=== PATIENT | female | born 1975 | race Two or more races ===

== ENCOUNTER 2020-02-26 14:07 | Outpatient (REF) | payer OTHER, SELFPAY | END 2020-02-26 14:08 | disposition home or self-care (01) | LOC: HO.LAB 14:07 | PROVIDERS: PCP Internal Medicine; Visit Provider Internal Medicine | DX: Z20.828 Contact with and (suspected) exposure to other viral communicable diseases (principal) | CPT/HCPCS: 87635 ==

== ENCOUNTER 2020-03-29 23:20 | Emergency (ER) | payer OTHER, SELFPAY ==
[2020-03-30] MEDS: Eye Irrigation Solution 118 ML IRRIG.SOLN 1 APPL EYE-RIGHT (00:05)
[2020-03-30] MEDS: Fluorescein Sodium STRIP 1 STRIP EYE-RIGHT (00:05)
[2020-03-30 00:06] VITALS: BP 141/59; PULSE 84; RESP 16; TEMP 36.8; O2SAT 99; BMI 26.4
[2020-03-30] MEDS: Tetracaine HCl/PF 0.5% Oph Sol 4 ML DROPS 3 DROP EYE-RIGHT (00:06)
[2020-03-30] MEDS: Erythromycin Base 0.5% Oph Oin 1 GM TUBE 1 CM EYE-RIGHT (00:06)
--- NOTE | 2020-03-30 00:13 | ED_ITS ---
HPI - Eye Problem General Chief complaint: Eye Problems Stated complaint: Eye pain Time Seen by Provider: 03/29/20 23:52 Source: patient Mode of arrival: ambulatory Limitations: no limitations History of Present Illness HPI Narrative: 44-year-old female with type 1 diabetes presents with 3 days of right eye pain. She has more pain when closing her eye, and states that she may have gotten something in her eye that caused this pain. She has had no relief since the injury. She describes blurred vision because of constant tearing. chief complaint: eye pain and vision change ( Blurred) Onset (ago): day(s) (3) Onset description: sudden Duration: constant Location: right eye Eye Symptoms: burning, foreign body sensation and blurry vision Place: home Mechanism: direct trauma Severity: severe Severity scale (1-10): 10 If Pain, Quality: burning Associated symptoms: none Treatments Prior to Arrival: none Related Data Patient tetanus UTD: Yes Previous Rx's Medication Instructions Recorded permethrin 5 % topical cream 1 applic TOPICAL Q14D #60 g 02/26/20 flash glucose sensor #2 ea 03/22/20 erythromycin 0.5 inch OPHTHALMIC (EYE) Q4H 7 03/30/20 Days #3.5 g Allergies Allergy/AdvReac Type Severity Reaction Status Date / Time No Known Allergies Allergy Unverified 01/22/20 17:00 Review of Systems Review of Systems: Constitutional: No Fever, No Chills ENT/Mouth: No swallowing difficulty, no change in voice, no facial swelling Eyes: positive Eye Pain, No Swelling Cardiovascular: No Chest Pain, No SOB Respiratory: No Cough, No Sputum, No Wheezing, No Smoke Exposure, No Dyspnea Gastrointestinal: No Nausea, No Vomiting, No Diarrhea Genitourinary: No Dysuria Musculoskeletal: No Myalgias Skin: No rash Neuro: No Weakness, No Numbness, No Headache Yes all other systems are reviewed and are negative [facility] Past Medical History Attestation statement: The following information was validated with the patient. Medical History Diabetes type 1, uncontrolled Surgical History No pertinent past surgical history Family History Family History Father Diabetes Mother Diabetes Hypertension Social History Social History Alcohol intake: never Smoking Status: Never smoker Use of substances other than those prescribed or required for medical reasons: No Advance Directives: No Advance Directives Information Provided: No Physical Exam Vital Signs: Vital Signs: Last Vital Signs Temp 98.2 F 03/30/20 00:06 Pulse 86 03/30/20 00:41 Resp 16 03/30/20 00:41 BP 145/67 H 03/30/20 00:41 Pulse Ox 99 03/30/20 00:41 Body Mass Index 26.4 Appearance: Alert. Oriented X3. moderate distress. Eyes: Pupils equal, round and reactive to light. corneal abrasion noted to the right eye ENT: Pharynx normal. Neck: Normal inspection. Neck supple. CVS: Normal heart rate and rhythm. Pulses normal. Respiratory: No respiratory distress. Breath sounds normal. Abdomen: Soft and nontender. Skin: Skin warm and dry. Normal skin color. Normal skin turgor. Extremities: No lower extremity edema. Neuro: No motor deficit. No sensory deficit. Course Course Course Narrative: 44-year-old female with type 1 diabetes presents with right eye pain for 3 days. Feels like she had a foreign body prior to onset of the pain and now has difficulty closing the eye and has constant tearing. Three drops of tetracaine used, fluorescein, Wood's lamp at bedside, corneal abrasion noted to the right eye from the 3 o'clock position to the 9 o'clock position. Erythromycin eye ointment placed. Detailed description of eye care given, patient will follow-up with Dr. Tidwell via phone call For an appointment tomorrow. Patient has full range of motion, EOMI, PERLLA, no eye pain on movement. Tdap vaccine updated approximately 2 years ago. Patient verbalized understanding of and agrees to plan of care discharge home. MDM - Eye Problem Differential Diagnosis Differential diagnosis: Likely corneal abrasion, conjunctivitis, acute iritis, hyphema, periorbital cellulitis, subconjunctival hemorrhage, glaucoma, corneal ulcer and ruptured globe Medical Records Attestation: I reviewed the patient's medical records. Discharge Plan Discharge Clinical Impression: Corneal abrasion Qualifiers: Encounter type: initial encounter Laterality: right Qualified Code(s): S05.01XA - Injury of conjunctiva and corneal abrasion without foreign body, right eye, initial encounter Patient Disposition: Home, Self-Care Instructions: Corneal Abrasion (ED) Additional Instructions: you were evaluated for right eye pain. You have a right eye corneal abrasion. Please follow-up with Dr Tidwell tomorrow. Please call for an appointment. Wash hands before and after applying eye care. Use erythromycin eye appointment to the right eye every 4 hours while awake. Use Motrin and/or Tylenol as needed for pain management. Do not rub or scratch the eye. Thank you for choosing this emergency department for evaluation. Please follow-up with primary care physician as needed. Return to the emergency department for any new, concerning, or worsening symptoms. Prescriptions: New erythromycin 5 mg/gram (0.5 %) ointment 0.5 inch ophthalmic (eye) Q4H 7 Days Qty: 3.5 RF: 0 No Action (DME) [employer] 14 Day Sensor Kit See Rx Instructions .MEDSUPPLY Qty: 2 RF: 6 permethrin 5 % cream 1 applic topical Q14D Qty: 60 RF: 1 Referrals: Rubén Tidwell [Physician] - 2 days ( right corneal abrasion from the 3 o'clock to 9 o'clock position.) Interventions: ED Discharge Assessment Last Done: 03/30/20 00:39 Discharge Date/Time: 03/30/20 00:50
[2020-03-30 00:41] VITALS: BP 145/67; PULSE 86; RESP 16; O2SAT 99
--- NOTE | 2020-03-30 00:48 | PC.NURSE ---
eye assessment. pt has medication placed in her right eye due to a cornal abbrassion. right eye watery. left eye at baseline. 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
== END 2020-03-30 00:50 | disposition home or self-care (01) ==
LOC: HO.ED 03-30 00:26
PROVIDERS: Emergency Provider Internal Medicine; PCP Internal Medicine
DX: S05.01XA Injury of conjunctiva and corneal abrasion without foreign body, right eye, initial encounter (principal); H57.11 Ocular pain, right eye; E10.9 Type 1 diabetes mellitus without complications; X58.XXXA Exposure to other specified factors, initial encounter; Y93.9 Activity, unspecified; Y92.9 Unspecified place or not applicable; Y99.9 Unspecified external cause status; Z79.899 Other long term (current) drug therapy
CPT/HCPCS: 99283; 99284

== ENCOUNTER 2020-04-28 14:54 | Outpatient (REF) | payer OTHER, SELFPAY | END 2020-04-28 14:55 | disposition home or self-care (01) | LOC: HO.LAB 14:54 | PROVIDERS: PCP Internal Medicine; Visit Provider Internal Medicine | DX: Z20.828 Contact with and (suspected) exposure to other viral communicable diseases (principal) | CPT/HCPCS: C9803; U0003 ==

== ENCOUNTER 2020-05-12 11:19 | Outpatient (REF) | payer OTHER, SELFPAY | END 2020-05-12 11:20 | disposition home or self-care (01) | LOC: HO.LAB 11:19 | PROVIDERS: PCP Internal Medicine; Visit Provider Internal Medicine | DX: Z20.828 Contact with and (suspected) exposure to other viral communicable diseases (principal) | CPT/HCPCS: 36415; C9803; U0003 ==

== ENCOUNTER → 2020-05-17 09:28 | Outpatient (BNVA) | payer OTHER, SELFPAY | PROVIDERS: PCP Internal Medicine; Referring Provider Internal Medicine; Visit Provider Internal Medicine Endocrinology, Diabetes & Metabolism | DX: Z76.89 Persons encountering health services in other specified circumstances (principal) ==

== ENCOUNTER 2020-05-31 16:07 | Outpatient (REF) | payer OTHER, SELFPAY | END 2020-05-31 16:08 | disposition home or self-care (01) | LOC: HO.LAB 16:07 | PROVIDERS: Visit Provider Internal Medicine | DX: Z20.822 Contact with and (suspected) exposure to COVID-19 (principal) | CPT/HCPCS: 36415; C9803; U0003 ==

== ENCOUNTER 2020-06-04 17:13 | Emergency (ER) | payer OTHER, SELFPAY ==
[2020-06-04 17:18] VITALS: BP 202/87; PULSE 81; RESP 16; TEMP 36.8; O2SAT 99; BMI 26.5
--- NOTE | 2020-06-04 17:55 | ED.HA ---
HPI - Headache General Chief Complaint: Headache Stated Complaint: migraines Time Seen by Provider: 06/04/20 17:51 Source: patient Mode of arrival: ambulatory Limitations: no limitations History of Present Illness HPI Narrative: Patient with history of recurrent migraine headaches complaining of headache since morning similar to her previous headache was localized mostly the frontal part patient with nausea and vomiting photosensitivity patient denies any fever or neck pain Related Data Home Medications Medication Instructions Recorded Confirmed atorvastatin 20 mg tablet 20 mg PO BEDTIME 04/22/20 05/17/20 hydroxyzine HCl 25 mg tablet 25 mg PO BID PRN 04/22/20 05/17/20 levothyroxine 100 mcg tablet 100 mcg PO DAILY 04/22/20 05/17/20 citalopram 20 mg tablet 20 mg PO DAILY 05/17/20 05/17/20 doxepin 75 mg capsule 75 mg PO BEDTIME 05/17/20 05/17/20 Previous Rx's Medication Instructions Recorded permethrin 5 % topical cream 1 applic TOPICAL Q14D #60 g 02/26/20 flash glucose sensor #2 ea 03/22/20 erythromycin 0.5 inch OPHTHALMIC (EYE) Q4H 7 03/30/20 Days #3.5 g insulin glargine U-300 conc 300 20 unit SUBCUT DAILY #4.5 ml 04/19/20 unit/mL (1.5 mL) subcutaneous pen gabapentin 300 mg capsule 300 mg PO TID 30 Days #90 cap 04/22/20 lisinopril 10 mg tablet 10 mg PO DAILY 90 Days #90 tab 04/22/20 metoclopramide HCl 5 mg tablet 5 mg PO TID 30 Days #90 tab 04/22/20 albuterol sulfate 90 mcg/actuation 2 inh INHALATION Q6H PRN 30 Days 05/25/20 breath activated powder inhaler #1 ea Allergies Allergy/AdvReac Type Severity Reaction Status Date / Time No Known Allergies Allergy Verified 04/22/20 08:44 Review of Systems Review of Systems: Constitutional : No Weight loss, No Fever, No Chills ENT/Mouth : No sore throat, No Rhinorrhea Eyes: No Eye Pain, No Swelling Cardiovascular : No Chest Pain, no palpitations Respiratory : No Cough, No Sputum, no shortness of breath Gastrointestinal : + Nausea, +Vomiting, No Diarrhea, No abdominal Pain, no black stools Genitourinary : No Dysuria, No Urinary Frequency Musculoskeletal : No joint pain, No Myalgias, No Joint Swelling Skin : No Skin Lesions, No rash Neuro : No Weakness, No Numbness, No Dizziness, ++ Headache Psych : No Anxiety/Panic, No Depression Heme/Lymph: No Bruising, No Lymphadenopathy Endocrine : No Polyuria, No Polydipsia All other systems reviewed and are negative PMFSH Past Medical History 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 Hypothyroidism Vitamin D deficiency Surgical History No pertinent past surgical history Family History Family History Father Diabetes Mother Diabetes Hypertension Social History Social History Alcohol intake: never Smoking Status: Never smoker Smoked in Last 30 Days: No Use of substances other than those prescribed or required for medical reasons: No Advance Directives: No Advance Directives Information Provided: Yes Physical Exam Vital Signs: Vital Signs: Last Vital Signs Temp 98.2 F 06/04/20 19:09 Pulse 76 06/04/20 19:09 Resp 18 06/04/20 19:09 BP 180/74 H 06/04/20 19:09 Pulse Ox 98 06/04/20 19:09 Body Mass Index 26.5 Appearance: Alert. Oriented X3. In mild distress anxious. Eyes: Pupils equal, round and reactive to light photosensitive. ENT: Pharynx normal. Temporal artery nontender Neck: Normal inspection. Neck supple. CVS: Normal heart rate and rhythm. Pulses normal. Respiratory: No respiratory distress. Breath sounds normal. Abdomen: Soft and nontender. Bowel sounds are present, no mass palpable, no CVA tenderness Skin: Skin warm and dry. Normal skin color. Normal skin turgor. Extremities: No lower extremity edema. Neuro: Oriented X 3. No motor deficit. No sensory deficit. Course Course Course Narrative: Patient feeling much better now after Imitrex discharge patient home Discharge Plan Discharge Prescriptions: No Action (DME) [employer] 14 Day Sensor Kit See Rx Instructions .MEDSUPPLY Qty: 2 RF: 6 insulin glargine U-300 conc [[employer] SoloStar U-300 Insulin] 300 unit/mL (1.5 mL) insulin pen 20 unit subcut DAILY Qty: 4.5 RF: 4 ProAir RespiClick 90 mcg/actuation aerosol powdr breath activated 2 inh inhalation Q6H PRN (Reason: shortness of breath or wheezing) 30 Days Qty: 1 RF: 6 erythromycin 5 mg/gram (0.5 %) ointment 0.5 inch ophthalmic (eye) Q4H 7 Days Qty: 3.5 RF: 0 hydroxyzine HCl 25 mg tablet 25 mg PO BID PRNRF: 0 atorvastatin 20 mg tablet 20 mg PO BEDTIME RF: 0 levothyroxine 100 mcg tablet 100 mcg PO DAILY RF: 0 gabapentin 300 mg capsule 300 mg PO TID 30 Days Qty: 90 RF: 6 lisinopril 10 mg tablet 10 mg PO DAILY 90 Days Qty: 90 RF: 3 metoclopramide HCl 5 mg tablet 5 mg PO TID 30 Days Qty: 90 RF: 6 permethrin 5 % cream 1 applic topical Q14D Qty: 60 RF: 1 citalopram 20 mg tablet 20 mg PO DAILY RF: 0 doxepin 75 mg capsule 75 mg PO BEDTIME RF: 0
[2020-06-04] MEDS: Ketorolac Tromethamine 30 MG/ML VIAL IVPUSH (18:25)
[2020-06-04] MEDS: LORazepam 2 MG/ML VIAL 1 MG IVPUSH (18:25)
[2020-06-04] MEDS: ondansetron HCL 4 MG/2 ML VIAL IVPUSH (18:25)
[2020-06-04] MEDS: 0.9 % Sodium Chloride 1,000 ML 999 ML IVCONT (18:25)
[2020-06-04 19:09] VITALS: BP 180/74; PULSE 76; RESP 18; TEMP 36.8; O2SAT 98
== END 2020-06-04 20:13 | disposition home or self-care (01) ==
PROVIDERS: Emergency Provider Internal Medicine
DX: G43.909 Migraine, unspecified, not intractable, without status migrainosus (principal); R11.2 Nausea with vomiting, unspecified; Z79.899 Other long term (current) drug therapy
CPT/HCPCS: 96361; 96372; 96374; 96375; 99284; J1885; J2060; J2405; J3030

== ENCOUNTER 2020-06-21 15:13 | Outpatient (REF) | payer OTHER, SELFPAY | END 2020-06-21 15:14 | disposition home or self-care (01) | LOC: HO.LAB 15:13 | PROVIDERS: PCP Internal Medicine; Visit Provider Internal Medicine | DX: Z20.822 Contact with and (suspected) exposure to COVID-19 (principal) | CPT/HCPCS: 36415; C9803; U0003; U0005 ==

== ENCOUNTER 2020-07-06 09:48 | Emergency (ER) | payer OTHER, SELFPAY ==
--- NOTE | ~2020-07-06 | US_ITS ---
EXAMINATION: US VENOUS WITH DOPPLER UPPER EXTREMITY, RIGHT CLINICAL INFORMATION: Pain. History of IV in the arm one month ago COMPARISON: None TECHNIQUE: Ultrasound of the upper extremity is performed using compression sonography and color and pulse Doppler flow with assessment of augmentation of flow. There is also imaging and Doppler assessment of the jugular and subclavian veins. Spectral analysis with color-flow imaging is performed. FINDINGS: Respiratory variation, normal compression, and augmented flow are noted throughout the upper extremity including the axillary, brachial, and radial and ulnar veins. The cephalic vein is not visualized. There is normal flow in the internal jugular and subclavian veins. There is no visible deep or superficial thrombophlebitis. US/US venous duplex UE RT IMPRESSION: No DVT demonstrated in the right upper extremity
[2020-07-06 09:53] VITALS: BP 146/64; PULSE 82; RESP 16; TEMP 36.3; O2SAT 100; BMI 26.4
[2020-07-06] MEDS: Ibuprofen 600 MG TABLET PO (11:27)
--- NOTE | 2020-07-06 11:50 | ED.EXTPRO ---
HPI - Extremity Problem General Chief complaint: Extremity Injury, Upper Stated complaint: ARM PAIN Time Seen by Provider: 07/06/20 11:03 Source: patient Mode of arrival: ambulatory History of Present Illness HPI Narrative: 44-year-old female with a past medical history of diabetes, diabetic gastroparesis, polyneuropathy, dyslipidemia, hypertension, hypothyroid, vitamin-D deficiency to the ED complaining of right arm pain/swelling s/p having an IV placed on 06/04. Reports pain with ROM and palpation. Denies known injury/trauma or falls, numbness, tingling, weakness, shortness of breath, fever, history of blood clots, oral OCPs, smoking MD Complaint: extremity pain and extremity swelling Related Data Home Medications Medication Instructions Recorded Confirmed hydroxyzine HCl 25 mg tablet 25 mg PO BID PRN 04/22/20 05/17/20 levothyroxine 100 mcg tablet 100 mcg PO DAILY 04/22/20 05/17/20 citalopram 20 mg tablet 20 mg PO DAILY 05/17/20 05/17/20 doxepin 75 mg capsule 75 mg PO BEDTIME 05/17/20 05/17/20 Previous Rx's Medication Instructions Recorded permethrin 5 % topical cream 1 applic TOPICAL Q14D #60 g 02/26/20 flash glucose sensor #2 ea 03/22/20 erythromycin 0.5 inch OPHTHALMIC (EYE) Q4H 7 03/30/20 Days #3.5 g insulin glargine U-300 conc 300 20 unit SUBCUT DAILY #4.5 ml 04/19/20 unit/mL (1.5 mL) subcutaneous pen gabapentin 300 mg capsule 300 mg PO TID 30 Days #90 cap 04/22/20 lisinopril 10 mg tablet 10 mg PO DAILY 90 Days #90 tab 04/22/20 metoclopramide HCl 5 mg tablet 5 mg PO TID 30 Days #90 tab 04/22/20 albuterol sulfate 90 mcg/actuation 2 inh INHALATION Q6H PRN 30 Days 05/25/20 breath activated powder inhaler #1 ea atorvastatin 20 mg tablet 20 mg PO DAILY #30 tab 07/01/20 Allergies Allergy/AdvReac Type Severity Reaction Status Date / Time No Known Allergies Allergy Verified 04/22/20 08:44 Review of Systems Review of Systems: Constitutional: No Fever, No Chills Cardiovascular: No Chest Pain, No SOB, No Edema Respiratory: No Cough Musculoskeletal: +joint pain, No Myalgias, + Joint Swelling Skin: No Skin Lesions, No rash Neuro: No Weakness, No Numbness, No Paresthesias Yes all other systems are reviewed and are negative COUNTS INCLUDE 234 BEDS AT THE [facility] Past Medical History Attestation statement: The following information was validated with the patient. 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 Hypothyroidism Vitamin D deficiency Surgical History No pertinent past surgical history Family History Family History Father Diabetes Mother Diabetes Hypertension Social History Social History Alcohol intake: never Smoking Status: Never smoker Advance Directives: Yes Advance Directives Information Provided: Yes Advance Directives on File: No Physical Exam Vital Signs: Vital Signs: Last Vital Signs Temp 97.3 F 07/06/20 09:53 Pulse 82 07/06/20 09:53 Resp 16 07/06/20 09:53 BP 146/64 H 07/06/20 09:53 Pulse Ox 100 07/06/20 09:53 Body Mass Index 26.4 Const: General: cooperative, healthy appearing, comfortable and no acute distress Orientation/consciousness: patient oriented x3 Limitations: no limitations HENMT: Head: Yes normal to inspection Ears: hearing grossly normal bilaterally General nose exam: Normal external nose present Face and sinus: Yes normal facial exam Eyes: General: appearance normal, both eyes and all related structures EOM: EOMs intact bilaterally Neck: Neck: Yes normal visual inspection and Yes no meningeal signs Resp: Effort & Inspection: normal respiratory effort, not labored and not tachypneic Cardio: Rate: regular rate Peripheral pulses: radial pulses present Skin: Rashes: no rashes Wounds: no wounds Neuro: General: patient oriented x3, tone normal, moves all extremities and no meningeal signs Extrem: Other: Right hand/wrist and distal forearm with slight swelling and tenderness to palpation. No crepitus. Compartments soft. Neurovascularly intact. Limited ROM of hand/wrist secondary to pain. No deformity/discoloration. General: Yes normal to inspection MDM - Extremity (Nontraumatic) MDM Narrative Medical decision making narrative: On exam VSS, NAD/well-appearing, physical exam as above. Concern for ?DVT vs MSK pain. Unlikely fracture or compartment syndrome or sprain/sprain or infiltration issue with IV 1 mos ago. Plan: Venous Duplex Discharge Plan Discharge Prescriptions: No Action (DME) [employer] 14 Day Sensor Kit See Rx Instructions .MEDSUPPLY Qty: 2 RF: 6 insulin glargine U-300 conc [[employer] SoloStar U-300 Insulin] 300 unit/mL (1.5 mL) insulin pen 20 unit subcut DAILY Qty: 4.5 RF: 4 ProAir RespiClick 90 mcg/actuation aerosol powdr breath activated 2 inh inhalation Q6H PRN (Reason: shortness of breath or wheezing) 30 Days Qty: 1 RF: 6 atorvastatin 20 mg tablet 20 mg PO DAILY Qty: 30 RF: 6 erythromycin 5 mg/gram (0.5 %) ointment 0.5 inch ophthalmic (eye) Q4H 7 Days Qty: 3.5 RF: 0 hydroxyzine HCl 25 mg tablet 25 mg PO BID PRNRF: 0 levothyroxine 100 mcg tablet 100 mcg PO DAILY RF: 0 gabapentin 300 mg capsule 300 mg PO TID 30 Days Qty: 90 RF: 6 lisinopril 10 mg tablet 10 mg PO DAILY 90 Days Qty: 90 RF: 3 metoclopramide HCl 5 mg tablet 5 mg PO TID 30 Days Qty: 90 RF: 6 permethrin 5 % cream 1 applic topical Q14D Qty: 60 RF: 1 citalopram 20 mg tablet 20 mg PO DAILY RF: 0 doxepin 75 mg capsule 75 mg PO BEDTIME RF: 0
--- NOTE | 2020-07-06 13:20 | PC.NURSE ---
pt complaining that it is taking too long for ultrasound. this rn explained to patient that ultrasound will call us when they are ready for her. pt unhappy about this.
== END 2020-07-06 15:34 | disposition home or self-care (01) ==
PROVIDERS: Emergency Provider Emergency Medicine; PCP Internal Medicine
DX: M79.601 Pain in right arm (principal); R60.0 Localized edema; I10 Essential (primary) hypertension; E11.9 Type 2 diabetes mellitus without complications; Z79.899 Other long term (current) drug therapy
CPT/HCPCS: 93971; 99283

== ENCOUNTER 2020-08-12 13:03 | Outpatient (REF) | payer OTHER, SELFPAY ==
--- NOTE | ~2020-08-12 | XR_ITS ---
EXAMINATION: XR HAND, RIGHT CLINICAL INFORMATION: Pain in the right hand COMPARISON: None TECHNIQUE: PA, lateral, and oblique views of the right hand. FINDINGS: No fracture or dislocation. Alignment is anatomic. Joint spaces are maintained. The soft tissues are unremarkable. XR/XR hand RT min 3V IMPRESSION: Normal right hand.
== END 2020-08-12 13:04 | disposition home or self-care (01) ==
LOC: HO.XRAY 13:03
PROVIDERS: PCP Internal Medicine; Visit Provider Internal Medicine
DX: M79.641 Pain in right hand (principal)
CPT/HCPCS: 73130

== ENCOUNTER → 2020-09-28 09:57 | Outpatient (BNVA) | payer OTHER, SELFPAY | PROVIDERS: PCP Internal Medicine; Visit Provider Internal Medicine Endocrinology, Diabetes & Metabolism ==

== ENCOUNTER 2020-11-05 13:51 | Outpatient (REF) | payer OTHER, SELFPAY ==
--- NOTE | ~2020-11-05 | MM_ITS ---
EXAMINATION: MM SCREENING DIGITAL BREAST TOMOSYNTHESIS, BILATERAL CLINICAL INFORMATION: Screening. Asymptomatic. The lifetime risk of breast cancer based on the Tyrer-Cuzick Model is 11%. COMPARISON: Mammography: 06/02/2019, 05/30/2018, 07/06/2016 TECHNIQUE: Digital breast tomosynthesis is performed in both the craniocaudal and mediolateral oblique views along with computer-aided detection (CAD). Synthesized 2D images are generated from the tomosynthesis. FINDINGS: The breasts are heterogeneously dense, which may obscure small masses (ACR BI-RADS breast composition Category c). There are no significant masses, abnormal calcifications, or other abnormalities. Parenchymal pattern is similar to prior exams. The axilla are unremarkable. Skin contours are smooth. MM/MM tomosynthesis screening BI IMPRESSION: No mammographic evidence of malignancy. ASSESSMENT: BI-RADS 1: Negative RECOMMENDATION: Routine annual mammography screening. This patient's information was entered into a reminder system with a target due date for their next mammogram.
== END 2020-11-05 13:52 | disposition home or self-care (01) ==
LOC: HO.MAMMO 13:51
PROVIDERS: Visit Provider Internal Medicine
DX: Z12.31 Encounter for screening mammogram for malignant neoplasm of breast (principal)
CPT/HCPCS: 77063; 77067

== ENCOUNTER → 2020-12-30 09:38 | Outpatient (BNVA) | payer OTHER, SELFPAY | PROVIDERS: PCP Internal Medicine; Visit Provider Internal Medicine | DX: E10.65 Type 1 diabetes mellitus with hyperglycemia (principal); E78.5 Hyperlipidemia, unspecified; E03.9 Hypothyroidism, unspecified; E04.2 Nontoxic multinodular goiter; E55.9 Vitamin D deficiency, unspecified; I10 Essential (primary) hypertension | CPT/HCPCS: 82947; 99212 ==

== ENCOUNTER 2021-01-07 08:52 | Outpatient (RCR) | payer OTHER, SELFPAY | END 2021-01-19 15:34 | disposition home or self-care (01) | LOC: HO.WCC 08:52 | PROVIDERS: PCP Internal Medicine; Visit Provider Physician Assistant | DX: E10.621 Type 1 diabetes mellitus with foot ulcer (principal); L97.509 Non-pressure chronic ulcer of other part of unspecified foot with unspecified severity; E10.40 Type 1 diabetes mellitus with diabetic neuropathy, unspecified; L84 Corns and callosities; Z87.891 Personal history of nicotine dependence | CPT/HCPCS: 99212 ==

== ENCOUNTER 2021-01-28 14:42 | Emergency (ER) | payer OTHER, SELFPAY ==
--- NOTE | ~2021-01-28 | XR_ITS ---
EXAMINATION: XR HANDS-RIGHT CLINICAL INFORMATION: Right thumb pain. COMPARISON: Radiographs of the right hand done on 08/12/2020. TECHNIQUE: 3 views of the right hand and scaphoid views were obtained. Total of 4 images were obtained. FINDINGS: The bony alignments are intact. The cortices are intact. Articular margins, joint space appear unremarkable. The soft tissues are unremarkable. Specifically, the scaphoid is intact. XR/XR hand wrist RT IMPRESSION: Unremarkable radiographic appearance of the right hand. No significant change since 08/12/2020.
--- NOTE | ~2021-01-28 | XR_ITS ---
EXAMINATION: X-RAY LEFT ANKLE X-RAY LEFT FOOT CLINICAL INFORMATION: Swelling and painful status post trauma. COMPARISON: Radiograph of the left ankle and left foot dated from 11/19/2014. TECHNIQUE: 2 views of the left ankle and 3 views of the left foot were obtained. FINDINGS: Left ankle: There is circumferential soft tissue edema in the ankle which is more prominent in the lateral compartment. There is no evidence of acute fractures or malalignment. The ankle mortise is congruent. Left foot: There is an obliquely oriented fracture in the distal and mid aspect of the fifth metatarsal bone. The distal fracture fragment is displaced medially by approximately 2 mm. No other fractures. Joint spaces are maintained. XR/XR foot LT min 3V IMPRESSION: Obliquely oriented fracture of the fifth metatarsal bone with minimal medial displacement.
--- NOTE | ~2021-01-28 | XR_ITS ---
EXAMINATION: X-RAY LEFT ANKLE X-RAY LEFT FOOT CLINICAL INFORMATION: Swelling and painful status post trauma. COMPARISON: Radiograph of the left ankle and left foot dated from 11/19/2014. TECHNIQUE: 2 views of the left ankle and 3 views of the left foot were obtained. FINDINGS: Left ankle: There is circumferential soft tissue edema in the ankle which is more prominent in the lateral compartment. There is no evidence of acute fractures or malalignment. The ankle mortise is congruent. Left foot: There is an obliquely oriented fracture in the distal and mid aspect of the fifth metatarsal bone. The distal fracture fragment is displaced medially by approximately 2 mm. No other fractures. Joint spaces are maintained. XR/XR ankle LT 2V IMPRESSION: Obliquely oriented fracture of the fifth metatarsal bone with minimal medial displacement.
--- NOTE | ~2021-01-28 | US_ITS ---
EXAMINATION: US VENOUS ULTRASOUND WITH DOPPLER LOWER EXTREMITY, LEFT CLINICAL INFORMATION: Warm swollen left foot. Left calf pain post trauma COMPARISON: None TECHNIQUE: Ultrasound of the deep veins is performed from the hip to the calf with compression sonography and color and pulse Doppler assessment. Spectral analysis with color-flow imaging is performed. FINDINGS: There is normal venous compression and respiratory variation and augmented flow. The visualized common femoral vein, superficial femoral vein, profunda femoral vein, popliteal vein, and the trifurcation region shows no evidence of deep venous thrombosis. There is no significant popliteal fossa cyst. If the patient's symptoms persist, followup ultrasound in 5 days 7 days might be of value to exclude proximal propagation from a non-visualized calf vein. US/US venous duplex LE LT IMPRESSION: No DVT demonstrated in the left lower extremity.
[2021-01-28 15:57] VITALS: BP 153/66; PULSE 75; RESP 18; TEMP 36.9; O2SAT 98; BMI 26.4
--- NOTE | 2021-01-28 17:34 | ED.EXTPRO ---
HPI - Extremity Problem General Chief complaint: Extremity Problem Stated complaint: FALL FOOT AND THUMB INJ Time Seen by Provider: 01/28/21 17:07 Source: patient Mode of arrival: ambulatory Limitations: no limitations History of Present Illness HPI Narrative: 45-year-old female with a past medical history of diabetes type 1, diabetic gastroparesis, polyneuropathy, dyslipidemia, hypertension, hypothyroid, vitamin-D deficiency presents for a fall out of bed 3 days ago and subsequent right thumb pain and left lateral foot, ankle, calf pain. MD Complaint: extremity pain and extremity swelling Onset (ago): day(s) (3) Related Data Home Medications Medication Instructions Recorded Confirmed hydroxyzine HCl 25 mg tablet 25 mg PO BID PRN 04/22/20 12/30/20 citalopram 20 mg tablet 20 mg PO DAILY 05/17/20 12/30/20 doxepin 75 mg capsule 75 mg PO BEDTIME 05/17/20 12/30/20 Previous Rx's Medication Instructions Recorded permethrin 5 % topical cream 1 applic TOPICAL Q14D #60 g 02/26/20 erythromycin 5 mg/gram (0.5 %) eye 0.5 inch OPHTHALMIC (EYE) Q4H 7 03/30/20 ointment Days #3.5 g gabapentin 300 mg capsule 300 mg PO TID 30 Days #90 cap 04/22/20 lisinopril 10 mg tablet 10 mg PO DAILY 90 Days #90 tab 04/22/20 albuterol sulfate 90 mcg/actuation 2 inh INHALATION Q6H PRN 30 Days 05/25/20 breath activated powder inhaler #1 ea (ProAir RespiClick) acetaminophen 500 mg tablet 500 mg PO Q6H PRN #20 tab 07/06/20 (Tylenol Extra Strength) cyclobenzaprine 5 mg tablet 5 mg PO Q8H PRN 5 Days #14 tab 07/06/20 lidocaine 5 % topical patch 1 patch TOPICAL DAILY PRN #30 ea 07/06/20 (Lidoderm) MDD remove after 12 hours naproxen 500 mg tablet 500 mg PO BID PRN 10 Days #20 tab 07/06/20 cholecalciferol (vitamin D3) 125 125 mcg PO DAILY 30 Days #30 cap 09/10/20 mcg (5,000 unit) capsule Humalog KwikPen Insulin 100 See Rx Instructions SUBCUT .7 09/28/20 unit/mL subcutaneous (insulin times a day 30 Days #15 ml NS lispro) Tirosint 100 mcg capsule 100 mcg PO DAILY 30 Days #30 cap NS 09/28/20 (levothyroxine) insulin glargine U-300 conc 300 17 unit SUBCUT DAILY 30 Days #4.5 09/28/20 unit/mL (1.5 mL) subcutaneous pen ml ([place] SoloStar U-300 Insulin) FreeStyle Lite Meter #1 ea NS 11/17/20 (blood-glucose meter) FreeStyle Lite Strips (blood sugar #200 ea NS 11/17/20 diagnostic) lancets 28 gauge (FreeStyle #200 ea 11/17/20 Lancets) atorvastatin 40 mg tablet 40 mg PO DAILY 30 Days #30 tab 12/30/20 flash glucose sensor (FreeStyle #2 ea 12/30/20 Ade 14 Day Sensor) metoclopramide HCl 5 mg tablet 5 mg PO TID 30 Days #90 tab 01/03/21 oxycodone 5 mg tablet 5 mg PO Q6H 5 Days #20 tab MDD 20 01/28/21 Allergies Allergy/AdvReac Type Severity Reaction Status Date / Time No Known Allergies Allergy Verified 12/30/20 10:30 Review of Systems Constitutional: Constitutional: Denies body ache(s), Denies chills, Denies fatigue, Denies fever(s), Denies headache(s), Denies malaise and Denies weakness Eyes: Eyes: Denies diplopia ENT: Denies vertigo, Denies dizziness, Denies headache(s) and Denies throat swelling Cardiovascular: Cardiovascular: Denies chest pain, Denies syncope, Denies leg edema, Denies lightheadedness, Denies Loss of Consciousness, Denies palpitations and Denies dyspnea Respiratory: Respiratory: Denies chest congestion, Denies cough and Denies dyspnea Gastrointestinal: Gastrointestinal: Reports abdominal pain, Denies hematochezia, Denies constipation, Denies diarrhea and Denies vomiting Musculoskeletal: Musculoskeletal: Reports arthralgias and Reports joint swelling Comments: Right thumb pain, left lateral ankle, left foot, and left calf pain. Integumentary/Breasts: Comments: Redness and swelling ankle left foot, ecchymosis to left lateral malleolus Neurologic: Denies confusion, Denies vertigo, Denies dizziness, Denies syncope, Denies headache(s) and Denies weakness Psychiatric: Psychiatric: Denies anxiety, Denies confusion and Denies depression Endocrine: Endocrine: Denies fatigue and Denies palpitations Allergic/Immunologic: Allergic/Immunologic: Denies throat swelling PMFSH Past Medical History Medical History Diabetes type 1, uncontrolled Diabetic gastroparesis Diabetic polyneuropathy associated with type 1 diabetes mellitus Diabetic retinopathy associated with type 1 diabetes mellitus Dyslipidemia Essential hypertension HLD (hyperlipidemia) HTN (hypertension) 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 Hypothyroidism Hypothyroidism Multinodular thyroid Right hand pain T1DM (type 1 diabetes mellitus) Vitamin D deficiency Surgical History No pertinent past surgical history Family History Family History Father Diabetes Mother Diabetes Hypertension Social History Social History Household Members: None Alcohol intake: never Patient Tobacco Use Status: Former Tobacco user Advance Directives: No Advance Directives Information Provided: Yes Patient : No Physical Exam Vital Signs: Vital Signs: Last Vital Signs Temp 98.4 F 01/28/21 15:57 Pulse 75 01/28/21 15:57 Resp 17 01/28/21 19:00 BP 153/66 H 01/28/21 15:57 Pulse Ox 98 01/28/21 15:57 Body Mass Index 26.4 Const: General: No confusion Nutritional Appearance: well nourished Orientation/consciousness: No confusion Limitations: no limitations HENMT: Head: Yes normal to inspection, Yes normocephalic and Yes atraumatic Ears: hearing grossly normal bilaterally, external ears normal, TM's normal bilaterally and EAC's normal General nose exam: Normal external nose present Face and sinus: Yes normal facial exam and Yes sinuses nontender Mouth: Normal oral and palatal mucosa present Throat: Yes posterior oropharynx normal Eyes: Conjunctivae: conjunctivae normal Pupils: Equal, round and reactive pupils present EOM: EOMs intact bilaterally Neck: Neck: Yes full ROM, Yes no lymphadenopathy and Yes supple Resp: Effort & Inspection: normal respiratory effort and able to speak in complete sentences Auscultation: clear to auscultation bilaterally, no crackles, no rales, no rhonchi and no wheezes Cardio: Rate: regular rate Rhythm: regular rhythm Heart sounds: S1 normal heart sound present and S2 normal heart sound present Skin: Other: Redness and swelling ankle left foot, ecchymosis to left lateral malleolus Neuro: General: No confusion Cranial nerves: Yes Equal, round and reactive pupils present Extrem: Right upper extremity: normal capillary refill, wrist Details: normal to inspection and tenderness Location: of the anatomic snuffbox; Negative for no swelling and no unusual warmth and Extremity exam: right hand Details: normal capillary refill, neuromotor exam normal (pain with any thumb movement), neurosensory exam normal and tenderness Location: of the thumb (entire thumb) Location: involving the entire digit; Negative for no unusual warmth, no swelling, no lacerations, no ecchymosis and no crepitus; No no cyanosis, no edema and joint enlargement noted Left lower extremity: normal capillary refill, edema Details: non-pitting and 1+ and ankle Details: tenderness Location: of the lateral malleolus, swelling Details: laterally, pitting edema Details: pitting and 1+, abnormal ROM Details: pain with active ROM and pain with passive ROM and warmth Location: diffusely Psych: Appearance: grossly normal Affect: normal affect Attitude: cooperative Thought process: Normal thought process present Course Course Course Narrative: 45-year-old female with a past medical history of diabetes type 1, diabetic gastroparesis, polyneuropathy, dyslipidemia, hypertension, hypothyroid, vitamin-D deficiency presents for a fall out of bed 3 days ago and subsequent right thumb pain and left lateral foot, ankle, calf pain. On exam, patient has swollen, diffusely edematous and erythematous left foot lateral left ankle, left calf is tender to palpate. Patient has intact lower extremity pulses, sensation, motor strength. In addition, patient has right thumb tenderness with tenderness in the anatomical snuffbox. Gave oxycodone, x-ray left foot right thumb, will get ultrasound to rule out DVT left foot Reevaluation(s) Reevaluation #1: XR foot shows: obliquely oriented fracture in the distal and mid aspect of the fifth metatarsal bone. The distal fracture fragment is displaced medially by approximately 2 mm. XR ankle and right thumb/hand are unremarkable. Venous Doppler shows no DVT Reevaluation #2: Patient had posterior fiberglass splint applied to left lower extremity, right thumb spica. Prescribed oxycodone, follow-up with orthopedic Discharge Plan Discharge Clinical Impression: Tenderness of anatomical snuffbox Foot fracture, left Qualifiers: Encounter type: initial encounter Fracture type: closed Qualified Code(s): S92.902A - Unspecified fracture of left foot, initial encounter for closed fracture Patient Disposition: Home, Self-Care Instructions: R.I.C.E. Treatment (ED) Additional Instructions: Please call Orthopedics at the following number on Sunday [phone] I have referred you to them, and they should be calling you, but I want you to call them as well. Please use your crutches, and stay off your foot. Please elevate your foot and leave the splint on until you are seen by orthopedics. You may remove the splint on your right hand to wash her hands, otherwise please keep it on. Prescriptions: New oxycodone 5 mg tablet 5 mg PO Q6H MDD 20 5 Days Qty: 20 RF: 0 No Action ProAir RespiClick 90 mcg/actuation aerosol powdr breath activated 2 inh inhalation Q6H PRN (Reason: shortness of breath or wheezing) 30 Days Qty: 1 RF: 6 cholecalciferol (vitamin D3) 125 mcg (5,000 unit) capsule 125 mcg PO DAILY 30 Days Qty: 30 RF: 6 (DME) blood-glucose meter [FreeStyle Lite Meter] Kit See Rx Instructions miscellaneous .MEDSUPPLY Qty: 1 RF: 0 (DME) FreeStyle Lite Strips Strip See Rx Instructions .MEDSUPPLY Qty: 200 RF: 6 (DME) lancets [FreeStyle Lancets] 28 gauge misc See Rx Instructions .MEDSUPPLY Qty: 200 RF: 5 metoclopramide HCl 5 mg tablet 5 mg PO TID 30 Days Qty: 90 RF: 6 acetaminophen [Tylenol Extra Strength] 500 mg tablet 500 mg PO Q6H PRN (Reason: pain or fever) Qty: 20 RF: 0 lidocaine [Lidoderm] 5 % adhesive patch,medicated 1 patch topical DAILY MDD remove after 12 hours PRN (Reason: pain) Qty: 30 RF: 0 naproxen 500 mg tablet 500 mg PO BID PRN (Reason: pain) 10 Days Qty: 20 RF: 0 cyclobenzaprine 5 mg tablet 5 mg PO Q8H PRN (Reason: pain (scale score 7-10)) 5 Days Qty: 14 RF: 0 erythromycin 5 mg/gram (0.5 %) ointment 0.5 inch ophthalmic (eye) Q4H 7 Days Qty: 3.5 RF: 0 hydroxyzine HCl 25 mg tablet 25 mg PO BID PRNRF: 0 gabapentin 300 mg capsule 300 mg PO TID 30 Days Qty: 90 RF: 6 lisinopril 10 mg tablet 10 mg PO DAILY 90 Days Qty: 90 RF: 3 permethrin 5 % cream 1 applic topical Q14D Qty: 60 RF: 1 citalopram 20 mg tablet 20 mg PO DAILY RF: 0 doxepin 75 mg capsule 75 mg PO BEDTIME RF: 0 insulin lispro [Humalog KwikPen Insulin] 100 unit/mL insulin pen See Rx Instructions subcut .7 times a day 30 Days Qty: 15 RF: 6 [employer] SoloStar U-300 Insulin 300 unit/mL (1.5 mL) insulin pen 17 unit subcut DAILY 30 Days Qty: 4.5 RF: 4 levothyroxine [Tirosint] 100 mcg capsule 100 mcg PO DAILY 30 Days Qty: 30 RF: 8 atorvastatin 40 mg tablet 40 mg PO DAILY 30 Days Qty: 30 RF: 11 (DME) FreeStyle Ade 14 Day Sensor Kit See Rx Instructions .MEDSUPPLY Qty: 2 RF: 11 Referrals: Ruddy Augustin MD [Physician] - 2 days (left 5th metatarsal fracture, type 1 DM< right snuffbox tenderness) Interventions: ED Discharge Assessment Last Done: 01/28/21 19:44 Discharge Date/Time: 01/28/21 19:48
[2021-01-28] MEDS: oxyCODONE HCl Immed Release 5 MG TABLET 10 MG PO (18:03)
[2021-01-28 19:00] VITALS: RESP 17
== END 2021-01-28 19:48 | disposition home or self-care (01) ==
PROVIDERS: Emergency Provider Emergency Medicine; PCP Internal Medicine
DX: S92.902A Unspecified fracture of left foot, initial encounter for closed fracture (principal); M79.672 Pain in left foot; M25.531 Pain in right wrist; R60.0 Localized edema; W06.XXXA Fall from bed, initial encounter; Y93.9 Activity, unspecified; Y92.9 Unspecified place or not applicable; Y99.9 Unspecified external cause status; Z79.899 Other long term (current) drug therapy
CPT/HCPCS: 29515; 73110; 73130; 73600; 73630; 93971; 99284

== ENCOUNTER 2021-02-03 12:28 | Outpatient (REF) | payer OTHER, SELFPAY ==
--- NOTE | ~2021-02-03 | XR_ITS ---
EXAMINATION: XR FOOT, LEFT CLINICAL INFORMATION: Pain. COMPARISON: None TECHNIQUE: AP, lateral, and oblique views of the left foot. FINDINGS: There is an oblique fracture the distal shaft of the fifth metatarsal. There is mild medial displacement of the distal fragment. XR/XR foot LT min 3V IMPRESSION: Mildly displaced fracture left fifth metatarsal.
--- NOTE | ~2021-02-03 | XR_ITS ---
EXAMINATION: XR wrist RT w scaphoid CLINICAL INFORMATION: Right hand pain. COMPARISON: None. TECHNIQUE: Right wrist 4 views. FINDINGS: No fracture, malalignment or other bony abnormality is seen. Joint spaces are maintained. There is early arterial calcification. XR/XR wrist RT w scaphoid IMPRESSION: No bony abnormality.
== END 2021-02-03 12:29 | disposition home or self-care (01) ==
LOC: HO.HOSX 12:28
PROVIDERS: Visit Provider Physician Assistant
DX: S92.352A Displaced fracture of fifth metatarsal bone, left foot, initial encounter for closed fracture (principal); S63.641A Sprain of metacarpophalangeal joint of right thumb, initial encounter
CPT/HCPCS: 73110; 73630; 99202

== ENCOUNTER 2021-02-08 10:25 | Outpatient (REF) | payer OTHER, SELFPAY ==
--- NOTE | ~2021-02-08 | XR_ITS ---
EXAMINATION: XR HAND, RIGHT CLINICAL INFORMATION: Sprain of metacarpophalangeal joint COMPARISON: None TECHNIQUE: 2 views of the right hand. FINDINGS: The bones and soft tissues are normal. No fracture. Alignment is anatomic. Joint spaces are maintained. No erosions or soft tissue calcifications. XR/XR hand RT 2V IMPRESSION: Unremarkable right hand exam.
== END 2021-02-08 10:26 | disposition home or self-care (01) ==
LOC: HO.HOSX 10:25
PROVIDERS: Visit Provider Physician Assistant
DX: S63.641A Sprain of metacarpophalangeal joint of right thumb, initial encounter (principal)
CPT/HCPCS: 29085; 73120; 99212

== ENCOUNTER 2021-02-24 08:28 | Outpatient (REF) | payer OTHER, SELFPAY ==
--- NOTE | ~2021-02-24 | XR_ITS ---
EXAMINATION: XR FOOT, LEFT CLINICAL INFORMATION: Left foot pain. COMPARISON: Most recent left foot radiographs dated 02/03/2021. TECHNIQUE: AP, lateral, and oblique views of the left foot. FINDINGS: Oblique fracture through the distal 5th metatarsal diaphysis in unchanged anatomic alignment. Minimal new bone/callus formation. No osseous erosion. Mild degenerative spurring at the dorsal midfoot, unchanged. XR/XR foot LT min 3V IMPRESSION: Fifth metatarsal fracture in unchanged anatomic alignment with minimal new bone/callus formation.
== END 2021-02-24 08:29 | disposition home or self-care (01) ==
LOC: HO.HOSX 08:28
PROVIDERS: Visit Provider Physician Assistant
DX: S92.302A Fracture of unspecified metatarsal bone(s), left foot, initial encounter for closed fracture (principal); Z87.891 Personal history of nicotine dependence
CPT/HCPCS: 73630; 99212

== ENCOUNTER 2021-03-15 07:23 | Outpatient (REF) | payer OTHER, SELFPAY ==
--- NOTE | ~2021-03-15 | XR_ITS ---
EXAMINATION: RIGHT WRIST X-RAY CLINICAL INFORMATION: Pain COMPARISON: Previous x-rays most recent 02/03/2021 TECHNIQUE: 4 views of the right wrist FINDINGS: Bone alignment is normal. No fracture or dislocation is seen. Joint spaces are normal. There is soft tissue arterial calcification. Soft tissues are otherwise normal. XR/XR wrist RT w scaphoid IMPRESSION: Soft tissue arterial calcification otherwise unremarkable exam.
== END 2021-03-15 07:24 | disposition home or self-care (01) ==
LOC: HO.HOSX 07:23
PROVIDERS: Visit Provider Physician Assistant
DX: S63.641A Sprain of metacarpophalangeal joint of right thumb, initial encounter (principal); Z87.891 Personal history of nicotine dependence
CPT/HCPCS: 73110; 99212

== ENCOUNTER 2021-03-28 07:18 | Outpatient (REF) | payer OTHER, SELFPAY ==
--- NOTE | ~2021-03-28 | XR_ITS ---
EXAMINATION: XR FOOT, LEFT CLINICAL INFORMATION: Fracture follow-up COMPARISON: 02/24/2021 TECHNIQUE: AP, lateral, and oblique views of the left foot. FINDINGS: Again seen is obliquely oriented fracture distal diaphysis of the fifth metatarsal with evidence of continued endosteal bridging, decreased lucency associated with the fracture. Minimal surrounding callus formation. No change in mild medial displacement. No additional fractures. Soft tissues unremarkable. XR/XR foot LT min 3V IMPRESSION: Healing fracture of the fifth metatarsal with mild endosteal bridging, increased from prior exam. Minimal surrounding callus formation. No change in alignment
== END 2021-03-28 07:19 | disposition home or self-care (01) ==
LOC: HO.HOSX 07:18
PROVIDERS: Visit Provider Physician Assistant
DX: S92.302A Fracture of unspecified metatarsal bone(s), left foot, initial encounter for closed fracture (principal); Z87.891 Personal history of nicotine dependence
CPT/HCPCS: 73630; 99212

== ENCOUNTER 2021-07-11 10:29 | Outpatient (REF) | payer OTHER, SELFPAY ==
[2021-07-11 11:29] LABS: Estimated Average Glucose 237 mg/dL; Hemoglobin A1c % 9.9 %
[2021-07-11 12:01] LABS: Alanine Aminotransferase 22 U/L (0-31); Albumin Level 4.2 g/dL (3.5-5.0); Alkaline Phosphatase 171 U/L (39-117); Anion Gap 18 (12-20); Aspartate Amino Transferase 17 U/L (5-31); Bilirubin Total 0.4 mg/dL (0.0-1.0); Blood Urea Nitrogen 20 mg/dL (9-16); Calcium 10.2 mg/dL (8.4-10.2); Carbon Dioxide 21 mmol/L (22-29); Chloride 101 mmol/L (96-108); Cholesterol 200 mg/dL; Estimated Glomerular Filt Rate 55; Glucose Random 331 mg/dL (60-115); HDL Cholesterol 72 mg/dL; LDL Cholesterol Calculated 86 mg/dl; Potassium 4.6 mmol/L (3.3-5.1); Sodium 135 mmol/L (135-145); Total Protein 7.3 g/dL (6.5-8.0); Triglycerides 214 mg/dL
[2021-07-11 12:06] LABS: Free T4 (Free Thyroxine) 0.83 ng/dL (0.71-1.85); Thyroid Stimulating Hormone 4.44 uIU/mL (0.32-4.0); Vitamin D 25-OH Total 31.3 ng/mL (>30)
[2021-07-11 12:40] LABS: Creatinine Urine 106.24 mg/dL; Microalbum/Creatinine Ratio Ur 10.3 ug/mg cr
[2021-07-12 14:27] LABS: LDL Cholesterol Direct 94 mg/dL (<100)
== END 2021-07-11 10:30 | disposition home or self-care (01) ==
LOC: HO.LAB 10:29
PROVIDERS: Absent Provider Internal Medicine; PCP Internal Medicine; Visit Provider Internal Medicine
DX: E10.9 Type 1 diabetes mellitus without complications (principal); E03.9 Hypothyroidism, unspecified; E04.2 Nontoxic multinodular goiter; E55.9 Vitamin D deficiency, unspecified
CPT/HCPCS: 36415; 80053; 80061; 82043; 82306; 83036; 83721; 84439; 84443

== ENCOUNTER 2021-07-20 13:36 | Outpatient (REF) | payer OTHER, SELFPAY ==
--- NOTE | ~2021-07-20 | US_ITS ---
EXAMINATION: US THYROID CLINICAL INFORMATION: Nontoxic multinodular goiter. COMPARISON: Ultrasound soft tissue head/neck thyroid dated 03/17/2019. TECHNIQUE: Linear transducer grayscale and color Doppler examination with attention to the region of the thyroid. FINDINGS: SIZE: Measurements of the thyroid lobes and nodules are given in sagittal, anteroposterior and transverse dimensions respectively. Right Thyroid Lobe: 5.0 x 1.4 x 1.6 cm, volume 5.9 mL. Previously 4.5 x 1.4 x 1.4 cm, volume 4.5 mL. Parenchyma: The gland echotexture is heterogeneous. Thyroid vascularity is normal. Left Thyroid Lobe: 4.8 x 1.6 x 1.7 cm, volume 6.8 mL. Previously 4.6 x 1.6 x 1.6 cm, volume 5.9 mL. Parenchyma: The gland echotexture is heterogeneous. Thyroid vascularity is normal. Isthmus: 0.6 cm in maximum AP dimension. Previously 0.7 cm. Estimated total number of nodules greater than or equal to 1 cm: 0. Farmer General nodules are described as follows: 1. Location: Left superior. Size: 0.7 x 0.2 x 0.6 cm, volume 0.04 mL. Previously: 0.7 x 0.2 x 0.6 cm, volume 0.04 mL. Nodule characteristics: Composition: Solid (2). Echogenicity: Hypoechoic (2). Shape: Not taller than wide (0). Margins: Ill-defined (0). Echogenic Foci: None (0). ACR TI-RADS total points: 4 ACR TI-RADS category: 4 Significant change in size (>/= 20% in 2 dimensions and minimal increase of 2 mm or 50% or greater increase in volume): Change in features: Change in ACR TI-RADS risk category: 2. Location: Left inferior. Size: 0.5 x 0.4 x 0.4 cm, volume 0.04 mL. Previously: 0.3 x 0.4 x 0.4 cm, volume 0.03 mL. Nodule characteristics: Composition: Solid (2). Echogenicity: Very hypoechoic (3). Shape: Not taller than wide (0). Margins: Ill-defined (0). Echogenic Foci: None (0). ACR TI-RADS total points: 5 ACR TI-RADS category: 4 Significant change in size (>/= 20% in 2 dimensions and minimal increase of 2 mm or 50% or greater increase in volume): Change in features: Change in ACR TI-RADS risk category: NODES: No lymphadenopathy is seen in the tissue surrounding the thyroid gland. US/US thyroid IMPRESSION: Heterogeneous thyroid gland. Stable small left nodules. ACR TI-RADS RECOMMENDATION REFERENCE: Ultrasound-guided fine-needle aspiration, followup ultrasound, no further follow up. * TR1 (0 point) and TR 2 (2 points): No FNA or follow up * TR3 (3 points): FNA if more than or equal to 2.5 cm in maximum dimension, followup ultrasound in 1, 3 and 5 years if 1.5 to 2.4 cm in maximum dimension. * TR4 (4-6 points): FNA if more than or equal to 1.5 cm in maximum dimension, followup ultrasound in 1, 2, 3 and 5 years if 1 to 1.4 cm in maximum dimension. * TR5 (more than or equal to 7 points): FNA if more than or equal to 1 cm in maximum dimension, followup ultrasound every year for 5 years if 0.5 to 0.9 cm in maximum dimension. * TR3, TR4 or TR5 nodules that are below the size threshold for follow up receive no follow up.
== END 2021-07-20 13:37 | disposition home or self-care (01) ==
LOC: HO.US 13:36
PROVIDERS: PCP Internal Medicine; Visit Provider Internal Medicine
DX: E04.2 Nontoxic multinodular goiter (principal)
CPT/HCPCS: 76536

== ENCOUNTER 2021-09-06 14:27 | Outpatient (RCR) | payer OTHER, SELFPAY | END 2021-09-07 10:21 | disposition home or self-care (01) | LOC: HO.WCC 14:27 | PROVIDERS: PCP Internal Medicine; Visit Provider Physician Assistant | DX: Z09 Encounter for follow-up examination after completed treatment for conditions other than malignant neoplasm (principal); L84 Corns and callosities; E10.40 Type 1 diabetes mellitus with diabetic neuropathy, unspecified; E10.65 Type 1 diabetes mellitus with hyperglycemia; R60.9 Edema, unspecified; I10 Essential (primary) hypertension; E03.9 Hypothyroidism, unspecified; Z79.4 Long term (current) use of insulin; Z87.891 Personal history of nicotine dependence | CPT/HCPCS: 11055; 99213 ==

== ENCOUNTER → 2021-09-07 10:34 | Outpatient (BNVA) | payer OTHER, SELFPAY | PROVIDERS: PCP Internal Medicine; Visit Provider Internal Medicine | DX: Z13.89 Encounter for screening for other disorder (principal) ==

== ENCOUNTER 2021-09-22 07:09 | Outpatient (REF) | payer OTHER, SELFPAY ==
[2021-09-22 09:06] LABS: Free T4 (Free Thyroxine) 0.86 ng/dL (0.71-1.85); Thyroid Stimulating Hormone 6.39 uIU/mL (0.32-4.0)
== END 2021-09-22 07:10 | disposition home or self-care (01) ==
LOC: HO.LAB 07:09
PROVIDERS: PCP Internal Medicine; Visit Provider Internal Medicine
DX: E03.9 Hypothyroidism, unspecified (principal); E04.2 Nontoxic multinodular goiter
CPT/HCPCS: 36415; 84439; 84443

== ENCOUNTER 2021-10-28 07:58 | Outpatient (RCR) | payer OTHER, SELFPAY | END 2021-11-10 14:36 | disposition home or self-care (01) | LOC: HO.WCC 07:58 | PROVIDERS: PCP Internal Medicine; Visit Provider Physician Assistant | DX: E10.621 Type 1 diabetes mellitus with foot ulcer (principal); L97.522 Non-pressure chronic ulcer of other part of left foot with fat layer exposed; E10.44 Type 1 diabetes mellitus with diabetic amyotrophy; L84 Corns and callosities; I10 Essential (primary) hypertension; Z79.4 Long term (current) use of insulin; Z87.891 Personal history of nicotine dependence | CPT/HCPCS: 11042; 99212 ==

== ENCOUNTER → 2021-12-08 13:20 | Outpatient (BNVA) | payer OTHER, SELFPAY | PROVIDERS: PCP Internal Medicine; Visit Provider Internal Medicine | DX: E10.65 Type 1 diabetes mellitus with hyperglycemia (principal); E78.5 Hyperlipidemia, unspecified | CPT/HCPCS: 82947; 83036; 99212 ==

== ENCOUNTER 2022-07-06 09:23 | Outpatient (REF) | payer OTHER, SELFPAY ==
[2022-07-06 11:10] LABS: Alanine Aminotransferase 32 U/L (0-31); Albumin Level 4.2 g/dL (3.5-5.0); Alkaline Phosphatase 156 U/L (39-117); Anion Gap 13 (12-20); Aspartate Amino Transferase 29 U/L (5-31); Bilirubin Total 0.5 mg/dL (0.0-1.0); Blood Urea Nitrogen 13 mg/dL (9-16); Carbon Dioxide 28 mmol/L (22-29); Chloride 102 mmol/L (96-108); Cholesterol 192 mg/dL; Estimated Glomerular Filt Rate > 60; Glucose Fasting 218 mg/dL (60-99); HDL Cholesterol 61 mg/dL; LDL Cholesterol Calculated 95 mg/dl; Potassium 4.1 mmol/L (3.3-5.1); Sodium 139 mmol/L (135-145); Total Protein 7.1 g/dL (6.5-8.0); Triglycerides 181 mg/dL
[2022-07-06 11:20] LABS: Creatinine Urine 180.86 mg/dL; Microalbum/Creatinine Ratio Ur 15.4 ug/mg cr
[2022-07-06 11:28] LABS: Thyroid Stimulating Hormone 5.44 uIU/mL (0.32-4.0); Vitamin D 25-OH Total 45.5 ng/mL (>30)
== END 2022-07-06 09:24 | disposition home or self-care (01) ==
LOC: HO.LAB 09:23
PROVIDERS: Absent Provider Internal Medicine; PCP Internal Medicine; Visit Provider Internal Medicine
DX: E55.9 Vitamin D deficiency, unspecified (principal); E04.2 Nontoxic multinodular goiter; E78.5 Hyperlipidemia, unspecified; E11.621 Type 2 diabetes mellitus with foot ulcer; L97.501 Non-pressure chronic ulcer of other part of unspecified foot limited to breakdown of skin
CPT/HCPCS: 36415; 80053; 80061; 82043; 82306; 84443

== ENCOUNTER 2022-07-26 10:05 | Emergency (ER) | payer OTHER, SELFPAY ==
--- NOTE | ~2022-07-26 | CT_ITS ---
EXAMINATION: CT HEAD WITHOUT CONTRAST CLINICAL INFORMATION: Migraine, pain COMPARISON: 01/18/2020 TECHNIQUE: Contiguous axial imaging was performed from the skull base to vertex without intravenous administration of contrast. This CT examination was performed using dose optimization techniques as appropriate, variously including the following: *Automated exposure control *Adjustment of mA and/or kV according to patient size (this includes techniques or standardized protocols for targeted exams where dose is matched to indication/reason for exam; i.e. extremities or head) *Use of iterative reconstruction technique DLP: 563 mGy-cm FINDINGS: There is no midline shift. There is no mass effect. There is no hemorrhage. The basilar cisterns appear patent. The posterior fossa is grossly within normal limits. There is no extra-axial collection The tillman-white matter is comparable to previous. Some prominence of the ventricular system but no change from previous. Prominent sulci once again seen. Review of the bone windows demonstrates grossly clear sinuses. CT/CT head/brain wo IV con IMPRESSION: Negative acute noncontrast CT of the brain.
--- NOTE | 2022-07-26 10:09 | ED_ITS ---
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 Patient states that starting this morning she began to have a headache with nausea and vomiting. Patient denies any dizziness, lightheadedness, abdominal pain, fever, chills, blurry vision, double vision, loss of vision, chest pain, difficulty breathing, shortness of breath, back pain , night sweats, pain with urination, increased urinary frequency, increased urinary urgency, blood in her urine or stool, syncope or a near syncopal episode, recent trauma or falls, bowel incontinence, bladder incontinence, bowel retention, bladder retention, or any other complaints at this time. Onset (ago): hour(s) Location: head Severity: mild Severity scale (1-10): 2 Relieving factors: none Exacerbating factors: none Associated symptoms: nausea/vomiting Treatments prior to arrival: none Related Data Previous Rx's Medication Instructions Recorded cyclobenzaprine 5 mg tablet 5 mg PO Q8H PRN pain (scale score 07/06/20 7-10) 5 days #14 tabs FreeStyle Lite Meter #1 ea 11/17/20 (blood-glucose meter) lancets 28 gauge (FreeStyle #200 ea 11/17/20 Lancets) flash glucose sensor (FreeStyle #2 ea 12/30/20 Ade 14 Day Sensor kit) Shower Chair #1 ea 02/06/21 wheelchair #1 ea 02/06/21 gabapentin 300 mg capsule 300 mg PO TID 30 days #90 caps 05/24/21 cholecalciferol (vitamin D3) 125 125 mcg PO DAILY 30 days #30 caps 08/01/21 mcg (5,000 unit) capsule meloxicam 15 mg tablet 15 mg PO DAILY #14 tabs 10/19/21 metoclopramide HCl 5 mg tablet 5 mg PO TID 30 days #90 tabs 11/08/21 insulin lispro 100 unit/mL See Rx Instructions subcut .7 12/05/21 subcutaneous pen (Humalog KwikPen times per day 30 days #15 mL (U-100) Insulin) FreeStyle Lite Strips (blood sugar #200 ea 01/25/22 diagnostic) atorvastatin 40 mg tablet 40 mg PO DAILY 30 days #30 tabs 01/25/22 citalopram 20 mg tablet 20 mg PO DAILY 90 days #90 tabs 01/25/22 doxepin 75 mg capsule 75 mg PO BEDTIME 90 days #90 caps 01/25/22 hydroxyzine HCl 25 mg tablet 25 mg PO BID PRN anxiety 90 days 01/25/22 #180 tabs oxycodone 5 mg tablet 5 mg PO Q8H PRN pain 5 days #15 03/15/22 tabs cephalexin 500 mg tablet 500 mg PO BID 10 days #20 tabs 05/02/22 Tirosint 125 mcg capsule 125 mcg PO DAILY 30 days #30 caps 07/06/22 (levothyroxine) insulin glargine U-300 conc 300 40 unit (0.1333 mL) subcut DAILY 07/06/22 unit/mL (1.5 mL) subcutaneous pen 30 days #3.999 mL (Toujeo SoloStar U-300 Insulin) lisinopril 10 mg tablet 10 mg PO DAILY 90 days #90 tabs 07/26/22 ondansetron 4 mg disintegrating 4 mg PO Q8H 3 days #9 tabs 07/26/22 tablet Allergies Allergy/AdvReac Type Severity Reaction Status Date / Time No Known Allergies Allergy Verified 07/26/22 11:48 Review of Systems Constitutional: Constitutional: Reports no additional constitutional complaints, Denies chills, Denies fever(s), Reports headache(s) and Denies night sweats Eyes: Eyes: Reports no additional eye complaints, Denies blurry vision, Denies change in vision, Denies diplopia, Denies eye discharge, Denies loss of vision and Denies eye pain ENT: Denies dizziness and Reports headache(s) Cardiovascular: Cardiovascular: Reports no additional cardiovascular complaints, Denies chest pain, Denies lightheadedness, Denies Loss of Consciousness and Denies dyspnea Respiratory: Respiratory: Reports no additional respiratory complaints and Denies dyspnea Gastrointestinal: Gastrointestinal: Reports no additional gastrointestinal complaints, Denies abdominal pain, Denies melena, Denies hematochezia, Denies change in bowel habits, Denies change in stool character, Reports nausea and Reports vomiting Genitourinary: Genitourinary: Denies hematuria, Denies urinary frequency, Denies dysuria, Denies urinary incontinence, Denies urinary hesitancy and Denies urinary urgency Musculoskeletal: Musculoskeletal: Reports no additional musculoskeletal complaints, Denies numbness and Denies tingling Neurologic: Denies dizziness, Reports headache(s), Denies loss of vision, Denies numbness and Denies tingling Psychiatric: Psychiatric: Reports no additional psychiatric complaints Endocrine: Endocrine: Reports no additional endocrine complaints Hematologic/Lymphatic: Hematologic/Lymphatic: Reports no additional hematologic/lymphatic complaints Allergic/Immunologic: Allergic/Immunologic: Reports no additional allergic/im munologic complaints [facility] Past Medical History Attestation statement: The following information was validated with the patient. 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 Hypothyroidism Hypothyroidism Left foot pain Metatarsal fracture Multinodular thyroid Right hand pain T1DM (type 1 diabetes mellitus) Vitamin D deficiency Wound of left foot Surgical History No pertinent past surgical history Family History Family History Father Diabetes Mother Diabetes Hypertension Social History Social History Household Members: None Housing: Apartment Alcohol intake: never Patient Tobacco Use Status: Former Tobacco user e-Cigarette/Vaping Use: Never Used Second Hand Smoke Exposure: No Advance Directives: No Advance Directives Information Provided: Yes service: No Current occupational status: unemployed and disabled Current occupation: rt handed Cognitive needs: No Hearing needs: No Vision needs: No Physical Exam ED Vital Signs: Vital Signs - 24 hr 07/26/22 10:17 07/26/22 10:15 Temperature 98 F 98 F Pulse Rate 79 79 Respiratory Rate 20 16 Blood Pressure 178/76 H 178/76 H Pulse Oximetry 100 100 Oxygen Delivery Method Room Air Room Air BMI result Body Mass Index 24.6 Const General: cooperative, no acute distress, alert and awake Nutritional Appearance: well nourished Orientation/consciousness: patient oriented x3 Limitations: no limitations HENMT Head: Yes normal to inspection and Yes atraumatic Ears: hearing grossly normal bilaterally and external ears normal General nose exam: Normal external nose present, no nasal discharge noted and no epistaxis Face and sinus: Yes normal facial exam, No abrasion and No laceration Mouth: Normal oral and palatal mucosa present, no drooling and no muffled voice Eyes General: appearance normal, both eyes and all related structures Periorbital: periorbital findings normal Eyelids: Yes eyelids normal Conjunctivae: conjunctivae normal Pupils: Equal, round and reactive pupils present EOM: EOMs intact bilaterally Neck Neck: Yes normal visual inspection, Yes full ROM and Yes no lymphadenopathy Chest Chest palpation & inspection: normal inspection of the chest Resp Effort & Inspection: normal respiratory effort and able to speak in complete sentences Auscultation: clear to auscultation bilaterally Cardio Rate: regular rate Rhythm: regular rhythm GI Inspection: Yes normal to inspection Palpation (GI): Soft to palpation, not firm, nontender, no guarding and not rigid Neuro General: patient oriented x3 and moves all extremities Cranial nerves: Yes Equal, round and reactive pupils present Cognition (Neuro): normal cognition Motor exam (neuro): 5/5 motor strength present throughout Sensory Exam: Normal double simultaneous stimulation for sensation Coordination: [id number] test normal Extrem General: Yes normal to inspection, Yes full ROM and Yes capillary refill normal Psych Appearance: grossly normal Mental Status: mental status grossly normal Affect: normal affect Attitude: cooperative Thought process: Normal thought process present Thought content: Normal thought content present Insight: Good insight present (Psych) Medications Administered Discontinued Medications Generic Name Dose Route Start Last Admin Trade Name Valdoq PRN Reason Stop Dose Admin Metoclopramide HCl 10 mg 07/26/22 10:13 07/26/22 11:54 Metoclopramide Hcl 10 Mg/2 Ml Vial IVPUSH 07/26/22 10:14 10 mg ONCE ONE Administration Medical Decision Making Medical Decision Making [facility] Narrative: Patient is a 46 year old assigned female at with a history of migraines presenting to the emergency department today with a headache, nausea, and vomiting. Patient's physical exam was unremarkable. Patient's blood work was unremarkable. Patient's head CT showed no acute process. I explained my physical exam findings as well as all test results to the patient. I answered all questions asked by the patient. Patient received IV fluids and Reglan which she stated helped her symptoms significantly. I stressed the importance of the patient taking her medication as prescribed. I stressed the importance of the patient following up with her primary care provider. I stressed the importance of the patient returning to the emergency department immediately if her symptoms were to worsen or if she were to develop any dizziness, shortness of breath, difficulty breathing, chest pain, blurry vision, loss of vision, nausea, vomiting, abdominal pain, fever, chills, back pain, or any other complaints. Patient verbalized agreement and understanding with this treatment plan and discharge. Differential Diagnosis Differential Diagnoses: The differential diagnosis associated with the pres entation includes migraine Lab Data MDM Lab Attestation statement: I reviewed the patient's lab results. 07/26/22 10:30 07/26/22 10:30 Labs: Lab Results 07/26/22 07/26/22 07/26/22 Range/Units 10:30 10:30 10:37 WBC 12.3 H (4.8-10.8) X10*3/uL RBC 3.95 L (4.20-5.50) X10*6/uL Hgb 12.5 (12.0-16.0) g/dl Hct 36.8 L (37.0-47.0) % MCV 93.2 (80.0-98.0) fL MCH 31.6 (27.0-33.0) pg MCHC 34.0 (31.0-35.0) g/dl RDW 12.2 (11.0-16.0) % Plt Count 232 (160-400) X10*3/uL MPV 13.0 H (9.4-12.3) fL Immature Gran % (Auto) 0.3 (0.0-0.4) % Neut % (Auto) 88.9 H (45-73) % Lymph % (Auto) 8.1 L (20-40) % [place] % (Auto) 2.3 (2-11) % Eos % (Auto) 0.0 (0-4) % Baso % (Auto) 0.4 (0-2) % Lymph # (Auto) 1.0 L (1.2-4.9) X10*3/uL [place] # (Auto) 0.3 (0.1-1.2) X10*3/uL Eos # (Auto) 0.0 (0.0-0.4) X10*3/uL Baso # (Auto) 0.1 (0.0-0.2) X10*3/uL Abs Immat Gran (auto) 0.04 H (0.00-0.03) X10*3/uL Absolute Neuts (auto) 10.9 H (2.0-8.3) x10*3/uL Absolute Nucleated RBC 0.000 (0.0-0.012) X10*3/uL Nucleated RBC % (auto) 0.0 (0.0-0.2) /100WBC VBG pH 7.45 H (7.32-7.43) VBG pCO2 35 mmHg VBG pO2 51 mmHg VBG HCO3 25 (22-26) mmol/L VBG O2 Saturation 81.0 % VBG Base Excess 1.8 mmol/L Sodium 138 (135-145) mmol/L Potassium 4.4 (3.3-5.1) mmol/L Chloride 102 (96-108) mmol/L Carbon Dioxide 24 (22-29) mmol/L Anion Gap 16 (12-20) BUN 12 (9-16) mg/dL Creatinine 0.76 (0.5-1.4) mg/dL Estim Creat Clear Calc TNP Estimated GFR > 60 Random Glucose 298 H (60-115) mg/dL Calcium 9.1 (8.4-10.2) mg/dL Magnesium 1.7 (1.6-2.6) mg/dL Total Bilirubin 0.8 (0.0-1.0) mg/dL AST 21 (5-31) U/L ALT 31 (0-31) U/L Alkaline Phosphatase 115 (39-117) U/L Total Protein 6.8 (6.5-8.0) g/dL Albumin 4.1 (3.5-5.0) g/dL Independent Interpretation I performed an independent interpretation of an: CT Scan Interpretation: My interpretation is in agreement with the radiologist's impression of this imaging study. EXAMINATION: CT HEAD WITHOUT CONTRAST CLINICAL INFORMATION: Migraine, pain? COMPARISON: 01/18/2020? TECHNIQUE: Contiguous axial imaging was performed from the skull base to vertex without intravenous administration of contrast. This CT examination was performed using dose optimization techniques as appropriate, variously including the following: *Automated exposure control *Adjustment of mA and/or kV according to patient size (this includes techniques or standardized protocols for targeted exams where dose is matched to indication/reason for exam; i.e. extremities or head) *Use of iterative reconstruction technique DLP: 563 mGy-cm FINDINGS: There is no midline shift. There is no mass effect. There is no hemorrhage. The basilar cisterns appear patent. The posterior fossa is grossly within normal limits. There is no extra-axial collection The tillman-white matter is comparable to previous. Some prominence of the ventricular system but no change from previous. Prominent sulci once again seen. Review of the bone windows demonstrates grossly clear sinuses. CT/CT head/brain wo IV con IMPRESSION: Negative acute noncontrast CT of the brain. Dictated By: Eleuterio Donovan MD Signed By: Electronically signed by Eleuterio Donovan MD 07/26/22 0287 Discharge Plan Discharge Clinical Impression: Migraine Patient Disposition: Home, Self-Care Instructions: Migraine Headache (ED) Additional Instructions: Follow up with your primary care provider. Return to the emergency department immediately if your symptoms worsen or if you develop any dizziness, shortness of breath, difficulty breathing, chest pain, blurry vision, loss of vision, nausea, vomiting, abdominal pain, fever, chills, back pain, or any other complaints. Prescriptions: New ondansetron 4 mg tablet,disintegrating 4 mg PO Q8H 3 Days Qty: 9 0RF No Action (DME) blood-glucose meter [FreeStyle Lite Meter] Kit See Rx Instructions miscellaneous .MEDSUPPLY Qty: 1 0RF Rx Instructions: 6 times a day (DME) lancets [FreeStyle Lancets] 28 gauge misc See Rx Instructions .MEDSUPPLY Qty: 200 5RF Rx Instructions: 6 times a day (DME) wheelchair See Rx Instructions .Route .MEDSUPPLY Qty: 1 0RF Rx Instructions: As directed (DME) Shower Chair Misc See Rx Instructions .Route Qty: 1 0RF Rx Instructions: As directed gabapentin 300 mg capsule 300 mg PO TID 30 Days Qty: 90 6RF cholecalciferol (vitamin D3) 125 mcg (5,000 unit) capsule 125 mcg PO DAILY 30 Days Qty: 30 6RF metoclopramide HCl 5 mg tablet 5 mg PO TID 30 Days Qty: 90 6RF insulin lispro [Humalog KwikPen Insulin] 100 unit/mL insulin pen See Rx Instructions subcut .7 times per day 30 Days Qty: 15 6RF Rx Instructions: 2-8 units one hour after each meal and for correction subcut .7 times per day; atorvastatin 40 mg tablet 40 mg PO DAILY 30 Days Qty: 30 11RF citalopram 20 mg tablet 20 mg PO DAILY 90 Days Qty: 90 1RF doxepin 75 mg capsule 75 mg PO BEDTIME 90 Days Qty: 90 0RF hydroxyzine HCl 25 mg tablet 25 mg PO BID PRN (Reason: anxiety) 90 Days Qty: 180 0RF (DME) FreeStyle Lite Strips Strip See Rx Instructions .MEDSUPPLY Qty: 200 11RF Rx Instructions: 6 times a day Toujeo SoloStar U-300 Insulin 300 unit/mL (1.5 mL) insulin pen 40 unit subcut DAILY 30 Days Qty: 3.999 3RF levothyroxine [Tirosint] 125 mcg capsule 125 mcg PO DAILY 30 Days Qty: 30 3RF lisinopril 10 mg tablet 10 mg PO DAILY 90 Days Qty: 90 3RF cyclobenzaprine 5 mg tablet 5 mg PO Q8H PRN (Reason: pain (scale score 7-10)) 5 Days Qty: 14 0RF oxycodone 5 mg tablet 5 mg PO Q8H PRN (Reason: pain) 5 Days Qty: 15 0RF Rx Instructions: Partial Fill upon patient request. meloxicam 15 mg tablet 15 mg PO DAILY Qty: 14 0RF cephalexin 500 mg tablet 500 mg PO BID 10 Days Qty: 20 0RF (DME) FreeStyle Ade 14 Day Sensor Kit See Rx Instructions .MEDSUPPLY Qty: 2 11RF Rx Instructions: every 14 days Referrals: Liliana Thayer MD [Primary Care Provider] - Interventions: ED Discharge Assessment Last Done: 07/26/22 12:56 Discharge Date/Time: 07/26/22 12:58 Print Language: Senegalese
[2022-07-26 10:13] VITALS: BP 156/91; PULSE 82; O2SAT 96
[2022-07-26 10:15] VITALS: BP 178/76; PULSE 79; RESP 16; TEMP 36.6; O2SAT 100; BMI 24.6
[2022-07-26 10:17] VITALS: BP 178/76; PULSE 79; RESP 20; TEMP 36.6; O2SAT 100
[2022-07-26 10:35] LABS: MANUAL DIFF FLAG NO
--- NOTE | 2022-07-26 10:35 | MHC.EDTECH ---
Labs collected and sent
[2022-07-26 10:38] LABS: Basophils Absolute Auto 0.1 X10*3/uL (0.0-0.2); Basophils Percent Auto 0.4 % (0-2); Hematocrit 36.8 % (37.0-47.0); Hemoglobin 12.5 g/dl (12.0-16.0); Imm Gran Abs Auto 0.04 X10*3/uL (0.00-0.03); Imm Gran Pct Auto 0.3 % (0.0-0.4); Lymphocytes Percent Auto 8.1 % (20-40); Mean Corpuscular Hemoglobin 31.6 pg (27.0-33.0); Mean Corpuscular Volume 93.2 fL (80.0-98.0); Monocytes Absolute Auto 0.3 X10*3/uL (0.1-1.2); Monocytes Percent Auto 2.3 % (2-11); Neutrophils Absolute Auto 10.9 x10*3/uL (2.0-8.3); Neutrophils Percent Auto 88.9 % (45-73); Platelet Count 232 X10*3/uL (160-400); Red Blood Count 3.95 X10*6/uL (4.20-5.50); Red Cell Distribution Width 12.2 % (11.0-16.0); White Blood Count 12.3 X10*3/uL (4.8-10.8)
[2022-07-26 10:44] LABS: VBG Base Excess 1.8 mmol/L; VBG HCO3 25 mmol/L (22-26); VBG pCO2 35 mmHg; VBG pH 7.45 (7.32-7.43); VBG pO2 51 mmHg
[2022-07-26 10:48] LABS: Venous Blood Gas Refer to POC result
[2022-07-26 11:43] LABS: Alanine Aminotransferase 31 U/L (0-31); Albumin Level 4.1 g/dL (3.5-5.0); Alkaline Phosphatase 115 U/L (39-117); Anion Gap 16 (12-20); Aspartate Amino Transferase 21 U/L (5-31); Bilirubin Total 0.8 mg/dL (0.0-1.0); Blood Urea Nitrogen 12 mg/dL (9-16); Calcium 9.1 mg/dL (8.4-10.2); Carbon Dioxide 24 mmol/L (22-29); Chloride 102 mmol/L (96-108); Estimated Glomerular Filt Rate > 60; Glucose Random 298 mg/dL (60-115); Magnesium 1.7 mg/dL (1.6-2.6); Potassium 4.4 mmol/L (3.3-5.1); Sodium 138 mmol/L (135-145); Total Protein 6.8 g/dL (6.5-8.0)
[2022-07-26] MEDS: Metoclopramide HCl 10 MG/2 ML VIAL IVPUSH (11:54)
== END 2022-07-26 12:58 | disposition home or self-care (01) ==
PROVIDERS: Physician Assistant Medical; Emergency Provider Emergency Medicine; PCP Internal Medicine
DX: G43.909 Migraine, unspecified, not intractable, without status migrainosus (principal); E10.9 Type 1 diabetes mellitus without complications; I10 Essential (primary) hypertension; E78.5 Hyperlipidemia, unspecified; Z79.4 Long term (current) use of insulin; Z79.02 Long term (current) use of antithrombotics/antiplatelets; Z79.899 Other long term (current) drug therapy
CPT/HCPCS: 36415; 70450; 80053; 82803; 83735; 85025; 96374; 99284; J2765

== ENCOUNTER → 2022-08-03 14:36 | Outpatient (BNVA) | payer OTHER, SELFPAY | PROVIDERS: PCP Internal Medicine; Visit Provider Internal Medicine | DX: E10.65 Type 1 diabetes mellitus with hyperglycemia (principal); E78.5 Hyperlipidemia, unspecified; E03.9 Hypothyroidism, unspecified; E04.2 Nontoxic multinodular goiter; E55.9 Vitamin D deficiency, unspecified; I10 Essential (primary) hypertension | CPT/HCPCS: 82947; 83036; 99212 ==

== ENCOUNTER 2022-08-10 08:38 | Outpatient (RCR) | payer OTHER, SELFPAY ==
--- NOTE | ~2022-08-10 | XR_ITS ---
EXAMINATION: XR FOOT, LEFT CLINICAL INFORMATION: Foot pain COMPARISON: Foot radiographs 03/28/2021 TECHNIQUE: AP, lateral, and oblique views of the left foot. FINDINGS: No acute fracture or dislocation. Moderate degenerative changes of the first metatarsophalangeal joint with loss of joint space with overlying soft tissue swelling and to a lesser extent degenerative changes of the distal interphalangeal joints. Well-corticated osseous fragment dorsal to the navicular bone which may reflect sequelae of remote trauma. No tibiotalar joint effusion. Achilles tendon enthesopathy. Mild degenerative changes of the dorsal midfoot with degenerative spurring. Atherosclerotic vascular calcification. Healed fracture deformity of the fifth metacarpal diaphysis again seen. XR/XR foot LT 2V IMPRESSION: 1. Degenerative changes of the foot as detailed above. 2. Well-corticated osseous fragment dorsal to the navicular bone which may reflect sequelae of remote trauma. 3. Healed fracture deformity of the fifth metacarpal diaphysis again seen.
--- NOTE | ~2022-08-10 | XR_ITS ---
EXAMINATION: XR FOOT, LEFT CLINICAL INFORMATION: Left foot wound. Attention to the first metatarsal head. COMPARISON: 08/23/2022. TECHNIQUE: 3 views of the left foot. FINDINGS: Bones have normal alignment at the left foot. No acute fracture or subluxation. Old healed oblique fracture of the distal metadiaphysis of the fifth metatarsal. No erosions or periostitis. Again noted is a small well-corticated ossific fragment or ossicle projecting dorsal to the talar head. There is negligible osteophyte formation of the great toe metatarsophalangeal joint. There is mild soft tissue swelling medial to the first metatarsal head without radiopaque foreign body or soft tissue gas. XR/XR foot LT min 3V IMPRESSION: * There is mild soft tissue swelling medial to the great toe metatarsal. * No evidence of acute osseous injury or osteomyelitis within the left foot. * Chronic findings include old healed fracture of the fifth metatarsal.
[2022-08-17 12:17] LABS: MANUAL DIFF FLAG NO
[2022-08-17 12:28] LABS: Basophils Absolute Auto 0.1 X10*3/uL (0.0-0.2); Eosinophils Absolute Auto 0.2 X10*3/uL (0.0-0.4); Hematocrit 37.6 % (37.0-47.0); Hemoglobin 12.6 g/dl (12.0-16.0); Imm Gran Abs Auto 0.03 X10*3/uL (0.00-0.03); Imm Gran Pct Auto 0.3 % (0.0-0.4); Lymphocytes Absolute Auto 4.3 X10*3/uL (1.2-4.9); Lymphocytes Percent Auto 48.3 % (20-40); Mean Corpuscular HGB Conc 33.5 g/dl (31.0-35.0); Mean Corpuscular Volume 92.6 fL (80.0-98.0); Mean Platelet Volume 12.7 fL (9.4-12.3); Monocytes Absolute Auto 0.5 X10*3/uL (0.1-1.2); Monocytes Percent Auto 5.1 % (2-11); Neutrophils Absolute Auto 3.9 x10*3/uL (2.0-8.3); Neutrophils Percent Auto 43.3 % (45-73); Platelet Count 266 X10*3/uL (160-400); Red Blood Count 4.06 X10*6/uL (4.20-5.50); Red Cell Distribution Width 12.7 % (11.0-16.0); White Blood Count 8.9 X10*3/uL (4.8-10.8)
[2022-08-17 12:35] LABS: Estimated Average Glucose 258 mg/dL; Hemoglobin A1c % 10.6 %
[2022-08-17 12:51] LABS: Anion Gap 13 (12-20); Blood Urea Nitrogen 15 mg/dL (9-16); C Reactive Protein 0.16 mg/dL (< or = 0.50); Calcium 9.9 mg/dL (8.4-10.2); Carbon Dioxide 29 mmol/L (22-29); Chloride 104 mmol/L (96-108); Estimated Glomerular Filt Rate > 60; Glucose Random 64 mg/dL (60-115); Sodium 142 mmol/L (135-145)
[2022-08-17 13:11] LABS: Erythrocyte Sedimentation Rate 16 MM/HR (0-20)
[2022-12-11 10:06] LABS: MANUAL DIFF FLAG NO
[2022-12-11 10:23] LABS: Basophils Absolute Auto 0.1 X10*3/uL (0.0-0.2); Basophils Percent Auto 1.1 % (0-2); Eosinophils Absolute Auto 0.1 X10*3/uL (0.0-0.4); Eosinophils Percent Auto 1.7 % (0-4); Hematocrit 37.9 % (37.0-47.0); Hemoglobin 12.8 g/dl (12.0-16.0); Imm Gran Abs Auto 0.03 X10*3/uL (0.00-0.03); Imm Gran Pct Auto 0.4 % (0.0-0.4); Lymphocytes Absolute Auto 2.3 X10*3/uL (1.2-4.9); Lymphocytes Percent Auto 31.6 % (20-40); Mean Corpuscular HGB Conc 33.8 g/dl (31.0-35.0); Mean Corpuscular Hemoglobin 31.3 pg (27.0-33.0); Mean Corpuscular Volume 92.7 fL (80.0-98.0); Monocytes Absolute Auto 0.3 X10*3/uL (0.1-1.2); Monocytes Percent Auto 4.2 % (2-11); Neutrophils Absolute Auto 4.4 x10*3/uL (2.0-8.3); Platelet Count 225 X10*3/uL (160-400); Red Blood Count 4.09 X10*6/uL (4.20-5.50); Red Cell Distribution Width 12.5 % (11.0-16.0); White Blood Count 7.2 X10*3/uL (4.8-10.8)
[2022-12-11 10:33] LABS: Estimated Average Glucose 209 mg/dL; Hemoglobin A1c % 8.9 %
[2022-12-11 11:01] LABS: Erythrocyte Sedimentation Rate 14 MM/HR (0-20)
[2022-12-11 11:06] LABS: Anion Gap 15 (12-20); Blood Urea Nitrogen 11 mg/dL (9-16); C Reactive Protein 0.27 mg/dL (< or = 0.50); Calcium 9.4 mg/dL (8.4-10.2); Carbon Dioxide 23 mmol/L (22-29); Chloride 101 mmol/L (96-108); Estimated Glomerular Filt Rate > 60; Glucose Random 346 mg/dL (60-115); Potassium 4.9 mmol/L (3.3-5.1); Sodium 134 mmol/L (135-145)
== END 2023-01-05 16:00 | disposition home or self-care (01) ==
LOC: HO.WCC 08:38
PROVIDERS: PCP Internal Medicine; Visit Provider Surgery
DX: E11.621 Type 2 diabetes mellitus with foot ulcer (principal); L97.522 Non-pressure chronic ulcer of other part of left foot with fat layer exposed; E11.40 Type 2 diabetes mellitus with diabetic neuropathy, unspecified; L84 Corns and callosities; I10 Essential (primary) hypertension; Z79.4 Long term (current) use of insulin; Z79.899 Other long term (current) drug therapy; Z87.891 Personal history of nicotine dependence
CPT/HCPCS: 11042; 11043; 15275; 36415; 73620; 73630; 80048; 83036; 84134; 85025; 85652; 86140; 97597; 99212; Q4187

== ENCOUNTER 2022-08-23 09:06 | Outpatient (REF) | payer OTHER, SELFPAY ==
--- NOTE | ~2022-08-23 | US_ITS ---
EXAMINATION: US THYROID CLINICAL INFORMATION: Nontoxic multinodular goiter. COMPARISON: Thyroid ultrasound 07/20/2021 and 03/17/2019. TECHNIQUE: Linear transducer grayscale and color Doppler examination with attention to the region of the thyroid. FINDINGS: SIZE: Measurements of the thyroid lobes and nodules are given in sagittal, anteroposterior and transverse dimensions respectively. Right Thyroid Lobe: 4.3 x 1.3 x 1.4 cm, volume 4.1 mL. Previously 5.0 x 1.4 x 1.6 cm, volume 5.9 mL. Parenchyma: The gland echotexture is heterogeneous. Thyroid vascularity is increased. Left Thyroid Lobe: 4.3 x 1.6 x 1.7 cm, volume 6.1 mL. Previously 4.8 x 1.6 x 1.7 cm, volume 6.8 mL. Parenchyma: The gland echotexture is heterogeneous. Thyroid vascularity is increased. Isthmus: 0.6 cm in maximum AP dimension. Previously 0.6 cm. Estimated total number of nodules greater than or equal to 1 cm: 0. 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 Location: Left upper pole. Not seen. Size: cm, volume mL. Previously: 0.7 x 0.2 x 0.6 cm, volume 0.04 mL. Nodule characteristics: Composition: Echogenicity: Shape: Margins: Echogenic Foci: ACR TI-RADS total points: Previous: 4 ACR TI-RADS category: Previous: 4 Significant change in size (>/= 20% in 2 dimensions and minimal increase of 2 mm or 50% or greater increase in volume): Change in features: Change in ACR TI-RADS risk category: 2. Location: Left lower pole. Size: 0.3 x 0.3 x 0.3 cm, volume 0.02 mL. Previously: New Nodule characteristics: Composition: Cannot be determined (2). Echogenicity: Very hypoechoic (3). Shape: Not taller than wide (0). Margins: Ill-defined (0). Echogenic Foci: None (0). ACR TI-RADS total points: 5 Previous: 5 ACR TI-RADS category: 4 Previous: 4 Significant change in size (>/= 20% in 2 dimensions and minimal increase of 2 mm or 50% or greater increase in volume): Change in features: Change in ACR TI-RADS risk category: 3. Location: Left mid to lower pole. Size: 0.4 x 0.4 x 0.6 cm, volume 0.06 mL. Previously: 0.5 x 0.4 x 0.4 cm, volume 0.4 mL Nodule characteristics: Composition: Solid (2). Echogenicity: Hypoechoic (2). Shape: Not taller than wide (0). Margins: Lobulated (2). Echogenic Foci: None (0). ACR TI-RADS total points: 6 ACR TI-RADS category: 4 NODES: No lymphadenopathy is seen in the tissue surrounding the thyroid gland. US/US thyroid IMPRESSION: Heterogeneous hypervascular thyroid gland. Comparison with previous exam is difficult. The previously described nodule or area of heterogeneity in the upper pole is not appreciated. No appreciable change in the nodule in the nodule in the mid to lower pole. Newly appreciated 3 mm nodule in the lower pole. ACR TI-RADS RECOMMENDATION REFERENCE: Ultrasound-guided fine-needle aspiration, followup ultrasound, no further follow up. * TR1 (0 point) and TR2 (2 points): No FNA or follow up * TR3 (3 points): FNA if more than or equal to 2.5 cm in maximum dimension, followup ultrasound in 1, 3 and 5 years if 1.5 to 2.4 cm in maximum dimension. * TR4 (4-6 points): FNA if more than or equal to 1.5 cm in maximum dimension, followup ultrasound in 1, 2, 3 and 5 years if 1 to 1.4 cm in maximum dimension. * TR5 (more than or equal to 7 points): FNA if more than or equal to 1 cm in maximum dimension, followup ultrasound every year for 5 years if 0.5 to 0.9 cm in maximum dimension. * TR3, TR4 or TR5 nodules that are below the size threshold for follow up receive no follow up.
== END 2022-08-23 09:07 | disposition home or self-care (01) ==
LOC: HO.US 09:06
PROVIDERS: PCP Internal Medicine; Visit Provider Internal Medicine
DX: E04.2 Nontoxic multinodular goiter (principal)
CPT/HCPCS: 76536

== ENCOUNTER → 2022-09-11 12:09 | Outpatient (BNVA) | payer OTHER, SELFPAY | PROVIDERS: PCP Internal Medicine; Visit Provider Internal Medicine | DX: E10.65 Type 1 diabetes mellitus with hyperglycemia (principal); E78.5 Hyperlipidemia, unspecified; I10 Essential (primary) hypertension; E03.9 Hypothyroidism, unspecified; E04.2 Nontoxic multinodular goiter; E55.9 Vitamin D deficiency, unspecified; Z79.899 Other long term (current) drug therapy | CPT/HCPCS: 82947; 99212 ==

== ENCOUNTER → 2022-10-11 07:49 | Outpatient (BNVA) | payer OTHER, SELFPAY | PROVIDERS: PCP Internal Medicine; Visit Provider Registered Nurse Diabetes Educator | DX: E10.65 Type 1 diabetes mellitus with hyperglycemia (principal) | CPT/HCPCS: 99211 ==

== ENCOUNTER 2022-11-01 10:30 | Outpatient (REF) | payer OTHER, SELFPAY ==
--- NOTE | ~2022-11-01 | MM_ITS ---
EXAMINATION: MM SCREENING DIGITAL BREAST TOMOSYNTHESIS, BILATERAL CLINICAL INFORMATION: Screening. Asymptomatic. The lifetime risk of breast cancer based on the Tyrer-Cuzick Model is 15%. COMPARISON: Mammography: This study is compared to prior exams dating back to 2019. TECHNIQUE: Digital breast tomosynthesis is performed in both the craniocaudal and mediolateral oblique views along with computer-aided detection (CAD). Synthesized 2D images are generated from the tomosynthesis. FINDINGS: The breasts are heterogeneously dense, which may obscure small masses (ACR BI-RADS breast composition Category c). There are no significant masses, abnormal calcifications, or other abnormalities. MM/MM tomosynthesis screening BI IMPRESSION: No mammographic evidence of malignancy. ASSESSMENT: BI-RADS BI-RADS 1 - Negative RECOMMENDATION: Routine annual mammography screening. 1 year F/U This patient's information was entered into a reminder system with a target due date for their next mammogram.
== END 2022-11-01 10:31 | disposition home or self-care (01) ==
LOC: HO.MAMMO 10:30
PROVIDERS: PCP Internal Medicine; Visit Provider Internal Medicine
DX: Z12.31 Encounter for screening mammogram for malignant neoplasm of breast (principal)
CPT/HCPCS: 77063; 77067

== ENCOUNTER → 2022-11-01 10:45 | Outpatient (BNV) | payer OTHER, SELFPAY | PROVIDERS: PCP Internal Medicine; Visit Provider Radiology Diagnostic Radiology | DX: Z12.31 Encounter for screening mammogram for malignant neoplasm of breast (principal) | CPT/HCPCS: 77063; 77067 ==

== ENCOUNTER 2022-11-20 07:32 | Outpatient (AMB) | payer OTHER, SELFPAY ==
--- NOTE | 2022-11-20 07:33 | MHC.OFFVIS ---
Intake Intake Visit Reasons: DM Intake Note: Diabetes Mellitus follow up visit. Dock Operator Required: No Allergies No Known Allergies Allergy (Verified 11/20/22 07:48) Medication List - Last Reconciled 11/20/22 by Ally Rice DO atorvastatin 40 mg PO DAILY 30 days cholecalciferol (vitamin D3) 125 mcg PO DAILY 30 days citalopram 20 mg PO DAILY 90 days citalopram 40 mg PO DAILY cyclobenzaprine 5 mg PO Q8H PRN 5 days doxepin 100 mg PO BEDTIME doxycycline hyclate 100 mg PO BID 7 days flash glucose sensor (FreeStyle Ade 14 Day Sensor kit) every 14 days FreeStyle Lite Meter (blood-glucose meter) 6 times a day NS FreeStyle Lite Strips (blood sugar diagnostic) 6 times a day NS gabapentin 300 mg PO TID 30 days glucagon 3 mg/actuation (Baqsimi) 3 mg intranasal ONCE hydroxyzine HCl 25 mg PO BID PRN 90 days insulin glargine U-300 conc (Toujeo SoloStar U-300 Insulin) 46 units subcut DAILY insulin lispro (Humalog KwikPen (U-100) Insulin) 2-8 units one hour after each meal and for correction subcut .7 times per day; 30 days ketorolac 10 mg PO Q8H PRN lancets (FreeStyle Lancets) 6 times a day lisinopril 20 mg PO DAILY 30 days meloxicam 15 mg PO DAILY metoclopramide HCl 5 mg PO TID 30 days ondansetron 4 mg PO Q8H 3 days Shower Chair As directed Tirosint (levothyroxine) 125 mcg PO DAILY 30 days NS walker As directed HPI HPI Comments History of Present Illness Details 47 YO F with PMHx T1DM, Hypothyroidism and a NTMNG who is seen in F/U for the same. She was previously followed by Dr. Pina. She has severe gastroparesis, and when using humalog prior to eating has severe hypoglycemia postprandially due to the delayed gastric absorption. She has all complications of T1DM including retinopathy, neuropathy and nephropathy. 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 Initially diagnosed with T1DM at the age of 10. Current regimen: Toujeo 46 units daily and a Humalog sliding scale: Blood sugar 150 to 199 to use 5 units Blood sugar 200 to 250 to use 8 units Blood sugar 251-300 to use 11 units Blood sugar 301-350 to use 14 units Blood sugar 351-400 to use 16 units Blood sugar more than 400 mg per dL to use 18 units. Has CGM Free Ade. Unable to download today. Sugars are high consistently, but she drops abruptly postprandially. Most recent A1C: 10.4% 08/03/2022, unchanged from prior 10.5% 12/08/2021. Reports low sugars postprandially if she uses her humalog prior to eating. Treats lows with juice. Checks sugar after to ensure it is rising. Follows the rule of 15's. Has eyes checked yearly, last eye exam 2019, has retinopathy. Has consistently refused. Has neuropathy. Denies nephropathy, on Lisinopril 10 mg PO daily. UAC 15.4 07/07/2022. Has HLD, on Atorvastatin 20 mg PO daily. LDL 95 07/07/2022. Denies history of CAD. She has severe gastroparesis. She uses reglan 5 mg PO prior to every meal. Had diabetes education. 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 Last set of labs revealed hypothyroidism, so her Tirosint was increased to 125 mcg PO daily. She has a multinodular thyroid with multiple subcentimeter nodules. Thyroid US: 08/23/2022 Right Thyroid Lobe: 4.3 x 1.3 x 1.4 cm, volume 4.1 mL. Previously 5.0 x 1.4 x 1.6 cm, volume 5.9 mL. Parenchyma: The gland echotexture is heterogeneous. Thyroid vascularity is increased. Left Thyroid Lobe: 4.3 x 1.6 x 1.7 cm, volume 6.1 mL. Previously 4.8 x 1.6 x 1.7 cm, volume 6.8 mL. Parenchyma: The gland echotexture is heterogeneous. Thyroid vascularity is increased. Isthmus: 0.6 cm in maximum AP dimension. Previously 0.6 cm. Estimated total number of nodules greater than or equal to 1 cm: 0. Software Configuration Manager nodules are described as follows: 1.? Location: Left upper pole. Not seen. ?? ? Size: cm, volume mL. ?? ? Previously: 0.7 x 0.2 x 0.6 cm, volume 0.04 mL. ?? ? Nodule characteristics: ?? ? Composition: ?? ? Echogenicity: ?? ? Shape: ?? ? Margins: ?? ? Echogenic Foci: ?? ? ACR TI-RADS total points: Previous: 4 ?? ? ACR TI-RADS category: Previous: 4 ? Significant change in size (>/= 20% in 2 dimensions and minimal increase of 2 mm or 50% or greater increase in volume): ?? ? Change in features: ?? ? Change in ACR TI-RADS risk category: 2.? Location: Left lower pole. ?? ? Size: 0.3 x 0.3 x 0.3 cm, volume 0.02 mL. ?? ? Previously: New ?? ? Nodule characteristics: ?? ? Composition: Cannot be determined (2). ?? ? Echogenicity: Very hypoechoic (3). ?? ? Shape: Not taller than wide (0). ?? ? Margins: Ill-defined (0). ?? ? Echogenic Foci: None (0). ?? ? ACR TI-RADS total points: 5 Previous: 5 ?? ? ACR TI-RADS category: 4 Previous: 4 ? Significant change in size (>/= 20% in 2 dimensions and minimal increase of 2 mm or 50% or greater increase in volume): ?? ? Change in features: ?? ? Change in ACR TI-RADS risk category: 3.? Location: Left mid to lower pole. ?? ? Size: 0.4 x 0.4 x 0.6 cm, volume 0.06 mL. ?? ? Previously: 0.5 x 0.4 x 0.4 cm, volume 0.4 mL ?? ? Nodule characteristics: ?? ? Composition: Solid (2). ?? ? Echogenicity: Hypoechoic (2). ?? ? Shape: Not taller than wide (0). ?? ? Margins: Lobulated (2). ?? ? Echogenic Foci: None (0). ?? ? ACR TI-RADS total points: 6 ?? ? ACR TI-RADS category: 4 ?? ? NODES: No lymphadenopathy is seen in the tissue surrounding the thyroid gland. Labs: Laboratory Tests 09/22/21 07/06/22 07/06/22 07:26 09:30 09:36 Sodium Potassium Creatinine Estimated GFR Hgb A1c (Clinic) LDL Cholesterol, C alc 95 TSH 6.39 H 5.44 H Free T4 0.86 Microalb/Creat Rat io 15.4 07/26/22 08/03/22 10:30 15:00 Sodium 138 Potassium 4.4 Creatinine 0.76 Estimated GFR > 60 Hgb A1c (Clinic) 10.4 H LDL Cholesterol, C alc TSH Free T4 Microalb/Creat Rat io [facility] Medical History Diabetes type 1, uncontrolled Diabetic gastroparesis Diabetic polyneuropathy associated with type 1 diabetes mellitus Diabetic retinopathy associated with type 1 diabetes mellitus Dyslipidemia Essential hypertension HLD (hyperlipidemia) HTN (hypertension) 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 Hypothyroidism Hypothyroidism Left foot pain Metatarsal fracture Multinodular thyroid Right hand pain T1DM (type 1 diabetes mellitus) Vitamin D deficiency Wound of left foot Surgical History No pertinent past surgical history Family History Father Diabetes Mother Diabetes Hypertension Social History Household Members: None Housing: Apartment Alcohol intake: never Patient Tobacco Use Status: Former Tobacco user e-Cigarette/Vaping Use: Never Used Second Hand Smoke Exposure: No service: No Current occupational status: unemployed and disabled Current occupation: rt handed Cognitive needs: No Hearing needs: No Vision needs: No Assessment & Plan Assessment & Plan (1) T1DM (type 1 diabetes mellitus): Code(s): E10.9 - Type 1 diabetes mellitus without complications Qualifiers: Diabetes mellitus complication status: with hyperglycemia Qualified Code(s): E10.65 - Type 1 diabetes mellitus with hyperglycemia Plan: Patient with T1DM, poorly controlled. She has severe gastroparesis which has complicated her management. If she uses humalog prior to eating she has severe hypoglycemia postprandially due to delayed absorption. Her goals of care were adjusted to prevent DKA as well as hypoglycemia. She does have hypoglycemic unawareness which makes her low sugars high risk as she does not sense these and can have a severe low rapidly which can lead to . We have reviewed that her sugars are often running high in an effort to prevent her postprandial lows, and this has led to complications from Diabetes. I reviewed her regimen in detail with her today. She has been poorly compliant with humalog with meals, often not taking this at all if she is eating. We reviewed in detail that her sugars will remain elevated without her mealtime Humalog, and I continue to advise her to use this 20-30 minutes after eating. She states she will do so. She does have a large ulcer on her foot and is following regularly with wound care. We reviewed that in order to ensure proper healing of this ulcer we must control her blood sugars to consistently less than 180, also avoiding hypoglycemia. We have reviewed that without control of sugars it is likely that she will end up with an amputation of her foot. She verbalizes understanding. She will bring her sensor for review and I will call with further adjustments. All of her questions were answered. She is in agreement with this plan of care. I spent 20 minutes in reviewing the record, seeing the patient and documenting in the medical record, including 8 minutes on the phone with the Patient. (2) HLD (hyperlipidemia): Code(s): E78.5 - Hyperlipidemia, unspecified Plan: LDL at goal. Will continue with Atorvastatin 40 mg PO daily. (3) HTN (hypertension): Code(s): I10 - Essential (primary) hypertension Plan: No changes. (4) Hypothyroidism: Code(s): E03.9 - Hypothyroidism, unspecified Plan: Is on Tirosint 125 mcg PO daily. She now reports good compliance. No changes. (5) Multinodular thyroid: Code(s): E04.2 - Nontoxic multinodular goiter Plan: Unchanged. (6) Vitamin D deficiency: Code(s): E55.9 - Vitamin D deficiency, unspecified Plan: Vitamin D at goal. No changes. Medications: Changed From insulin glargine U-300 conc (Toujeo SoloStar U-300 Insulin) 40 units (0.1333 mL) subcut DAILY 30 days 3.999 mL 3RF E10.65 - Type 1 diabetes mellitus with hyperglycemia To insulin glargine U-300 conc (Toujeo SoloStar U-300 Insulin) 46 units subcut DAILY E10.65 - Type 1 diabetes mellitus with hyperglycemia Quality Reporting (2019) Adult ([facility] 138/06/[birth year]) Smoking risk assessment performed?: Yes Patient Tobacco Use Status: Former Tobacco user Telehealth Telehealth Location of provider rendering services: practice address Location of patient: address on file Patient Identification confirmed using: Name, : Yes Telehealth method: voice only Patient verbally consented to treatment: Yes Patient verbally consented to billing insurance company: Yes Patient informed of any privacy concerns related to visit: Yes Coding Level of Care Code Tele Est Pt Level 3 (29434) Diagnoses T1DM (type 1 diabetes mellitus) E10.65 Diabetes mellitus complication status: with hyperglycemia HLD (hyperlipidemia) E78.5 HTN (hypertension) I10 Hypothyroidism E03.9 Multinodular thyroid E04.2 Vitamin D deficiency E55.9
== END 2022-11-20 15:46 | disposition home or self-care (01) ==
LOC: HO.ENCR 07:32
PROVIDERS: PCP Internal Medicine; Visit Provider Internal Medicine
DX: E10.65 Type 1 diabetes mellitus with hyperglycemia (principal); E11.69 Type 2 diabetes mellitus with other specified complication; E78.5 Hyperlipidemia, unspecified; I10 Essential (primary) hypertension; E03.9 Hypothyroidism, unspecified; E55.9 Vitamin D deficiency, unspecified; E04.2 Nontoxic multinodular goiter
CPT/HCPCS: 99213

== ENCOUNTER → 2022-11-20 07:32 | Outpatient (BNVA) | payer OTHER, SELFPAY | PROVIDERS: PCP Internal Medicine; Visit Provider Internal Medicine ==

== ENCOUNTER 2022-12-06 12:35 | Outpatient (AMB) | payer OTHER, SELFPAY ==
[2022-12-06 12:39] VITALS: BP 142/64; PULSE 84; TEMP 36.9; O2SAT 99
--- NOTE | 2022-12-06 12:39 | AM.OFFWIN_ITS ---
Intake Vital Signs 12/06/22 12:39 Height 5 ft 3 in BP 142/64 H Blood Pressure Location Rt brachial Position Sitting Pulse 84 Pulse Source Pulse Oximeter Temp 98.4 F Temp Source Oral Pulse Oximetry (%) 99 Oxygen Delivery Method Room Air Intake Visit Reasons: EP Wound not healed/back pain (lobby) Intake Note: Pt is here for wond on Lt foot and possible UTI Patient Tobacco Use Status: Former Tobacco user Allergies No Known Allergies Allergy (Verified 12/06/22 12:40) HPI HPI Comments History of Present Illness Details [id number] 47-year-old female presents for evaluation left foot wound, urinary frequency, urgency, dysuria, bilateral flank pain for the past few weeks. Patient tells me that she has a nonhealing wound to her left lower extremity, the ball of the foot, it is a callus, patient has seen wound care however has not seen them in a while, she reports redness, swelling and increasing pain to the left foot. She states pain is so bad she feels like she is unable to walk. Patient has also been experiencing UTI symptoms for the past week or so, worsening, not improving, tells me it feels like her typical UTI. Patient denies fevers, c hills, nausea, vomiting, abdominal pain, headache, vision changes, dizziness and weakness. Patient not sexually active On exam there is a nonhealing wound to the left plantar aspect of foot, 2 cm be low 1st toe, wound measures approximately 3 cm x 3 cm, there is overlying erythema, warmth, no purulence noted. Swelling is noted in the affected region. 2+ dorsalis pedis, anterior tibialis and posterior tibialis pulses equal bilateral. No footdrop. Capillary refill intact less than 2 seconds equal bilateral. Patient ambulating with limp favoring her right side secondary to pain. Regular rate and rhythm. Lungs clear. Abdomen soft nontender nondistended This is likely nonhealing chronic wound with overlying acute cellulitis. Unlikely osteomyelitis, arterial or venous occlusion, necrotizing infection, threat to [place]ente. Patient's UTI symptoms likely urinary tract infection or cystitis. Unlikely pyelonephritis, no signs of acute abdomen or obstructing uropathy. No signs of sepsis. Plan at this time antibiotics. Will give patient crutches for ambulation. Educated patient on diagnosis and treatment plan, answered all question, patient verbalizes understanding. At this time patient will be discharged home, advised to return with new or worsening symptoms. Educated on worrisome signs and symptoms and when to return. At this time I feel comfortable discharge home. [facility] Medical History Diabetes type 1, uncontrolled Diabetic gastroparesis Diabetic polyneuropathy associated with type 1 diabetes mellitus Diabetic retinopathy associated with type 1 diabetes mellitus Dyslipidemia Essential hypertension HLD (hyperlipidemia) HTN (hypertension) 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 Hypothyroidism Hypothyroidism Left foot pain Metatarsal fracture Multinodular thyroid Right hand pain T1DM (type 1 diabetes mellitus) Vitamin D deficiency Wound of left foot Surgical History No pertinent past surgical history Family History Father Diabetes Mother Diabetes Hypertension Social History Household Members: None Housing: Apartment Alcohol intake: never Patient Tobacco Use Status: Former Tobacco user e-Cigarette/Vaping Use: Never Used Second Hand Smoke Exposure: No service: No Current occupational status: unemployed and disabled Current occupation: rt handed Cognitive needs: No Hearing needs: No Vision needs: No Review of Systems Const Details: Constitutional : No Weight loss, No Fever, No Chills, No Fatigue, No Malaise ENT/Mouth : No sore throat, No Rhinorrhea Eyes: No Eye Pain, No Swelling, No Redness Cardiovascular : No Chest Pain, No SOB, No Dyspnea on Exertion, No Orthopnea, No Edema, No Palpitations Respiratory : No Cough, No Sputum, No Wheezing Gastrointestinal : No Nausea, No Vomiting, No Diarrhea, No Constipation, No abdominal Pain, No Hematochezia, No Melena Genitourinary : + Dysuria, + Urinary Frequency, No Hematuria, Musculoskeletal : No joint pain, No Myalgias, No Joint Swelling Skin : No Skin Lesions, No rash, + wound Neuro : No Weakness, No Numbness, No Dizziness, No Headache Psych : No Anxiety/Panic, No Depression All other systems reviewed and are negative All systems reviewed & are unremarkable except as noted in HPI and below Physical Exam Vital Signs: Last Vital Signs Temp 98.4 F 12/06/22 12:39 Pulse 84 12/06/22 12:39 BP 142/64 H 12/06/22 12:39 Pulse Ox 99 12/06/22 12:39 Oxygen Delivery Method Room Air 12/06/22 12:39 Vital signs stable Appearance: Alert.? Oriented X3.? No acute distress.? Head: Normocephalic, atraumatic, no step-offs or deformities Eyes: Pupils equal, round and reactive to light.? CVS: Normal heart rate and rhythm.? Pulses normal.? Respiratory: No respiratory distress.? Breath sounds normal.? Abdomen: Soft and nontender.? Skin: Skin warm and dry.? Normal skin color.? Normal skin turgor.? Extremities: No lower extremity edema.? No calf ttp. 5/5 strength to bilateral upper and lower extremities . nonhealing wound to the left plantar aspect of foot, 2 cm below 1st toe, wound measures approximately 3 cm x 3 cm, there is overlying erythema, warmth, no purulence noted. Swelling is noted in the affected region. 2+ dorsalis pedis, anterior tibialis and posterior tibialis pulses equal bilateral. No footdrop. Capillary refill intact less than 2 seconds equal bilateral. Patient ambulating with limp favoring her right side secondary to pain. Back: No CVA tenderness bilaterally Neuro: Oriented X 3.? No motor deficit.? No sensory deficit. CN 2-12 intact Results AMB Urinalysis, Automated UA Leukoctes 125 Ritu/uL Last Edit by Sarita Reyes CMA on 12/06/22 12:49 UA Nitrite Negative Last Edit by Sarita Reyes CMA on 12/06/22 12:49 UA Urobilinogen 0.2 mg/dL Last Edit by Sarita Reyes CMA on 12/06/22 12:49 UA Protein 0 mg/dL Last Edit by Sarita Reyes CMA on 12/06/22 12:49 UA pH 5.5 Last Edit by Sarita Reyes CMA on 12/06/22 12:49 UA Blood 0 Angel Luis/uL Last Edit by Sarita Reyes CMA on 12/06/22 12:49 UA Specific [place] 1.025 Last Edit by Sarita Reyes CMA on 12/06/22 12:4 9 UA Ketone Negative Last Edit by Sarita Reyes CMA on 12/06/22 12:49 UA Bilirubin 0 mg/dL Last Edit by Sarita Reyes CMA on 12/06/22 12:49 UA Glucose 1000 mg/dL Last Edit by Sarita Reyes CMA on 12/06/22 12:49 Assessment & Plan Assessment & Plan (1) Wound of left foot: Code(s): S91.302A - Unspecified open wound, left foot, initial encounter (2) UTI symptoms: Code(s): R39.9 - Unspecified symptoms and signs involving the genitourinary system Plan Take your medications as prescribed. If you were prescribed antibiotics today, it is important that you take your medication to their entirety, do not skip any doses, do not finish them early. Follow-up with your primary care provider this week. Return to the emergency department with new or worsening symptoms. Such as fevers, chills, chest pain, shortness of breath, nausea, vomiting, dizziness, headache, vision changes, lethargy In case of emergency call 911 Orders: Orders AMB Urinalysis Automated Today Z13.9 - Encounter for screening, unspecified Medications: New cephalexin 500 mg PO QID 28 caps 0RF 7 days Coding Level of Care Code Est Pt Level 3 (34142) Diagnoses Wound of left foot S91.302A UTI symptoms R39.9
== END 2022-12-06 13:18 | disposition home or self-care (01) ==
PROVIDERS: PCP Internal Medicine; Visit Provider Physician Assistant
DX: S91.302A Unspecified open wound, left foot, initial encounter (principal); R39.9 Unspecified symptoms and signs involving the genitourinary system; Z13.9 Encounter for screening, unspecified
CPT/HCPCS: 81003; 99213

== ENCOUNTER 2023-01-04 13:18 | Outpatient (AMB) | payer OTHER, SELFPAY ==
--- NOTE | 2023-01-04 13:20 | MHC.PC.OV ---
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 Media Analyst Required: No Accompanied by: Self / Same As Patient Allergies No Known Allergies Allergy (Verified 01/04/23 13:35) Medication List - Last Reconciled 01/04/23 by Liliana Novoa MD atorvastatin 40 mg PO DAILY 30 days cholecalciferol (vitamin D3) 125 mcg PO DAILY citalopram 20 mg PO DAILY 90 days citalopram 40 mg PO DAILY cyclobenzaprine 5 mg PO Q8H PRN 5 days doxepin 100 mg PO BEDTIME flash glucose sensor (FreeStyle Ade 14 Day Sensor kit) every 14 days FreeStyle Lite Meter (blood-glucose meter) 6 times a day NS FreeStyle Lite Strips (blood sugar diagnostic) 6 times a day NS gabapentin 300 mg PO TID 30 days glucagon 3 mg/actuation (Baqsimi) 3 mg intranasal ONCE hydroxyzine HCl 25 mg PO BID PRN 90 days insulin glargine U-300 conc (Toujeo SoloStar U-300 Insulin) 46 units subcut DAILY insulin lispro 1 sliding scale dose subcut USEASDIRECTD ketorolac 10 mg PO Q8H PRN lancets (FreeStyle Lancets) 6 times a day lisinopril 20 mg PO DAILY 30 days meloxicam 15 mg PO DAILY metoclopramide HCl 5 mg PO TID 30 days Shower Chair As directed Tirosint (levothyroxine) 125 mcg PO DAILY 90 days NS walker As directed Tobacco use date assessed: 01/04/23 Dental Screening Dental Screen Date: 01/04/23 Did you have a dental visit in the last 12 months?: Yes Did you have a dental problem in the last 6 months where you did not have access to dental care?: No Was dental information given to patient?: Patient has dentist HPI HPI Comments History of Present Illness Details This is a 47-year-old female with type 1 diabetes mellitus on long-term current use of insulin complicated by diabetic gastroparesis, hypothyroidism, hypertension and mild major depression that complains of left foot wound that has been follow by wound clinic but wound clinic things that is involving the bone itself and would like podiatry referral. A1c elevated and I will increase insulin. This is follow by Endocrinology. Gastroparesis stable with medications. TSH will be order. Blood pressure stable. Depression well controlled with citalopram and this is follow by Behavioral Health. 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 Hypothyroidism Hypothyroidism Left foot pain Metatarsal fracture Multinodular thyroid Right hand pain T1DM (type 1 diabetes mellitus) Vitamin D deficiency Wound of left foot Surgical History No pertinent past surgical history Family History Father Diabetes Mother Diabetes Hypertension Social History Household Members: None Housing: Apartment Alcohol intake: never Patient Tobacco Use Status: Former Tobacco user e-Cigarette/Vaping Use: Never Used Second Hand Smoke Exposure: No service: No Current occupational status: unemployed and disabled Current occupation: rt handed Cognitive needs: No Hearing needs: No Vision needs: No Questionnaire PHQ-9 Over the last 2 weeks, how often have you been bothered by any of the following problems? 1. Little interest or pleasure in doing things: not at all 2. Feeling down, depressed, or hopeless: several days 3. Trouble falling or staying asleep, or sleeping too much: several days 4. Feeling tired or having little energy: not at all 5. Poor appetite or overeating: not at all 6. Feeling bad about yourself - or that you are a failure or have let yourself or your family down: not at all 7. Trouble concentrating on things, such as reading the newspaper or watching television: not at all 8. Moving or speaking so slowly that other people could have noticed. Or the opposite - being so fidgety or restless that you have been moving around a lot more than usual: not at all 9. Thoughts that you would be better off or of hurting yourself in some way: not at all Total score: 2 Depression Screening Interpretation: Positive Depression Screening Follow-up: Existing condition and In treatment 63523 - PHQ-9 Billing: Yes Source: Developed by Drs. Jacinto Romo, Myra Flores, Ata Burnett and colleagues, with an educational mora from [employer]. Thrive Questionnaire Date Thrive assessed: 01/04/23 I am a: Patient What is your living situation today?: I have a steady place to live Within the past 12 months, did the food you bought not last and you didn't have the money to get more?: Never true Within the past 12 months, did you worry whether your food would run out before you got money to buy more?: Never true Do you have trouble paying for medicines?: No Do you have trouble getting transportation to medical appointments?: No Do you have trouble paying your heating and electricity bill?: No Do you have trouble taking care of your child, family member or friend?: No Do you have trouble with day-to-day activities such as bathing, preparing meals, shopping, managing finances, etc.?: No Are you currently unemployed and looking for a job?: No Are you interested in more education?: No Please select the resources that you would like help with: None Currently or been in a relationship where the following occur: no concerns reported AUDIT C Alcohol Use Questionnaire (AUDIT-C) 1. How often do you have a drink containing alcohol?: Never Total Score: 0 DAMION-7 AMB Questionnaire DAMION-7 Date DAMION - 7 assessed: 01/04/23 Feeling nervous, anxious, or on edge: 1 = Several days Not being able to stop or control worryin = Not at all Worrying too much about different things: 0 = Not at all Trouble relaxin = Not at all Being so restless that it is hard to sit still: 0 = Not at all Becoming easily annoyed or irritable: 0 = Not at all Feeling afraid as if something awful might happen: 0 = Not at all Total DAMION-7 score (0-4 normal; 5-9 mild; 10-14 moderate; 15-21 severe): 1 Source: Developed by Drs. Jacinto Romo, Ata Macedooenke and colleagues, with an educational mora from [employer]. DAMION-7 Assessment Billing DAMION-7 Assessment Tool: DAMION-7 Assessment 20704 Review of Systems Const All systems reviewed & are unremarkable except as noted in HPI and below Eyes Reports no additional complaints, Denies change in vision and Denies other visual disturbances Card Denies chest pain at rest, Denies chest pain with activity, Denies edema, Denies irregular heart rhythm, Denies claudication, Denies dyspnea, Denies dyspnea on exertion, Denies orthopnea, Denies paroxysmal nocturnal dyspnea and Denies slow heart rate Resp Denies cough, Denies dyspnea and Denies dyspnea on exertion GI Denies abdominal pain, Denies change in bowel habits, Denies excessive flatus, Denies nausea and Denies vomiting Denies urinary incontinence, Denies urinary hesitancy and Denies urinary urgency Musc Denies abnormal gait, Denies atrophy, Denies deformity and Denies limited range of motion Skin/Breast Denies bleeding lesions, Denies changing lesions and Denies rash Neuro Denies abnormal gait and Denies lack of coordination Physical exam (Primary Care) Vital Signs: Last Vital Signs BP 130/70 01/04/23 13:26 BMI result Body Mass Index 24.3 Tobacco/Smoking Status: Tobacco use Status Tobacco use date assessed 01/04/23 01/04/23 13:24 Patient Tobacco Use Status Former Tobacco user 01/04/23 13:20 e-Cigarette/Vaping Use Never Used 01/04/23 13:20 PHQ-9: PHQ-9 Score PHQ-9: Total score 2 01/04/23 13:42 Depression Screening Interpretation: Positive Depression Screening Follow-up: Existing condition and In treatment Thrive Assessment: Date of Thrive Assessment Date Thrive assessed 01/04/23 01/04/23 13:24 Currently or been in a relationship where the following occur: no concerns reported Eyes General: appearance normal, both eyes and all related structures Eyelids: Yes eyelids normal Conjunctivae: conjunctivae normal Neck Neck: Yes normal visual inspection and Yes supple Resp Effort & Inspection: normal respiratory effort Auscultation: clear to auscultation bilaterally Cardio Jugular venous distension: no JVD Rate: regular rate Rhythm: regular rhythm Heart sounds: S1 normal heart sound present and S2 normal heart sound present Extrem Other: left foot wound General: Yes full ROM Results AMB Hemoglobin A1c AMB Hemoglobin A1c 9.0 % Last Edit by DIANE Mora on 01/04/23 13:33 Results Reviewed Results Reviewed: Laboratory Last Values Hgb A1c (Clinic) 9.0 % (4.0-6.0) H 01/04/23 13:31 Assessment and Plan Assessment & Plan (1) T1DM (type 1 diabetes mellitus): Code(s): E10.9 - Type 1 diabetes mellitus without complications Qualifiers: Diabetes mellitus complication status: with hyperglycemia Qualified Code(s): E10.65 - Type 1 diabetes mellitus with hyperglycemia Plan: Increase long-acting insulin from 46 units to 50 units. A1c goal is equal or less than 7%. Follow-up with endocrinology. (2) HTN (hypertension): Code(s): I10 - Essential (primary) hypertension Plan: Continue lisinopril. Blood pressure goal is equal or less than 130/80. (3) Diabetic gastroparesis: Code(s): E11.43 - Type 2 diabetes mellitus with diabetic autonomic (poly)neuropathy; K31.84 - Gastroparesis Plan: Continue metoclopramide (4) Wound of left foot: Code(s): S91.302A - Unspecified open wound, left foot, initial encounter Plan: Continue wound clinic. Referred to podiatry. (5) Hypothyroidism: Code(s): E03.9 - Hypothyroidism, unspecified Plan: Continue thyroid medication. Monitor TSH. (6) Mild major depression: Code(s): F32.0 - Major depressive disorder, single episode, mild Plan: Continue citalopram. Orders: Orders AMB Hemoglobin A1c Today E10.9 - Type 1 diabetes mellitus without complications Referrals Podiatry Referral M79.672 - Pain in left foot, S91.302A - Unspecified open wound, left foot, initial encounter Medications: New oxybutynin chloride ER 10 mg PO DAILY 90 days 90 tabs 1RF cetirizine (Allergy Relief (cetirizine)) 10 mg PO DAILY 90 days PRN 90 tabs 0RF allergy symptoms Changed From insulin glargine U-300 conc (Toujeo SoloStar U-300 Insulin) 46 units subcut DAILY E10.65 - Type 1 diabetes mellitus with hyperglycemia To insulin glargine U-300 conc (Toujeo SoloStar U-300 Insulin) 50 units (0.1667 mL) subcut DAILY 90 days 15.003 mL 1RF E10.65 - Type 1 diabetes mellitus with hyperglycemia Discontinued citalopram Discontinued Reason: Patient Completed Course 20 mg PO DAILY 90 days 90 tabs 1RF hydroxyzine HCl Discontinued Reason: Patient Completed Course 25 mg PO BID 90 days PRN 180 tabs 0RF anxiety Coding Level of Care Code Est Pt Level 4 (11840) Diagnoses T1DM (type 1 diabetes mellitus) E10.65 Diabetes mellitus complication status: with hyperglycemia HTN (hypertension) I10 Diabetic gastroparesis E11.43; K31.84 Wound of left foot S91.302A Hypothyroidism E03.9 Mild major depression F32.0 Additional Codes DAMION-7 Assessment Billing - DAMION-7 Assessment Tool: DAMION-7 Assessment 92712 ([id number]) Time Spent (min) 25
[2023-01-04 13:26] VITALS: BP 130/70; BMI 24.3
== END 2023-01-04 13:48 | disposition home or self-care (01) ==
PROVIDERS: PCP Internal Medicine; Visit Provider Internal Medicine
DX: E10.65 Type 1 diabetes mellitus with hyperglycemia (principal); I10 Essential (primary) hypertension; E03.9 Hypothyroidism, unspecified; F32.0 Major depressive disorder, single episode, mild; K31.84 Gastroparesis; S91.302A Unspecified open wound, left foot, initial encounter
CPT/HCPCS: 83036; 99214

== ENCOUNTER 2023-01-19 08:52 | Outpatient (AMB) | payer OTHER, SELFPAY ==
--- NOTE | 2023-01-19 09:07 | A.OFFVIS_ITS ---
Intake Vital Signs 01/19/23 09:08 Height 5 ft 3 in Weight 136 lb 14.513 oz BMI 24.2 BP 124/60 Blood Pressure Location Lt brachial Position Sitting Pulse 81 Pulse Source Pulse Oximeter Intake Visit Reasons: DM Intake Note: Patient presents today to follow up on Type Diabetes Mellitus. Previously seen by Dr. Ortega. Patient receives DME supplies through: Last Diabetic Eye exam: Over a year ago Last Podiatry Visit: None Random Glucose: 441 mg/dl HgA1C: 9.0% 01/04/23 Judicial Reporter Required: Yes Judicial Reporter Language: Store Keeper Name: Brittney medical staff Information Interpreted: non-clinical & clinical Accompanied by: Self / Same As Patient Allergies No Known Allergies Allergy (Verified 01/04/23 13:35) Medication List - Last Reconciled 01/19/23 by Jacinto Márquez MD atorvastatin 40 mg PO DAILY 30 days cetirizine (Allergy Relief (cetirizine)) 10 mg PO DAILY PRN 90 days cholecalciferol (vitamin D3) 125 mcg PO DAILY citalopram 40 mg PO DAILY cyclobenzaprine 5 mg PO Q8H PRN 5 days doxepin 100 mg PO BEDTIME flash glucose sensor (FreeStyle Ade 14 Day Sensor kit) every 14 days FreeStyle Lite Meter (blood-glucose meter) 6 times a day NS FreeStyle Lite Strips (blood sugar diagnostic) 6 times a day NS gabapentin 300 mg PO TID 30 days glucagon 3 mg/actuation (Baqsimi) 3 mg intranasal ONCE insulin glargine U-300 conc (Toujeo SoloStar U-300 Insulin) 50 units (0.1667 mL) subcut DAILY 90 days insulin lispro 1 sliding scale dose subcut USEASDIRECTD ketorolac 10 mg PO Q8H PRN lancets (FreeStyle Lancets) 6 times a day lisinopril 20 mg PO DAILY 30 days meloxicam 15 mg PO DAILY metoclopramide HCl 5 mg PO TID 30 days oxybutynin chloride ER 10 mg PO DAILY 90 days Shower Chair As directed Tirosint (levothyroxine) 125 mcg PO DAILY 90 days NS walker As directed HPI HPI Comments History of Present Illness Details 47 YO F with PMHx T1DM, Hypothyroidism and a NTMNG who is seen in F/U for the same. She was previously followed by Dr. Pina.. The patient last saw Dr. Ortega on 11/20/2022 She has severe gastroparesis, and when using humalog prior to eating has severe hypoglycemia postprandially due to the delayed gastric absorption. She has all complications of T1DM including retinopathy, neuropathy and nephropathy. 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 Initially diagnosed with T1DM at the age of 10. Current regimen: Toujeo 50 6 units daily and a Humalog sliding scale: Blood sugar 150 to 199 to use 5 units Blood sugar 200 to 250 to use 8 units Blood sugar 251-300 to use 11 units Blood sugar 301-350 to use 14 units Blood sugar 351-400 to use 16 units Blood sugar more than 400 mg per dL to use 18 units. Has CGM Free Ade. Ade download shows she is using the sensor 81% of the time. Average glucose is 274 with GMI of 9.9% and variability 44.1% glucoses are in target range 26% of time and hyperglycemic 20% of time with very hyper glycemic 53% and 1% hypoglycemia Sugars are high consistently, but she drops abruptly postprandially. Has hypoglycemia 2-3 X/wk . Has glucagon Most recent A1C: 10.4% 08/03/2022, unchanged from prior 10 .5% 12/08/2021. Reports low sugars postprandially if she uses her humalog prior to eating. Treats lows with juice. Checks sugar after to ensure it is rising. Follows the rule of 15's. Has eyes checked yearly, last eye exam 2020 , has retinopathy. Has optho appt 05/17/2023 . Has neuropathy. Denies nephropathy, on Lisinopril 10 mg PO daily. UAC 15.4 07/07/2022. Has HLD, on Atorvastatin 20 mg PO daily. LDL 95 07/07/2022. Denies history of CAD. She has severe gastroparesis. She uses reglan 5 mg PO prior to every meal. Had diabetes education. 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 Last set of labs revealed hypothyroidism, so her Tirosint was increased to 125 mcg PO daily. She has a multinodular thyroid with multiple subcentimeter nodules. Thyroid US: 08/23/2022 Right Thyroid Lobe: 4.3 x 1.3 x 1.4 cm, volume 4.1 mL. Previously 5.0 x 1.4 x 1.6 cm, volume 5.9 mL. Parenchyma: The gland echotexture is heterogeneous. Thyroid vascularity is increased. Left Thyroid Lobe: 4.3 x 1.6 x 1.7 cm, volume 6.1 mL. Previously 4.8 x 1.6 x 1.7 cm, volume 6.8 mL. Parenchyma: The gland echotexture is heterogeneous. Thyroid vascularity is increased. Isthmus: 0.6 cm in maximum AP dimension. Previously 0.6 cm. Estimated total number of nodules greater than or equal to 1 cm: 0. 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 Location: Left upper pole. Not seen. ?? ? Size: cm, volume mL. ?? ? Previously: 0.7 x 0.2 x 0.6 cm, volume 0.04 mL. ?? ? Nodule characteristics: ?? ? Composition: ?? ? Echogenicity: ?? ? Shape: ?? ? Margins: ?? ? Echogenic Foci: ?? ? ACR TI-RADS total points: Previous: 4 ?? ? ACR TI-RADS category: Previous: 4 ? Significant change in size (>/= 20% in 2 dimensions and minimal increase of 2 mm or 50% or greater increase in volume): ?? ? Change in features: ?? ? Change in ACR TI-RADS risk category: 2.? Location: Left lower pole. ?? ? Size: 0.3 x 0.3 x 0.3 cm, volume 0.02 mL. ?? ? Previously: New ?? ? Nodule characteristics: ?? ? Composition: Cannot be determined (2). ?? ? Echogenicity: Very hypoechoic (3). ?? ? Shape: Not taller than wide (0). ?? ? Margins: Ill-defined (0). ?? ? Echogenic Foci: None (0). ?? ? ACR TI-RADS total points: 5 Previous: 5 ?? ? ACR TI-RADS category: 4 Previous: 4 ? Significant change in size (>/= 20% in 2 dimensions and minimal increase of 2 mm or 50% or greater increase in volume): ?? ? Change in features: ?? ? Change in ACR TI-RADS risk category: 3.? Location: Left mid to lower pole. ?? ? Size: 0.4 x 0.4 x 0.6 cm, volume 0.06 mL. ?? ? Previously: 0.5 x 0.4 x 0.4 cm, volume 0.4 mL ?? ? Nodule characteristics: ?? ? Composition: Solid (2). ?? ? Echogenicity: Hypoechoic (2). ?? ? Shape: Not taller than wide (0). ?? ? Margins: Lobulated (2). ?? ? Echogenic Foci: None (0). ?? ? ACR TI-RADS total points: 6 ?? ? ACR TI-RADS category: 4 ?? ? NODES: No lymphadenopathy is seen in the tissue surrounding the thyroid gland. Labs: Laboratory Tests 09/22/21 07/06/22 07/06/22 07:26 09:30 09:36 Sodium Potassium Creatinine Estimated GFR Hgb A1c (Clinic) LDL Cholesterol, C alc 95 TSH 6.39 H 5.44 H Free T4 0.86 Microalb/Creat Rat io 15.4 07/26/22 08/03/22 10:30 15:00 Sodium 138 Potassium 4.4 Creatinine 0.76 Estimated GFR > 60 Hgb A1c (Clinic) 10.4 H LDL Cholesterol, C alc TSH Free T4 Microalb/Creat Rat io PFSH Medical History Diabetes type 1, uncontrolled Diabetic gastroparesis Diabetic polyneuropathy associated with type 1 diabetes mellitus Diabetic retinopathy associated with type 1 diabetes mellitus Dyslipidemia Essential hypertension HLD (hyperlipidemia) HTN (hypertension) 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 Hypothyroidism Hypothyroidism Left foot pain Metatarsal fracture Multinodular thyroid Right hand pain T1DM (type 1 diabetes mellitus) Vitamin D deficiency Wound of left foot Surgical History No pertinent past surgical history Family History Father Diabetes Mother Diabetes Hypertension Social History Household Members: None Housing: Apartment Alcohol intake: never Patient Tobacco Use Status: Former Tobacco user e-Cigarette/Vaping Use: Never Used Second Hand Smoke Exposure: No service: No Current occupational status: unemployed and disabled Current occupation: rt handed Cognitive needs: No Hearing needs: No Vision needs: No Physical Exam Vital Signs: Last Vital Signs Pulse 81 01/19/23 09:08 BP 124/60 01/19/23 09:08 BMI result Body Mass Index 24.2 Absence of Cushingoid features. Absence of acromegalic features. Neck exam reveals nl size thyroid about 15 gms. No thyroid nodules palpable. No carotid bruits present. Lungs CTA. Heart S1 S2, Reg R/R. No M/R/ G. Skin exam reveals absence of vitiligo or acanthosis nigricans. Abdominal exam reveals Soft NT/ND with NA BS. No organomegaly present. Extrem Other: Visual exam of foot performed. L le with bandaged ulcer near 1st digit followed by wound care No onchomycosis, no callouses.Pulses 2 + distally. Sensation intact to monofilament exam on right but diminished in left . Vibratory sensation sensed 10 seconds in right, 10 seconds absent in left with 128 Hz tuning fork Assessment & Plan Assessment & Plan (1) Diabetes type 1, uncontrolled: Code(s): E10.65 - Type 1 diabetes mellitus with hyperglycemia Qualifiers: Glycemic state: with hyperglycemia Qualified Code(s): E10.65 - Type 1 diabetes mellitus with hyperglycemia Plan: This is a 47-year-old female with a history of type 1 diabetes being treated with basal-bolus insulin with poor glycemic control and known microvascular complications including etinopathy, neuropathy and nephropathy.. Plan is to recheck blood glucose as initial was>400. Will have patient follow up with pst specialist.. We talked extensively through the historical interpreter about correlation of poor glycemic control to development and progression of complications of type 1 diabetes. We also talked about potential use of an insulin pump and she is very interested I will talk to the pst specialist about this. Did not make any adjustments to insulin regimen today. Also told her to follow-up with wound clinic regarding the left lower extremity ulcer. Lastly, her primary care provider might consider referral to Neurology considering that she has asymmetric neuropathic changes not typical diabetic neuropathy (2) Hypothyroidism: Code(s): E03.9 - Hypothyroidism, unspecified Plan: Currently on Tirosint 125 ug but admits to noncompliance. Stress compliance with the Tirosint and will recheck TSH and free T4 in 6 weeks time adjust Tirosint Orders: Orders Free T4 (Free Thyroxine) Today E03.9 - Hypothyroidism, unspecified Thyroid Stimulating Hormone Today E03.9 - Hypothyroidism, unspecified Quality Reporting (2019) Adult ([facility] [address]/28/68) Smoking risk assessment performed?: Yes Patient Tobacco Use Status: Former Tob acco user Coding Level of Care Code Est Pt Level 4 (08520) Diagnoses Uncontrolled type 1 diabetes mellitus with hyperglycemia E10.65 Glycemic state: with hyperglycemia Hypothyroidism E03.9
[2023-01-19 09:08] VITALS: BP 124/60; PULSE 81; BMI 24.2
[2023-01-19 09:21] LABS: Glucose, Whole Blood 441 mg/dL (60-115)
[2023-01-19 10:54] LABS: Glucose, Whole Blood 316 mg/dL (60-115)
== END 2023-01-19 09:56 | disposition home or self-care (01) ==
PROVIDERS: PCP Internal Medicine; Visit Provider Internal Medicine Endocrinology, Diabetes & Metabolism
DX: E10.65 Type 1 diabetes mellitus with hyperglycemia (principal); E03.9 Hypothyroidism, unspecified
CPT/HCPCS: 99214

== ENCOUNTER → 2023-01-19 08:52 | Outpatient (BNVA) | payer OTHER, SELFPAY | PROVIDERS: PCP Internal Medicine; Visit Provider Internal Medicine Endocrinology, Diabetes & Metabolism | DX: E10.65 Type 1 diabetes mellitus with hyperglycemia (principal); E03.9 Hypothyroidism, unspecified | CPT/HCPCS: 82947; 99212 ==

== ENCOUNTER 2023-04-18 10:44 | Outpatient (AMB) | payer OTHER, SELFPAY ==
--- NOTE | 2023-04-18 11:13 | MHC.AMDMED ---
Intake Intake Visit Reasons: DM/CONFIRMED Electrical Controls Assembler Required: Yes Electrical Controls Assembler Language: Plastic Card Grader Cardroom Name: Marielos [id number] Information Interpreted: non-clinical & clinical Accompanied by: Self / Same As Patient Allergies No Known Allergies Allergy (Verified 01/04/23 13:35) HPI Comprehensive Diabetes Asmnt Most Recent Diabetes Results: Hemoglobin A1c 10.2 % 02/27/19 Microalb/Creat Ratio 15.4 ug/mg cr 07/06/22 Cholesterol 192 mg/dL 07/06/22 HDL Cholesterol 61 mg/dL 07/06/22 Triglycerides 181 mg/dL 07/06/22 Creatinine 0.83 mg/dL (0.5-1.4) 12/11/22 Blood Urea Nitrogen 11 mg/dL (9-16) 12/11/22 Sodium 134 mmol/L (135-145) L 12/11/22 Potassium 4.9 mmol/L (3.3-5.1) 12/11/22 Chloride 101 mmol/L (96-108) 12/11/22 Carbon Dioxide 23 mmol/L (22-29) 12/11/22 Calcium 9.4 mg/dL (8.4-10.2) 12/11/22 AST 21 U/L (5-31) 07/26/22 ALT 31 U/L (0-31) 07/26/22 Total Protein 6.8 g/dL (6.5-8.0) 07/26/22 Albumin 4.1 g/dL (3.5-5.0) 07/26/22 PFSH Medical History Diabetes type 1, uncontrolled Diabetic gastroparesis Diabetic polyneuropathy associated with type 1 diabetes mellitus Diabetic retinopathy associated with type 1 diabetes mellitus Dyslipidemia Essential hypertension HLD (hyperlipidemia) HTN (hypertension) 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 Hypothyroidism Hypothyroidism Left foot pain Metatarsal fracture Multinodular thyroid Right hand pain T1DM (type 1 diabetes mellitus) Vitamin D deficiency Wound of left foot Surgical History No pertinent past surgical history Family History Father Diabetes Mother Diabetes Hypertension Social History Household Members: None Housing: Apartment Alcohol intake: never Patient Tobacco Use Status: Former Tobacco user e-Cigarette/Vaping Use: Never Used Second Hand Smoke Exposure: No service: No Current occupational status: unemployed and disabled Current occupation: rt handed Cognitive needs: No Hearing needs: No Vision needs: No Assessment & Plan Assessment & Plan (1) 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: Code(s): E10.649 - Type 1 diabetes mellitus with hypoglycemia without coma Plan: Pump Assessment: Type of DM: Dx at age: 10 Previous DKA: Current Insulin Rx:MDI Patient takes insulin as prescribed: Yes Patient? checks times/day uses DexPredictionIO G Downloaded meter today? yes Patient? reports glycemic control as: poor Most recent Hgb A1C: 9% Frequency of low BG: rarely Low BG treatment: Fruit juice Frequency of high BG: daily Does patient check Ketones? patient reports she has tested reasons in the past but is not currently Has pt been on a pump in the past? no Reviewed insulin pump basics today with Patient. Explained pros and cons of insulin pumps. Showed pt various pumps, infusion sets, and cgms currently available. Reviewed need to wear pump 24/7 and need to change infusion set every 3 days. Also stressed importance of frequent BG checks, 4x daily minimum or use pump that is integrated with CGM.? Patient demonstrated motivation for continued insulin pump education and understands the need to complete education prior to starting insulin pump for best outcome. Will follow up for continued education. Next visit will include review of Advanced Carb Counting. patient's total daily dose 80 units insulin to carb ratio 1-6 correction factor 1-18 patient given food log to fill out 2 weeks prior to next appointment in 1 month, with estimation carbohydrates glucose levels and insulin dose Coding Level of Care Code Est Pt Level 1 (65570) Diagnoses 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 E10.649
== END 2023-04-18 11:43 | disposition home or self-care (01) ==
PROVIDERS: PCP Internal Medicine; Visit Provider Registered Nurse Diabetes Educator
DX: E10.649 Type 1 diabetes mellitus with hypoglycemia without coma (principal)

== ENCOUNTER → 2023-04-18 10:44 | Outpatient (BNVA) | payer OTHER, SELFPAY | PROVIDERS: PCP Internal Medicine; Visit Provider Registered Nurse Diabetes Educator | DX: E10.649 Type 1 diabetes mellitus with hypoglycemia without coma (principal) | CPT/HCPCS: 99211 ==

== ENCOUNTER 2023-05-11 09:47 | Outpatient (REF) | payer OTHER, SELFPAY | END 2023-05-11 09:48 | disposition home or self-care (01) | LOC: HO.LAB 09:47 | PROVIDERS: PCP Internal Medicine; Visit Provider Internal Medicine Endocrinology, Diabetes & Metabolism | DX: E78.5 Hyperlipidemia, unspecified (principal); E55.9 Vitamin D deficiency, unspecified; E03.9 Hypothyroidism, unspecified; E10.65 Type 1 diabetes mellitus with hyperglycemia | CPT/HCPCS: 36415; 80053; 80061; 82043; 82306; 82570; 84443 ==

== ENCOUNTER 2023-05-15 14:36 | Outpatient (AMB) | payer OTHER, SELFPAY ==
--- NOTE | 2023-05-15 14:49 | A.OFFPC_ITS ---
Vital Signs 05/15/23 14:51 Height 5 ft 3 in Weight 136 lb 4 oz BMI 24.1 BP 124/60 Blood Pressure Location Lt brachial Position Sitting Respiration 17 Pulse 90 Pulse Source Pulse Oximeter Pulse Oximetry (%) 98 Oxygen Delivery Method Room Air Intake Visit Reasons: pe Intake Note: The patient is present today for a physical examination. They have been dealing with persistent migraines and are requesting medication. Splicer Apprentice Required: No Accompanied by: Self / Same As Patient Allergies No Known Allergies Allergy (Verified 05/15/23 15:11) Medication List - Last Reconciled 05/15/23 by Liliana Novoa MD atorvastatin 40 mg PO DAILY 30 days cetirizine (Allergy Relief (cetirizine)) 10 mg PO DAILY PRN 90 days cholecalciferol (vitamin D3) 125 mcg PO DAILY citalopram 40 mg PO DAILY cyclobenzaprine 5 mg PO Q8H PRN 5 days doxepin 100 mg PO BEDTIME flash glucose sensor (FreeStyle Ade 14 Day Sensor kit) every 14 days FreeStyle Lite Meter (blood-glucose meter) 6 times a day NS FreeStyle Lite Strips (blood sugar diagnostic) 6 times a day NS gabapentin 300 mg PO TID 30 days glucagon 3 mg/actuation (Baqsimi) 3 mg intranasal ONCE insulin glargine U-300 conc (Toujeo SoloStar U-300 Insulin) 50 units (0.1667 mL) subcut DAILY 90 days insulin lispro 1 sliding scale dose subcut USEASDIRECTD ketorolac 10 mg PO Q8H PRN lancets (FreeStyle Lancets) 6 times a day lisinopril 20 mg PO DAILY 30 days meloxicam 15 mg PO DAILY metoclopramide HCl 5 mg PO TID 30 days oxybutynin chloride ER 10 mg PO DAILY 90 days Shower Chair As directed Tirosint (levothyroxine) 125 mcg PO DAILY 90 days NS walker As directed Tobacco use date assessed: 05/15/23 Dental Screening Dental Screen Date: 05/15/23 Did you have a dental visit in the last 12 months?: Yes Did you have a dental problem in the last 6 months where you did not have access to dental care?: No Was dental information given to patient?: Patient has dentist HPI HPI Comments History of Present Illness Details This is a 47-year-old female with diabetes mellitus type 1 on long-term current use of insulin and mild major depression that comes for her physical exam. A1c elevated and I will increase insulin. Has diabetic eye exam 05/17/2023. Depression stable with citalopram. Last mammogram was October 2022 and was normal. Last Pap smear was 2018 and was negative. Has never had a colonoscopy and will order Cologuard. No family history of colon cancer. No blood in the stools. No chest pain or shortness of breath. 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 Hypothyroidism Diabetic polyneuropathy associated with type 1 diabetes mellitus Diabetic retinopathy associated with type 1 diabetes mellitus Dyslipidemia Diabetic gastroparesis Essential hypertension Diabetes type 1, uncontrolled Surgical History No pertinent past surgical history Family History (Updated 05/15/23 @ 15:19 by Liliana Novoa MD) Father Diabetes Substance use disorder Mother Diabetes Hypertension Social History Household Members: None Housing: Apartment Alcohol intake: never Patient Tobacco Use Status: Former Tobacco user e-Cigarette/Vaping Use: Never Used Second Hand Smoke Exposure: No service: No Current occupational status: unemployed and disabled Current occupation: rt handed Cognitive needs: No Hearing needs: No Vision needs: No Questionnaire PHQ-9 Over the last 2 weeks, how often have you been bothered by any of the following problems? 1. Little interest or pleasure in doing things: not at all 2. Feeling down, depressed, or hopeless: not at all 3. Trouble falling or staying asleep, or sleeping too much: not at all 4. Feeling tired or having little energy: not at all 5. Poor appetite or overeating: not at all 6. Feeling bad about yourself - or that you are a failure or have let yourself or your family down: not at all 7. Trouble concentrating on things, such as reading the newspaper or watching television: not at all 8. Moving or speaking so slowly that other people could have noticed. Or the opposite - being so fidgety or restless that you have been moving around a lot more than usual: not at all 9. Thoughts that you would be better off or of hurting yourself in some way: not at all Total score: 0 Depression Screening Interpretation: Negative Depression Screening Done: Yes 08386 - PHQ-9 Billing: Yes Source: Developed by Drs. Jacinto Romo, Myra Flores, Ata Burnett and colleagues, with an educational mora from [employer]. Thrive Questionnaire Date Thrive assessed: 05/15/23 I am a: Patient What is your living situation today?: I have a steady place to live Within the past 12 months, did the food you bought not last and you didn't have the money to get more?: Never true Within the past 12 months, did you worry whether your food would run out before you got money to buy more?: Never true Do you have trouble paying for medicines?: No Do you have trouble getting transportation to medical appointments?: No Do you have trouble paying your heating and electricity bill?: No Do you have trouble taking care of your child, family member or friend?: No Do you have trouble with day-to-day activities such as bathing, preparing meals, shopping, managing finances, etc.?: No Are you currently unemployed and looking for a job?: No Are you interested in more education?: No Please select the resources that you would like help with: None Currently or been in a relationship where the following occur: no concerns reported AUDIT C Alcohol Use Questionnaire (AUDIT-C) 1. How often do you have a drink containing alcohol?: Never 3. How often do you have six or more drinks on one occasion?: Never Total Score: 0 Score Reviewed/Action Taken: No DAMION-7 AMB Questionnaire DAMION-7 Date DAMION - 7 assessed: 05/15/23 Feeling nervous, anxious, or on edge: 0 = Not at all Not being able to stop or control worryin = Not at all Worrying too much about different things: 0 = Not at all Trouble relaxin = Not at all Being so restless that it is hard to sit still: 0 = Not at all Becoming easily annoyed or irritable: 0 = Not at all Feeling afraid as if something awful might happen: 0 = Not at all Total DAMION-7 score (0-4 normal; 5-9 mild; 10-14 moderate; 15-21 severe): 0 Source: Developed by Drs. Jacinto Romo, Myra Flores, Ata Burnett and colleagues, with an educational mora from [employer]. DAMION-7 Assessment Billing DAMION-7 Assessment Tool: DAMION-7 Assessment 72202 Review of Systems Const All systems reviewed & are unremarkable except as noted in HPI and below Eyes Reports no additional complaints, Denies change in vision and Denies other visual disturbances Card Denies chest pain at rest, Denies chest pain with activity, Denies edema, Denies irregular heart rhythm, Denies claudication, Denies dyspnea, Denies dyspnea on exertion, Denies orthopnea, Denies paroxysmal nocturnal dyspnea and Denies slow heart rate Resp Denies cough, Denies dyspnea and Denies dyspnea on exertion GI Denies abdominal pain, Denies change in bowel habits, Denies excessive flatus, Denies nausea and Denies vomiting Denies urinary incontinence, Denies urinary hesitancy and Denies urinary urgency Musc Denies abnormal gait, Denies atrophy, Denies deformity and Denies limited range of motion Skin/Breast Denies bleeding lesions, Denies changing lesions and Denies rash Neuro Denies abnormal gait, Denies behavioral changes, Denies confusion and Denies lack of coordination Psych Denies behavioral changes and Denies confusion Physical exam (Primary Care) Vital Signs: Last Vital Signs Pulse 90 05/15/23 14:51 Resp 17 05/15/23 14:51 BP 124/60 05/15/23 14:51 Pulse Ox 98 05/15/23 14:51 Oxygen Delivery Method Room Air 05/15/23 14:51 BMI result Body Mass Index 24.1 Tobacco/Smoking Status: Tobacco use Status Tobacco use date assessed 05/15/23 05/15/23 14:52 Patient Tobacco Use Status Former Tobacco user 05/15/23 14:50 e-Cigarette/Vaping Use Never Used 05/15/23 14:50 PHQ-9: PHQ-9 Score PHQ-9: Total score 0 05/15/23 15:07 Depression Screening Interpretation: Negative Thrive Assessment: Date of Thrive Assessment Date Thrive assessed 05/15/23 05/15/23 14:59 Currently or been in a relationship where the following occur: no concerns reported Const General: No confusion Orientation/consciousness: patient oriented x3 and No confusion HENMT Head: Yes normal to inspection, Yes normocephalic and Yes atraumatic Ears: external ears normal Eyes General: appearance normal, both eyes and all related structures Eyelids: Yes eyelids normal Conjunctivae: conjunctivae normal Neck Neck: Yes normal visual inspection and Yes supple Resp Effort & Inspection: normal respiratory effort Auscultation: clear to auscultation bilaterally Cardio Jugular venous distension: no JVD Rate: regular rate Rhythm: regular rhythm Heart sounds: S1 normal heart sound present and S2 normal heart sound present GI Inspection: Yes normal to inspection Palpation (GI): Soft to palpation and nontender Auscultation: normal bowel sounds Skin General skin exam: no rashes or lesions noted Neuro General: patient oriented x3, no focal motor deficits and No confusion Extrem General: Yes full ROM Psych Appearance: grossly normal Office Procedures Flu Questionnaire Does the patient have a severe egg allergy?: No Does the patient have severe life threatening allergies?: No Does the patient have a fever or illness today?: No Has the patient ever had Guillain-[place] Syndrome?: No Has the patient ever had any past reaction to a flu shot?: No Results AMB Hemoglobin A1c AMB Hemoglobin A1c 10.7 % Last Edit by TK Zuñiga on 05/15/23 15:04 Immunizations flu vacc [id number] 6mos up(PF) 60 mcg(15 mcgx4)/0.5 mL IM syringe Performing Provider: Liliana Novoa MD [facility] Administered by: TK Zuñiga on 05/15/23 15:03 Dose Route Admin Location Dispensed Lot Number Expiration Date NDC Livestock Dealer 0.5 mL IM Left Deltoid 0.5 mL [id number] 11/04/23 53904-158-41 [employer] VIS Given Date VIS Provided VIS Publication Date 05/15/23 Single Vaccine 20 Eligibility Eligibility Date Funding Source Not VFC Eligible 05/15/23 Private Results Reviewed Results Reviewed: Laboratory Last Values Hgb A1c (Clinic) 10.7 % (4.0-6.0) H 05/15/23 14:51 Assessment and Plan Assessment & Plan (1) Physical exam: Code(s): Z00.00 - Encounter for general adult medical examination without abnormal findings Plan: Repeat in a year. (2) Mild major depression: Code(s): F32.0 - Major depressive disorder, single episode, mild Plan: Continue citalopram. (3) T1DM (type 1 diabetes mellitus): Code(s): E10.9 - Type 1 diabetes mellitus without complications Qualifiers: Diabetes mellitus complication status: with hyperglycemia Qualified Code(s): E10.65 - Type 1 diabetes mellitus with hyperglycemia Plan: Increase insulin from 50 units to 53 units. A1c goal is equal or less than 7%. Orders: Orders AMB Hemoglobin A1c Today E10.9 - Type 1 diabetes mellitus without complications Lipid Panel 4 Months E78.5 - Hyperlipidemia, unspecified Vitamin D 25-OH Total 4 Months E55.9 - Vitamin D deficiency, unspecified Vitamin B12 and Folate 4 Months E53.8 - Deficiency of other specified B group vitamins Complete Blood Count Auto Diff 4 Months D64.9 - Anemia, unspecified Thyroid Stimulating Hormone 4 Months E03.9 - Hypothyroidism, unspecified Influenza [id number] Immunization Today Z23 - Encounter for immunization Microalbumin, Random (w Creat) 4 Months E11.9 - Type 2 diabetes mellitus without complications IRON PROFILE 4 Months D64.9 - Anemia, unspecified Comprehensive Fortine. Panel Fast 4 Months E10.65 - Type 1 diabetes mellitus with hyperglycemia Referrals Cologuard Test Z12.11 - Encounter for screening for malignant neoplasm of colon, Z12.12 - Encounter for screening for malignant neoplasm of rectum [employer] Referral Z12.4 - Encounter for screening for malignant neoplasm of cervix Medications: New atorvastatin 80 mg PO BEDTIME 90 days 90 tabs 3RF hydroxyzine HCl 25 mg PO BEDTIME 90 days 90 tabs 0RF Changed From doxepin 100 mg PO BEDTIME To doxepin 100 mg PO BEDTIME 90 days 90 caps 2RF From insulin glargine U-300 conc (Toujeo SoloStar U-300 Insulin) 50 units (0.1667 mL) subcut DAILY 90 days 15.003 mL 1RF E10.65 - Type 1 diabetes mellitus with hyperglycemia To insulin glargine U-300 conc (Toujeo SoloStar U-300 Insulin) 53 units (0.1767 mL) subcut DAILY 90 days 15.903 mL 1RF E10.65 - Type 1 diabetes mellitus with hyperglycemia Discontinued meloxicam Discontinued Reason: Patient Completed Course 15 mg PO DAILY 14 tabs 0RF ketorolac Discontinued Reason: Patient Completed Course 10 mg PO Q8H PRN 15 tabs 0RF pain cetirizine (Allergy Relief (cetirizine)) Discontinued Reason: Patient Completed Course 10 mg PO DAILY 90 days PRN 90 tabs 0RF allergy symptoms atorvastatin Discontinued Reason: Patient Completed Course 40 mg PO DAILY 30 days 30 tabs 11RF E10.65 - Type 1 diabetes mellitus with hyperglycemia Coding Level of Care Code Est Pt Prev Care 40-64y(27835) Diagnoses Physical exam Z00.00 Mild major depression F32.0 Type 1 diabetes mellitus with hyperglycemia E10.65 Diabetes mellitus complication status: with hyperglycemia Additional Codes DAMION-7 Assessment Billing - DAMION-7 Assessment Tool: DAMION-7 Assessment 90115 ([id number]) Time Spent (min) 33
[2023-05-15 14:51] VITALS: BP 124/60; PULSE 90; RESP 17; O2SAT 98; BMI 24.1
== END 2023-05-15 15:31 | disposition home or self-care (01) ==
PROVIDERS: PCP Internal Medicine; Visit Provider Internal Medicine
DX: Z23 Encounter for immunization (principal); Z00.00 Encounter for general adult medical examination without abnormal findings; F32.0 Major depressive disorder, single episode, mild; E10.65 Type 1 diabetes mellitus with hyperglycemia; I10 Essential (primary) hypertension
CPT/HCPCS: 83036; 90471; 90686; 99396

== ENCOUNTER 2023-05-16 08:24 | Outpatient (AMB) | payer OTHER, SELFPAY ==
--- NOTE | 2023-05-16 08:26 | A.OFFVIS_ITS ---
Intake Vital Signs 05/16/23 08:27 Height 5 ft 3 in Weight 136 lb 7.458 oz BMI 24.2 BP 130/68 Blood Pressure Location Lt brachial Position Sitting Pulse 87 Pulse Source Pulse Oximeter Intake Visit Reasons: DM-LVM Intake Note: Patient presents today to follow up on DMT1. Last Diabetic Eye exam: scheduled for 05/17/24 Last Podiatry Visit:None Random Glucose: 230 mg/dl HgA1C:10.4% Business Support Liaison Required: Yes Business Support Liaison Language: Razor Grinder Name: Martha medical staff Information Interpreted: non-clinical & clinical Accompanied by: Self / Same As Patient Allergies No Known Allergies Allergy (Verified 05/16/23 08:35) Medication List - Last Reconciled 05/16/23 by Jacinto Márquez MD atorvastatin 80 mg PO BEDTIME 90 days cholecalciferol (vitamin D3) 125 mcg PO DAILY citalopram 40 mg PO DAILY cyclobenzaprine 5 mg PO Q8H PRN 5 days doxepin 100 mg PO BEDTIME 90 days flash glucose sensor (FreeStyle Ade 14 Day Sensor kit) every 14 days FreeStyle Lite Meter (blood-glucose meter) 6 times a day NS FreeStyle Lite Strips (blood sugar diagnostic) 6 times a day NS gabapentin 300 mg PO TID 30 days glucagon 3 mg/actuation (Baqsimi) 3 mg intranasal ONCE hydroxyzine HCl 25 mg PO BEDTIME 90 days insulin glargine U-300 conc (Toujeo SoloStar U-300 Insulin) 53 units (0.1767 mL) subcut DAILY 90 days insulin lispro 1 sliding scale dose subcut USEASDIRECTD lancets (FreeStyle Lancets) 6 times a day lisinopril 20 mg PO DAILY 30 days metoclopramide HCl 5 mg PO TID 30 days oxybutynin chloride ER 10 mg PO DAILY 90 days Shower Chair As directed Tirosint (levothyroxine) 125 mcg PO DAILY 90 days NS walker As directed HPI HPI Comments History of Present Illness Details 47 YO F with PMHx T1DM, Hypothyroidism and a NTMNG who is seen in F/U for the same. Today's visit is for type 1 diabetes She has severe gastroparesis, and when using humalog prior to eating has severe hypoglycemia postprandially due to the delayed gastric absorption. She has all complications of T1DM including retinopathy, neuropathy and nephropathy. 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 Initially diagnosed with T1DM at the age of 10. Current regimen: Toujeo 53 units daily and a Humalog sliding scale: Blood sugar 150 to 199 to use 5 units Blood sugar 200 to 250 to use 8 units Blood sugar 251-300 to use 11 units Blood sugar 301-350 to use 14 units Blood sugar 351-400 to use 16 units Blood sugar more than 400 mg per dL to use 18 units. Dexcom download shows average glucose to be 295 with G mi of 10.4% and standard deviation of 101. Sensory was be use 93% of the time. 17% range with a 3% hypoglycemia and no hypoglycemia panel shows elevation from 03:00 to 06:00 then there was continued elevation till 15:00 in the afternoon. Sugars are high consistently, but she drops abruptly postprandially. Has hypoglycemia 2-3 X/wk . Has glucagon Most recent A1C: 10.4% Reports low sugars postprandially if she uses her humalog prior to eating.Very rare hypoglycemia Treats lows with juice. Checks sugar after to ensure it is rising. Follows the rule of 15's. Has eyes checked yearly, last eye exam has appt tomorrow , has retinopathy. Has optho appt 05/17/2023 . Has neuropathy. Denies nephropathy, on Lisinopril 10 mg PO daily. UAC 15.4 07/07/2022. Has HLD, on Atorvastatin 20 mg PO daily. LDL 95 07/07/2022. Denies history of CAD. She has severe gastroparesis. She uses reglan 5 mg PO prior to every meal. Had diabetes education. 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 Last set of labs revealed hypothyroidism, so her Tirosint was increased to 125 mcg PO daily. She has a multinodular thyroid with multiple subcentimeter nodules. Thyroid US: 08/23/2022 Right Thyroid Lobe: 4.3 x 1.3 x 1.4 cm, volume 4.1 mL. Previously 5.0 x 1.4 x 1.6 cm, volume 5.9 mL. Parenchyma: The gland echotexture is heterogeneous. Thyroid vascularity is increased. Left Thyroid Lobe: 4.3 x 1.6 x 1.7 cm, volume 6.1 mL. Previously 4.8 x 1.6 x 1.7 cm, volume 6.8 mL. Parenchyma: The gland echotexture is heterogeneous. Thyroid vascularity is increased. Isthmus: 0.6 cm in maximum AP dimension. Previously 0.6 cm. Estimated total number of nodules greater than or equal to 1 cm: 0. Student Teaching Coordinator nodules are described as follows: 1.? Location: Left upper pole. Not seen. ?? ? Size: cm, volume mL. ?? ? Previously: 0.7 x 0.2 x 0.6 cm, volume 0.04 mL. ?? ? Nodule characteristics: ?? ? Composition: ?? ? Echogenicity: ?? ? Shape: ?? ? Margins: ?? ? Echogenic Foci: ?? ? ACR TI-RADS total points: Previous: 4 ?? ? ACR TI-RADS category: Previous: 4 ? Significant change in size (>/= 20% in 2 dimensions and minimal increase of 2 mm or 50% or greater increase in volume): ?? ? Change in features: ?? ? Change in ACR TI-RADS risk category: 2.? Location: Left lower pole. ?? ? Size: 0.3 x 0.3 x 0.3 cm, volume 0.02 mL. ?? ? Previously: New ?? ? Nodule characteristics: ?? ? Composition: Cannot be determined (2). ?? ? Echogenicity: Very hypoechoic (3). ?? ? Shape: Not taller than wide (0). ?? ? Margins: Ill-defined (0). ?? ? Echogenic Foci: None (0). ?? ? ACR TI-RADS total points: 5 Previous: 5 ?? ? ACR TI-RADS category: 4 Previous: 4 ? Significant change in size (>/= 20% in 2 dimensions and minimal increase of 2 mm or 50% or greater increase in volume): ?? ? Change in features: ?? ? Change in ACR TI-RADS risk category: 3.? Location: Left mid to lower pole. ?? ? Size: 0.4 x 0.4 x 0.6 cm, volume 0.06 mL. ?? ? Previously: 0.5 x 0.4 x 0.4 cm, volume 0.4 mL ?? ? Nodule characteristics: ?? ? Composition: Solid (2). ?? ? Echogenicity: Hypoechoic (2). ?? ? Shape: Not taller than wide (0). ?? ? Margins: Lobulated (2). ?? ? Echogenic Foci: None (0). ?? ? ACR TI-RADS total points: 6 ?? ? ACR TI-RADS category: 4 ?? ? NODES: No lymphadenopathy is seen in the tissue surrounding the thyroid gland. Labs: Laboratory Tests 09/22/21 07/06/22 07/06/22 07:26 09:30 09:36 Sodium Potassium Creatinine Estimated GFR Hgb A1c (Clinic) LDL Cholesterol, C alc 95 TSH 6.39 H 5.44 H Free T4 0.86 Microalb/Creat Rat io 15.4 07/26/22 08/03/22 10:30 15:00 Sodium 138 Potassium 4.4 Creatinine 0.76 Estimated GFR > 60 Hgb A1c (Clinic) 10.4 H LDL Cholesterol, C alc TSH Free T4 Microalb/Creat Rat io PFSH Medical History Wound of left foot Left foot pain Metatarsal fracture Multinodular thyroid Hypothyroidism HTN (hypertension) HLD (hyperlipidemia) T1DM (type 1 diabetes mellitus) Right hand pain Vitamin D deficiency 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 Hypothyroidism Diabetic polyneuropathy associated with type 1 diabetes mellitus Diabetic retinopathy associated with type 1 diabetes mellitus Dyslipidemia Diabetic gastroparesis Essential hypertension Diabetes type 1, uncontrolled Surgical History No pertinent past surgical history Family History (Updated 05/15/23 @ 15:19 by Liliana Novoa MD) Father Diabetes Substance use disorder Mother Diabetes Hypertension Social History Household Members: None Housing: Apartment Alcohol intake: never Patient Tobacco Use Status: Former Tobacco user e-Cigarette/Vaping Use: Never Used Second Hand Smoke Exposure: No service: No Current occupational status: unemployed and disabled Current occupation: rt handed Cognitive needs: No Hearing needs: No Vision needs: No Physical Exam Vital Signs: Last Vital Signs Pulse 87 01/10/24 08:27 BP 130/68 05/16/23 08:27 BMI result Body Mass Index 24.2 Absence of Cushingoid features. Absence of acromegalic features. Neck exam reveals nl size thyroid about 15 gms. No thyroid nodules palpable. No carotid bruits present. Lungs CTA. Heart S1 S2, Reg R/R. No M/R/ G. Skin exam reveals absence of vitiligo or acanthosis nigricans. Abdominal exam reveals Soft NT/ND with NA BS. No organomegaly present. Extrem Other: Visual exam of foot performed. L le with bandaged ulcer near 1st digit followed by wound care No onchomycosis, no callouses.Pulses 2 + distally. Sensation intact to monofilament exam on right but diminished in left . Vibratory sensation sensed 10 seconds in right, 10 seconds absent in left with 128 Hz tuning fork Results Reviewed Results Reviewed: Laboratory Last Values Glucose (Clinic) 230 mg/dL (60-115) H 05/16/23 08:37 Assessment & Plan Assessment & Plan (1) Diabetes type 1, uncontrolled: Code(s): E10.65 - Type 1 diabetes mellitus with hyperglycemia Qualifiers: Glycemic state: with hyperglycemia Qualified Code(s): E10.65 - Type 1 diabetes mellitus with hyperglycemia Plan: This is a 47-year-old female with a history of type 1 diabetes being treated with basal-bolus insulin with poor glycemic control and known microvascular complications including etinopathy, neuropathy and nephropathy.. Plan is to have patient follow-up with the utilization management nurse and complete Education regarding initiation of an insulin pump which I think she will benefit from.. For now, we will raise Toujeo to 60 units and increase Humalog to 11 units before breakfast for point of care 200-300 (2) Hypothyroidism: Code(s): E03.9 - Hypothyroidism, unspecified Plan: Currently on Tirosint 125 ug appears to be clinically biochemically euthyroid Continue current regimen Quality Reporting (2019) Adult (CMS 138/2/) Smoking risk assessment performed?: Yes Patient Tobacco Use Status: Former Tobacco user Coding Level of Care Code Est Pt Level 4 (98704) Diagnoses Uncontrolled type 1 diabetes mellitus with hyperglycemia E10.65 Glycemic state: with hyperglycemia Hypothyroidism E03.9
[2023-05-16 08:27] VITALS: BP 130/68; PULSE 87; BMI 24.2
[2023-05-16 08:42] LABS: Glucose, Whole Blood 230 mg/dL (60-115)
== END 2023-05-16 08:50 | disposition home or self-care (01) ==
PROVIDERS: PCP Internal Medicine; Visit Provider Internal Medicine Endocrinology, Diabetes & Metabolism
DX: E10.65 Type 1 diabetes mellitus with hyperglycemia (principal); E03.9 Hypothyroidism, unspecified
CPT/HCPCS: 99214

== ENCOUNTER → 2023-05-16 08:24 | Outpatient (BNVA) | payer OTHER, SELFPAY | PROVIDERS: PCP Internal Medicine; Visit Provider Internal Medicine Endocrinology, Diabetes & Metabolism | DX: E10.65 Type 1 diabetes mellitus with hyperglycemia (principal); E03.9 Hypothyroidism, unspecified; Z79.4 Long term (current) use of insulin | CPT/HCPCS: 82947; 83036; 99212 ==

== ENCOUNTER 2023-06-01 11:08 | Outpatient (AMB) | payer OTHER, SELFPAY ==
[2023-06-01 11:17] VITALS: BP 140/60; PULSE 83; TEMP 36.6; O2SAT 98; BMI 23.9
--- NOTE | 2023-06-01 11:17 | MHC.OFFWIV ---
Intake Vital Signs 06/01/23 11:17 Height 5 ft 3 in Weight 135 lb BMI 23.9 BP 140/60 H Blood Pressure Location Lt brachial Position Sitting Pulse 83 Pulse Source Pulse Oximeter Temp 97.9 F Temp Source Temporal Artery Scan Pulse Oximetry (%) 98 Oxygen Delivery Method Room Air Intake Visit Reasons: EP LT foot concern/RT eye Diabetic Intake Note: pt is here today c/o Lt foot bunion painful: also yesterday scratch RT eye with fingernail and its painful Patient Tobacco Use Status: Former Tobacco user Allergies No Known Allergies Allergy (Verified 06/01/23 11:20) Medication List - Last Reconciled 06/01/23 by Jac Mccormick MD atorvastatin 80 mg PO BEDTIME 90 days cholecalciferol (vitamin D3) 125 mcg PO DAILY citalopram 40 mg PO DAILY cyclobenzaprine 5 mg PO Q8H PRN 5 days doxepin 100 mg PO BEDTIME 90 days flash glucose sensor (FreeStyle Ade 14 Day Sensor kit) every 14 days FreeStyle Lite Meter (blood-glucose meter) 6 times a day NS FreeStyle Lite Strips (blood sugar diagnostic) 6 times a day NS gabapentin 300 mg PO TID 30 days glucagon 3 mg/actuation (Baqsimi) 3 mg intranasal ONCE hydroxyzine HCl 25 mg PO BEDTIME 90 days insulin glargine U-300 conc (Toujeo SoloStar U-300 Insulin) 53 units (0.1767 mL) subcut DAILY 90 days insulin lispro 1 sliding scale dose subcut USEASDIRECTD lancets (FreeStyle Lancets) 6 times a day lisinopril 20 mg PO DAILY 30 days metoclopramide HCl 5 mg PO TID 30 days oxybutynin chloride ER 10 mg PO DAILY 90 days Shower Chair As directed Tirosint (levothyroxine) 125 mcg PO DAILY 90 days NS walker As directed Do you need a note to return to daycare/school/sports/work: Yes HPI EP LT foot concern/RT eye Diabetic HPI Details Patient is a 47 year female with uncontrolled diabetes last hemoglobin A1c was around 10 that was checked this month Came in today with a chief complaint of right eye Patient accidentally scratched her eye lid with her fingernail yesterday There is no discharge from the eye on examination conjunctivae is not injected Pupils reactive to light Upper eyelid is slightly swollen I am treating her with Polytrim eyedrops She also has developed a thick callus on left foot just below big toe which has a small opening in the middle with slight blood As patient is diabetic I have sent Augmentin for 7 days to be taken 2 times a day She is already seeing a director of group counseling program last visit was in March Patient is to follow up with the primary care within 10 days [facility] Medical History Wound of left foot Left foot pain Metatarsal fracture Multinodular thyroid Hypothyroidism HTN (hypertension) HLD (hyperlipidemia) T1DM (type 1 diabetes mellitus) Right hand pain Vitamin D deficiency 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 Hypothyroidism Diabetic polyneuropathy associated with type 1 diabetes mellitus Diabetic retinopathy associated with type 1 diabetes mellitus Dyslipidemia Diabetic gastroparesis Essential hypertension Diabetes type 1, uncontrolled Surgical History No pertinent past surgical history Family History Father Diabetes Substance use disorder Mother Diabetes Hypertension Social History Household Members: None Housing: Apartment Alcohol intake: never Patient Tobacco Use Status: Former Tobacco user e-Cigarette/Vaping Use: Never Used Second Hand Smoke Exposure: No service: No Current occupational status: unemployed and disabled Current occupation: rt handed Cognitive needs: No Hearing needs: No Vision needs: No Review of Systems Const All systems reviewed & are unremarkable except as noted in HPI and below Physical Exam Vital Signs: Last Vital Signs Temp 97.9 F 06/01/23 11:17 Pulse 83 06/01/23 11:17 BP 140/60 H 06/01/23 11:17 Pulse Ox 98 06/01/23 11:17 Oxygen Delivery Method Room Air 06/01/23 11:17 BMI result Body Mass Index 23.9 Const General: no acute distress Orientation/consciousness: patient oriented x3 Eyes Other: Right upper eyelid slightly swollen, cornea clear, no photophobia, conjunctiva noninjected, no discharge Eyes/upper lids images: 1. Swelling Resp Effort & Inspection: normal respiratory effort and able to speak in complete sentences Auscultation: clear to auscultation bilaterally Cardio Other: S1 S2 Neuro General: patient oriented x3 Extrem Ankle/foot/toe images: 1. Thick callus with small opening clotted blood Psych Mental Status: mental status grossly normal Assessment & Plan Assessment & Plan (1) Wound of left foot: Code(s): S91.302A - Unspecified open wound, left foot, initial encounter (2) Left foot pain: Code(s): M79.672 - Pain in left foot (3) Diabetic polyneuropathy associated with type 1 diabetes mellitus: Code(s): E10.42 - Type 1 diabetes mellitus with diabetic polyneuropathy (4) Diabetes type 1, uncontrolled: Code(s): E10.65 - Type 1 diabetes mellitus with hyperglycemia Qualifiers: Glycemic state: with hyperglycemia Qualified Code(s): E10.65 - Type 1 diabetes mellitus with hyperglycemia (5) Swelling of right eyelid: Code(s): H02.843 - Edema of right eye, unspecified eyelid Plan Patient is a 47 year female with uncontrolled diabetes last hemoglobin A1c was around 10 that was checked this month Came in today with a chief complaint of right eye Patient accidentally scratched her eye lid with her fingernail yesterday There is no discharge from the eye on examination conjunctivae is not injected Pupils reactive to light Upper eyelid is slightly swollen I am treating her with Polytrim eyedrops She also has developed a thick callus on left foot just below big toe which has a small opening in the middle with slight blood As patient is diabetic I have sent Augmentin for 7 days to be taken 2 times a day She is already seeing a director of group counseling program last visit was in March Patient is to follow up with the primary care within 10 days Medications: New polymyxin B sulf-trimethoprim 10,000 unit- 1 mg/mL while awake; do not exceed 6 doses in 24 hours 1 drp ophthalmic (eye) QID 5 days 10 mL 0RF amoxicillin-pot clavulanate 875-125 mg 1 tab PO BID 7 days 14 tabs 0RF Coding Level of Care Code Est Pt Level 4 (16898) Diagnoses Wound of left foot S91.302A Left foot pain M79.672 Diabetic polyneuropathy associated with type 1 diabetes mellitus E10.42 Uncontrolled type 1 diabetes mellitus with hyperglycemia E10.65 Glycemic state: with hyperglycemia Swelling of right eyelid H02.843
== END 2023-06-01 11:54 | disposition home or self-care (01) ==
PROVIDERS: PCP Internal Medicine; Visit Provider Physician Assistant
DX: S91.302A Unspecified open wound, left foot, initial encounter (principal); M79.672 Pain in left foot; E10.42 Type 1 diabetes mellitus with diabetic polyneuropathy; E10.65 Type 1 diabetes mellitus with hyperglycemia; H02.843 Edema of right eye, unspecified eyelid
CPT/HCPCS: 99214

== ENCOUNTER 2023-06-06 13:33 | Outpatient (REF) | payer OTHER, SELFPAY ==
[2023-06-07 13:13] LABS: CT PCR NOT DETECTED (Not Detect.); NG PCR NOT DETECTED (Not Detect.)
[2023-06-07 14:08] LABS: BV Int Neg Control Negative (Negative); BV Int Pos Control Positive (Positive)
[2023-06-12 04:38] LABS: HPV mRNA E6/E7 rflx Not Detected (Not Detected)
== END 2023-06-06 13:34 | disposition home or self-care (01) ==
LOC: HO.LAB 13:33
PROVIDERS: PCP Internal Medicine; Visit Provider Advanced Practice Midwife
DX: Z01.419 Encounter for gynecological examination (general) (routine) without abnormal findings (principal); Z20.2 Contact with and (suspected) exposure to infections with a predominantly sexual mode of transmission; Z79.899 Other long term (current) drug therapy
CPT/HCPCS: 0353U; 87480; 87510; 87624; 87660; 88142; 99386

== ENCOUNTER 2023-06-06 13:33 | Outpatient (AMB) | payer OTHER, SELFPAY ==
--- NOTE | 2023-06-06 13:35 | A.OFFVIS_ITS ---
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 Referral Information Interpreted: clinical only Juice Mixer: Juice Mixer Present Allergies No Known Allergies Allergy (Verified 06/06/23 13:52) Medication List - Last Reconciled 06/06/23 by Haydee Keys CNM amoxicillin-pot clavulanate 875-125 mg 1 tab PO BID 7 days atorvastatin 80 mg PO BEDTIME 90 days cholecalciferol (vitamin D3) 125 mcg PO DAILY citalopram 40 mg PO DAILY cyclobenzaprine 5 mg PO Q8H PRN 5 days flash glucose sensor (FreeStyle Ade 14 Day Sensor kit) every 14 days FreeStyle Lite Meter (blood-glucose meter) 6 times a day NS FreeStyle Lite Strips (blood sugar diagnostic) 6 times a day NS gabapentin 300 mg PO TID 30 days hydroxyzine HCl 25 mg PO BEDTIME 90 days insulin glargine U-300 conc (Toujeo SoloStar U-300 Insulin) 53 units (0.1767 mL) subcut DAILY 90 days insulin lispro 1 sliding scale dose subcut USEASDIRECTD lancets (FreeStyle Lancets) 6 times a day lisinopril 20 mg PO DAILY 30 days metoclopramide HCl 5 mg PO TID 30 days oxybutynin chloride ER 10 mg PO DAILY 90 days polymyxin B sulf-trimethoprim 10,000 unit- 1 mg/mL 1 drp ophthalmic (eye) QID 5 days Shower Chair As directed Tirosint (levothyroxine) 125 mcg PO DAILY 90 days NS walker As directed Is last menstrual period known: No (since 02/26, no period) Do you need a note to return to daycare/school/sports/work: No PFSH Medical History Wound of left foot Left foot pain Metatarsal fracture Multinodular thyroid Hypothyroidism HTN (hypertension) HLD (hyperlipidemia) T1DM (type 1 diabetes mellitus) Right hand pain Vitamin D deficiency 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 Hypothyroidism Diabetic polyneuropathy associated with type 1 diabetes mellitus Diabetic retinopathy associated with type 1 diabetes mellitus Dyslipidemia Diabetic gastroparesis Essential hypertension Diabetes type 1, uncontrolled Surgical History No pertinent past surgical history Family History Father Diabetes Substance use disorder Mother Diabetes Hypertension Social History Household Members: None Housing: Apartment Alcohol intake: never Patient Tobacco Use Status: Former Tobacco user e-Cigarette/Vaping Use: Never Used Second Hand Smoke Exposure: No service: No Current occupational status: unemployed and disabled Current occupation: rt handed Cognitive needs: No Hearing needs: No Vision needs: No Female Reproductive History Menstrual Age of Menarche: 11 control method: none Total pregnancies: 4 Full term: 4 Physical Exam Vital Signs: Last Vital Signs BP 122/70 06/06/23 13:52 BMI result Body Mass Index 24.4 Quality Reporting (2019) Adult ([facility] 138/2//69) Smoking risk assessment performed?: Yes Patient Tobacco Use Status: Former Tobacco user Coding
[2023-06-06 13:52] VITALS: BP 122/70; BMI 24.4
--- NOTE | 2023-06-06 13:53 | MHC.OFFVIS ---
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 Referral Allergies No Known Allergies Allergy (Verified 06/06/23 13:52) Medication List - Last Reconciled 06/06/23 by Haydee Keys CNM amoxicillin-pot clavulanate 875-125 mg 1 tab PO BID 7 days atorvastatin 80 mg PO BEDTIME 90 days cholecalciferol (vitamin D3) 125 mcg PO DAILY citalopram 40 mg PO DAILY cyclobenzaprine 5 mg PO Q8H PRN 5 days flash glucose sensor (FreeStyle Ade 14 Day Sensor kit) every 14 days FreeStyle Lite Meter (blood-glucose meter) 6 times a day NS FreeStyle Lite Strips (blood sugar diagnostic) 6 times a day NS gabapentin 300 mg PO TID 30 days hydroxyzine HCl 25 mg PO BEDTIME 90 days insulin glargine U-300 conc (Toujeo SoloStar U-300 Insulin) 53 units (0.1767 mL) subcut DAILY 90 days insulin lispro 1 sliding scale dose subcut USEASDIRECTD lancets (FreeStyle Lancets) 6 times a day lisinopril 20 mg PO DAILY 30 days metoclopramide HCl 5 mg PO TID 30 days oxybutynin chloride ER 10 mg PO DAILY 90 days polymyxin B sulf-trimethoprim 10,000 unit- 1 mg/mL 1 drp ophthalmic (eye) QID 5 days Shower Chair As directed Tirosint (levothyroxine) 125 mcg PO DAILY 90 days NS walker As directed HPI 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 She says it has been about 22 years since she is lived in [place] but she has never been to a reforestation worker provider here her last reforestation worker appointment was in [facility]. She has family in [place] and [place] but she is here alone with her daughter who works here at the [facility]. She has very uncontrolled diabetes but now she has the freestyle monitor and that is finally helping her know when her blood sugars are way out of control it BP so when her sugars are elevated or too low and that helps her she has been offered the pump and she is thinking about it she is a little bit afraid of it. She has problems with her vision because of her diabetes and also with her feet because of her circulation. She tries to eat well she has not overweight she had chicken nuggets and fries today.. The last time she was sexually active was in 2016 she has not been with anybody because she has had so many health problems going in and out of the hospital and everything. She has also been nervous about coming for reforestation worker appointment. She has many care providers and her next appointment will be with whoever manages her diabetes and then after that she will be seeing her primary care provider. Also patient states her periods stopped in February. And also sometime she had a problem with needing to urinate frequently and she says a pill that her doctor gave her is helping. 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 Hypothyroidism Diabetic polyneuropathy associated with type 1 diabetes mellitus Diabetic retinopathy associated with type 1 diabetes mellitus Dyslipidemia Diabetic gastroparesis Essential hypertension Diabetes type 1, uncontrolled Surgical History No pertinent past surgical history Family History Father Diabetes Substance use disorder Mother Diabetes Hypertension Social History Household Members: None Housing: Apartment Alcohol intake: never Patient Tobacco Use Status: Former Tobacco user e-Cigarette/Vaping Use: Never Used Second Hand Smoke Exposure: No service: No Current occupational status: unemployed and disabled Current occupation: rt handed Cognitive needs: No Hearing needs: No Vision needs: No Female Reproductive History Menstrual Age of Menarche: 11 control method: none Physical Exam Vital Signs: Last Vital Signs BP 122/70 06/06/23 13:52 BMI result Body Mass Index 24.4 Const Other: Thin frame multiple pockmarks on lower legs that the patient says is because of her circulation from her diabetes. She is wearing her freestyle Ade monitor General: healthy appearing, comfortable, no acute distress, well developed and alert Nutritional Appearance: average body habitus Orientation/consciousness: patient oriented x3 Limitations: no limitations HEENT Head: Yes normocephalic Neck Neck: Yes normal visual inspection Chest Chest palpation & inspection: normal inspection of the chest Breast/axilla inspection: normal inspection of the breasts and normal inspection of the axillae Breast/axilla palpation: normal palpation of the breasts and normal palpation of the axillae Resp Effort & Inspection: normal respiratory effort GI Inspection: Yes normal to inspection, No Abdominal wall edema and No distended Palpation (GI): Soft to palpation and nontender Other: Normal external exam vagina pink and moist cervix slightly challenging to find but pink mobile appears multiparous nontender no abnormal discharge noted uterus is small anteverted mobile nontender adnexa nonenlarged fair to good tone with Kegel. General: Yes bladder normal to palpation External Female Exam: normal external appearance and normal appearance of the urethra Speculum Exam - Vagina: normal appearance of the vagina, normal palpation and normal vaginal discharge Speculum Exam - Cervix: normal appearance of the cervix, normal palpation and nontender Bimanual exam- vagina & uterus: normal bimanual exam, normal palpation, uterine size normal, bladder normal to palpation, consistency normal, normal palpation, uterine mobility normal, uterine shape normal, No Cervical tenderness present, non-tender and no cervical motion tenderness Bimanual Exam- Adnexa, other: normal adnexae, no masses, normal and No adnexal tenderness Neuro General: patient oriented x3 Assessment & Plan Assessment & Plan (1) Screening for cervical cancer: Comment: pap done 06/06/23 Code(s): Z12.4 - Encounter for screening for malignant neoplasm of cervix (2) Diabetes: Code(s): E11.9 - Type 2 diabetes mellitus without complications (3) Women's annual routine gynecological examination: Code(s): Z01.419 - Encounter for gynecological examination (general) (routine) without abnormal findings Plan -----Discussed in this visit the following: healthy balanced diet, regular and consistent exercise, getting recommended health screens, doing the best she can for her particular health concerns, kegel exercises, pap smear screening and followup recommendations, mammography screening and SBE, normal changes in cycles in her life stage--- . She said she just had her mammogram a couple of months ago. She said that sometimes when she stretches her arms up if she is cleaning something in her apartment she feels a stretching pain in her right breast but no masses were palpable at all today. She said that her mammogram was completely fine. Discussed that we can see her in 1 year but if she has no reforestation worker concerns the most important things for her health revolve around her diabetes control and that should take priority. As well as yearly mammogram Orders: Orders Pap Smear Today Z01.419 - Encounter for gynecological examination (general) (routine) without abnormal findings CT NG by PCR Today Z01.419 - Encounter for gynecological examination (general) (routine) without abnormal findings Bacterial Vaginosis Panel Today Z20.2 - Contact with and (suspected) exposure to infections with a predominantly sexual mode of transmission Quality Reporting (2019) Adult ([facility] 138//) Smoking risk assessment performed?: Yes Patient Tobacco Use Status: Former Tobacco user Coding Level of Care Code New Pt Prev Care 40-64y(72307) Diagnoses Screening for cervical cancer Z12.4 Diabetes E11.9 Women's annual routine gynecological examination Z01.419
== END 2023-06-06 14:54 | disposition home or self-care (01) ==
LOC: HO.HWSM 13:33
PROVIDERS: PCP Internal Medicine; Visit Provider Advanced Practice Midwife
DX: Z01.419 Encounter for gynecological examination (general) (routine) without abnormal findings (principal); Z12.4 Encounter for screening for malignant neoplasm of cervix; E11.9 Type 2 diabetes mellitus without complications
CPT/HCPCS: 99386

== ENCOUNTER 2023-06-20 09:57 | Emergency (ER) | payer OTHER, SELFPAY ==
--- NOTE | ~2023-06-20 | XR_ITS ---
EXAMINATION: XR WRIST, LEFT CLINICAL INFORMATION: Pain in left wrist without trauma COMPARISON: None available. TECHNIQUE: PA, lateral, and oblique views of the left wrist. FINDINGS: The bones and soft tissues are normal. No fracture. Alignment is anatomic with normal joint spaces. No erosions or abnormal soft tissue calcifications. XR/XR wrist LT min 3V IMPRESSION: Normal left wrist.
[2023-06-20 10:02] VITALS: BP 153/47; PULSE 80; RESP 19; TEMP 36.6; O2SAT 99; BMI 24.6
--- NOTE | 2023-06-20 10:24 | ED_ITS ---
HPI - Extremity Problem General Chief complaint: Extremity Injury, Upper Stated complaint: L Wrist Pain No Injury Time Seen by Provider: 06/20/23 10:24 Source: patient Mode of arrival: ambulatory Limitations: no limitations History of Present Illness HPI Narrative: Patient is a 47 year old assigned female at with a history of DM presenting to the emergency department today with left wrist pain. Patient states that over the last few days she has had left sided wrist pain. Patient denies any numbness, tingling, dizziness, lightheadedness, abdominal pain, nausea, vomiting, fever, chills, blurry vision, double vision, loss of vision, chest pain, difficulty breathing, shortness of breath, back pain, night sweats, pain with urination, increased urinary frequency, increased urinary urgency, blood in her urine or stool, syncope or a near syncopal episode, bowel incontinence, bladder incontinence, bowel retention, bladder retention, or any other complaints at this time. MD Complaint: extremity pain Onset (ago): day(s) Pain Consistency: constant Location: left and upper extremity Severity scale (1-10): 3 Relieving factors: nothing Exacerbating factors: nothing Associated symptoms: denies other symptoms Related Data Home Medications Medication Instructions Recorded Confirmed citalopram 40 mg tablet 40 mg PO DAILY 11/20/22 06/06/23 Previous Rx's Medication Instructions Recorded cyclobenzaprine 5 mg tablet 5 mg PO Q8H PRN pain (scale score 07/06/20 7-10) 5 days #14 tabs FreeStyle Lite Meter #1 ea 11/17/20 (blood-glucose meter) lancets 28 gauge (FreeStyle #200 ea 11/17/20 Lancets) flash glucose sensor (FreeStyle #2 ea 12/30/20 Ade 14 Day Sensor kit) Shower Chair #1 ea 02/06/21 lisinopril 20 mg tablet 20 mg PO DAILY 30 days #30 tabs 08/03/22 walker #1 ea 08/17/22 Tirosint 125 mcg capsule 125 mcg PO DAILY 90 days #90 caps 11/27/22 (levothyroxine) gabapentin 300 mg capsule 300 mg PO TID 30 days #90 caps 11/29/22 metoclopramide HCl 5 mg tablet 5 mg PO TID 30 days #90 tabs 11/29/22 insulin lispro 100 unit/mL 1 sliding scale dose subcut 12/20/22 subcutaneous pen USEASDIRECTD #15 mL oxybutynin chloride 10 mg 10 mg PO DAILY 90 days #90 tabs 01/04/23 tablet,extended release 24 hr FreeStyle Lite Strips (blood sugar #200 ea 03/01/23 diagnostic) atorvastatin 80 mg tablet 80 mg PO BEDTIME 90 days #90 tabs 05/15/23 hydroxyzine HCl 25 mg tablet 25 mg PO BEDTIME 90 days #90 tabs 05/15/23 insulin glargine U-300 conc 300 53 unit (0.1767 mL) subcut DAILY 05/15/23 unit/mL (1.5 mL) subcutaneous pen 90 days #15.903 mL (Toujeo SoloStar U-300 Insulin) amoxicillin 875 mg-potassium 1 tab PO BID 7 days #14 tabs 06/01/23 clavulanate 125 mg tablet polymyxin B sulfate 10,000 1 drp ophthalmic (eye) QID 5 days 06/01/23 unit-trimethoprim 1 mg/mL eye drops #10 mL cholecalciferol (vitamin D3) 125 125 mcg PO DAILY #30 caps 06/18/23 mcg (5,000 unit) capsule cyclobenzaprine 5 mg tablet 5 mg PO TID PRN muscle spasm 7 06/20/23 days #21 tabs prednisone 20 mg tablet 20 mg PO DAILY 7 days #7 tabs 06/20/23 Allergies Allergy/AdvReac Type Severity Reaction Status Date / Time No Known Allergies Allergy Verified 06/20/23 10:01 Review of Systems Constitutional: Constitutional: Reports no additional constitutional complaints, Denies chills, Denies fever(s) and Denies night sweats Eyes: Eyes: Reports no additional eye complaints, Denies blurry vision, Denies change in vision, Denies diplopia, Denies eye discharge, Denies loss of vision and Denies eye pain ENT: Denies dizziness Cardiovascular: Cardiovascular: Reports no additional cardiovascular complaints, Denies chest pain, Denies lightheadedness, Denies Loss of Consciousness and Denies dyspnea Respiratory: Respiratory: Reports no additional respiratory complaints and Denies dyspnea Gastrointestinal: Gastrointestinal: Reports no additional gastrointestinal complaints, Denies abdominal pain, Denies melena, Denies hematochezia, Denies change in bowel habits and Denies change in stool character Genitourinary: Genitourinary: Denies hematuria, Denies urinary frequency, Denies dysuria, Denies urinary incontinence, Denies urinary hesitancy and Denies urinary urgency Musculoskeletal: Musculoskeletal: Reports no additional musculoskeletal complaints, Denies numbness and Denies tingling Comments: left wrist pain Neurologic: Denies dizziness, Denies loss of vision, Denies numbness and Denies tingling Psychiatric: Psychiatric: Reports no additional psychiatric complaints Endocrine: Endocrine: Reports no additional endocrine complaints Hematologic/Lymphatic: Hematologic/Lymphatic: Reports no additional hematologic/lymphatic complaints Allergic/Immunologic: Allergic/Immunologic: Reports no additional allergic/immunologic complaints [facility] Past Medical History Attestation statement: The following information was validated with the patient. 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 Hypothyroidism Diabetic polyneuropathy associated with type 1 diabetes mellitus Diabetic retinopathy associated with type 1 diabetes mellitus Dyslipidemia Diabetic gastroparesis Essential hypertension Diabetes type 1, uncontrolled Surgical History No pertinent past surgical history Family History Family History Father Diabetes Substance use disorder Mother Diabetes Hypertension Social History Social History Household Members: None Housing: Apartment Alcohol intake: never Patient Tobacco Use Status: Former Tobacco user e-Cigarette/Vaping Use: Never Used Second Hand Smoke Exposure: No Advance Directives: No service: No Current occupational status: unemployed and disabled Current occupation: rt handed Cognitive needs: No Hearing needs: No Vision needs: No Physical Exam Vital Signs: Vital Signs: Last Vital Signs Temp 98 F 06/20/23 10:02 Pulse 80 06/20/23 10:02 Resp 19 06/20/23 10:02 BP 153/47 H 06/20/23 10:02 Pulse Ox 99 06/20/23 10:02 O2 Del Method Room Air 06/20/23 10:02 BMI result Body Mass Index 24.6 Const: General: cooperative, no acute distress, alert and awake Nutritional Appearance: well nourished Orientation/consciousness: patient oriented x3 Limitations: no limitations HEENT: Head: Yes normal to inspection and Yes atraumatic Ears: hearing grossly normal bilaterally and external ears normal General nose exam: Normal external nose present, no nasal discharge noted and no epistaxis Face and sinus: Yes normal facial exam, No abrasion and No laceration Mouth: Normal oral and palatal mucosa present, no drooling and no muffled voice Eyes: General: appearance normal, both eyes and all related structures Periorbital: periorbital findings normal Eyelids: Yes eyelids normal Conjunctivae: conjunctivae normal Pupils: Equal, round and reactive pupils present EOM: EOMs intact bilaterally Neck: Neck: Yes normal visual inspection, Yes full ROM and Yes no lymphadenopathy Chest: Chest palpation & inspection: normal inspection of the chest Resp: Effort & Inspection: normal respiratory effort and able to speak in complete sentences GI: Inspection: Yes normal to inspection Neuro: General: patient oriented x3 and moves all extremities Cranial nerves: Yes Equal, round and reactive pupils present Cognition (Neuro): normal cognition Motor exam (neuro): 5/5 motor strength present throughout Sensory Exam: Normal double simultaneous stimulation for sensation Coordination: [id number] test normal Extrem: General: Yes normal to inspection, Yes full ROM and Yes capillary refill normal Psych: Appearance: grossly normal Mental Status: mental status grossly normal Affect: normal affect Attitude: cooperative Thought process: Normal thought process present Thought content: Normal thought content present Insight: Good insight present (Psych) Medical Decision Making Medical Decision Making MDM Narrative: Patient is a 47 year old assigned female at with a history of DM presenting to the emergency department today with left wrist pain. Patient's physical exam was unremarkable. Patient's left wrist x-ray showed no acute process. I explained my physical exam findings as well as all test results to the patient. I answered all questions asked by the patient. Patient was placted in a left wrist splint, without incident. Patient's PMS was intact prior to and after splint placement. I stressed the importance of the patient taking her medication as prescribed. I stressed the importance of the patient following up with her primary care provider. I stressed the importance of the patient returning to the emergency department immediately if her symptoms were to worsen or if she were to develop any dizziness, shortness of breath, difficulty breathing, chest pain, blurry vision, loss of vision, nausea, vomiting, abdominal pain, fever, chills, back pain, or any other complaints. Patient verbalized agreement and understanding with this treatment plan and discharge. Differential Diagnosis Differential Diagnoses: The differential diagnosis associated with the presentation includes Left wrist pain Left wrist sprain Left wrist strain Carpal tunnel Admission/Observation Consideration of admission/observation: Escalation of care including admission/observation considered Patient would have been admitted to the hospital had her work up had any findings where hospital admission was appropriate and her clinical presentation warranted hospital admission. Independent Interpretation I performed an independent interpretation of an: Plain X-Ray Interpretation: My interpretation is in agreement with the radiologist's impression of this imaging study. EXAMINATION: XR WRIST, LEFT CLINICAL INFORMATION: Pain in left wrist without trauma COMPARISON: None available. TECHNIQUE: PA, lateral, and oblique views of the left wrist. FINDINGS: The bones and soft tissues are normal. No fracture. Alignment is anatomic with normal joint spaces. No erosions or abnormal soft tissue calcifications. XR/XR wrist LT min 3V IMPRESSION: Normal left wrist. Dictated By: Pepe Brown MD Signed By: Electronically signed by Pepe Brown MD 06/20/23 2862 Radiology Impression Discussion of test interpretation with radiology: I have reviewed the radiologist's reading. Procedures Orthopedic Splinting/Casting Injury #1: Side: left Upper Extremity Injury Location: wrist Upper Extremity Immobilizer: wrist splint Discharge Plan Discharge Clinical Impression: Acute wrist pain, Left wrist sprain Patient Disposition: Home, Self-Care Instructions: Arthralgia (ED) Additional Instructions: Follow up with your primary care provider and an orthopedic provider. Return to the emergency department immediately if your symptoms worsen or if you develop any dizziness, shortness of breath, difficulty breathing, chest pain, blurry vision, loss of vision, nausea, vomiting, abdominal pain, fever, chills, back pain, or any other complaints. Angel un seguimiento con harp proveedor de atenci?n primaria y un proveedor ortop?dico. Regrese al departamento de emergencias inmediatamente si dolly s?n chapin empeoran o si presenta mareos, dificultad para respirar, dificultad para respirar, dolor en el pecho, visi?n borrosa, p?rdida de la visi?n, n?useas, v?mitos, dolor abdominal, fiebre, escalofr?os, dolor de espalda o cualquier otras quejas. Prescriptions: New cyclobenzaprine 5 mg tablet 5 mg PO TID PRN (Reason: muscle spasm) 7 Days Qty: 21 0RF prednisone 20 mg tablet 20 mg PO DAILY 7 Days Qty: 7 0RF No Action (DME) blood-glucose meter [FreeStyle Lite Meter] Kit See Rx Instructions miscellaneous .MEDSUPPLY Qty: 1 0RF Rx Instructions: 6 times a day (DME) lancets [FreeStyle Lancets] 28 gauge misc See Rx Instructions .MEDSUPPLY Qty: 200 5RF Rx Instructions: 6 times a day (DME) Shower Chair Misc See Rx Instructions .Route Qty: 1 0RF Rx Instructions: As directed (DME) walker Misc See Rx Instructions .Route Qty: 1 0RF Rx Instructions: As directed levothyroxine [Tirosint] 125 mcg capsule 125 mcg PO DAILY 90 Days Qty: 90 3RF metoclopramide HCl 5 mg tablet 5 mg PO TID 30 Days Qty: 90 6RF gabapentin 300 mg capsule 300 mg PO TID 30 Days Qty: 90 6RF insulin lispro 100 unit/mL insulin pen 1 sliding scale dose subcut USEASDIRECTD Qty: 15 6RF (DME) FreeStyle Lite Strips Strip See Rx Instructions .MEDSUPPLY Qty: 200 11RF Rx Instructions: 6 times a day cholecalciferol (vitamin D3) 125 mcg (5,000 unit) capsule 125 mcg PO DAILY Qty: 30 6RF cyclobenzaprine 5 mg tablet 5 mg PO Q8H PRN (Reason: pain (scale score 7-10)) 5 Days Qty: 14 0RF oxybutynin chloride 10 mg tablet extended release 24hr 10 mg PO DAILY 90 Days Qty: 90 1RF polymyxin B sulf-trimethoprim 10,000 unit- 1 mg/mL drops 1 drp ophthalmic (eye) QID 5 Days Qty: 10 0RF Rx Instructions: while awake; do not exceed 6 doses in 24 hours amoxicillin-pot clavulanate 875-125 mg tablet 1 tab PO BID 7 Days Qty: 14 0RF atorvastatin 80 mg tablet 80 mg PO BEDTIME 90 Days Qty: 90 3RF hydroxyzine HCl 25 mg tablet 25 mg PO BEDTIME 90 Days Qty: 90 0RF Toujeo SoloStar U-300 Insulin 300 unit/mL (1.5 mL) insulin pen 53 unit subcut DAILY 90 Days Qty: 15.903 1RF (DME) FreeStyle Ade 14 Day Sensor Kit See Rx Instructions .MEDSUPPLY Qty: 2 11RF Rx Instructions: every 14 days lisinopril 20 mg tablet 20 mg PO DAILY 30 Days Qty: 30 11RF citalopram 40 mg tablet 40 mg PO DAILY Referrals: [facility] [place] [facility] [Provider Group] (Call to establish and follow up with an orthopedic provider. Llame para establecer y realizar un seguimiento con un proveedor ortop?dico.) Liliana Thayer MD [Primary Care Provider] - Interventions: ED Discharge Assessment Last Done: 06/20/23 12:36 Discharge Date/Time: 06/20/23 12:37 Print Language: Micronesian
== END 2023-06-20 12:37 | disposition home or self-care (01) ==
PROVIDERS: Emergency Provider Emergency Medicine Emergency Medical Services; PCP Internal Medicine
DX: M25.532 Pain in left wrist (principal); S63.502A Unspecified sprain of left wrist, initial encounter; X58.XXXA Exposure to other specified factors, initial encounter; Y93.9 Activity, unspecified; Y92.9 Unspecified place or not applicable; Y99.9 Unspecified external cause status
CPT/HCPCS: 29125; 73110; 99283; 99284

== ENCOUNTER 2023-07-02 14:32 | Outpatient (REF) | payer OTHER, SELFPAY | END 2023-07-02 14:33 | disposition home or self-care (01) | LOC: HO.HOSX 14:32 | PROVIDERS: Visit Provider Physician Assistant | DX: Z13.89 Encounter for screening for other disorder (principal) ==

== ENCOUNTER 2023-08-02 11:07 | Outpatient (AMB) | payer OTHER, SELFPAY ==
--- NOTE | 2023-08-02 12:06 | AM.OFFWIN_ITS ---
Intake Vital Signs 3 08/02/23 12:09 Weight 140 lb BP 120/78 Blood Pressure Location Lt brachial Position Sitting Pulse 80 Pulse Source Pulse Oximeter Pulse Oximetry (%) 95 Oxygen Delivery Method Room Air Intake Visit Reasons: EP left foot swelling/red and has discharge Intake Note: Patient here for wound on bottom of left foot, pt states she is diabetic and is swollen,red and has discharge. Pt states it has become very painful. Patient Tobacco Use Status: Former Tobacco user Allergies No Known Allergies Allergy (Verified 08/02/23 12:10) Do you need a note to return to daycare/school/sports/work: No HPI HPI Comments 2 History of Present Illness0 Details 47 y/o female patient who presents to [facility] clinic with c/o left foot (Planatr) pain. Pt has a hard callus that keeps getting infected due to poor control of DM. Pt was briefly seen by wound care clinic and that time the wound was healing and closing up. Pt reports pain with ambulation. 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 Hypothyroidism Diabetic polyneuropathy associated with type 1 diabetes mellitus Diabetic retinopathy associated with type 1 diabetes mellitus Dyslipidemia Diabetic gastroparesis Essential hypertension Diabetes type 1, uncontrolled Surgical History No pertinent past surgical history Family History Father Diabetes Substance use disorder Mother Diabetes Hypertension Social History Household Members: None Housing: Apartment Alcohol intake: never Patient Tobacco Use Status: Former Tobacco user e-Cigarette/Vaping Use: Never Used Second Hand Smoke Exposure: No service: No Current occupational status: unemployed and disabled Current occupation: rt handed Cognitive needs: No Hearing needs: No Vision needs: No Female Reproductive History Menstrual Age of Menarche: 11 Physical Exam Vital Signs: Last Vital Signs Pulse 80 08/02/23 12:09 BP 120/78 08/02/23 12:09 Pulse Ox 95 08/02/23 12:09 Oxygen Delivery Method Room Air 08/02/23 12:09 Const General: no acute distress Orientation/consciousness: patient oriented x3 Neuro General: patient oriented x3 Extrem Right lower extremity: foot (Large Callus, hardened, with black crusty center, indurated and raised) Details: normal capillary refill, toes with normal ROM and no edema Ankle/foot/toe images: 2 1. Large Callus, hardened, with black crusty center, indurated and raised, tender to touch. Assessment & Plan Assessment & Plan (1) Diabetic ulcer of foot associated with diabetes mellitus due to underlying condition, limited to breakdown of skin: Code(s): E08.621 - Diabetes mellitus due to underlying condition with foot ulcer; L97.501 - Non-pressure chronic ulcer of other part of unspecified foot limited to breakdown of skin Qualifiers: Diabetic foot ulcer location: other Laterality: left Qualified Code(s): E08.621 - Diabetes mellitus due to underlying condition with foot ulcer; L97.521 - Non-pressure chronic ulcer of other part of left foot limited to breakdown of skin Plan: - Advised Pt to call wound care for management - Wrapped the Callus with gauze. Coding Level of Care Code Est Pt Level 3 (99899) Diagnoses Diabetic ulcer of other part of left foot associated with diabetes mellitus due to underlying condition, limited to breakdown of skin E08.621; L97.521 Diabetic foot ulcer location: other Laterality: left Time Spent (min) 15
[2023-08-02 12:09] VITALS: BP 120/78; PULSE 80; O2SAT 95
== END 2023-08-02 14:51 | disposition home or self-care (01) ==
PROVIDERS: PCP Internal Medicine; Visit Provider Nurse Practitioner Family
DX: E11.621 Type 2 diabetes mellitus with foot ulcer (principal); L97.521 Non-pressure chronic ulcer of other part of left foot limited to breakdown of skin
CPT/HCPCS: 99213

== ENCOUNTER 2023-08-02 17:53 | Emergency (ER) | payer OTHER, SELFPAY ==
--- NOTE | ~2023-08-02 | XR_ITS ---
EXAMINATION: XR FOOT, LEFT CLINICAL INFORMATION: Diabetic wound proximal to first tarsal. COMPARISON: None available. TECHNIQUE: AP, lateral, and oblique views of the left foot. FINDINGS: There is mild valgus deformity first MTP joint. The MTP, PIP and DIP joints are maintained normal. There is soft tissue swelling first and TV joint and along the dorsal aspect but no ulceration, gas seen. No periosteal thickening. There is a small cystic hypodensity along the plantar aspect of fifth distal metatarsal. Also visualized is sclerosis likely an old healed fracture. Similar findings were seen on the previous left foot exam 12/11/2022. There is a dorsal talar osteophyte. XR/XR foot LT min 3V IMPRESSION: Mild soft tissue swelling along the plantar aspect of the first MTP joint. No visible fracture, dislocation or findings suggestive of osteomyelitis. Subchondral lesion distal fifth metatarsal plantar aspect and dorsal talar osteophyte are stable. Mild hallux valgus deformity first MTP joint is stable.
[2023-08-02 18:00] VITALS: BP 165/75; PULSE 93; RESP 18; TEMP 36.3; O2SAT 99; BMI 24.8
--- NOTE | 2023-08-02 18:01 | ED_ITS ---
HPI - Skin/Abscess/Foreign Bdy General Chief complaint: Wound/Laceration Stated complaint: diabetic, feet swollen, dripping? Time Seen by Provider: 08/03/23 02:45 Source: patient Mode of arrival: ambulatory Limitations: no limitations History of Present Illness HPI narrative: Patient comes to the emergency room complaining of a diabetic foot ulcer that has been present for couple of months. Patient states that she has had this ulcer before, she was going to Wound Clinic and was starting to heal well. However, Patient states that approximately 1 month ago, she noted that the ulcer started reopening. Patient tried taking care of the ulcer at home. However, it kept getting larger. Today, patient states that the pain was unbearable and also noted that she was having foul smelling discharge. Patient denies fever chills Related Data Home Medications Medication Instructions Recorded Confirmed citalopram 40 mg tablet 40 mg PO DAILY 11/20/22 06/06/23 Previous Rx's Medication Instructions Recorded cyclobenzaprine 5 mg tablet 5 mg PO Q8H PRN pain (scale score 07/06/20 7-10) 5 days #14 tabs FreeStyle Lite Meter #1 ea 11/17/20 (blood-glucose meter) lancets 28 gauge (FreeStyle #200 ea 11/17/20 Lancets) flash glucose sensor (FreeStyle #2 ea 12/30/20 Ade 14 Day Sensor kit) Shower Chair #1 ea 02/06/21 lisinopril 20 mg tablet 20 mg PO DAILY 30 days #30 tabs 08/03/22 walker #1 ea 08/17/22 Tirosint 125 mcg capsule 125 mcg PO DAILY 90 days #90 caps 11/27/22 (levothyroxine) gabapentin 300 mg capsule 300 mg PO TID 30 days #90 caps 11/29/22 metoclopramide HCl 5 mg tablet 5 mg PO TID 30 days #90 tabs 11/29/22 insulin lispro 100 unit/mL 1 sliding scale dose subcut 12/20/22 subcutaneous pen USEASDIRECTD #15 mL oxybutynin chloride 10 mg 10 mg PO DAILY 90 days #90 tabs 01/04/23 tablet,extended release 24 hr FreeStyle Lite Strips (blood sugar #200 ea 03/01/23 diagnostic) hydroxyzine HCl 25 mg tablet 25 mg PO BEDTIME 90 days #90 tabs 05/15/23 insulin glargine U-300 conc 300 53 unit (0.1767 mL) subcut DAILY 05/15/23 unit/mL (1.5 mL) subcutaneous pen 90 days #15.903 mL ([place] SoloStar U-300 Insulin) polymyxin B sulfate 10,000 1 drp ophthalmic (eye) QID 5 days 06/01/23 unit-trimethoprim 1 mg/mL eye drops #10 mL cholecalciferol (vitamin D3) 125 125 mcg PO DAILY #30 caps 06/18/23 mcg (5,000 unit) capsule prednisone 20 mg tablet 20 mg PO DAILY 7 days #7 tabs 06/20/23 cephalexin 500 mg capsule 500 mg PO BID #20 caps 08/03/23 doxycycline hyclate 100 mg capsule 100 mg PO BID #20 caps 08/03/23 Allergies Allergy/AdvReac Type Severity Reaction Status Date / Time No Known Allergies Allergy Verified 08/02/23 18:00 Review of Systems 2 Review of Systems: Constitutional : No Weight loss, No Fever, No Chills, No Night Sweats, No Fatigue, No Malaise ENT/Mouth : No Hearing loss, No Ear Pain, No Nasal Congestion, No Sinus Pain, No Hoarseness, No sore throat, No Rhinorrhea, No Swallowing Difficulty Eyes: No Eye Pain, No Swelling, No Redness, No Foreign Body, No Discharge, No Vision Changes Cardiovascular : No Chest Pain, No SOB, No Dyspnea on Exertion, No Orthopnea, No Edema, No Palpitations Respiratory : No Cough, No Sputum, No Wheezing, No Smoke Exposure, No Dyspnea Gastrointestinal : No Nausea, No Vomiting, No Diarrhea, No Constipation, No abdominal Pain, No Hematochezia, No Melena Genitourinary : no irregular bleeding, No Dysuria, No Urinary Frequency, No Hematuria, No Urinary Incontinence, No Urgency, No Flank Pain, No Urinary Flow Changes, No Hesitancy Musculoskeletal : No joint pain, No Myalgias, No Joint Swelling Skin : Complaining of a foot ulcer left foot Neuro : No Weakness, No Numbness, No Paresthesias, No Loss of Consciousness, No Dizziness, No Headache Psych : No Anxiety/Panic, No Depression, No SI/HI/AH/VH, No Social Issues, Heme/Lymph: No Bruising, No Bleeding,No Lymphadenopathy Endocrine : No Polyuria, No Polydipsia, No Temperature Intolerance [facility] Past Medical History Medical History Women's annual routine gynecological examination Swelling of right eyelid Physical exam Screening for cervical cancer Wound of left foot Wound of left foot Left foot pain Metatarsal fracture Right hand pain Multinodular thyroid Hypothyroidism HTN (hypertension) HLD (hyperlipidemia) T1DM (type 1 diabetes mellitus) Vitamin D deficiency 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 Hypothyroidism Diabetic polyneuropathy associated with type 1 diabetes mellitus Diabetic retinopathy associated with type 1 diabetes mellitus Dyslipidemia Diabetic gastroparesis Essential hypertension Diabetes type 1, uncontrolled Surgical History No pertinent past surgical history Family History Family History Father Diabetes Substance use disorder Mother Diabetes Hypertension Social History Social History Household Members: None Housing: Apartment Alcohol intake: never Patient Tobacco Use Status: Former Tobacco user e-Cigarette/Vaping Use: Never Used Second Hand Smoke Exposure: No Advance Directives: No Advance Directives Information Provided: No service: No Current occupational status: unemployed and disabled Current occupation: rt handed Cognitive needs: No Hearing needs: No Vision needs: No Physical Exam 2 Vital Signs: Vital Signs: Last Vital Signs Temp 97.1 F 08/02/23 22:42 Pulse 85 08/02/23 22:42 Resp 16 08/02/23 22:42 BP 139/55 L 08/02/23 22:42 Pulse Ox 100 08/02/23 22:42 O2 Del Method Room Air 08/02/23 22:42 BMI result Body Mass Index 24.8 Const: Other: Appearance: Alert. Oriented X3. No acute distress. Eyes: Pupils equal, round and reactive to light. ENT: Pharynx normal. Neck: Normal inspection. Neck supple. No lymph nodes noted. No crepitus CVS: Normal heart rate and rhythm. Pulses normal. Normal S1 and S2 Respiratory: No respiratory distress. Breath sounds normal. No Wheezing. No rales Abdomen: Soft and nontender. No rigidity. No distention. Skin: Skin warm and dry. Normal skin color. Normal skin turgor. Extremities: No lower extremity edema. No Lacerations. Diabetic ulcer on the left foot , see below Neuro: Oriented X 3. No motor deficit. No sensory deficit. Moving all extremities. No slurred speech. CN 2 through 12 grossly intact Psych: calm, cooperative, normal affect Course Course Course Narrative: RME:?47 yo female w/ hx of DM, diabetic neuropathy here w/ wound to left foot x1 year, worsening over last 3 weeks. reports increased drainage from the wound. has been on PO abx in the past however it has never completely resolved. DM compliant w/ meds however sugars are uncontrolled. denies fever, chills, n/v. wound proximal to left 1st tarsal with central necrosis. ambulating w/ antalgic gait d/t pain. labs and xr ordered. Full HPI, ROS and PE to be performed by the primary ED provider. Medical Decision Making Medical Decision Making [facility] Narrative: -interpretation of foot x-ray, no obvious gas foci, no obvious bone destruction -patient does not have fever or chills, patient states earlier when I spoke with the patient that she had pus. However, when our hospitalist spoke with her, patient denied seeing pus, states that she has been having malodorous discharge. Patient complaining of localized pain. -patient started on fluids, IV antibiotics, vanco and Zosyn. -I discussed the patient with Dr. Mcmahon from the medicine team. I believe that the patient would benefit from debridement and IV antibiotics. Patient does not have fever, no elevated white blood cell count. At this time, admission is not recommended per the medicine team, patient to Follow-up patient with Podiatry/wound clinic Differential Diagnosis Differential Diagnoses: The differential diagnosis associated with the presentation includes (Diabetic foot ulcer, cellulitis) Admission/Observation Consideration of admission/observation: Escalation of care including admission/observation considered (I discussed admitting the patient with Dr. Mcmahon, however outpatient follow-up was recommended) Consult Healthcare Provider Management of the patient was discussed with: Hospitalist Lab Data [facility] Lab Attestation statement: I reviewed the patient's lab results. 08/02/23 19:29 08/02/23 19:29 Labs: Lab Results 08/02/23 Range/Units 19:29 WBC 7.4 (4.8-10.8) X10*3/uL RBC 3.88 L (4.20-5.50) X10*6/uL Hgb 12.3 (12.0-16.0) g/dl Hct 36.4 L (37.0-47.0) % MCV 93.8 (80.0-98.0) fL MCH 31.7 (27.0-33.0) pg MCHC 33.8 (31.0-35.0) g/dl RDW 13.0 (11.0-16.0) % Plt Count 191 (160-400) X10*3/uL MPV 12.6 H (9.4-12.3) fL Immature Gran % (Auto) 0.3 (0.0-0.4) % Neut % (Auto) 57.0 (45-73) % Lymph % (Auto) 35.4 (20-40) % [place] % (Auto) 4.2 (2-11) % Eos % (Auto) 2.2 (0-4) % Baso % (Auto) 0.9 (0-2) % Lymph # (Auto) 2.6 (1.2-4.9) X10*3/uL [place] # (Auto) 0.3 (0.1-1.2) X10*3/uL Eos # (Auto) 0.2 (0.0-0.4) X10*3/uL Baso # (Auto) 0.1 (0.0-0.2) X10*3/uL Abs Immat Gran (auto) 0.02 (0.00-0.03) X10*3/uL Absolute Neuts (auto) 4.2 (2.0-8.3) x10*3/uL Absolute Nucleated RBC 0.000 (0.0-0.012) X10*3/uL Nucleated RBC % (auto) 0.0 (0.0-0.2) /100WBC Sodium 142 (135-145) mmol/L Potassium 4.4 (3.3-5.1) mmol/L Chloride 105 (96-108) mmol/L Carbon Dioxide 23 (22-29) mmol/L Anion Gap 18 (12-20) BUN 15 (9-16) mg/dL Creatinine 0.78 (0.5-1.4) mg/dL Estim Creat Clear Calc 79.1 Estimated GFR > 60 Random Glucose 203 H (60-115) mg/dL Calcium 9.4 (8.4-10.2) mg/dL Total Bilirubin 0.3 (0.0-1.0) mg/dL AST 24 (5-31) U/L ALT 22 (0-31) U/L Alkaline Phosphatase 136 H (39-117) U/L Total Protein 7.2 (6.5-8.0) g/dL Albumin 3.8 (3.5-5.0) g/dL Independent Interpretation I performed an independent interpretation of an: CT Scan Radiology Impression Discussion of test interpretation with radiology: I have reviewed the radiologist's reading. Radiologist Impression: FINDINGS: There is mild valgus deformity first MTP joint. The MTP, PIP and DIP joints are maintained normal. There is soft tissue swelling first and TV joint and along the dorsal aspect but no ulceration, gas seen. No periosteal thickening. There is a small cystic hypodensity along the plantar aspect of fifth distal metatarsal. Also visualized is sclerosis likely an old healed fracture. Similar findings were seen on the previous left foot exam 12/11/2022. There is a dorsal talar osteophyte. XR/XR foot LT min 3V IMPRESSION: Mild soft tissue swelling along the plantar aspect of the first MTP joint. No visible fracture, dislocation or findings suggestive of osteomyelitis. Subchondral lesion distal fifth metatarsal plantar aspect and dorsal talar osteophyte are stable. Mild hallux valgus deformity first MTP joint is stable. Critical Care Time Critical Care Time Critical Care Time: Yes Total Critical Care Time: 75 Attestation: I have personally provided critical care time. Time includes review of lab data, radiology results, discussion with consultants, and monitoring for potential decompensation. Intervention performed as documented. Discharge Plan Discharge Clinical Impression: Diabetic foot ulcer Patient Disposition: Home, Self-Care Instructions: Diabetic Foot Ulcers (ED) Additional Instructions: Please follow-up with your primary care physician tomorrow. If you have any worsening or new symptoms, please return to the emergency room or call 911 Prescriptions: New cephalexin 500 mg capsule 500 mg PO BID Qty: 20 0RF doxycycline hyclate 100 mg capsule 100 mg PO BID Qty: 20 0RF No Action (DME) blood-glucose meter [FreeStyle Lite Meter] Kit See Rx Instructions miscellaneous .MEDSUPPLY Qty: 1 0RF Rx Instructions: 6 times a day (DME) lancets [FreeStyle Lancets] 28 gauge misc See Rx Instructions .MEDSUPPLY Qty: 200 5RF Rx Instructions: 6 times a day (DME) Shower Chair Misc See Rx Instructions .Route Qty: 1 0RF Rx Instructions: As directed (DME) walker Misc See Rx Instructions .Route Qty: 1 0RF Rx Instructions: As directed levothyroxine [Tirosint] 125 mcg capsule 125 mcg PO DAILY 90 Days Qty: 90 3RF metoclopramide HCl 5 mg tablet 5 mg PO TID 30 Days Qty: 90 6RF gabapentin 300 mg capsule 300 mg PO TID 30 Days Qty: 90 6RF insulin lispro 100 unit/mL insulin pen 1 sliding scale dose subcut USEASDIRECTD Qty: 15 6RF (DME) FreeStyle Lite Strips Strip See Rx Instructions .MEDSUPPLY Qty: 200 11RF Rx Instructions: 6 times a day cholecalciferol (vitamin D3) 125 mcg (5,000 unit) capsule 125 mcg PO DAILY Qty: 30 6RF cyclobenzaprine 5 mg tablet 5 mg PO Q8H PRN (Reason: pain (scale score 7-10)) 5 Days Qty: 14 0RF prednisone 20 mg tablet 20 mg PO DAILY 7 Days Qty: 7 0RF oxybutynin chloride 10 mg tablet extended release 24hr 10 mg PO DAILY 90 Days Qty: 90 1RF polymyxin B sulf-trimethoprim 10,000 unit- 1 mg/mL drops 1 drp ophthalmic (eye) QID 5 Days Qty: 10 0RF Rx Instructions: while awake; do not exceed 6 doses in 24 hours hydroxyzine HCl 25 mg tablet 25 mg PO BEDTIME 90 Days Qty: 90 0RF [employer] SoloStar U-300 Insulin 300 unit/mL (1.5 mL) insulin pen 53 unit subcut DAILY 90 Days Qty: 15.903 1RF (DME) FreeStyle Ade 14 Day Sensor Kit See Rx Instructions .MEDSUPPLY Qty: 2 11RF Rx Instructions: every 14 days lisinopril 20 mg tablet 20 mg PO DAILY 30 Days Qty: 30 11RF citalopram 40 mg tablet 40 mg PO DAILY Referrals: Toshia Chavez MD [Physician] - 08/03/23
[2023-08-02 19:34] LABS: MANUAL DIFF FLAG NO
[2023-08-02 19:35] LABS: Basophils Absolute Auto 0.1 X10*3/uL (0.0-0.2); Basophils Percent Auto 0.9 % (0-2); Eosinophils Absolute Auto 0.2 X10*3/uL (0.0-0.4); Eosinophils Percent Auto 2.2 % (0-4); Hematocrit 36.4 % (37.0-47.0); Hemoglobin 12.3 g/dl (12.0-16.0); Imm Gran Abs Auto 0.02 X10*3/uL (0.00-0.03); Imm Gran Pct Auto 0.3 % (0.0-0.4); Lymphocytes Absolute Auto 2.6 X10*3/uL (1.2-4.9); Lymphocytes Percent Auto 35.4 % (20-40); Mean Corpuscular HGB Conc 33.8 g/dl (31.0-35.0); Mean Corpuscular Hemoglobin 31.7 pg (27.0-33.0); Mean Corpuscular Volume 93.8 fL (80.0-98.0); Mean Platelet Volume 12.6 fL (9.4-12.3); Monocytes Absolute Auto 0.3 X10*3/uL (0.1-1.2); Monocytes Percent Auto 4.2 % (2-11); Neutrophils Absolute Auto 4.2 x10*3/uL (2.0-8.3); Platelet Count 191 X10*3/uL (160-400); Red Blood Count 3.88 X10*6/uL (4.20-5.50); White Blood Count 7.4 X10*3/uL (4.8-10.8)
[2023-08-02 19:55] LABS: Alanine Aminotransferase 22 U/L (0-31); Albumin Level 3.8 g/dL (3.5-5.0); Alkaline Phosphatase 136 U/L (39-117); Anion Gap 18 (12-20); Aspartate Amino Transferase 24 U/L (5-31); Bilirubin Total 0.3 mg/dL (0.0-1.0); Blood Urea Nitrogen 15 mg/dL (9-16); Calcium 9.4 mg/dL (8.4-10.2); Carbon Dioxide 23 mmol/L (22-29); Chloride 105 mmol/L (96-108); Creatinine Clr Calc Pharmacy 79.1; Estimated Glomerular Filt Rate > 60; Glucose Random 203 mg/dL (60-115); Potassium 4.4 mmol/L (3.3-5.1); Sodium 142 mmol/L (135-145); Total Protein 7.2 g/dL (6.5-8.0)
[2023-08-02 22:42] VITALS: BP 139/55; PULSE 85; RESP 16; TEMP 36.2; O2SAT 100
--- NOTE | 2023-08-03 03:08 | P.EN_ITS ---
Event Note Date of Service: 08/03/23 Event Note: Was asked to evaluate the patient for nonhealing foot wound. Patient states that she had this wound for about a month. Initially this wound was healing but now it has stopped healing. She presents today as she noticed blood from it, likely due to trauma. Patient has neuropathy and does not feel much pain. No purulent drainage or pus from the wound as per the patient. Upon physical examination, wound without erythema, warmth or purulent drainage. Margins c lean. No osteomyelitis on imaging. No concern for underlying abscess. Patient is not septic. No indication for inpatient admission and IV antibiotics. Will need outpatient follow-up with Podiatry/Wound Care. Time Spent With Patient Time: Total time managing care of this patient today ____ minutes.
[2023-08-03 03:13] LABS: C Reactive Protein 0.26 mg/dL (< or = 0.50)
[2023-08-03] MEDS: 0.9 % Sodium Chloride 1,000 ML 999 ML IVCONT (03:42)
[2023-08-03] MEDS: Piperacillin Sodium/Tazobactam 3.375 GM in 0.9 % Sodium Chloride 50 ML IV (03:42)
[2023-08-03] MEDS: Ketorolac Tromethamine 30 MG/ML VIAL IVPUSH (03:42)
[2023-08-03 03:48] LABS: Lactic Acid 0.8 mmol/L (0.5-2.0)
[2023-08-03] MEDS: vancomycin HCL 1,500 MG in 0.9 % Sodium Chloride 500 ML 333.33 MG IV (04:15)
[2023-08-03 04:21] VITALS: BP 149/69; PULSE 73; RESP 15; TEMP 36.2; O2SAT 98
[2023-08-03 04:25] LABS: Erythrocyte Sedimentation Rate 23 MM/HR (0-20)
[2023-08-03 07:08] VITALS: BP 146/65; PULSE 76; RESP 16; TEMP 36.8; O2SAT 98
== END 2023-08-03 07:12 | disposition home or self-care (01) ==
PROVIDERS: Physician Assistant Medical; Emergency Provider Emergency Medicine; PCP Internal Medicine
DX: J02.9 Acute pharyngitis, unspecified (principal); M79.672 Pain in left foot; R50.9 Fever, unspecified; R11.2 Nausea with vomiting, unspecified; R10.12 Left upper quadrant pain; Z79.899 Other long term (current) drug therapy
CPT/HCPCS: 36415; 73630; 80053; 83605; 85025; 85652; 86140; 87040; 92950; 96361; 96365; 96375; 99285; J1885; J2543; J3371

== ENCOUNTER 2023-09-10 08:21 | Outpatient (AMB) | payer OTHER, SELFPAY ==
--- NOTE | 2023-09-10 08:25 | MHC.OFFVIS ---
Vital Signs 09/10/23 08:28 Height 5 ft 3 in Weight 142 lb 3.17 oz BMI 25.2 BP 134/64 Blood Pressure Location Lt brachial Position Sitting Pulse 80 Pulse Source Pulse Oximeter Intake Visit Reasons: f/u Type 1 DM and hypothyroidism Intake Note: Patient presents today to follow up on DMT. Last Diabetic Eye exam: 2-3 years ago Last Podiatry Visit:Doesn't have one Random Glucose: 142 mg/dl HgA1c: 9.8% Fabricating Machine Operator Required: Yes Fabricating Machine Operator Language: Button Broacher Name: Rhonda Information Interpreted: non-clinical & clinical Accompanied by: Self / Same As Patient Allergies No Known Allergies Allergy (Verified 09/10/23 08:31) Medication List - Last Reconciled 09/10/23 by Jacinto Márquez MD cephalexin 500 mg PO BID cholecalciferol (vitamin D3) 125 mcg PO DAILY citalopram 40 mg PO DAILY cyclobenzaprine 5 mg PO Q8H PRN 5 days doxycycline hyclate 100 mg PO BID flash glucose sensor (FreeStyle Ade 14 Day Sensor kit) every 14 days FreeStyle Lite Meter (blood-glucose meter) 6 times a day NS FreeStyle Lite Strips (blood sugar diagnostic) 6 times a day NS gabapentin 300 mg PO TID 30 days hydroxyzine HCl 25 mg PO BEDTIME 90 days insulin glargine U-300 conc (Toujeo SoloStar U-300 Insulin) 53 units (0.1767 mL) subcut DAILY 90 days insulin lispro 1 sliding scale dose subcut USEASDIRECTD lancets (FreeStyle Lancets) 6 times a day lisinopril 20 mg PO DAILY 30 days metoclopramide HCl 5 mg PO TID 30 days oxybutynin chloride ER 10 mg PO DAILY 90 days polymyxin B sulf-trimethoprim 10,000 unit- 1 mg/mL 1 drp ophthalmic (eye) QID 5 days prednisone 20 mg PO DAILY 7 days Shower Chair As directed Tirosint (levothyroxine) 125 mcg PO DAILY 90 days NS walker As directed HPI Comments Details: 47 YO F with PMHx T1DM, Hypothyroidism and a NTMNG who is seen in F/U for the same. Today's visit is for type 1 diabetes and hypothyroidism She has severe gastroparesis, and when using humalog prior to eating has severe hypoglycemia postprandially due to the delayed gastric absorption. She has all complications of T1DM including retinopathy, neuropathy and nephropathy. 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 Initially diagnosed with T1DM at the age of 10. Current regimen: Toujeo 60 units daily and a Humalog sliding scale: Blood sugar 150 to 199 to use 5 units Blood sugar 200 to 250 to use 8 units Blood sugar 251-300 to use 11 units Blood sugar 301-350 to use 14 units Blood sugar 351-400 to use 16 units Blood sugar more than 400 mg per dL to use 18 units. Dexcom download shows average glucose to be 236 with G mi of 8.9% and standard deviation of 96. Sensory was be use 93% of the time. 34% range with 64% hyperglycemia and no hypoglycemia panel shows elevation from 03:00 to 06:00 then there was continued elevation till 15:00 in the afternoon. Elevation after dinner Sugars are high consistently, but she drops abruptly postprandially. Has hypoglycemia 2-3 X/wk . Has glucagon Reports low sugars postprandially if she uses her humalog prior to eating.Very rare hypoglycemia 2-3 X/mo Treats lows with juice. Checks sugar after to ensure it is rising. Follows the rule of 15's. Has eyes checked yearly, last eye exam last appt , has retinopathy. Had optho appt 1 mo ago Has neuropathy. Denies nephropathy, on Lisinopril 10 mg PO daily. UAC 15.4 07/07/2022. Has HLD, on Atorvastatin 20 mg PO daily. LDL 95 07/07/2022. Denies history of CAD. She has severe gastroparesis. She uses reglan 5 mg PO prior to every meal. Had diabetes education. 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 Last set of labs revealed hypothyroidism, so her Tirosint was increased to 125 mcg PO daily. She has a multinodular thyroid with multiple subcentimeter nodules. Thyroid US: 08/23/2022 Right Thyroid Lobe: 4.3 x 1.3 x 1.4 cm, volume 4.1 mL. Previously 5.0 x 1.4 x 1.6 cm, volume 5.9 mL. Parenchyma: The gland echotexture is heterogeneous. Thyroid vascularity is increased. Left Thyroid Lobe: 4.3 x 1.6 x 1.7 cm, volume 6.1 mL. Previously 4.8 x 1.6 x 1.7 cm, volume 6.8 mL. Parenchyma: The gland echotexture is heterogeneous. Thyroid vascularity is increased. Isthmus: 0.6 cm in maximum AP dimension. Previously 0.6 cm. Estimated total number of nodules greater than or equal to 1 cm: 0. [place] nodules are described as follows: 1.? Location: Left upper pole. Not seen. ?? ? Size: cm, volume mL. ?? ? Previously: 0.7 x 0.2 x 0.6 cm, volume 0.04 mL. ?? ? Nodule characteristics: ?? ? Composition: ?? ? Echogenicity: ?? ? Shape: ?? ? Margins: ?? ? Echogenic Foci: ?? ? ACR TI-RADS total points: Previous: 4 ?? ? ACR TI-RADS category: Previous: 4 ? Significant change in size (>/= 20% in 2 dimensions and minimal increase of 2 mm or 50% or greater increase in volume): ?? ? Change in features: ?? ? Change in ACR TI-RADS risk category: 2.? Location: Left lower pole. ?? ? Size: 0.3 x 0.3 x 0.3 cm, volume 0.02 mL. ?? ? Previously: New ?? ? Nodule characteristics: ?? ? Composition: Cannot be determined (2). ?? ? Echogenicity: Very hypoechoic (3). ?? ? Shape: Not taller than wide (0). ?? ? Margins: Ill-defined (0). ?? ? Echogenic Foci: None (0). ?? ? ACR TI-RADS total points: 5 Previous: 5 ?? ? ACR TI-RADS category: 4 Previous: 4 ? Significant change in size (>/= 20% in 2 dimensions and minimal increase of 2 mm or 50% or greater increase in volume): ?? ? Change in features: ?? ? Change in ACR TI-RADS risk category: 3.? Location: Left mid to lower pole. ?? ? Size: 0.4 x 0.4 x 0.6 cm, volume 0.06 mL. ?? ? Previously: 0.5 x 0.4 x 0.4 cm, volume 0.4 mL ?? ? Nodule characteristics: ?? ? Composition: Solid (2). ?? ? Echogenicity: Hypoechoic (2). ?? ? Shape: Not taller than wide (0). ?? ? Margins: Lobulated (2). ?? ? Echogenic Foci: None (0). ?? ? ACR TI-RADS total points: 6 ?? ? ACR TI-RADS category: 4 ?? ? NODES: No lymphadenopathy is seen in the tissue surrounding the thyroid gland. Labs: Laboratory Tests 09/22/21 07/06/22 07/06/22 07:26 09:30 09:36 Sodium Potassium Creatinine Estimated GFR Hgb A1c (Clinic) LDL Cholesterol, Calc 95 TSH 6.39 H 5.44 H Free T4 0.86 Microalb/Creat Ratio 15.4 07/26/22 08/03/22 10:30 15:00 Sodium 138 Potassium 4.4 Creatinine 0.76 Estimated GFR > 60 Hgb A1c (Clinic) 10.4 H LDL Cholesterol, Calc TSH Free T4 Microalb/Creat Ratio [facility] Medical History Women's annual routine gynecological examination Swelling of right eyelid Physical exam Screening for cervical cancer Wound of left foot Wound of left foot Left foot pain Metatarsal fracture Right hand pain Multinodular thyroid Hypothyroidism HTN (hypertension) HLD (hyperlipidemia) T1DM (type 1 diabetes mellitus) Vitamin D deficiency 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 Hypothyroidism Diabetic polyneuropathy associated with type 1 diabetes mellitus Diabetic retinopathy associated with type 1 diabetes mellitus Dyslipidemia Diabetic gastroparesis Essential hypertension Diabetes type 1, uncontrolled Surgical History No pertinent past surgical history Family History Father Diabetes Substance use disorder Mother Diabetes Hypertension Social History Household Members: None Housing: Apartment Alcohol intake: never Patient Tobacco Use Status: Former Tobacco user e-Cigarette/Vaping Use: Never Used Second Hand Smoke Exposure: No service: No Current occupational status: unemployed and disabled Current occupation: rt handed Cognitive needs: No Hearing needs: No Vision needs: No Female Reproductive History Menstrual Age of Menarche: 11 Physical Exam Vital Signs: Last Vital Signs Pulse 80 09/10/23 08:28 BP 134/64 09/10/23 08:28 BMI result Body Mass Index 25.2 Absence of Cushingoid features. Absence of acromegalic features. Neck exam reveals nl size thyroid about 15 gms. No thyroid nodules palpable. No carotid bruits present. Lungs CTA. Heart S1 S2, Reg R/R. No M/R/ G. Skin exam reveals absence of vitiligo or acanthosis nigricans. Abdominal exam reveals Soft NT/ND with NA BS. No organomegaly present. Extrem Other: Visual exam of foot performed. L le with bandaged ulcer near 1st digit followed by wound care No onchomycosis, no callouses.Pulses 2 + distally. Sensation intact to monofilament exam on right but diminished in left . Vibratory sensation sensed 10 seconds in right, 10 seconds absent in left with 128 Hz tuning fork Results AMB Hemoglobin A1c AMB Hemoglobin A1c 9.8 % Last Edit by DIANE Calderon on 09/10/23 08:55 Quality Reporting (2019) Adult ([facility] 138//) Smoking risk assessment performed?: Yes Patient Tobacco Use Status: Former Tobacco user Results Reviewed Results Reviewed: Laboratory Last Values Glucose (Clinic) 142 mg/dL (60-115) H 09/10/23 08:32 Assessment & Plan Assessment & Plan (1) Diabetes type 1, uncontrolled: Code(s): E10.65 - Type 1 diabetes mellitus with hyperglycemia Category: Medical Qualifiers: Glycemic state: with hyperglycemia Qualified Code(s): E10.65 - Type 1 diabetes mellitus with hyperglycemia Plan: This is a 47-year-old female with a history of type 1 diabetes being treated with basal-bolus insulin with poor glycemic control and known microvascular complications including etinopathy, neuropathy and nephropathy.. Plan is to have patient follow-up with the clinical document improvement educator and complete Education regarding initiation of an insulin pump which I think she will benefit from.. For now, we will raise Toujeo to 68 units and increase Humalog and a Humalog sliding scale: Blood sugar 150 to 199 to use 8 units Blood sugar 200 to 250 to use 11 units Blood sugar 251-300 to use 14 units Blood sugar 301-350 to use 17 units Blood sugar 351-400 to use 19 units Blood sugar more than 400 mg per dL to use 20 units (2) Hypothyroidism: Code(s): E03.9 - Hypothyroidism, unspecified Category: Medical Plan: Currently on Tirosint 125 ug appears to be clinically biochemically euthyroid In terms of the hypothyroidism, patient can follow up with the primary care provider returned back to endocrinology as needed Orders: Orders AMB Hemoglobin A1c Today E10.65 - Type 1 diabetes mellitus with hyperglycemia, Z13.9 - Encounter for screening, unspecified Medications: Changed From insulin lispro 1 sliding scale dose subcut USEASDIRECTD 15 mL 6RF E10.65 - Type 1 diabetes mellitus with hyperglycemia To insulin lispro Blood sugar 150 to 199 to use 8 units Blood sugar 200 to 250 to use 11 units Blood sugar 251-300 to use 14 units Blood sugar 301-350 to use 17 units Blood sugar 351-400 to use 19 units Blood sugar more than 400 mg per dL to use 20 units 1 sliding scale dose subcut USEASDIRECTD 15 mL 6RF E10.65 - Type 1 diabetes mellitus with hyperglycemia From insulin glargine U-300 conc (Toujeo SoloStar U-300 Insulin) 53 units (0.1767 mL) subcut DAILY 90 days 15.903 mL 1RF E10.65 - Type 1 diabetes mellitus with hyperglycemia To insulin glargine U-300 conc (Toujeo SoloStar U-300 Insulin) 68 units (0.2267 mL) subcut DAILY 90 days 20.403 mL 1RF E10.65 - Type 1 diabetes mellitus with hyperglycemia Coding Level of Care Code Est Pt Level 4 (55190) Diagnoses Uncontrolled type 1 diabetes mellitus with hyperglycemia E10.65 Glycemic state: with hyperglycemia Hypothyroidism E03.9
[2023-09-10 08:28] VITALS: BP 134/64; PULSE 80; BMI 25.2
[2023-09-10 08:37] LABS: Glucose, Whole Blood 142 mg/dL (60-115)
== END 2023-09-10 08:59 | disposition home or self-care (01) ==
PROVIDERS: PCP Internal Medicine; Visit Provider Internal Medicine Endocrinology, Diabetes & Metabolism
DX: Z13.9 Encounter for screening, unspecified (principal); E10.65 Type 1 diabetes mellitus with hyperglycemia; E03.9 Hypothyroidism, unspecified
CPT/HCPCS: 99214

== ENCOUNTER → 2023-09-10 08:21 | Outpatient (BNVA) | payer OTHER, SELFPAY | PROVIDERS: PCP Internal Medicine; Visit Provider Internal Medicine Endocrinology, Diabetes & Metabolism | DX: E10.65 Type 1 diabetes mellitus with hyperglycemia (principal); E03.9 Hypothyroidism, unspecified | CPT/HCPCS: 82947; 83036; 99212 ==

== ENCOUNTER 2023-12-24 15:03 | Outpatient (AMB) | payer OTHER, SELFPAY ==
[2023-12-24 15:17] VITALS: BP 130/60; BMI 25.5
--- NOTE | 2023-12-24 15:17 | MHC.PC.OV ---
Vital Signs 12/24/23 15:17 Height 5 ft 3 in Weight 144 lb BMI 25.5 BP 130/60 Blood Pressure Location Lt brachial Position Sitting Intake Visit Reasons: DM - NEEDS A1C Intake Note: Patient here for a follow up DM, urinary incontinence, finger numbness, foot ulcer Juice Tester Required: No Accompanied by: Self / Same As Patient Allergies No Known Allergies Allergy (Verified 12/24/23 15:33) Medication List - Last Reconciled 12/24/23 by Liliana Novoa MD cholecalciferol (vitamin D3) 125 mcg PO DAILY citalopram 40 mg PO DAILY flash glucose sensor (FreeStyle Ade 14 Day Sensor kit) every 14 days FreeStyle Lite Meter (blood-glucose meter) 6 times a day NS FreeStyle Lite Strips (blood sugar diagnostic) 6 times a day NS gabapentin 300 mg PO TID 30 days hydroxyzine HCl 25 mg PO BEDTIME 90 days insulin glargine U-300 conc (Toujeo SoloStar U-300 Insulin) 68 units (0.2267 mL) subcut DAILY 90 days insulin lispro 1 sliding scale dose subcut USEASDIRECTD lancets (FreeStyle Lancets) 6 times a day lisinopril 20 mg PO DAILY metoclopramide HCl 5 mg PO TID 30 days oxybutynin chloride ER 10 mg PO DAILY 90 days Shower Chair As directed Tirosint (levothyroxine) 125 mcg PO DAILY 90 days NS walker As directed Tobacco use date assessed: 05/15/23 Dental Screening Dental Screen Date: 05/15/23 HPI HPI Comments History of Present Illness Details This is a 48-year-old female with diabetes mellitus type 1, hypertension, hyperlipidemia, hypothyroidism and mild major depression that comes today for follow-up on her conditions. A1c elevated and this is follow by endocrinology. As per patient she has been having low blood glucose. Blood pressure stable. Lipid panel and TSH will be order to check her hyperlipidemia and hypothyroidism. Depression stable with citalopram. Complains of bilateral numbness in hands and I will order a nerve conduction study. [facility] Medical History (Updated 12/24/23 @ 15:41 by Liliana Novoa MD) Women's annual routine gynecological examination Swelling of right eyelid Physical exam Screening for cervical cancer Wound of left foot Wound of left foot Left foot pain Metatarsal fracture Right hand pain Multinodular thyroid Hypothyroidism HTN (hypertension) HLD (hyperlipidemia) T1DM (type 1 diabetes mellitus) Vitamin D deficiency 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 Hypothyroidism Diabetic polyneuropathy associated with type 1 diabetes mellitus Diabetic retinopathy associated with type 1 diabetes mellitus Dyslipidemia Diabetic gastroparesis Essential hypertension Diabetes type 1, uncontrolled Surgical History No pertinent past surgical history Family History Father Diabetes Substance use disorder Mother Diabetes Hypertension Social History Household Members: None Housing: Apartment Alcohol intake: never Patient Tobacco Use Status: Former Tobacco user e-Cigarette/Vaping Use: Never Used Second Hand Smoke Exposure: No service: No Current occupational status: unemployed and disabled Current occupation: rt handed Cognitive needs: No Hearing needs: No Vision needs: No Female Reproductive History Menstrual Age of Menarche: 11 Questionnaire Thrive Questionnaire Date Thrive assessed: 05/15/23 DAMION-7 AMB Questionnaire DAMION-7 Date DAMION - 7 assessed: 05/15/23 Source: Developed by Drs. Jacinto Romo, Myra Flores, Ata Burnett and colleagues, with an educational mora from [employer]. Review of Systems Const All systems reviewed & are unremarkable except as noted in HPI and below Card Denies chest pain at rest, Denies chest pain with activity, Denies edema, Denies irregular heart rhythm, Denies claudication, Denies dyspnea, Denies dyspnea on exertion, Denies orthopnea, Denies paroxysmal nocturnal dyspnea and Denies slow heart rate Resp Denies cough, Denies dyspnea and Denies dyspnea on exertion GI Denies abdominal pain, Denies change in bowel habits, Denies excessive flatus, Denies nausea and Denies vomiting Denies urinary incontinence, Denies urinary hesitancy and Denies urinary urgency Physical exam (Primary Care) Vital Signs: Last Vital Signs BP 130/60 12/24/23 15:17 BMI result Body Mass Index 25.5 Tobacco/Smoking Status: Tobacco use Status Tobacco use date assessed 05/15/23 12/24/23 15:23 Patient Tobacco Use Status Former Tobacco user 12/24/23 15:23 e-Cigarette/Vaping Use Never Used 12/24/23 15:23 Thrive Assessment: Date of Thrive Assessment Date Thrive assessed 05/15/23 12/24/23 15:23 Resp Effort & Inspection: normal respiratory effort Auscultation: clear to auscultation bilaterally Cardio Jugular venous distension: no JVD Rate: regular rate Rhythm: regular rhythm Heart sounds: S1 normal heart sound present and S2 normal heart sound present Extrem General: Yes full ROM Results AMB Hemoglobin A1c AMB Hemoglobin A1c 9.1 % Last Edit by DIANE Mora on 12/24/23 15:26 Results Reviewed Results Reviewed: Laboratory Last Values Hgb A1c (Clinic) 9.1 % (4.0-6.0) H 12/24/23 15:24 Assessment and Plan Assessment & Plan (1) T1DM (type 1 diabetes mellitus): Code(s): E10.9 - Type 1 diabetes mellitus without complications Qualifiers: Diabetes mellitus complication status: with hyperglycemia Qualified Code(s): E10.65 - Type 1 diabetes mellitus with hyperglycemia Plan: Continue insulin. Follow-up with endocrinology. A1c goal is equal or less than 7%. (2) HLD (hyperlipidemia): Code(s): E78.5 - Hyperlipidemia, unspecified Plan: Repeat lipid panel. LDL goal is less than 70. (3) Hypothyroidism: Code(s): E03.9 - Hypothyroidism, unspecified Plan: Continue levothyroxine. Monitor TSH. (4) HTN (hypertension): Code(s): I10 - Essential (primary) hypertension Plan: Continue lisinopril. Blood pressure goal is equal or less than 130/80. (5) Mild major depression: Code(s): F32.0 - Major depressive disorder, single episode, mild Plan: Continue citalopram. Orders: Orders AMB Hemoglobin A1c Today E11.9 - Type 2 diabetes mellitus without complications Vitamin B12 and Folate Today E53.8 - Deficiency of other specified B group vitamins Lipid Panel Today E78.5 - Hyperlipidemia, unspecified NE nerve conduction velocity Today R20.2 - Paresthesia of skin Complete Blood Count Auto Diff Today D64.9 - Anemia, unspecified IRON PROFILE Today D64.9 - Anemia, unspecified Vitamin D 25-OH Total Today E55.9 - Vitamin D deficiency, unspecified Microalbumin, Random (w Creat) Today E11.9 - Type 2 diabetes mellitus without complications Thyroid Stimulating Hormone Today E03.9 - Hypothyroidism, unspecified Comprehensive [place]. Panel Fast Today I10 - Essential (primary) hypertension Referrals Ophthalmology Referral E10.65 - Type 1 diabetes mellitus with hyperglycemia Cologuard Test Z12.11 - Encounter for screening for malignant neoplasm of colon, Z12.12 - Encounter for screening for malignant neoplasm of rectum Coding Level of Care Code Est Pt Level 4 (51240) Complex EM visit Add On G2211 Diagnoses Type 1 diabetes mellitus with hyperglycemia E10.65 Diabetes mellitus complication status: with hyperglycemia HLD (hyperlipidemia) E78.5 Hypothyroidism E03.9 HTN (hypertension) I10 Mild major depression F32.0 Time Spent (min) 22
== END 2023-12-24 15:51 | disposition home or self-care (01) ==
PROVIDERS: PCP Internal Medicine; Visit Provider Internal Medicine
DX: E11.69 Type 2 diabetes mellitus with other specified complication (principal); F32.0 Major depressive disorder, single episode, mild; E78.5 Hyperlipidemia, unspecified; E03.9 Hypothyroidism, unspecified; I10 Essential (primary) hypertension
CPT/HCPCS: 83036; 99214; G2211

== ENCOUNTER 2024-01-08 08:05 | Outpatient (REF) | payer OTHER, SELFPAY ==
--- NOTE | 2024-01-08 08:10 | EMG_ITS ---
Bilateral median and ulnar motor and sensory studies were performed. Bilateral radial and median and lateral antecubital brachial sensory studies were performed, and some paraspinal muscles were tested. She did not tolerate needle examination well. IMPRESSION: Moderate to severe sensory and motor peripheral neuropathy with features of axonal loss and demyelination. MD DM Parker/MADAI / [id number]
== END 2024-01-08 08:06 | disposition home or self-care (01) ==
LOC: HO.NEURO 08:05
PROVIDERS: Visit Provider Internal Medicine
DX: R20.2 Paresthesia of skin (principal)
CPT/HCPCS: 95886; 95913

== ENCOUNTER 2024-01-10 08:12 | Outpatient (AMB) | payer OTHER, SELFPAY ==
[2024-01-10 08:14] VITALS: BP 128/60; PULSE 78; BMI 25.4
--- NOTE | 2024-01-10 08:14 | A.OFFVIS_ITS ---
Vital Signs 01/10/24 08:14 Height 5 ft 3 in Weight 143 lb 4.807 oz BMI 25.4 BP 128/60 Blood Pressure Location Rt brachial Position Sitting Pulse 78 Pulse Source Pulse Oximeter Intake Visit Reasons: f/u Type 1 DM and hypothyroidism/CONFIRMED Intake Note: Patient presents today to re-establish treatment for Type 1 Diabetes Mellitus: Last Diabetic eye exam was on: [facility], 08/10/2023 Last Podiatry exam was on: [facility] 08/06/2023 Most recent HbA1c: 9.1%, 12/24/2023 Random Glucose- 319mg/dL, Today Instrument Tech Required: Yes Instrument Tech Language: Abstract Checker Services: Instrument Tech Present Instrument Tech Name: DIANE Asencio/MANSI Aaron Accompanied by: Self / Same As Patient Allergies No Known Allergies Allergy (Verified 01/10/24 08:21) HPI Comments Details: 48YO F with PMHx T1DM, Hypothyroidism and a NTMNG who is seen in F/U for the same. Today's visit is for type 1 diabetes. She is also seen for hypothyroidism which was not addressed today.. She was last seen by Dr Márquez 09/10/23 and by Carmen PEREZ 04/28 to discuss general education and going on an insulin pump. She has severe gastroparesis, She has all complications of T1DM including retinopathy, neuropathy and nephropathy. 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 Initially diagnosed with T1DM at the age of 10. Current regimen: Toujeo 60 units daily and a Humalog sliding scale: Blood sugar 150 to 199 to use 5 units Blood sugar 200 to 250 to use 8 units Blood sugar 251-300 to use 11 units Blood sugar 301-350 to use 14 units Blood sugar 351-400 to use 16 units Blood sugar more than 400 mg per dL to use 18 units. Dexcom average glucose: [298 ] 14 day continuous glucose monitor report reviewed Glucose Managment indicator [ ] % TIme in ranges: [67 ] % very high (above 250) 16 % high ?(181-250) 17 % in range ?(70-180] 0 % low (69-55) Through % ?very low (below 54) [ 101] Standard Deviation [ 79] % TIme CGM Active Interpretation [ Readings consistently high with exception of some readings in range at 6am and 3pml] Sugars are high consistently, but she drops abruptly postprandially. Has hypoglycemia 2-3 X/wk . Has glucagon Reports low sugars postprandially if she uses her humalog prior to eating.Very rare hypoglycemia 2-3 X/mo Treats lows with juice. Checks sugar after to ensure it is rising. Follows the rule of 15's. Has eyes checked yearly:08/28 , has retinopathy. Has neuropathy. Reports numbness and tingling but no cramping. Nephropathy: Microalbumin 35 on Lisinopril 10 mg PO daily. Has HLD, on Atorvastatin 20 mg PO daily. LDL 95 07/07/2022. Denies history of CAD. She has severe gastroparesis. She uses reglan 5 mg PO prior to every meal. Had diabetes education. She was last seen in the fall to discuss potential pump start. 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 Last set of labs revealed hypothyroidism, so her Tirosint was increased to 125 mcg PO daily. She will be due for a recheck this month. She has a multinodular thyroid with multiple subcentimeter nodules. This was not addressed today. Thyroid US: 08/23/2022 Right Thyroid Lobe: 4.3 x 1.3 x 1.4 cm, volume 4.1 mL. Previously 5.0 x 1.4 x 1.6 cm, volume 5.9 mL. Parenchyma: The gland echotexture is heterogeneous. Thyroid vascularity is increased. Left Thyroid Lobe: 4.3 x 1.6 x 1.7 cm, volume 6.1 mL. Previously 4.8 x 1.6 x 1.7 cm, volume 6.8 mL. Parenchyma: The gland echotexture is heterogeneous. Thyroid vascularity is increased. Isthmus: 0.6 cm in maximum AP dimension. Previously 0.6 cm. Estimated total number of nodules greater than or equal to 1 cm: 0. Streaming Media Specialist nodules are described as follows: 1.? Location: Left upper pole. Not seen. ?? ? Size: cm, volume mL. ?? ? Previously: 0.7 x 0.2 x 0.6 cm, volume 0.04 mL. ?? ? Nodule characteristics: ?? ? Composition: ?? ? Echogenicity: ?? ? Shape: ?? ? Margins: ?? ? Echogenic Foci: ?? ? ACR TI-RADS total points: Previous: 4 ?? ? ACR TI-RADS category: Previous: 4 ? Significant change in size (>/= 20% in 2 dimensions and minimal increase of 2 mm or 50% or greater increase in volume): ?? ? Change in features: ?? ? Change in ACR TI-RADS risk category: 2.? Location: Left lower pole. ?? ? Size: 0.3 x 0.3 x 0.3 cm, volume 0.02 mL. ?? ? Previously: New ?? ? Nodule characteristics: ?? ? Composition: Cannot be determined (2). ?? ? Echogenicity: Very hypoechoic (3). ?? ? Shape: Not taller than wide (0). ?? ? Margins: Ill-defined (0). ?? ? Echogenic Foci: None (0). ?? ? ACR TI-RADS total points: 5 Previous: 5 ?? ? ACR TI-RADS category: 4 Previous: 4 ? Significant change in size (>/= 20% in 2 dimensions and minimal increase of 2 mm or 50% or greater increase in volume): ?? ? Change in features: ?? ? Change in ACR TI-RADS risk category: 3.? Location: Left mid to lower pole. ?? ? Size: 0.4 x 0.4 x 0.6 cm, volume 0.06 mL. ?? ? Previously: 0.5 x 0.4 x 0.4 cm, volume 0.4 mL ?? ? Nodule characteristics: ?? ? Composition: Solid (2). ?? ? Echogenicity: Hypoechoic (2). ?? ? Shape: Not taller than wide (0). ?? ? Margins: Lobulated (2). ?? ? Echogenic Foci: None (0). ?? ? ACR TI-RADS total points: 6 ?? ? ACR TI-RADS category: 4 ?? ? NODES: No lymphadenopathy is seen in the tissue surrounding the thyroid gland. PFSH Medical History Women's annual routine gynecological examination Swelling of right eyelid Physical exam Screening for cervical cancer Wound of left foot Wound of left foot Left foot pain Metatarsal fracture Right hand pain Multinodular thyroid Hypothyroidism HTN (hypertension) HLD (hyperlipidemia) T1DM (type 1 diabetes mellitus) Vitamin D deficiency 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 Hypothyroidism Diabetic polyneuropathy associated with type 1 diabetes mellitus Diabetic retinopathy associated with type 1 diabetes mellitus Dyslipidemia Diabetic gastroparesis Essential hypertension Diabetes type 1, uncontrolled Surgical History No pertinent past surgical history Family History Father Diabetes Substance use disorder Mother Diabetes Hypertension Social History Household Members: None Housing: Apartment Alcohol intake: never Patient Tobacco Use Status: Former Tobacco user e-Cigarette/Vaping Use: Never Used Second Hand Smoke Exposure: No service: No Current occupational status: unemployed and disabled Current occupation: rt handed Cognitive needs: No Hearing needs: No Vision needs: No Female Reproductive History Menstrual Age of Menarche: 11 Physical Exam Vital Signs: Last Vital Signs Pulse 78 01/10/24 08:14 BP 128/60 01/10/24 08:14 BMI result Body Mass Index 25.4 Office Procedures Glucose Monitoring Details Details: See [facility] for interpretation 45630 - Glucose monitoring, continuous-physician I&R Procedure code (CPT) selection complete Quality Reporting (2019) Adult ([facility] 138/06/28/68) Smoking risk assessment performed?: Yes Patient Tobacco Use Status: Former Tobacco user Results Reviewed Results Reviewed: Laboratory Last Values Glucose (Clinic) 319 mg/dL (60-115) H 01/10/24 08:21 Laboratory Tests 05/11/23 05/11/23 05/15/23 10:05 10:14 14:51 Potassium Creatinine Estim Creat Clear Calc Estimated GFR Hgb A1c (Clinic) 10.7 H Calcium AST ALT TSH 2.73 Urine Creatinine 116.97 Urine Microalbumin 35.0 Microalb/Creat Ratio 29.9 H 05/16/23 08/02/23 09/10/23 09:08 19:29 08:35 Potassium 4.4 Creatinine 0.78 Estim Creat Clear Calc 79.1 Estimated GFR > 60 Hgb A1c (Clinic) 10.4 H 9.8 H Calcium 9.4 AST 24 ALT 22 TSH Urine Creatinine Urine Microalbumin Microalb/Creat Ratio 12/24/23 15:24 Potassium Creatinine Estim Creat Clear Calc Estimated GFR Hgb A1c (Clinic) 9.1 H Calcium AST ALT TSH Urine Creatinine Urine Microalbumin Microalb/Creat Ratio Assessment & Plan Assessment & Plan (1) T1DM (type 1 diabetes mellitus): Code(s): E10.9 - Type 1 diabetes mellitus without complications Category: Medical Qualifiers: Diabetes mellitus complication status: with hyperglycemia Qualified Code(s): E10.65 - Type 1 diabetes mellitus with hyperglycemia Plan: Type 1 diabetic currently on basal bolus insulin with poor glycemic control. Has complications of gastroparesis, neuropathy, retinopathy and newer onset nephropathy. Sensor download shows persistent highs with some drops at 06:00 and 15:00. We will change Toujeo to Tresiba to provide a more stable base of insulin and then we will adjust pre meal insulin in 10 days. She was asked to add 2 units of insulin when her sugars between 100-149. We discussed the pros and cons of Ceqor and an islet pump. Schedule appointment with Carmen PEREZ next available and myself in about 10 days to look at her download. Visit was limited today as patient was on an important phone call and was not available to will after the appointment time. We will address hypothyroidism and mg at next visit Orders: Orders Lipid Panel 1 Day E03.9 - Hypothyroidism, unspecified, E11.9 - Type 2 diabetes mellitus without complications Free T4 (Free Thyroxine) 1 Day E03.9 - Hypothyroidism, unspecified, E11.9 - Type 2 diabetes mellitus without complications Thyroid Stimulating Hormone 1 Day E03.9 - Hypothyroidism, unspecified, E11.9 - Type 2 diabetes mellitus without complications AMB Glucose Monitoring Today E10.65 - Type 1 diabetes mellitus with hyperglycemia AMB Glucose Monitoring Today E10.65 - Type 1 diabetes mellitus with hyperglycemia Medications: New insulin degludec (Tresiba FlexTouch U-200 insulin) 68 units (0.34 mL) subcut DAILY 30 days 12 mL 4RF E10.65 - Type 1 diabetes mellitus with hyperglycemia Changed From insulin lispro Blood sugar 150 to 199 to use 8 units Blood sugar 200 to 250 to use 11 units Blood sugar 251-300 to use 14 units Blood sugar 301-350 to use 17 units Blood sugar 351-400 to use 19 units Blood sugar more than 400 mg per dL to use 20 units 1 sliding scale dose subcut USEASDIRECTD 15 mL 6RF E10.65 - Type 1 diabetes mellitus with hyperglycemia To insulin lispro blood sugar 100-149 to use 2 unit Blood sugar 150 to 199 to use 8 units Blood sugar 200 to 250 to use 11 units Blood sugar 251-300 to use 14 units Blood sugar 301-350 to use 17 units Blood sugar 351-400 to use 19 units Blood sugar more than 400 mg per dL to use 20 units 1 sliding scale dose subcut USEASDIRECTD 30 days 15 mL 6RF E10.65 - Type 1 diabetes mellitus with hyperglycemia Discontinued flash glucose sensor (FreeStyle Ade 14 Day Sensor kit) Discontinued Reason: No Longer Medically Relevant every 14 days 2 ea 11RF E10.65 - Type 1 diabetes mellitus with hyperglycemia insulin glargine U-300 conc (Toujeo SoloStar U-300 Insulin) Discontinued Reason: Doctor's Order 68 units (0.2267 mL) subcut DAILY 90 days 20.403 mL 1RF E10.65 - Type 1 diabetes mellitus with hyperglycemia Patient Instructions: The patient was counseled to achieve a target A1C of 7% (154 avg). Fasting blood sugars should be 90-130 in the morning and less than 180 two hours after meals. Reviewed the relationship between poor diabetic control and the developement of complications Coding Level of Care Code Est Pt Level 3 (92201) Complex EM visit Add On G2211 Diagnoses Type 1 diabetes mellitus with hyperglycemia E10.65 Diabetes mellitus complication status: with hyperglycemia CPT Codes Details - CPT: 90852 - Glucose monitoring, continuous-physician I&R ([id number]) Time Spent (min) 20 Comment Time spent reviewing labs/provider notes, glucose,sensor reports, face to face, chart doc
[2024-01-10 08:30] LABS: Glucose, Whole Blood 319 mg/dL (60-115)
== END 2024-01-10 08:54 | disposition home or self-care (01) ==
PROVIDERS: PCP Internal Medicine; Visit Provider Nurse Practitioner Adult Health
DX: E10.65 Type 1 diabetes mellitus with hyperglycemia (principal)
CPT/HCPCS: 95251; 99213; G2211

== ENCOUNTER → 2024-01-10 08:12 | Outpatient (BNVA) | payer OTHER, SELFPAY | PROVIDERS: PCP Internal Medicine; Visit Provider Nurse Practitioner Adult Health | DX: E10.43 Type 1 diabetes mellitus with diabetic autonomic (poly)neuropathy (principal); E10.65 Type 1 diabetes mellitus with hyperglycemia; E10.649 Type 1 diabetes mellitus with hypoglycemia without coma; E10.42 Type 1 diabetes mellitus with diabetic polyneuropathy; E10.319 Type 1 diabetes mellitus with unspecified diabetic retinopathy without macular edema; E06.3 Autoimmune thyroiditis; E78.5 Hyperlipidemia, unspecified; Z79.4 Long term (current) use of insulin | CPT/HCPCS: 82947; 99212 ==

== ENCOUNTER 2024-01-23 08:57 | Outpatient (AMB) | payer OTHER, SELFPAY ==
--- NOTE | 2024-01-23 07:39 | A.OFFVIS_ITS ---
Vital Signs 01/23/24 09:00 Height 5 ft 3 in Weight 145 lb 8.081 oz BMI 25.8 BP 132/58 L Blood Pressure Location Rt brachial Position Sitting Pulse 72 Pulse Source Pulse Oximeter Intake Visit Reasons: DM/LVM Intake Note: Patient presents today to re-establish treatment for Type 1 Diabetes Mellitus: Last Diabetic eye exam was on: [facility], 08/10/2023 Last Podiatry exam was on: [facility] 08/06/2023 Most recent HbA1c: 9.1%, 12/24/2023 Random Glucose- 285 mg/dL, Today Joy Loading Machine Operator Required: Yes Joy Loading Machine Operator Language: Harvesting Contractor Services: Joy Loading Machine Operator Present Joy Loading Machine Operator Name: DIANE Asencio/MANSI HAYS Information Interpreted: non-clinical & clinical Accompanied by: Self / Same As Patient Allergies No Known Allergies Allergy (Verified 01/23/24 08:59) HPI Comments Details: 48 YO Female with PMHx T1DM, Hypothyroidism and a NTMNG who is seen in F/U for the same. Today's visit is for type 1 diabetes. She was last seen by myself several weeks ago at which time she was changed from Toujeo to Tresiba to smooth our her numbers and improve glycemic control, by Dr Márquez 09/10/23 and by Carmen PEREZ 04/28 to discuss general education and going on an insulin pump. She has severe gastroparesis, She has all complications of T1DM including retinopathy, neuropathy and nephropathy. 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 She had been on trulicity and humalog in the past which were discontinued last visit. She c/o pain in the right eye after scratching it several days ago and will contact her opth to see if she can move up her appt to this week. Initially diagnosed with T1DM at the age of 10. Current regimen: Tresiba 68 units daily (reports missing this 3 times per month) Humalog sliding scale: Blood sugar 150 to 199 to use 5 units Blood sugar 200 to 250 to use 8 units Blood sugar 251-300 to use 11 units Blood sugar 301-350 to use 14 units Blood sugar 351-400 to use 16 units Blood sugar more than 400 mg per dL to use 18 units. Sugars are high consistently, but she can drop abruptly postprandially. Has glucagon Dexcom average glucose: [ 258] 14 day continuous glucose monitor report reviewed Days with CGM data [86] % TIme in ranges: Fifty-one % very high (above 250) 22 % high ?(181-250) 25 % in range ?(70-180] 2 % low (69-55) 1 % ?very low (below 54) Interpretation [substantial rises in the sugars after meals ] Treats lows with juice. Checks sugar after to ensure it is rising. Follows the rule of 15's. Has eyes checked yearly:08/28 , has retinopathy. Has neuropathy. Reports numbness and tingling but no cramping. Nephropathy: Microalbumin 35 on Lisinopril 10 mg PO daily. Has HLD, on Atorvastatin 20 mg PO daily. LDL 95 07/07/2022. Denies history of CAD. She has severe gastroparesis. She uses reglan 5 mg PO prior to every meal. Had diabetes education. She was last seen in the fall to discuss potential pump start. 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 Last TSH 2.73 05/30 She has a multinodular thyroid with multiple subcentimeter nodules. This was not addressed today. Thyroid US: 08/23/2022 Right Thyroid Lobe: 4.3 x 1.3 x 1.4 cm, volume 4.1 mL. Previously 5.0 x 1.4 x 1.6 cm, volume 5.9 mL. Parenchyma: The gland echotexture is heterogeneous. Thyroid vascularity is increased. Left Thyroid Lobe: 4.3 x 1.6 x 1.7 cm, volume 6.1 mL. Previously 4.8 x 1.6 x 1.7 cm, volume 6.8 mL. Parenchyma: The gland echotexture is heterogeneous. Thyroid vascularity is increased. Isthmus: 0.6 cm in maximum AP dimension. Previously 0.6 cm. Estimated total number of nodules greater than or equal to 1 cm: 0. Warehouse Packaging Supervisor nodules are described as follows: 1.? Location: Left upper pole. Not seen. ?? ? Size: cm, volume mL. ?? ? Previously: 0.7 x 0.2 x 0.6 cm, volume 0.04 mL. ?? ? Nodule characteristics: ?? ? Composition: ?? ? Echogenicity: ?? ? Shape: ?? ? Margins: ?? ? Echogenic Foci: ?? ? ACR TI-RADS total points: Previous: 4 ?? ? ACR TI-RADS category: Previous: 4 ? Significant change in size (>/= 20% in 2 dimensions and minimal increase of 2 mm or 50% or greater increase in volume): ?? ? Change in features: ?? ? Change in ACR TI-RADS risk category: 2.? Location: Left lower pole. ?? ? Size: 0.3 x 0.3 x 0.3 cm, volume 0.02 mL. ?? ? Previously: New ?? ? Nodule characteristics: ?? ? Composition: Cannot be determined (2). ?? ? Echogenicity: Very hypoechoic (3). ?? ? Shape: Not taller than wide (0). ?? ? Margins: Ill-defined (0). ?? ? Echogenic Foci: None (0). ?? ? ACR TI-RADS total points: 5 Previous: 5 ?? ? ACR TI-RADS category: 4 Previous: 4 ? Significant change in size (>/= 20% in 2 dimensions and minimal increase of 2 mm or 50% or greater increase in volume): ?? ? Change in features: ?? ? Change in ACR TI-RADS risk category: 3.? Location: Left mid to lower pole. ?? ? Size: 0.4 x 0.4 x 0.6 cm, volume 0.06 mL. ?? ? Previously: 0.5 x 0.4 x 0.4 cm, volume 0.4 mL ?? ? Nodule characteristics: ?? ? Composition: Solid (2). ?? ? Echogenicity: Hypoechoic (2). ?? ? Shape: Not taller than wide (0). ?? ? Margins: Lobulated (2). ?? ? Echogenic Foci: None (0). ?? ? ACR TI-RADS total points: 6 ?? ? ACR TI-RADS category: 4 ?? ? NODES: No lymphadenopathy is seen in the tissue surrounding the thyroid gland. [facility] Medical History Women's annual routine gynecological examination Swelling of right eyelid Physical exam Screening for cervical cancer Wound of left foot Wound of left foot Left foot pain Metatarsal fracture Right hand pain Multinodular thyroid Hypothyroidism HTN (hypertension) HLD (hyperlipidemia) T1DM (type 1 diabetes mellitus) Vitamin D deficiency 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 Hypothyroidism Diabetic polyneuropathy associated with type 1 diabetes mellitus Diabetic retinopathy associated with type 1 diabetes mellitus Dyslipidemia Diabetic gastroparesis Essential hypertension Diabetes type 1, uncontrolled Surgical History No pertinent past surgical history Family History Father Diabetes Substance use disorder Mother Diabetes Hypertension Social History Household Members: None Housing: Apartment Alcohol intake: never Patient Tobacco Use Status: Former Tobacco user e-Cigarette/Vaping Use: Never Used Second Hand Smoke Exposure: No service: No Current occupational status: unemployed and disabled Current occupation: rt handed Cognitive needs: No Hearing needs: No Vision needs: No Female Reproductive History Menstrual Age of Menarche: 11 Physical Exam Vital Signs: Last Vital Signs Pulse 72 01/23/24 09:00 BP 132/58 L 01/23/24 09:00 BMI result Body Mass Index 25.8 Const Other: Absence of Cushingoid features. Absence of acromegalic features. No periorbital cellulitis. Neck exam reveals nl size thyroid about 15 gms. No thyroid nodules palpable. Skin exam reveals absence of vitiligo or acanthosis nigricans. No edema Quality Reporting (2019) Adult ([facility] 13806/28/68) Smoking risk assessment performed?: Yes Patient Tobacco Use Status: Former Tobacco user Results Reviewed Results Reviewed: Laboratory Last Values Glucose (Clinic) 285 mg/dL (60-115) H 01/23/24 09:08 Laboratory Tests 05/11/23 08/02/23 09/10/23 10:14 19:29 08:35 Potassium 4.4 Creatinine 0.78 Estimated GFR > 60 Hgb A1c (Clinic) 9.8 H TSH 2.73 12/24/23 15:24 Potassium Creatinine Estimated GFR Hgb A1c (Clinic) 9.1 H TSH Assessment & Plan Assessment & Plan (1) T1DM (type 1 diabetes mellitus): Code(s): E10.9 - Type 1 diabetes mellitus without complications Category: Medical Qualifiers: Diabetes mellitus complication status: with hyperglycemia Qualified Code(s): E10.65 - Type 1 diabetes mellitus with hyperglycemia Plan: Type 1 diabetic with neuropathy, nephropathy, hypoglycemia and retinopathy poor glycemic control. We will increase her Tresiba and change dosing to daytime as she is missing the nighttime dosing 3 times per month. Humalog scale increased; Tresiba 72 units am Humalog 80-100 10units 101-150 12 units 151-200 16 units 201-250 18 units 251-300 18 units over 200 20 units She was counseled to contact her opthamologist to see if she could be seen today for eye pain. If unable to schedule appt can go to ER> Plan Type 1 diabetic with neuropathy, nephropathy, hypoglycemia and retinopathy poor glycemic control. We will increase her Tresiba and change dosing to daytime as she is missing the nighttime dosing 3 times per month. Humalog scale increased; Tresiba 72 units am Humalog 80-100 10units 101-150 12 units 151-200 16 units 201-250 18 units 251-300 18 units over 200 20 units Medications: Changed From insulin lispro blood sugar 100-149 to use 2 unit Blood sugar 150 to 199 to use 8 units Blood sugar 200 to 250 to use 11 units Blood sugar 251-300 to use 14 units Blood sugar 301-350 to use 17 units Blood sugar 351-400 to use 19 units Blood sugar more than 400 mg per dL to use 20 units 1 sliding scale dose subcut USEASDIRECTD 15 mL 6RF 30 days E10.65 - Type 1 diabetes mellitus with hyperglycemia To insulin lispro 80-100 10units 101-150 12 units 151-200 16 units 201-250 18 units 251-300 18 units over 200 20 units 1 sliding scale dose subcut USEASDIRECTD 15 mL 6RF 30 days E10.65 - Type 1 diabetes mellitus with hyperglycemia Coding Level of Care Code Tele Est Pt Level 4 (87619) Complex EM visit Add On G2211 Diagnoses Type 1 diabetes mellitus with hyperglycemia E10.65 Diabetes mellitus complication status: with hyperglycemia
[2024-01-23 09:00] VITALS: BP 132/58; PULSE 72; BMI 25.8
[2024-01-23 09:13] LABS: Glucose, Whole Blood 285 mg/dL (60-115)
== END 2024-01-23 09:26 | disposition home or self-care (01) ==
PROVIDERS: PCP Internal Medicine; Visit Provider Nurse Practitioner Adult Health
DX: E10.65 Type 1 diabetes mellitus with hyperglycemia (principal)
CPT/HCPCS: 99214; G2211

== ENCOUNTER → 2024-01-23 08:57 | Outpatient (BNVA) | payer OTHER, SELFPAY | PROVIDERS: PCP Internal Medicine; Visit Provider Nurse Practitioner Adult Health | DX: E10.649 Type 1 diabetes mellitus with hypoglycemia without coma (principal); E10.43 Type 1 diabetes mellitus with diabetic autonomic (poly)neuropathy; E10.65 Type 1 diabetes mellitus with hyperglycemia; E10.21 Type 1 diabetes mellitus with diabetic nephropathy; K31.84 Gastroparesis; Z79.4 Long term (current) use of insulin | CPT/HCPCS: 99212; 82947 ==

== ENCOUNTER 2024-02-25 10:59 | Outpatient (AMB) | payer OTHER, SELFPAY ==
--- NOTE | 2024-02-25 11:47 | AM.OFFWIN_ITS ---
Intake Vital Signs 3 02/25/24 11:50 Height 5 ft 3 in Weight 149 lb BMI 26.4 BP 130/70 Blood Pressure Location Rt brachial Position Sitting Pulse 83 Pulse Source Pulse Oximeter Pulse Oximetry (%) 97 Oxygen Delivery Method Room Air Intake Visit Reasons: EP-lt foot wound pain and getting infected Intake Note: Patient here for left foot wound thats located at the bottom of foot. She states it has become very painful and was getting it treated by wound care but has just worsened. Patient Tobacco Use Status: Former Tobacco user Allergies No Known Allergies Allergy (Verified 02/25/24 11:51) Do you need a note to return to daycare/school/sports/work: No HPI HPI Comments 2 History of Present Illness0 Details Patient is a 48-year-old female complaining of increasing pain on her left foot. She tells me she has had an ulcer there for a couple of years. It was previously being treated by Wound Care but she recently switched to have it cared for by a human resource professional. She tells me that her ulcer was getting better under this human resource professional care however he suddenly. She tells me she got a new appointment with a new human resource professional however it is not until May 27 and she is telling me it is difficult for her to walk on and she is in a lot of pain and she needs the appointment moved up sooner. She denies any fevers. She tells me her blood sugars are generally between 70 and 80. 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 Hypothyroidism Diabetic polyneuropathy associated with type 1 diabetes mellitus Diabetic retinopathy associated with type 1 diabetes mellitus Dyslipidemia Diabetic gastroparesis Essential hypertension Diabetes type 1, uncontrolled Surgical History No pertinent past surgical history Family History Father Diabetes Substance use disorder Mother Diabetes Hypertension Social History Household Members: None Housing: Apartment Alcohol intake: never Patient Tobacco Use Status: Former Tobacco user e-Cigarette/Vaping Use: Never Used Second Hand Smoke Exposure: No service: No Current occupational status: unemployed and disabled Current occupation: rt handed Cognitive needs: No Hearing needs: No Vision needs: No Female Reproductive History Menstrual Age of Menarche: 11 Review of Systems Const All systems reviewed & are unremarkable except as noted in HPI and below Physical Exam Vital Signs: Last Vital Signs Pulse 83 02/25/24 11:50 BP 130/70 02/25/24 11:50 Pulse Ox 97 02/25/24 11:50 Oxygen Delivery Method Room Air 02/25/24 11:50 BMI result Body Mass Index 26.4 Const General: cooperative, healthy appearing, comfortable and no acute distress Orientation/consciousness: patient oriented x3 Limitations: no limitations HEENT Head: Yes normal to inspection Resp Effort & Inspection: normal respiratory effort and able to speak in complete sentences Neuro General: patient oriented x3 Extrem Left lower extremity: foot Ankle/foot/toe images: 2 1. callous with speckled black center, no surrounding erythema or warmth, no signs of infection noted. Assessment & Plan Assessment & Plan (1) Left foot pain: Code(s): M79.672 - Pain in left foot Plan: We will get x-ray as patient states it is getting more tender. No evidence of any skin infection. Re-sent referral as STAT as patient was told her appointment was not until May 27 but she should be followed up sooner, in the next 2-3 weeks. (2) Diabetic ulcer of foot associated with diabetes mellitus due to underlying condition, limited to breakdown of skin: Code(s): E08.621 - Diabetes mellitus due to underlying condition with foot ulcer; L97.501 - Non-pressure chronic ulcer of other part of unspecified foot limited to breakdown of skin Qualifiers: Diabetic foot ulcer location: other Laterality: left Qualified Code(s): E08.621 - Diabetes mellitus due to underlying condition with foot ulcer; L97.521 - Non-pressure chronic ulcer of other part of left foot limited to breakdown of skin Plan: See above Plan See above Orders: Orders 2 XR foot LT min 3V Today E08.621 - Diabetes mellitus due to underlying condition with foot ulcer, L97.521 - Non-pressure chronic ulcer of other part of left foot limited to breakdown of skin, M79.672 - Pain in left foot Referrals 2 Podiatry Referral E11.9 - Type 2 diabetes mellitus without complications Coding Level of Care Code Est Pt Level 4 (90868) Diagnoses Left foot pain M79.672 Diabetic ulcer of other part of left foot associated with diabetes mellitus due to underlying condition, limited to breakdown of skin E08.621; L97.521 Diabetic foot ulcer location: other Laterality: left
[2024-02-25 11:50] VITALS: BP 130/70; PULSE 83; O2SAT 97; BMI 26.4
== END 2024-02-25 12:51 | disposition home or self-care (01) ==
PROVIDERS: PCP Internal Medicine; Visit Provider Physician Assistant
DX: M79.672 Pain in left foot (principal); E08.621 Diabetes mellitus due to underlying condition with foot ulcer; L97.521 Non-pressure chronic ulcer of other part of left foot limited to breakdown of skin

== ENCOUNTER → 2024-02-25 10:59 | Outpatient (BNVA) | payer OTHER, SELFPAY | PROVIDERS: PCP Internal Medicine; Visit Provider Physician Assistant ==

== ENCOUNTER 2024-02-25 12:17 | Outpatient (REF) | payer OTHER, SELFPAY ==
--- NOTE | ~2024-02-25 | XR_ITS ---
EXAMINATION: XR FOOT, LEFT CLINICAL INFORMATION: Foot pain COMPARISON: X-ray 08/02/2023 TECHNIQUE: AP, lateral, and oblique views of the left foot. FINDINGS: Mild hallux valgus at the first MTP joint. There are degenerative changes in some of the interphalangeal joints of the toes. No acute fracture or dislocation is seen. Slight bony depression of the plantar aspect of the distal fifth metatarsal, unchanged from previous. Possible old healed fracture in the distal fifth metatarsal. Findings unchanged from the prior radiograph. No acute fractures identified. Mild dorsal spurring of the talar head, navicular. No air or radiopaque foreign body is seen in the soft tissues. XR/XR foot LT min 3V IMPRESSION: No visible acute fracture or dislocation. Redemonstrated is slight depression along the plantar aspect of the distal fifth metatarsal, unchanged from previous. Mild hallux valgus at the first MTP joint. Study is assigned for dictation on February 25, 2024 Electronically signed by: Curtis Butler MD 02/25/2024 04:50 PM EDT
== END 2024-02-25 12:18 | disposition home or self-care (01) ==
LOC: HO.HMGCX 12:17
PROVIDERS: PCP Internal Medicine; Visit Provider Physician Assistant
DX: M79.672 Pain in left foot (principal); E08.621 Diabetes mellitus due to underlying condition with foot ulcer; L97.521 Non-pressure chronic ulcer of other part of left foot limited to breakdown of skin
CPT/HCPCS: 73630; 99212

== ENCOUNTER 2024-02-27 08:54 | Outpatient (AMB) | payer OTHER, SELFPAY ==
--- NOTE | 2024-02-27 07:12 | A.OFFVIS_ITS ---
Vital Signs 02/27/24 09:00 Height 5 ft 3 in Weight 149 lb 0.52 oz BMI 26.4 BP 128/62 Blood Pressure Location Rt brachial Position Sitting Pulse 77 Pulse Source Pulse Oximeter Intake Visit Reasons: DM/CONFIRMED Intake Note: Patient presents today to re-establish treatment for Type 1 Diabetes Mellitus. Patient c/o of inflammation and pain on her left 1st and 2nd toes. She stated she has seen Wound Care and Podiatry and states she has a lot of pain and there are times when she loses balance. Last Diabetic eye exam was on: [facility], 08/10/2023 Last Podiatry exam was on: [facility] 12/2023 Most recent HbA1c: 9.1%, 12/24/2023 Random Glucose- 77mg/dl 9:14 am, 137 mg/dl 9:41 am. Aircraft Cleaning Supervisor Required: Yes Aircraft Cleaning Supervisor Language: Museum Security Chief Services: Aircraft Cleaning Supervisor Present Aircraft Cleaning Supervisor Name: Jorge Information Interpreted: non-clinical & clinical Accompanied by: Self / Same As Patient Allergies No Known Allergies Allergy (Verified 02/27/24 08:55) Medication List - Last Reconciled 02/28/24 by Genesis Hayes NP cholecalciferol (vitamin D3) 125 mcg PO DAILY citalopram 40 mg PO DAILY FreeStyle Lite Meter (blood-glucose meter) 6 times a day NS FreeStyle Lite Strips (blood sugar diagnostic) 6 times a day NS gabapentin 300 mg PO TID 30 days hydroxyzine HCl 25 mg PO BEDTIME 90 days insulin degludec (Tresiba FlexTouch U-200 insulin) 64 units (0.32 mL) subcut BEDTIME 90 days insulin lispro 1 sliding scale dose subcut USEASDIRECTD 30 days lancets (FreeStyle Lancets) 6 times a day lisinopril 20 mg PO DAILY metoclopramide HCl 5 mg PO TID 30 days oxybutynin chloride ER 10 mg PO DAILY 90 days Shower Chair As directed Tirosint (levothyroxine) 125 mcg PO DAILY 90 days NS walker As directed HPI Comments Details: 48 YO Female with PMHx T1DM, Hypothyroidism and a NTMNG who is seen in F/U for the same. She was last seen by myself several weeks ago at which time insulin dosing was adjusted upwards and Tresiba was changed to the morning to increase compliance with taking daily. She had also been changed from Toujeo to Tresiba weeks prior to that visit to smooth out her numbers throughout the day and decrease her A1c. She was last seen by Dr Márquez 09/10/23 and by Carmen PEREZ 04/28 to discuss general education and going on an insulin pump. Hemoglobin A1c on 12/23 9.1%, 09/10/23 9.8%. She has severe gastroparesis, She has all complications of T1DM including retinopathy, neuropathy and nephropathy. 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 She had been on trulicity in the past which was discontinued. Initially diagnosed with T1DM at the age of 10. Current regimen: Tresiba 68 units am Humalog 80-100 10units 101-150 12 units 151-200 16 units 201-250 18 units 251-300 18 units over 200 20 units Dexcom average glucose: 182 14 day continuous glucose monitor report reviewed Glucose Managment indicator 7.7 % TIme in ranges: Twenty-six % very high (above 250) 16 % high ?(181-250) 49 % in range ?(70-180] 5 % low (69-55) 4 % ?very low (below 54) 97 Standard Deviation Interpretation: Pattern shows a consistent Sugars are high consistently, but she can drop abruptly postprandially. Has glucagon Treats lows with juice. Checks sugar after to ensure it is rising. Follows the rule of 15's. Has eyes checked yearly:08/28, has retinopathy. Has appt in 10 days Has neuropathy. Reports numbness and tingling but no cramping. She is on gabapentin. Nephropathy: 05/08/23 Microalbumin 35 eGFR>60 on Lisinopril 10 mg PO daily. Has HLD, on Atorvastatin 20 mg PO daily. LDL 95 07/07/2022. Denies history of CAD. She has severe gastroparesis. She uses reglan 5 mg PO prior to every meal. Had diabetes education. She was last seen in the fall to discuss potential pump start. 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 Last TSH 2.73 05/30 She has a multinodular thyroid with multiple subcentimeter nodules. Thyroid US: 08/23/2022 Right Thyroid Lobe: 4.3 x 1.3 x 1.4 cm, volume 4.1 mL. Previously 5.0 x 1.4 x 1.6 cm, volume 5.9 mL. Parenchyma: The gland echotexture is heterogeneous. Thyroid vascularity is increased. Left Thyroid Lobe: 4.3 x 1.6 x 1.7 cm, volume 6.1 mL. Previously 4.8 x 1.6 x 1.7 cm, volume 6.8 mL. Parenchyma: The gland echotexture is heterogeneous. Thyroid vascularity is increased. Isthmus: 0.6 cm in maximum AP dimension. Previously 0.6 cm. Estimated total number of nodules greater than or equal to 1 cm: 0. Registered Account Administrator nodules are described as follows: 1.? Location: Left upper pole. Not seen. ?? ? Size: cm, volume mL. ?? ? Previously: 0.7 x 0.2 x 0.6 cm, volume 0.04 mL. ?? ? Nodule characteristics: ?? ? Composition: ?? ? Echogenicity: ?? ? Shape: ?? ? Margins: ?? ? Echogenic Foci: ?? ? ACR TI-RADS total points: Previous: 4 ?? ? ACR TI-RADS category: Previous: 4 ? Significant change in size (>/= 20% in 2 dimensions and minimal increase of 2 mm or 50% or greater increase in volume): ?? ? Change in features: ?? ? Change in ACR TI-RADS risk category: 2.? Location: Left lower pole. ?? ? Size: 0.3 x 0.3 x 0.3 cm, volume 0.02 mL. ?? ? Previously: New ?? ? Nodule characteristics: ?? ? Composition: Cannot be determined (2). ?? ? Echogenicity: Very hypoechoic (3). ?? ? Shape: Not taller than wide (0). ?? ? Margins: Ill-defined (0). ?? ? Echogenic Foci: None (0). ?? ? ACR TI-RADS total points: 5 Previous: 5 ?? ? ACR TI-RADS category: 4 Previous: 4 ? Significant change in size (>/= 20% in 2 dimensions and minimal increase of 2 mm or 50% or greater increase in volume): ?? ? Change in features: ?? ? Change in ACR TI-RADS risk category: 3.? Location: Left mid to lower pole. ?? ? Size: 0.4 x 0.4 x 0.6 cm, volume 0.06 mL. ?? ? Previously: 0.5 x 0.4 x 0.4 cm, volume 0.4 mL ?? ? Nodule characteristics: ?? ? Composition: Solid (2). ?? ? Echogenicity: Hypoechoic (2). ?? ? Shape: Not taller than wide (0). ?? ? Margins: Lobulated (2). ?? ? Echogenic Foci: None (0). ?? ? ACR TI-RADS total points: 6 ?? ? ACR TI-RADS category: 4 ?? ? NODES: No lymphadenopathy is seen in the tissue surrounding the thyroid gland. 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 Hypothyroidism Diabetic polyneuropathy associated with type 1 diabetes mellitus Diabetic retinopathy associated with type 1 diabetes mellitus Dyslipidemia Diabetic gastroparesis Essential hypertension Diabetes type 1, uncontrolled Surgical History No pertinent past surgical history Family History Father Diabetes Substance use disorder Mother Diabetes Hypertension Social History Household Members: None Housing: Apartment Alcohol intake: never Patient Tobacco Use Status: Former Tobacco user e-Cigarette/Vaping Use: Never Used Second Hand Smoke Exposure: No service: No Current occupational status: unemployed and disabled Current occupation: rt handed Cognitive needs: No Hearing needs: No Vision needs: No Female Reproductive History Menstrual Age of Menarche: 11 Physical Exam Vital Signs: Last Vital Signs Pulse 77 02/27/24 09:00 BP 128/62 02/27/24 09:00 BMI result Body Mass Index 26.4 Const Other: Absence of Cushingoid features. Absence of acromegalic features. Neck exam reveals nl size thyroid about 15 gms. No thyroid nodules palpable. No carotid bruits present. Lungs CTA. Heart S1 S2, Reg R/R. No M/R G. Skin exam reveals absence of vitiligo or acanthosis nigricans. No edema Visual exam of foot performed. Preulcerative callous present great toe. No inter digit maceration or fissuring. No onychomycosis, no callouses. diminished monofilament exam. Vibratory sensation is diminished with 128 Hz tuning fork. Quality Reporting (2019) Adult ([facility] 138/06/28/68) Smoking risk assessment performed?: Yes Patient Tobacco Use Status: Former Tobacco user Results Reviewed Results Reviewed: Laboratory Last Values Glucose (Clinic) 137 mg/dL (60-115) H 02/27/24 09:41 Assessment & Plan Assessment & Plan (1) T1DM (type 1 diabetes mellitus): Code(s): E10.9 - Type 1 diabetes mellitus without complications Category: Medical Qualifiers: Diabetes mellitus complication status: with hyperglycemia Qualified Code(s): E10.65 - Type 1 diabetes mellitus with hyperglycemia Plan: The patient is a type 1 diabetic with improving glucose numbers. She had been having some hypoglycemia. New dosing on medication Tresiba 64 units. Sliding scale 80-10 eat 1st then take 2 units, up to 200 take 4 units 201-250 14 units 250 to 300 16 units over 300 take 18 units . She has a pre ulcerative callus on her great toe. I attempted to call several podiatry offices to see if we could get her in for evaluation and also contact to the wound care center. Because she is not ulcerated the wound care center would not be able to see her and I was unable to get an urgent appointment after calling several podiatry offices. I will ask the medical office assistant instructor to call her today as she is Wolof-speaking and urge her to go to [facility] for evaluation. I was told by 1 of the local podiatry offices that [facility] does not have radio frequency engineer on staff. Medications: Changed From insulin degludec (Tresiba FlexTouch U-200 insulin) 68 units (0.34 mL) subcut BEDTIME 9 mL 2RF To insulin degludec (Tresiba FlexTouch U-200 insulin) 64 units (0.32 mL) subcut BEDTIME 90 days 30 mL 5RF From insulin lispro 80-100 10units 101-150 12 units 151-200 16 units 201-250 18 units 251-300 18 units over 300 20 units 1 sliding scale dose subcut USEASDIRECTD 30 days 15 mL 6RF E10.65 - Type 1 diabetes mellitus with hyperglycemia To insulin lispro 80-100 2 units 101-150 4 units 151-200 16 units 201-250 14 units 251-300 16 units over 300 18 units 1 sliding scale dose subcut USEASDIRECTD 30 days 15 mL 6RF E10.65 - Type 1 diabetes mellitus with hyperglycemia Coding Level of Care Code Est Pt Level 4 (45554) Complex EM visit Add On G2211 Diagnoses Type 1 diabetes mellitus with hyperglycemia E10.65 Diabetes mellitus complication status: with hyperglycemia Time Spent (min) 30 Comment Time spent reviewing labs/provider notes, glucose,sensor reports, face to face, chart doc
[2024-02-27 09:00] VITALS: BP 128/62; PULSE 77; BMI 26.4
[2024-02-27 09:41] LABS: Glucose, Whole Blood 77 mg/dL (60-115)
[2024-02-27 09:45] LABS: Glucose, Whole Blood 137 mg/dL (60-115)
== END 2024-02-27 09:49 | disposition home or self-care (01) ==
PROVIDERS: PCP Internal Medicine; Visit Provider Nurse Practitioner Adult Health
DX: E10.65 Type 1 diabetes mellitus with hyperglycemia (principal)
CPT/HCPCS: 99214; G2211

== ENCOUNTER → 2024-02-27 08:54 | Outpatient (BNVA) | payer OTHER, SELFPAY | PROVIDERS: PCP Internal Medicine; Visit Provider Nurse Practitioner Adult Health | DX: E10.65 Type 1 diabetes mellitus with hyperglycemia (principal); Z79.4 Long term (current) use of insulin | CPT/HCPCS: 82947; 99212 ==

== ENCOUNTER 2024-03-02 12:46 | Emergency (ER) | payer OTHER, SELFPAY ==
[2024-03-02 12:50] VITALS: BP 156/84; PULSE 100; O2SAT 100
[2024-03-02 13:05] LABS: Glucose, Whole Blood 180 mg/dL (60-115)
[2024-03-02 13:19] VITALS: BP 153/72; PULSE 91; RESP 16; TEMP 37.3; O2SAT 99; BMI 30.6
[2024-03-02 13:23] VITALS: BP 153/72; PULSE 91; RESP 16; TEMP 37.3; O2SAT 99
[2024-03-02 13:45] LABS: MANUAL DIFF FLAG NO
[2024-03-02 13:46] LABS: Basophils Absolute Auto 0.1 X10*3/uL (0.0-0.2); Basophils Percent Auto 0.5 % (0-2); Eosinophils Percent Auto 0.1 % (0-4); Hematocrit 35.9 % (37.0-47.0); Hemoglobin 12.2 g/dl (12.0-16.0); Imm Gran Abs Auto 0.04 X10*3/uL (0.00-0.03); Imm Gran Pct Auto 0.4 % (0.0-0.4); Lymphocytes Absolute Auto 1.9 X10*3/uL (1.2-4.9); Lymphocytes Percent Auto 20.2 % (20-40); Mean Corpuscular Hemoglobin 30.8 pg (27.0-33.0); Mean Corpuscular Volume 90.7 fL (80.0-98.0); Mean Platelet Volume 12.4 fL (9.4-12.3); Monocytes Absolute Auto 0.3 X10*3/uL (0.1-1.2); Monocytes Percent Auto 2.9 % (2-11); Neutrophils Absolute Auto 7.2 x10*3/uL (2.0-8.3); Neutrophils Percent Auto 75.9 % (45-73); Platelet Count 235 X10*3/uL (160-400); Red Blood Count 3.96 X10*6/uL (4.20-5.50); Red Cell Distribution Width 12.4 % (11.0-16.0); White Blood Count 9.5 X10*3/uL (4.8-10.8)
[2024-03-02 14:07] LABS: Alanine Aminotransferase 31 U/L (0-31); Alkaline Phosphatase 116 U/L (39-117); Anion Gap 14 (12-20); Aspartate Amino Transferase 23 U/L (5-31); Bilirubin Total 0.6 mg/dL (0.0-1.0); Blood Urea Nitrogen 13 mg/dL (9-16); Calcium 9.4 mg/dL (8.4-10.2); Carbon Dioxide 26 mmol/L (22-29); Chloride 103 mmol/L (96-108); Creatinine Clr Calc Pharmacy 88.7; Estimated Glomerular Filt Rate > 60; Glucose Random 205 mg/dL (60-115); Potassium 3.8 mmol/L (3.3-5.1); Sodium 139 mmol/L (135-145); Total Protein 6.9 g/dL (6.5-8.0)
[2024-03-02 14:22] LABS: Influenza A PCR NEGATIVE (Negative); Influenza B PCR NEGATIVE (Negative); Resp Syncy Virus RNA Qual PCR NEGATIVE (Negative); SARS COV2 PCR INHOUSE NEGATIVE (Negative)
--- NOTE | 2024-03-02 14:30 | ED.GENADULT ---
HPI - General Adult General Chief complaint: Nausea/Vomiting/Diarrhea Stated complaint: VOMITING HEADACHE Time Seen by Provider: 03/02/24 14:16 Source: patient Limitations: no limitations History of Present Illness HPI narrative: This is a 48 years old the patient presented to emergency department with a chief complaint of nausea vomiting and headache since this morning she does have history of migraines headache, this headache is similar to her prior migraines. She also diabetic with peripheral neuropathy Onset (ago): hour(s) (8) Location: head Radiation: non-radiation Severity: moderate Relieving factors: none Exacerbating factors: none Associated symptoms: denies other symptoms Related Data Home Medications ?Medication ?Instructions ?Recorded ?Confirmed citalopram 40 mg tablet 40 mg PO DAILY 11/20/22 02/28/24 Previous Rx's ?Medication ?Instructions ?Recorded FreeStyle Lite Meter #1 ea 11/17/20 (blood-glucose meter) lancets 28 gauge (FreeStyle #200 ea 11/17/20 Lancets) Shower Chair #1 ea 02/06/21 walker #1 ea 08/17/22 FreeStyle Lite Strips (blood sugar #200 ea 03/01/23 diagnostic) hydroxyzine HCl 25 mg tablet 25 mg PO BEDTIME 90 days #90 tabs 05/15/23 cholecalciferol (vitamin D3) 125 125 mcg PO DAILY #30 caps 06/18/23 mcg (5,000 unit) capsule lisinopril 20 mg tablet 20 mg PO DAILY #30 tabs 10/23/23 oxybutynin chloride 10 mg 10 mg PO DAILY 90 days #90 tabs 10/23/23 tablet,extended release 24 hr Tirosint 125 mcg capsule 125 mcg PO DAILY 90 days #90 caps 12/05/23 (levothyroxine) metoclopramide HCl 5 mg tablet 5 mg PO TID 30 days #90 tabs 12/05/23 gabapentin 300 mg capsule 300 mg PO TID 30 days #90 caps 01/10/24 insulin degludec 200 unit/mL (3 64 unit (0.32 mL) subcut BEDTIME 02/28/24 mL) subcutaneous pen (Tresiba 90 days #30 mL FlexTouch U-200 insulin) insulin lispro 100 unit/mL 1 sliding scale dose subcut 02/28/24 subcutaneous pen USEASDIRECTD 30 days #15 mL zdzghvoxsx-slwljvagkodhf-dzkmioox 1 tab PO Q6H PRN hussein #14 tabs 03/02/24 50 mg-325 mg-40 mg tablet Allergies Allergy/AdvReac Type Severity Reaction Status Date / Time No Known Allergies Allergy Verified 03/02/24 13:21 Review of Systems Constitutional: Constitutional: Reports no additional constitutional complaints ENT: Reports system reviewed and no additional complaints, except as documented Cardiovascular: Cardiovascular: Reports no additional cardiovascular complaints PMFSH Past Medical History Attestation statement: The following information was validated with the patient. 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 Hypothyroidism Diabetic polyneuropathy associated with type 1 diabetes mellitus Diabetic retinopathy associated with type 1 diabetes mellitus Dyslipidemia Diabetic gastroparesis Essential hypertension Diabetes type 1, uncontrolled Surgical History No pertinent past surgical history Family History Family History Father Diabetes Substance use disorder Mother Diabetes Hypertension Social History Social History Household Members: None Housing: Apartment Alcohol intake: never Patient Tobacco Use Status: Former Tobacco user e-Cigarette/Vaping Use: Never Used Second Hand Smoke Exposure: No Advance Directives: No Advance Directives Information Provided: Yes Do you have a plan to hurt others: No Plan service: No Current occupational status: unemployed and disabled Current occupation: rt handed Cognitive needs: No Hearing needs: No Vision needs: No Physical Exam ED Vital Signs: Vital Signs - 24 hr 03/02/24 13:19 03/02/24 13:23 03/02/24 15:57 Temperature 99.2 F 99.2 F 98.4 F Pulse Rate 91 91 79 Respiratory Rate 16 16 20 Blood Pressure 153/72 H 153/72 H 140/60 H Pulse Oximetry 99 99 99 Oxygen Delivery Method Room Air Room Air Room Air BMI result Body Mass Index 30.6 Const General: cooperative and no acute distress Nutritional Appearance: average body habitus Orientation/consciousness: oriented to time and patient oriented x3 HENMT Head: Yes normal to inspection Ears: hearing grossly normal bilaterally General nose exam: Normal external nose present Face and sinus: Yes normal facial exam Mouth: Normal oral and palatal mucosa present Throat: Yes posterior oropharynx normal Neck Neck: Yes normal visual inspection Chest Chest palpation & inspection: normal inspection of the chest Resp Effort & Inspection: normal respiratory effort Cardio Jugular venous distension: no JVD Palpation: normal PMI Rate: regular rate Rhythm: regular rhythm GI Inspection: Yes normal to inspection Palpation (GI): Soft to palpation, not firm, nontender and no guarding Skin General skin exam: no rashes or lesions noted Neuro General: oriented to time, patient oriented x3 and gait normal Cranial nerves: Yes CN's II-XII intact bilaterally Cognition (Neuro): normal cognition Motor exam (neuro): 5/5 motor strength present throughout Coordination: [id number] test normal Course Reevaluation(s) Reevaluation #1: Re-examination she is feeling much better headache is gone anticipate discharge Time: 16:36 Medications Administered Discontinued Medications Generic Name Dose Route Start Last Admin Trade Name Freq PRN Reason Stop Dose Admin Diphenhydramine HCl 25 mg 03/02/24 14:24 03/02/24 14:40 Diphenhydramine Hcl 50 Mg/Ml Vial IVPUSH 03/02/24 14:25 25 mg ONCE ONE Administration Sodium Chloride 1,000 mls @ 999 mls/hr 03/02/24 14:30 03/02/24 14:40 Ns IVCONT 03/02/24 15:30 999 mls/hr .Q1H1M JAKE Administration Metoclopramide HCl 10 mg 03/02/24 14:24 03/02/24 14:40 Metoclopramide Hcl 10 Mg/2 Ml Vial IVPUSH 03/02/24 14:25 10 mg ONCE ONE Administration Medical Decision Making Medical Decision Making [facility] Narrative: Patient presented with a headache nausea vomiting history of migraines this headache prior to her migraines we will administer IV fluid antiemetic reassess Differential Diagnosis Differential Diagnoses: The differential diagnosis associated with the presentation includes Migraine headache/viral symptoms/gastroenteritis Admission/Observation Consideration of admission/observation: Escalation of care including admission/observation considered Lab Data [facility] Lab Attestation statement: I reviewed the patient's lab results. 03/02/24 13:38 03/02/24 13:38 Labs: Lab Results 03/02/24 03/02/24 Range/Units 13:02 13:38 WBC 9.5 (4.8-10.8) X10*3/uL RBC 3.96 L (4.20-5.50) X10*6/uL Hgb 12.2 (12.0-16.0) g/dl Hct 35.9 L (37.0-47.0) % MCV 90.7 (80.0-98.0) fL MCH 30.8 (27.0-33.0) pg MCHC 34.0 (31.0-35.0) g/dl RDW 12.4 (11.0-16.0) % Plt Count 235 (160-400) X10*3/uL MPV 12.4 H (9.4-12.3) fL Immature Gran % (Auto) 0.4 (0.0-0.4) % Neut % (Auto) 75.9 H (45-73) % Lymph % (Auto) 20.2 (20-40) % [place] % (Auto) 2.9 (2-11) % Eos % (Auto) 0.1 (0-4) % Baso % (Auto) 0.5 (0-2) % Lymph # (Auto) 1.9 (1.2-4.9) X10*3/uL [place] # (Auto) 0.3 (0.1-1.2) X10*3/uL Eos # (Auto) 0.0 (0.0-0.4) X10*3/uL Baso # (Auto) 0.1 (0.0-0.2) X10*3/uL Abs Immat Gran (auto) 0.04 H (0.00-0.03) X10*3/uL Absolute Neuts (auto) 7.2 (2.0-8.3) x10*3/uL Absolute Nucleated RBC 0.000 (0.0-0.012) X10*3/uL Nucleated RBC % (auto) 0.0 (0.0-0.2) /100WBC Sodium 139 (135-145) mmol/L Potassium 3.8 (3.3-5.1) mmol/L Chloride 103 (96-108) mmol/L Carbon Dioxide 26 (22-29) mmol/L Anion Gap 14 (12-20) BUN 13 (9-16) mg/dL Creatinine 0.76 (0.5-1.4) mg/dL Estim Creat Clear Calc 88.7 Estimated GFR > 60 POC Glucose 180 H (60-115) mg/dL Random Glucose 205 H (60-115) mg/dL Calcium 9.4 (8.4-10.2) mg/dL Total Bilirubin 0.6 (0.0-1.0) mg/dL AST 23 (5-31) U/L ALT 31 (0-31) U/L Alkaline Phosphatase 116 (39-117) U/L Total Protein 6.9 (6.5-8.0) g/dL Albumin 4.0 (3.5-5.0) g/dL Influenza Type A (PCR) NEGATIVE (Negative) Influenza Type B (PCR) NEGATIVE (Negative) RSV RNA Qual (PCR) NEGATIVE (Negative) SARS-CoV-2 RNA (RT-PCR) NEGATIVE (Negative) Discharge Plan Discharge Clinical Impression: Migraine Qualifiers: Migraine type: unspecified Status migrainosus presence: without status migrainosus Intractability: not intractable Qualified Code(s): G43.909 - Migraine, unspecified, not intractable, without status migrainosus Patient Disposition: Home, Self-Care Instructions: Migraine Headache (ED) Additional Instructions: Follow-up with your primary care physician return to the emergency room if you worse We will send a prescription for you for headache medicine to [facility] Prescriptions: New flkxijvvrz-jzenpbiuunhrj-tmuy 50-325-40 mg tablet 1 tab PO Q6H PRN (Reason: hussein) Qty: 14 0RF Rx Instructions: do not exceed 6 tabs per 24 hrs No Action (DME) blood-glucose meter [FreeStyle Lite Meter] Kit See Rx Instructions miscellaneous .MEDSUPPLY Qty: 1 0RF Rx Instructions: 6 times a day (DME) lancets [FreeStyle Lancets] 28 gauge misc See Rx Instructions .MEDSUPPLY Qty: 200 5RF Rx Instructions: 6 times a day (DME) Shower Chair Misc See Rx Instructions .Route Qty: 1 0RF Rx Instructions: As directed (DME) walker Misc See Rx Instructions .Route Qty: 1 0RF Rx Instructions: As directed (DME) FreeStyle Lite Strips Strip See Rx Instructions .MEDSUPPLY Qty: 200 11RF Rx Instructions: 6 times a day cholecalciferol (vitamin D3) 125 mcg (5,000 unit) capsule 125 mcg PO DAILY Qty: 30 6RF oxybutynin chloride 10 mg tablet extended release 24hr 10 mg PO DAILY 90 Days Qty: 90 1RF lisinopril 20 mg tablet 20 mg PO DAILY Qty: 30 11RF metoclopramide HCl 5 mg tablet 5 mg PO TID 30 Days Qty: 90 6RF levothyroxine [Tirosint] 125 mcg capsule 125 mcg PO DAILY 90 Days Qty: 90 3RF gabapentin 300 mg capsule 300 mg PO TID 30 Days Qty: 90 6RF hydroxyzine HCl 25 mg tablet 25 mg PO BEDTIME 90 Days Qty: 90 0RF insulin degludec [Tresiba FlexTouch U-200] 200 unit/mL (3 mL) insulin pen 64 unit subcut BEDTIME 90 Days Qty: 30 5RF insulin lispro 100 unit/mL insulin pen 1 sliding scale dose subcut USEASDIRECTD 30 Days Qty: 15 6RF Rx Instructions: 80-100 2 units 101-150 4 units 151-200 16 units 201-250 14 units 251-300 16 units over 300 18 units citalopram 40 mg tablet 40 mg PO DAILY Print Language: Kyrgyz
[2024-03-02] MEDS: Metoclopramide HCl 10 MG/2 ML VIAL IVPUSH (14:40)
[2024-03-02] MEDS: diphenhydrAMINE HCL 50 MG/ML VIAL 25 MG IVPUSH (14:40)
[2024-03-02] MEDS: 0.9 % Sodium Chloride 1,000 ML 999 ML IVCONT (14:40)
[2024-03-02 15:57] VITALS: BP 140/60; PULSE 79; RESP 20; TEMP 36.9; O2SAT 99
[2024-03-02 17:05] VITALS: BP 140/60; PULSE 79; RESP 20; TEMP 36.9; O2SAT 99
== END 2024-03-02 17:05 | disposition home or self-care (01) ==
PROVIDERS: Emergency Provider Emergency Medicine; PCP Internal Medicine
DX: G43.909 Migraine, unspecified, not intractable, without status migrainosus (principal); R11.2 Nausea with vomiting, unspecified; E10.21 Type 1 diabetes mellitus with diabetic nephropathy; Z79.899 Other long term (current) drug therapy; Z03.818 Encounter for observation for suspected exposure to other biological agents ruled out; Z79.4 Long term (current) use of insulin
CPT/HCPCS: 0241U; 36415; 80053; 82947; 85025; 96361; 96374; 96375; 99284; J1200; J2765

== ENCOUNTER 2024-03-12 09:14 | Outpatient (AMB) | payer OTHER, SELFPAY ==
--- NOTE | 2024-03-12 08:56 | A.OFFVIS_ITS ---
Intake Visit Reasons: DM/CONFIRMED Allergies No Known Allergies Allergy (Verified 03/02/24 13:21) HPI Comments Details: 48 YO Female with PMHx T1DM, Hypothyroidism and a NTMNG who is seen in F/U for the same. She was last seen by myself several weeks agom at which time I referred her to [facility] ER to see a vice president sales and marketing as she had a preulcerative callous and was not able to get her in to see a vice president sales and marketing. She was last seen by Dr Márquez 09/10/23 and by Carmen PEREZ 04/28 to discuss general education and going on an insulin pump. Hemoglobin A1c on 12/23 9.1%, 09/10/23 9.8%. She has severe gastroparesis, She has all complications of T1DM including retinopathy, neuropathy and nephropathy. 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 She had been on trulicity in the past which was discontinued. Initially diagnosed with T1DM at the age of 10. Current regimen: Tresiba 68 units am Humalog 80-100 10units 101-150 12 units 151-200 16 units 201-250 18 units 251-300 18 units over 200 20 units Sugars are high consistently, but she can drop abruptly post prandially. Has glucagon Now I think I was just got swollen calls from yesterday years eGFR not too happy about what happened last night through the covers over for a week this time I white Treats lows with juice. Checks sugar after to ensure it is rising. Follows the rule of 15's. Has eyes checked yearly:08/28, has retinopathy. Has appt in 10 days Has neuropathy. Reports numbness and tingling but no cramping. She is on gabapentin. Nephropathy: 05/08/23 Microalbumin 35 eGFR>60 on Lisinopril 10 mg PO daily. Has HLD, on Atorvastatin 20 mg PO daily. LDL 95 07/07/2022. Denies history of CAD. She has severe gastroparesis. She uses reglan 5 mg PO prior to every meal. Had diabetes education. She was last seen in the fall to discuss potential pump start. 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 Last TSH 2.73 05/30 She has a multinodular thyroid with multiple subcentimeter nodules. Thyroid US: 08/23/2022 Right Thyroid Lobe: 4.3 x 1.3 x 1.4 cm, volume 4.1 mL. Previously 5.0 x 1.4 x 1.6 cm, volume 5.9 mL. Parenchyma: The gland echotexture is heterogeneous. Thyroid vascularity is increased. Left Thyroid Lobe: 4.3 x 1.6 x 1.7 cm, volume 6.1 mL. Previously 4.8 x 1.6 x 1.7 cm, volume 6.8 mL. Parenchyma: The gland echotexture is heterogeneous. Thyroid vascularity is increased. Isthmus: 0.6 cm in maximum AP dimension. Previously 0.6 cm. Estimated total number of nodules greater than or equal to 1 cm: 0. Neonatal Pediatric Nurse nodules are described as follows: 1.? Location: Left upper pole. Not seen. ?? ? Size: cm, volume mL. ?? ? Previously: 0.7 x 0.2 x 0.6 cm, volume 0.04 mL. ?? ? Nodule characteristics: ?? ? Composition: ?? ? Echogenicity: ?? ? Shape: ?? ? Margins: ?? ? Echogenic Foci: ?? ? ACR TI-RADS total points: Previous: 4 ?? ? ACR TI-RADS category: Previous: 4 ? Significant change in size (>/= 20% in 2 dimensions and minimal increase of 2 mm or 50% or greater increase in volume): ?? ? Change in features: ?? ? Change in ACR TI-RADS risk category: 2.? Location: Left lower pole. ?? ? Size: 0.3 x 0.3 x 0.3 cm, volume 0.02 mL. ?? ? Previously: New ?? ? Nodule characteristics: ?? ? Composition: Cannot be determined (2). ?? ? Echogenicity: Very hypoechoic (3). ?? ? Shape: Not taller than wide (0). ?? ? Margins: Ill-defined (0). ?? ? Echogenic Foci: None (0). ?? ? ACR TI-RADS total points: 5 Previous: 5 ?? ? ACR TI-RADS category: 4 Previous: 4 ? Significant change in size (>/= 20% in 2 dimensions and minimal increase of 2 mm or 50% or greater increase in volume): ?? ? Change in features: ?? ? Change in ACR TI-RADS risk category: 3.? Location: Left mid to lower pole. ?? ? Size: 0.4 x 0.4 x 0.6 cm, volume 0.06 mL. ?? ? Previously: 0.5 x 0.4 x 0.4 cm, volume 0.4 mL ?? ? Nodule characteristics: ?? ? Composition: Solid (2). ?? ? Echogenicity: Hypoechoic (2). ?? ? Shape: Not taller than wide (0). ?? ? Margins: Lobulated (2). ?? ? Echogenic Foci: None (0). ?? ? ACR TI-RADS total points: 6 ?? ? ACR TI-RADS category: 4 ?? ? NODES: No lymphadenopathy is seen in the tissue surrounding the thyroid gland. [facility] 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 Hypothyroidism Diabetic polyneuropathy associated with type 1 diabetes mellitus Diabetic retinopathy associated with type 1 diabetes mellitus Dyslipidemia Diabetic gastroparesis Essential hypertension Diabetes type 1, uncontrolled Surgical History No pertinent past surgical history Family History Father Diabetes Substance use disorder Mother Diabetes Hypertension Social History Household Members: None Housing: Apartment Alcohol intake: never Patient Tobacco Use Status: Former Tobacco user e-Cigarette/Vaping Use: Never Used Second Hand Smoke Exposure: No Advance Directives: No Advance Directives Information Provided: Yes Do you have a plan to hurt others: No Plan service: No Current occupational status: unemployed and disabled Current occupation: rt handed Cognitive needs: No Hearing needs: No Vision needs: No Female Reproductive History Menstrual Age of Menarche: 11 Quality Reporting (2019) Adult ([facility] [address] 138/[birth year]) Smoking risk assessment performed?: Yes Patient Tobacco Use Status: Former Tobacco user 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
--- NOTE | 2024-03-12 09:02 | A.OFFVIS_ITS ---
Vital Signs 03/12/24 09:21 Height 5 ft 3 in Weight 145 lb 8.081 oz BMI 25.8 BP 138/60 Blood Pressure Location Rt brachial Position Sitting Pulse 82 Pulse Source Pulse Oximeter Intake Visit Reasons: DM/CONFIRMED Intake Note: Patient presents today to re-establish treatment for Type 1 Diabetes Mellitus. Last Diabetic eye exam was on: [facility], 08/10/2023 Last Podiatry exam was on: [facility] 12/2023 Most recent HbA1c: 9.1%, 12/24/2023 Random Glucose- 151 mg/dL, Today Estimation Manager Required: Yes Estimation Manager Language: Macedonian Information Interpreted: non-clinical & clinical Accompanied by: Self / Same As Patient Allergies No Known Allergies Allergy (Verified 03/12/24 09:17) Medication List - Last Reconciled 03/12/24 by Genesis Hayes NP rlunvarjpn-dpoqxdhxdyyli-dyos 50-325-40 mg 1 tab PO Q6H PRN cholecalciferol (vitamin D3) 125 mcg PO DAILY citalopram 40 mg PO DAILY FreeStyle Lite Meter (blood-glucose meter) 6 times a day NS FreeStyle Lite Strips (blood sugar diagnostic) 6 times a day NS gabapentin 300 mg PO TID 30 days hydroxyzine HCl 25 mg PO BEDTIME 90 days insulin degludec (Tresiba FlexTouch U-200 insulin) 64 units (0.32 mL) subcut BEDTIME 90 days insulin lispro 1 sliding scale dose subcut USEASDIRECTD 30 days lancets (FreeStyle Lancets) 6 times a day lisinopril 20 mg PO DAILY metoclopramide HCl 5 mg PO TID 30 days metoclopramide HCl (Reglan) 5 mg PO QIDACHS oxybutynin chloride ER 10 mg PO DAILY 90 days Shower Chair As directed Tirosint (levothyroxine) 125 mcg PO DAILY 90 days NS walker As directed HPI Comments Details: 48 YO Female with PMHx T1DM, Hypothyroidism and a NTMNG who is seen in F/U for the same. She was last seen by myself several weeks ago at which time insulin dosing was adjusted upwards and Tresiba was changed to the morning to increase compliance with taking daily. She had also been changed from Toujeo to Tresiba weeks prior to that visit to smooth out her numbers throughout the day and decrease her A1c. She was last seen by Dr Márquez 09/10/23 and by Carmen PEREZ 04/28 to discuss general education and going on an insulin pump. Hemoglobin A1c 03/12/24%, 12/23 9.1%, 09/10/23 9.8%. She has severe gastroparesis, She has all complications of T1DM including retinopathy, neuropathy and nephropathy. 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 She had been on trulicity in the past which was discontinued. Initially diagnosed with T1DM at the age of 10. Current regimen: Tresiba 64 units Humalog Sliding scale 80-100 eat 1st then take 2 units, up to 200 take 4 units 201-250 14 units 250 to 300 16 units over 300 take 18 units She can drop abruptly postprandially. Has glucagon Dexcom average glucose: 182 14 day continuous glucose monitor report reviewed Glucose Managment indicator 7.7 % Days with CGM data 93 % TIme in ranges: 26 % very high (above 250) 16 % high ?(181-250) 49 % in range ?(70-180] 5 % low (69-55) 4 % ?very low (below 54) 93 Standard Deviation Interpretation mild lows to high 70s at 06:00 am and postprandial highs after lunch and supper Treats lows with juice. Checks sugar after to ensure it is rising. Follows the rule of 15's. Has eyes checked yearly:08/28, has retinopathy. Has appt 02/27 Has neuropathy. Reports numbness and tingling but no cramping. She is on gabapentin and was recently started on effexor by her pcp and is having less neuropathy Seen in [facility] ER for preulcerative callous which is now less painful and she has an appt with podiatry Nephropathy: 05/08/23 Microalbumin 35 eGFR>60 on Lisinopril 10 mg PO daily. Has HLD, on Atorvastatin 20 mg PO daily. LDL 95 07/07/2022. Denies history of CAD. She has severe gastroparesis. She uses reglan 5 mg PO prior to every meal. Had diabetes education. She was last seen to discuss potential pump start. 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 Last TSH 2.73 05/30 She has a multinodular thyroid with multiple subcentimeter nodules. Thyroid US: 08/23/2022 Right Thyroid Lobe: 4.3 x 1.3 x 1.4 cm, volume 4.1 mL. Previously 5.0 x 1.4 x 1.6 cm, volume 5.9 mL. Parenchyma: The gland echotexture is heterogeneous. Thyroid vascularity is increased. Left Thyroid Lobe: 4.3 x 1.6 x 1.7 cm, volume 6.1 mL. Previously 4.8 x 1.6 x 1.7 cm, volume 6.8 mL. Parenchyma: The gland echotexture is heterogeneous. Thyroid vascularity is increased. Isthmus: 0.6 cm in maximum AP dimension. Previously 0.6 cm. Estimated total number of nodules greater than or equal to 1 cm: 0. Medical Staff Credentialing Coordinator nodules are described as follows: 1.? Location: Left upper pole. Not seen. ?? ? Size: cm, volume mL. ?? ? Previously: 0.7 x 0.2 x 0.6 cm, volume 0.04 mL. ?? ? Nodule characteristics: ?? ? Composition: ?? ? Echogenicity: ?? ? Shape: ?? ? Margins: ?? ? Echogenic Foci: ?? ? ACR TI-RADS total points: Previous: 4 ?? ? ACR TI-RADS category: Previous: 4 ? Significant change in size (>/= 20% in 2 dimensions and minimal increase of 2 mm or 50% or greater increase in volume): ?? ? Change in features: ?? ? Change in ACR TI-RADS risk category: 2.? Location: Left lower pole. ?? ? Size: 0.3 x 0.3 x 0.3 cm, volume 0.02 mL. ?? ? Previously: New ?? ? Nodule characteristics: ?? ? Composition: Cannot be determined (2). ?? ? Echogenicity: Very hypoechoic (3). ?? ? Shape: Not taller than wide (0). ?? ? Margins: Ill-defined (0). ?? ? Echogenic Foci: None (0). ?? ? ACR TI-RADS total points: 5 Previous: 5 ?? ? ACR TI-RADS category: 4 Previous: 4 ? Significant change in size (>/= 20% in 2 dimensions and minimal increase of 2 mm or 50% or greater increase in volume): ?? ? Change in features: ?? ? Change in ACR TI-RADS risk category: 3.? Location: Left mid to lower pole. ?? ? Size: 0.4 x 0.4 x 0.6 cm, volume 0.06 mL. ?? ? Previously: 0.5 x 0.4 x 0.4 cm, volume 0.4 mL ?? ? Nodule characteristics: ?? ? Composition: Solid (2). ?? ? Echogenicity: Hypoechoic (2). ?? ? Shape: Not taller than wide (0). ?? ? Margins: Lobulated (2). ?? ? Echogenic Foci: None (0). ?? ? ACR TI-RADS total points: 6 ?? ? ACR TI-RADS category: 4 ?? ? NODES: No lymphadenopathy is seen in the tissue surrounding the thyroid gland. [facility] 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 Hypothyroidism Diabetic polyneuropathy associated with type 1 diabetes mellitus Diabetic retinopathy associated with type 1 diabetes mellitus Dyslipidemia Diabetic gastroparesis Essential hypertension Diabetes type 1, uncontrolled Surgical History No pertinent past surgical history Family History Father Diabetes Substance use disorder Mother Diabetes Hypertension Social History Household Members: None Housing: Apartment Alcohol intake: never Patient Tobacco Use Status: Former Tobacco user e-Cigarette/Vaping Use: Never Used Second Hand Smoke Exposure: No service: No Current occupational status: unemployed and disabled Current occupation: rt handed Cognitive needs: No Hearing needs: No Vision needs: No Female Reproductive History Menstrual Age of Menarche: 11 Physical Exam Const Other: Absence of Cushingoid features. Absence of acromegalic features. Neck exam reveals nl size thyroid about 15 gms. No thyroid nodules palpable. Heart S1 S2, Reg R/R. No M/R G. Skin exam reveals absence of vitiligo or acanthosis nigricans. No edema Office Procedures Glucose Monitoring Details Details: see hpi [id number] - Glucose monitoring, continuous-physician I&R Procedure code (CPT) selection complete Quality Reporting (2019) Adult ([facility] ) Smoking risk assessment performed?: Yes Patient Tobacco Use Status: Former Tobacco user Assessment & Plan Assessment & Plan (1) T1DM (type 1 diabetes mellitus): Code(s): E10.9 - Type 1 diabetes mellitus without complications Category: Medical Qualifiers: Diabetes mellitus complication status: with hyperglycemia Qualified Code(s): E10.65 - Type 1 diabetes mellitus with hyperglycemia Plan: 48-year-old type 1 diabetic with retinopathy, nephropathy and neuropathy on gabapentin/effexor with improving diabetic numbers. Previous 2 week download was 252 average. Current download 182 average with a glucose management indicator of 7.7%. She has mild hypoglycemia at 06:00am. She is following a balanced diet. She has purchased glucose tablets and carries with her at all times. New dosing: Tresiba 60 units Humalog before meals 80-100 eat 1st take 3 units 101-150 4 units 151-200 5 units 201-250 14 units 250-300 16 units Over 300 18 units The patient had an opportunity to ask questions regarding treatment plan. The patient expressed understanding and agreement with the above treatment plan. The patient is aware they should contact our office by phone for worsening glucose readings or for any low blood sugars which may warrant a change in diabetes medication. Compliance is encouraged with medications and any followup testing/consults which may have been ordered. (2) 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: Code(s): E10.649 - Type 1 diabetes mellitus with hypoglycemia without coma Category: Medical Plan: Carry a sugar source, has glucagon kit and continue glucose sensor The patient was counseled to achieve a target A1C of 7% (154 avg). Fasting blood sugars should be 90-130 in the morning and less than 180 two hours after meals. Reviewed the relationship between poor diabetic control and the development of complications. Wear closed toe shoes, never walk barefooted and inspect the feet daily. For any signs of infection or open wound patient you should notify your PCP or go to urgent care/ER. Orders: Orders AMB Glucose Monitoring Today E10.65 - Type 1 diabetes mellitus with hyperglycemia Patient Instructions: The patient was counseled to achieve a target A1C of 7% (154 avg). Fasting blood sugars should be 90-130 in the morning and less than 180 two hours after meals. Reviewed the relationship between poor diabetic control and the development of complications. Wear closed toe shoes, never walk barefooted and inspect the feet daily. For any signs of infection or open wound patient you should notify your PCP or go to urgent care/ER. The patient was counseled to always carry a source of sugar and on the rule of 15's: Take 3 glucose tablets and repeat again in 15 minutes if blood sugar is not in normal range. Continue to repeat every 15 minutes until blood sugar is normal. Coding Level of Care Code Est Pt Level 4 (15929) Diagnoses Type 1 diabetes mellitus with hyperglycemia E10.65 Diabetes mellitus complication status: with hyperglycemia 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 E10.649 CPT Codes Details - CPT: 41716 - Glucose monitoring, continuous-physician I&R ([id number]) Time Spent (min) 40 Comment Time spent reviewing labs/provider notes, glucose,sensor reports, face to face, chart doc
[2024-03-12 09:21] VITALS: BP 138/60; PULSE 82; BMI 25.8
[2024-03-12 09:32] LABS: Glucose, Whole Blood 151 mg/dL (60-115)
== END 2024-03-12 09:45 | disposition home or self-care (01) ==
LOC: HO.ENCR 09:14
PROVIDERS: PCP Internal Medicine; Visit Provider Nurse Practitioner Adult Health
DX: E10.65 Type 1 diabetes mellitus with hyperglycemia (principal); E10.649 Type 1 diabetes mellitus with hypoglycemia without coma
CPT/HCPCS: 95251; 99214

== ENCOUNTER → 2024-03-12 09:14 | Outpatient (BNVA) | payer OTHER, SELFPAY | PROVIDERS: PCP Internal Medicine; Visit Provider Nurse Practitioner Adult Health | DX: E10.319 Type 1 diabetes mellitus with unspecified diabetic retinopathy without macular edema (principal); E10.40 Type 1 diabetes mellitus with diabetic neuropathy, unspecified; E10.21 Type 1 diabetes mellitus with diabetic nephropathy; E10.65 Type 1 diabetes mellitus with hyperglycemia; E10.649 Type 1 diabetes mellitus with hypoglycemia without coma; E03.9 Hypothyroidism, unspecified; Z79.4 Long term (current) use of insulin | CPT/HCPCS: 82947; 99212 ==

== ENCOUNTER 2024-04-08 09:24 | Outpatient (AMB) | payer OTHER, SELFPAY ==
--- NOTE | 2024-04-08 08:10 | A.OFFVIS_ITS ---
Vital Signs 04/08/24 09:32 Height 5 ft 3 in Weight 143 lb 4.807 oz BMI 25.4 BP 122/76 Blood Pressure Location Rt brachial Position Sitting Pulse 85 Pulse Source Pulse Oximeter Intake Visit Reasons: DM/LVM Intake Note: Patient presents here today for a follow-up on Type 1 Diabetes Mellitus. Last Diabetic eye exam was on: [facility], 03/05/2024 Last Podiatry exam was on: [facility] 08/2023, Patient has a coming up appt [address] 05/26/2024 Most recent HbA1c: 9.3%, 04/08/2024 Random Glucose- 231 mg/dL, Today Slasher Hand Required: Yes Slasher Hand Language: Paramedic Supervisor Services: Slasher Hand Present Slasher Hand Name: DIANE Asencio/MANSI PRASAD Information Interpreted: non-clinical & clinical Accompanied by: Self / Same As Patient Allergies No Known Allergies Allergy (Verified 03/12/24 09:17) HPI Comments Details: 48 YO Female with PMHx T1DM, Hypothyroidism and a NTMNG who is seen in F/U for the same. She was last seen by myself 03/12/24 and was recently changed from [facility] to [facility]. She was last seen by Dr Márquez 09/10/23 and by Carmen PEREZ 04/28 to discuss general education and going on an insulin pump. Hemoglobin A1c 03/12/24%, 12/23 9.1%, 09/10/23 9.8%. She has severe gastroparesis, She has all complications of T1DM including retinopathy, neuropathy and nephropathy. 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 She had been on trulicity in the past which was discontinued. She has a diabetic callus which had improved at her lat appt.. She has been r eferred to Podiatry and has an appt for the end of May. The area over the callus has started to drain clear fluid and is very painful. Podiatry office [address] contacted directly. They advised the patient to call to move up her appt every day for cancellations. I contacted the wound center and they will call patient later today to set up an urgent referral. Initially diagnosed with T1DM at the age of 10. Current regimen: Tresiba 64 units Humalog Sliding scale 80-100 eat 1st then take 2 units, up to 200 take 4 units 201-250 14 units 250 to 300 16 units over 300 take 18 units She can drop abruptly postprandially. Has glucagon Dexcom average glucose: 256 14 day continuous glucose monitor report reviewed Glucose Managment indicator 9.4 % Days with CGM data 93 % TIme in ranges: 54 % very high (above 250) 17 % high ?(181-250) 25 % in range ?(70-180] 2 % low (69-55) 2 % ?very low (below 54) One hundred seven Standard Deviation Interpretation poorly controlled diabetes with labile fluctuation Treats lows with juice. Checks sugar after to ensure it is rising. Follows the rule of 15's. Has eyes checked yearly:08/28, has retinopathy. Has appt 02/27 Has neuropathy. Reports numbness and tingling but no cramping. She is on gabapentin and was recently started on effexor by her pcp and is having less neuropathy Seen in [facility] ER for preulcerative callous which is now less painful and she has an appt with podiatry Nephropathy: 05/08/23 Microalbumin 35 eGFR>60 on Lisinopril 10 mg PO daily. Has HLD, on Atorvastatin 20 mg PO daily. LDL 95 07/07/2022. Denies history of CAD. She has severe gastroparesis. She uses reglan 5 mg PO prior to every meal. Had diabetes education. She was last seen to discuss potential pump start. 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 Last TSH 2.73 05/30 She has a multinodular thyroid with multiple subcentimeter nodules. Thyroid US: 08/23/2022 Right Thyroid Lobe: 4.3 x 1.3 x 1.4 cm, volume 4.1 mL. Previously 5.0 x 1.4 x 1.6 cm, volume 5.9 mL. Parenchyma: The gland echotexture is heterogeneous. Thyroid vascularity is increased. Left Thyroid Lobe: 4.3 x 1.6 x 1.7 cm, volume 6.1 mL. Previously 4.8 x 1.6 x 1.7 cm, volume 6.8 mL. Parenchyma: The gland echotexture is heterogeneous. Thyroid vascularity is increased. Isthmus: 0.6 cm in maximum AP dimension. Previously 0.6 cm. Estimated total number of nodules greater than or equal to 1 cm: 0. Radiology Physician nodules are described as follows: 1.? Location: Left upper pole. Not seen. ?? ? Size: cm, volume mL. ?? ? Previously: 0.7 x 0.2 x 0.6 cm, volume 0.04 mL. ?? ? Nodule characteristics: ?? ? Composition: ?? ? Echogenicity: ?? ? Shape: ?? ? Margins: ?? ? Echogenic Foci: ?? ? ACR TI-RADS total points: Previous: 4 ?? ? ACR TI-RADS category: Previous: 4 ? Significant change in size (>/= 20% in 2 dimensions and minimal increase of 2 mm or 50% or greater increase in volume): ?? ? Change in features: ?? ? Change in ACR TI-RADS risk category: 2.? Location: Left lower pole. ?? ? Size: 0.3 x 0.3 x 0.3 cm, volume 0.02 mL. ?? ? Previously: New ?? ? Nodule characteristics: ?? ? Composition: Cannot be determined (2). ?? ? Echogenicity: Very hypoechoic (3). ?? ? Shape: Not taller than wide (0). ?? ? Margins: Ill-defined (0). ?? ? Echogenic Foci: None (0). ?? ? ACR TI-RADS total points: 5 Previous: 5 ?? ? ACR TI-RADS category: 4 Previous: 4 ? Significant change in size (>/= 20% in 2 dimensions and minimal increase of 2 mm or 50% or greater increase in volume): ?? ? Change in features: ?? ? Change in ACR TI-RADS risk category: 3.? Location: Left mid to lower pole. ?? ? Size: 0.4 x 0.4 x 0.6 cm, volume 0.06 mL. ?? ? Previously: 0.5 x 0.4 x 0.4 cm, volume 0.4 mL ?? ? Nodule characteristics: ?? ? Composition: Solid (2). ?? ? Echogenicity: Hypoechoic (2). ?? ? Shape: Not taller than wide (0). ?? ? Margins: Lobulated (2). ?? ? Echogenic Foci: None (0). ?? ? ACR TI-RADS total points: 6 ?? ? ACR TI-RADS category: 4 ?? ? NODES: No lymphadenopathy is seen in the tissue surrounding the thyroid gland. [facility] 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 Hypothyroidism Diabetic polyneuropathy associated with type 1 diabetes mellitus Diabetic retinopathy associated with type 1 diabetes mellitus Dyslipidemia Diabetic gastroparesis Essential hypertension Diabetes type 1, uncontrolled Surgical History No pertinent past surgical history Family History Father Diabetes Substance use disorder Mother Diabetes Hypertension Social History Household Members: None Housing: Apartment Alcohol intake: never Patient Tobacco Use Status: Former Tobacco user e-Cigarette/Vaping Use: Never Used Second Hand Smoke Exposure: No service: No Current occupational status: unemployed and disabled Current occupation: rt handed Cognitive needs: No Hearing needs: No Vision needs: No Female Reproductive History Menstrual Age of Menarche: 11 Physical Exam Vital Signs: Last Vital Signs Pulse 85 04/08/24 09:32 BP 122/76 04/08/24 09:32 BMI result Body Mass Index 25.4 Const Other: Absence of Cushingoid features. Absence of acromegalic features. Neck exam reveals nl size thyroid about 15 gms. No thyroid nodules palpable. Heart S1 S2, Reg R/R. No M/R G. Skin exam reveals absence of vitiligo or acanthosis nigricans. Visual exam of foot performed. Large bunion with area of ulcerations over bunion with clear dranage. No inter digit maceration or fissuring. No onychomycosis, no callouses. Sensation intact to monofilament exam. Vibratory sensation is normal with 128 Hz tuning fork. Office Procedures Glucose Monitoring Details Details: see [facility] [id number] - Glucose monitoring, continuous-physician I&R Procedure code (CPT) selection complete Results AMB Hemoglobin A1c AMB Hemoglobin A1c 9.3 % Last Edit by DIANE Asencio on 04/08/24 09:56 Quality Reporting (2019) Adult ([facility] 138/06/28/68) Smoking risk assessment performed?: Yes Patient Tobacco Use Status: Former Tobacco user Assessment & Plan Assessment & Plan (1) Diabetes type 1, uncontrolled: Code(s): E10.65 - Type 1 diabetes mellitus with hyperglycemia Category: Medical Qualifiers: Glycemic state: with hyperglycemia Qualified Code(s): E10.65 - Type 1 diabetes mellitus with hyperglycemia Plan: 48-year-old type 1 diabetic with neuropathy and retinopathy on basal bolus insulin with hyperglycemia New dosing: She was instructed to take the insulin before the meal and not to wait to her sugars rise Tresiba 64 units Humalog 80-100 2 units 101-150 4 units 151-200 6 units 201-250 10 units 251-300 14 units over 300 16 unit She has had a large callus over her bunion and we have tried multiple times to get her in with a weeder and she had been sent to the ER at [facility] in the past but had not ulcerated. She now has a small ulcer over this area in his she has agreed to go to the wound care center. I spoke with the wound care staff and they will contact the patient today about an urgent appointment she also has an appointment with podiatry at [address] [place], [place] [address] but this is not until the end of May. Ultimately she should have the bunion repaired as is causing ulceration. She will call the podiatry office daily Sunday to to see if she can get in sooner with a weeder and they will try to work her in. I did speak to the staff directly at both the wound care center and at the podiatry and patient is aware should the foot worsen she needs to go to ER> She will follow up with Dr. Márquez in 2 weeks and I discussed her care with him today, The patient had an opportunity to ask questions regarding treatment plan. The patient expressed understanding and agreement with the above treatment plan. The patient is aware they should contact our office by phone for worsening glucose readings or for any low blood sugars which may warrant a change in diabetes medication. Compliance is encouraged with medications and any followup testing/consults which may have been ordered. Orders: Orders AMB Hemoglobin A1c Today E10.65 - Type 1 diabetes mellitus with hyperglycemia AMB Glucose Monitoring Today E10.65 - Type 1 diabetes mellitus with hyperglycemia Referrals Wound Care Referral E11.621 - Type 2 diabetes mellitus with foot ulcer, L97.509 - Non-pressure chronic ulcer of other part of unspecified foot with unspecified severity Patient Instructions: The patient was counseled to achieve a target A1C of 7% (154 avg). Fasting blood sugars should be 90-130 in the morning and less than 180 two hours after meals. Reviewed the relationship between poor diabetic control and the development of complications. The patient was counseled to always carry a source of sugar and on the rule of 15's: Take 3 glucose tablets and repeat again in 15 minutes if blood sugar is not in normal range. Continue to repeat every 15 minutes until blood sugar is normal. Check your feet daily looking for any signs of infection, ulceration and seek medical attention if this occurs. Break in shoes gradually and do not wear open-toed shoes or walk barefooted. Coding Level of Care Code Est Pt Level 4 (28299) Diagnoses Uncontrolled type 1 diabetes mellitus with hyperglycemia E10.65 Glycemic state: with hyperglycemia CPT Codes Details - CPT: 81544 - Glucose monitoring, continuous-physician I&R ([id number]) Time Spent (min) 40 Comment Reviewing labs/provider notes, glucose sensor/pump reports, face to face, chart doc
[2024-04-08 09:32] VITALS: BP 122/76; PULSE 85; BMI 25.4
[2024-04-08 09:41] LABS: Glucose, Whole Blood 231 mg/dL (60-115)
== END 2024-04-08 10:02 | disposition home or self-care (01) ==
PROVIDERS: PCP Internal Medicine; Visit Provider Nurse Practitioner Adult Health
DX: E10.65 Type 1 diabetes mellitus with hyperglycemia (principal)
CPT/HCPCS: 95251; 99214

== ENCOUNTER → 2024-04-08 09:24 | Outpatient (BNVA) | payer OTHER, SELFPAY | PROVIDERS: PCP Internal Medicine; Visit Provider Nurse Practitioner Adult Health | DX: E10.65 Type 1 diabetes mellitus with hyperglycemia (principal); E11.621 Type 2 diabetes mellitus with foot ulcer; E10.40 Type 1 diabetes mellitus with diabetic neuropathy, unspecified; E11.319 Type 2 diabetes mellitus with unspecified diabetic retinopathy without macular edema; L97.509 Non-pressure chronic ulcer of other part of unspecified foot with unspecified severity; Z79.4 Long term (current) use of insulin | CPT/HCPCS: 82947; 83036; 99212 ==

== ENCOUNTER 2024-04-11 08:06 | Outpatient (AMB) | payer OTHER, SELFPAY ==
--- NOTE | 2024-04-11 08:09 | AM.OFFWIN_ITS ---
Intake Vital Signs 04/11/24 08:10 Height 53 ft Weight 143 lb BMI 0.2 BP 110/70 Blood Pressure Location Rt brachial Position Sitting Pulse 88 Pulse Source Pulse Oximeter Temp 98.2 F Temp Source Oral Pulse Oximetry (%) 97 Oxygen Delivery Method Room Air Intake Visit Reasons: EP severe sore throat Intake Note: Patient here for lump in right side of throat a laryngitis that has been present for last week. Patient Tobacco Use Status: Former Tobacco user Allergies No Known Allergies Allergy (Verified 04/11/24 08:19) Do you need a note to return to daycare/school/sports/work: No HPI HPI Comments History of Present Illness Details This is a 48-year-old female who presented to the walk-in clinic complaining of right-sided sore throat x 1 week. She reports associated odynophagia but denies any dysphagia. She denies any associated fever/chills. She denies any nasal/sinus congestion or rhinorrhea. She reports some mild right-sided otalgia. She denies any shortness of breath, difficulty breathing, or wheezing. Patient has been using acetaminophen at home with mild relief. 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 Hypothyroidism Diabetic polyneuropathy associated with type 1 diabetes mellitus Diabetic retinopathy associated with type 1 diabetes mellitus Dyslipidemia Diabetic gastroparesis Essential hypertension Diabetes type 1, uncontrolled Surgical History No pertinent past surgical history Family History Father Diabetes Substance use disorder Mother Diabetes Hypertension Social History Household Members: None Housing: Apartment Alcohol intake: never Patient Tobacco Use Status: Former Tobacco user e-Cigarette/Vaping Use: Never Used Second Hand Smoke Exposure: No service: No Current occupational status: unemployed and disabled Current occupation: rt handed Cognitive needs: No Hearing needs: No Vision needs: No Female Reproductive History Menstrual Age of Menarche: 11 Review of Systems Const All systems reviewed & are unremarkable except as noted in HPI and below Reports no additional complaints Eyes Reports no additional complaints ENT Reports no additional complaints Card Reports no additional complaints Resp Reports no additional complaints GI Reports no additional complaints Reports no additional complaints Musc Reports no additional complaints Skin/Breast Reports system reviewed and no additional complaints, except as documented Neuro Reports no additional complaints Psych Reports no additional complaints Endo Reports no additional complaints Jorge Luis/Lymph Reports no additional complaints Aller/Immun Reports no additional complaints Physical Exam Vital Signs: Last Vital Signs Temp 98.2 F 04/11/24 08:10 Pulse 88 04/11/24 08:10 BP 110/70 04/11/24 08:10 Pulse Ox 97 04/11/24 08:10 Oxygen Delivery Method Room Air 04/11/24 08:10 BMI result Body Mass Index 0.2 Const Other: Vital signs reviewed. Constitutional: Non-toxic appearing. No acute distress. Well-developed and well-nourished. HEENT: Normocephalic and atraumatic. Tympanic membranes without erythema, edema, or bulging bilaterally. External auditory canals without erythema or edema bilaterally. Moist mucous membranes. There is mild posterior pharyngeal erythema and very mild posterior pharyngeal edema (right greater than left). Her airway is patent and she is maintaining her secretions. She has no stridor, tripodding, or muffled voice. Skin: Warm and dry. No rashes or lesions noted. Neck: Full and painless range of motion. No cervical lymphadenopathy. Cardio: Regular rate and rhythm. No murmurs, gallops, or rubs. No lower extremity edema. No JVD. Pulmonary: No respiratory distress. No accessory muscle usage. Clear to auscultation bilaterally without wheezing, crackles, or rhonchi. Musculoskeletal: Normal range of motion in joints throughout the body. No deformity or other signs of injury. Neuro: Alert and oriented x4. Cranial nerves 2-12 grossly intact. No focal deficits appreciated. Psych: Normal mood and affect. Assessment & Plan Assessment & Plan (1) Laryngitis, acute: Code(s): J04.0 - Acute laryngitis Plan: This is a 48-year-old female who presented to the walk-in clinic complaining of right-sided sore throat x 1 week. On physical examination, there is mild p osterior pharyngeal erythema and edema without any evidence of peritonsillar abscess. Her airway is patent and she is maintaining her secretions and there is no evidence of stridor, tripoding, muffled voice. Very low suspicion for peritonsillar abscess or epiglottitis at this time. Her rapid strep test was negative. Patient is likely suffering from acute laryngitis versus pharyngitis. Patient's vital signs are stable, physical exam is otherwise benign, and patient is overall nontoxic appearing. She was given a prescription for p.o. prednisone 40 mg daily x5 days. Recommended symptomatic management including rest, increased fluids, advil/tylenol for pain/fever, salt water gargles, and over the counter throat lozenges. Patient advised to follow up here or go to the emergency room for worsening/persistent symptoms including wheezing, shortness of breath, or difficulty swallowing. Patient verbalizes understanding and is in agreement the plan. Orders: Orders AMB Rapid Strep Screen Today Z13.9 - Encounter for screening, unspecified Medications: New prednisone 40 mg (2 x 20 mg) PO DAILY 10 tabs 0RF Coding Level of Care Code Est Pt Level 3 (42508) Diagnoses Laryngitis, acute J04.0
[2024-04-11 08:10] VITALS: BP 110/70; PULSE 88; TEMP 36.8; O2SAT 97
== END 2024-04-11 08:57 | disposition home or self-care (01) ==
PROVIDERS: PCP Internal Medicine; Visit Provider Physician Assistant Medical
DX: Z13.9 Encounter for screening, unspecified (principal); J04.0 Acute laryngitis

== ENCOUNTER → 2024-04-11 08:06 | Outpatient (BNVA) | payer OTHER, SELFPAY | PROVIDERS: PCP Internal Medicine; Visit Provider Registered Nurse | DX: J04.0 Acute laryngitis (principal) | CPT/HCPCS: 87880; 99212 ==

== ENCOUNTER 2024-04-22 09:06 | Outpatient (AMB) | payer OTHER, SELFPAY ==
--- NOTE | 2024-04-22 09:25 | A.OFFVIS_ITS ---
Vital Signs 04/22/24 09:29 Height 5 ft 3 in Weight 145 lb 1.027 oz BMI 25.7 BP 132/62 Blood Pressure Location Lt brachial Position Sitting Pulse 79 Pulse Source Pulse Oximeter Intake Visit Reasons: DM/CONF Intake Note: Patient present today to follow up on Type 1 Diabetes Mellitus. Last Diabetic Eye exam: 04/18/24 Last Podiatry Visit: [facility] 08/2023, Patient has a coming up appt [address] 05/26/2024. Random Glucose: 112 mg/dl HgA1C: 9.3% 04/08/2024 Heavy Equipment Engine Mechanic Required: Yes Heavy Equipment Engine Mechanic Language: Freight Router Services: Heavy Equipment Engine Mechanic Present Heavy Equipment Engine Mechanic Name: Levar Information Interpreted: non-clinical & clinical Accompanied by: Self / Same As Patient Allergies No Known Allergies Allergy (Verified 04/22/24 09:30) Medication List - Last Reconciled 04/22/24 by Jacinto Márquez MD [id number] 50-325-40 mg 1 tab PO Q6H PRN cholecalciferol (vitamin D3) 125 mcg PO DAILY citalopram 40 mg PO DAILY duloxetine 20 mg PO BID FreeStyle Lite Meter (blood-glucose meter) 6 times a day NS FreeStyle Lite Strips (blood sugar diagnostic) 6 times a day NS gabapentin 300 mg PO TID 30 days hydroxyzine HCl 25 mg PO BEDTIME 90 days insulin degludec (Tresiba FlexTouch U-200 insulin) 64 units (0.32 mL) subcut BEDTIME 90 days insulin lispro 1 sliding scale dose subcut USEASDIRECTD 30 days lancets (FreeStyle Lancets) 6 times a day lisinopril 20 mg PO DAILY metoclopramide HCl 5 mg PO TID 30 days metoclopramide HCl (Reglan) 5 mg PO QIDACHS oxybutynin chloride ER 10 mg PO DAILY 90 days prednisolone acetate 1% (Pred Forte) drps ophthalmic (eye) prednisone 40 mg (2 x 20 mg) PO DAILY Shower Chair As directed Tirosint (levothyroxine) 125 mcg PO DAILY 90 days NS walker As directed HPI Comments Details: 48 YO F with PMHx T1DM, Hypothyroidism and a NTMNG who is seen in F/U for the same. Today's visit is for type 1 diabetes and hypothyroidism She has severe gastroparesis, and when using humalog prior to eating has severe hypoglycemia postprandially due to the delayed gastric absorption. She has all complications of T1DM including retinopathy, neuropathy and nephropathy. 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 Initially diagnosed with T1DM at the age of 10. Current regimen: Tresiba 67 units daily and a Humalog sliding scale: Humalog Sliding scale 80-100 eat 1st then take 2 units, 100-150 2 units up by 2 units for every 50 unit interval 300 16 units over 300 take 18 units Dexcom download shows average glucose to be 263 with G mi of 9.6% and standard deviation of 105. Sensory was be use 93% of the time. 25% range with 74% hyperglycemia and 1% hypoglycemia panel shows elevation from 03:00 to 06:00 then there was continued elevation till 15:00 in the afternoon. Elevation after dinner Sugars are high consistently, but she drops abruptly postprandially. Has hypoglycemia 2-3 X/wk . Has glucagon Reports low sugars postprandially if she uses her humalog prior to eating.Very rare hypoglycemia 2-3 X/mo Treats lows with juice. Checks sugar after to ensure it is rising. Follows the rule of 15's. Has eyes checked yearly, last eye exam last appt , has retinopathy. Had optho appt 1 mo ago Has neuropathy. Denies nephropathy, on Lisinopril 10 mg PO daily. UAC 15.4 07/07/2022. Has HLD, on Atorvastatin 20 mg PO daily. LDL 95 07/07/2022. last wk had Lasik Denies history of CAD. She has severe gastroparesis. She uses reglan 5 mg PO prior to every meal. Had diabetes education. 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 Last set of labs revealed hypothyroidism, so her Tirosint was increased to 125 mcg PO daily. She has a multinodular thyroid with multiple subcentimeter nodules. Thyroid US: 08/23/2022 Right Thyroid Lobe: 4.3 x 1.3 x 1.4 cm, volume 4.1 mL. Previously 5.0 x 1.4 x 1.6 cm, volume 5.9 mL. Parenchyma: The gland echotexture is heterogeneous. Thyroid vascularity is increased. Left Thyroid Lobe: 4.3 x 1.6 x 1.7 cm, volume 6.1 mL. Previously 4.8 x 1.6 x 1.7 cm, volume 6.8 mL. Parenchyma: The gland echotexture is heterogeneous. Thyroid vascularity is increased. Isthmus: 0.6 cm in maximum AP dimension. Previously 0.6 cm. Estimated total number of nodules greater than or equal to 1 cm: 0. 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 Location: Left upper pole. Not seen. ?? ? Size: cm, volume mL. ?? ? Previously: 0.7 x 0.2 x 0.6 cm, volume 0.04 mL. ?? ? Nodule characteristics: ?? ? Composition: ?? ? Echogenicity: ?? ? Shape: ?? ? Margins: ?? ? Echogenic Foci: ?? ? ACR TI-RADS total points: Previous: 4 ?? ? ACR TI-RADS category: Previous: 4 ? Significant change in size (>/= 20% in 2 dimensions and minimal increase of 2 mm or 50% or greater increase in volume): ?? ? Change in features: ?? ? Change in ACR TI-RADS risk category: 2.? Location: Left lower pole. ?? ? Size: 0.3 x 0.3 x 0.3 cm, volume 0.02 mL. ?? ? Previously: New ?? ? Nodule characteristics: ?? ? Composition: Cannot be determined (2). ?? ? Echogenicity: Very hypoechoic (3). ?? ? Shape: Not taller than wide (0). ?? ? Margins: Ill-defined (0). ?? ? Echogenic Foci: None (0). ?? ? ACR TI-RADS total points: 5 Previous: 5 ?? ? ACR TI-RADS category: 4 Previous: 4 ? Significant change in size (>/= 20% in 2 dimensions and minimal increase of 2 mm or 50% or greater increase in volume): ?? ? Change in features: ?? ? Change in ACR TI-RADS risk category: 3.? Location: Left mid to lower pole. ?? ? Size: 0.4 x 0.4 x 0.6 cm, volume 0.06 mL. ?? ? Previously: 0.5 x 0.4 x 0.4 cm, volume 0.4 mL ?? ? Nodule characteristics: ?? ? Composition: Solid (2). ?? ? Echogenicity: Hypoechoic (2). ?? ? Shape: Not taller than wide (0). ?? ? Margins: Lobulated (2). ?? ? Echogenic Foci: None (0). ?? ? ACR TI-RADS total points: 6 ?? ? ACR TI-RADS category: 4 ?? ? NODES: No lymphadenopathy is seen in the tissue surrounding the thyroid gland. Labs: Laboratory Tests 09/22/21 07/06/22 07/06/22 07:26 09:30 09:36 Sodium Potassium Creatinine Estimated GFR Hgb A1c (Clinic) LDL Cholesterol, Calc 95 TSH 6.39 H 5.44 H Free T4 0.86 Microalb/Creat Ratio 15.4 07/26/22 08/03/22 10:30 15:00 Sodium 138 Potassium 4.4 Creatinine 0.76 Estimated GFR > 60 Hgb A1c (Clinic) 10.4 H LDL Cholesterol, Calc TSH Free T4 Microalb/Creat Ratio [facility] Medical History (Updated 04/08/24 @ 10:05 by Genesis Hayes NP) Diabetic foot ulcer Left foot pain Women's annual routine gynecological examination Swelling of right eyelid Physical exam Screening for cervical cancer Wound of left foot Wound of left foot Metatarsal fracture Right hand pain Multinodular thyroid Hypothyroidism HTN (hypertension) HLD (hyperlipidemia) T1DM (type 1 diabetes mellitus) Vitamin D deficiency 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 Hypothyroidism Diabetic polyneuropathy associated with type 1 diabetes mellitus Diabetic retinopathy associated with type 1 diabetes mellitus Dyslipidemia Diabetic gastroparesis Essential hypertension Diabetes type 1, uncontrolled Surgical History History of surgical procedure on eye proper using laser Family History Father Diabetes Substance use disorder Mother Diabetes Hypertension Social History Household Members: None Housing: Apartment Alcohol intake: never Patient Tobacco Use Status: Former Tobacco user e-Cigarette/Vaping Use: Never Used Second Hand Smoke Exposure: No service: No Current occupational status: unemployed and disabled Current occupation: rt handed Cognitive needs: No Hearing needs: No Vision needs: No Female Reproductive History Menstrual Age of Menarche: 11 Physical Exam Vital Signs: BMI result Body Mass Index 25.7 Absence of Cushingoid features. Absence of acromegalic features. Neck exam reveals nl size thyroid about 15 gms. No thyroid nodules palpable. No carotid bruits present. Lungs CTA. Heart S1 S2, Reg R/R. No M/R/ G. Skin exam reveals absence of vitiligo or acanthosis nigricans. Abdominal exam reveals Soft NT/ND with NA BS. No organomegaly present. Extrem Other: Visual exam of foot performed. L le with bandaged ulcer near 1st digit with exudate ozzing No onchomycosis, no callouses.Pulses 2 + distally. Sensation intact to monofilament exam on right but diminished in left . Vibratory sensation sensed 10 seconds in right, 10 seconds absent in left with 128 Hz tuning fork Quality Reporting (2019) Adult ([facility] 138//) Smoking risk assessment performed?: Yes Patient Tobacco Use Status: Former Tobacco user Assessment & Plan Assessment & Plan (1) Diabetes type 1, uncontrolled: Code(s): E10.65 - Type 1 diabetes mellitus with hyperglycemia Category: Medical Qualifiers: Glycemic state: with hyperglycemia Qualified Code(s): E10.65 - Type 1 diabetes mellitus with hyperglycemia Plan: This is a 48-year-old female with a history of type 1 diabetes being treated with basal-bolus insulin with poor glycemic control and known microvascular complications including etinopathy, neuropathy and nephropathy.. Plan is to have patient report to the emergency room for evaluation of the left lower extremity ulcer. I explained to the patient that emergency room visit was necessary for today as she might have an infection her foot and if she waits any longer could result in amputation and loss of limb. I did this through a metal mockup maker. Patient understood and states she will report to the emergency room. I recommended [facility] emergency room because if she gets admitted they have an inpatient diabetes team. For now, we will raise Toujeo to 75 units and increase Humalog . Will have her follow up with Genesis Castro NP in 4 wks Coding Level of Care Code Est Pt Level 4 (36658) Complex EM visit Add On G2211 Diagnoses Uncontrolled type 1 diabetes mellitus with hyperglycemia E10.65 Glycemic state: with hyperglycemia
[2024-04-22 09:29] VITALS: BP 132/62; PULSE 79; BMI 25.7
[2024-04-22 09:44] LABS: Glucose, Whole Blood 112 mg/dL (60-115)
== END 2024-04-22 09:55 | disposition home or self-care (01) ==
PROVIDERS: PCP Internal Medicine; Visit Provider Internal Medicine Endocrinology, Diabetes & Metabolism
DX: E10.65 Type 1 diabetes mellitus with hyperglycemia (principal)
CPT/HCPCS: 99214; G2211

== ENCOUNTER → 2024-04-22 09:06 | Outpatient (BNVA) | payer OTHER, SELFPAY | PROVIDERS: PCP Internal Medicine; Visit Provider Internal Medicine Endocrinology, Diabetes & Metabolism | DX: E10.65 Type 1 diabetes mellitus with hyperglycemia (principal); Z79.4 Long term (current) use of insulin | CPT/HCPCS: 82947; 99212 ==

== ENCOUNTER 2024-05-08 07:58 | Outpatient (REF) | payer OTHER, SELFPAY | END 2024-05-08 07:59 | disposition home or self-care (01) | LOC: HO.MAMMO 07:58 | PROVIDERS: PCP Internal Medicine; Visit Provider Internal Medicine | DX: Z12.31 Encounter for screening mammogram for malignant neoplasm of breast (principal) | CPT/HCPCS: 77063; 77067 ==

== ENCOUNTER → 2024-05-08 08:15 | Outpatient (BNV) | payer OTHER, SELFPAY | PROVIDERS: PCP Internal Medicine; Visit Provider Internal Medicine | DX: Z12.31 Encounter for screening mammogram for malignant neoplasm of breast (principal) | CPT/HCPCS: 77063; 77067 ==

== ENCOUNTER 2024-05-14 11:41 | Outpatient (RCR) | payer OTHER, SELFPAY | END 2024-06-30 13:58 | disposition home or self-care (01) | LOC: HO.WCC 11:41 | PROVIDERS: PCP Internal Medicine; Visit Provider Surgery | DX: Z09 Encounter for follow-up examination after completed treatment for conditions other than malignant neoplasm (principal); L84 Corns and callosities; E11.9 Type 2 diabetes mellitus without complications; Z86.31 Personal history of diabetic foot ulcer | CPT/HCPCS: 11042; 99212 ==

== ENCOUNTER 2024-05-16 08:55 | Outpatient (AMB) | payer OTHER, SELFPAY ==
--- NOTE | 2024-05-16 09:10 | MHC.OFFWIV ---
Intake Vital Signs 05/16/24 09:12 BP 132/86 Blood Pressure Location Rt brachial Position Sitting Pulse 73 Pulse Source Pulse Oximeter Pulse Oximetry (%) 99 Oxygen Delivery Method Room Air Intake Visit Reasons: EP pain Rt side rib/chest/breast area Intake Note: Patient here for right sided rib pain that radiates to the breast that feels sort of like a burning sensation and has been present for about 2 weeks on and off. Patient Tobacco Use Status: Former Tobacco user Allergies No Known Allergies Allergy (Verified 05/16/24 09:11) Do you need a note to return to daycare/school/sports/work: No HPI EP pain Rt side rib/chest/breast area HPI Details This is a 48 year old female patient who presents to the walk-in clinic today with a report of a 2 week history of progressing right-sided rib pain, radiating medially to her sternum and the medial aspect of her right breast. States this is stabbing and burning. Denies any inciting event or accident which started this pain. Denies any trauma to area. States that pain is increased with movement, raising her right arm, and deep breathing. She denies any rashes currently or previously in this area. She denies any fever, chills, nausea/vomiting, abdominal pain, or indigestion. Denies any breast lumps or nipple discharge or discoloration. Denies any shortness of breath or cough, however states that about 3 weeks ago, she did have an upper respiratory illness and was frequently coughing. [facility] Medical History Diabetic foot ulcer Left foot pain Women's annual routine gynecological examination Swelling of right eyelid Physical exam Screening for cervical cancer Wound of left foot Wound of left foot Metatarsal fracture Right hand pain Multinodular thyroid Hypothyroidism HTN (hypertension) HLD (hyperlipidemia) T1DM (type 1 diabetes mellitus) Vitamin D deficiency 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 Hypothyroidism Diabetic polyneuropathy associated with type 1 diabetes mellitus Diabetic retinopathy associated with type 1 diabetes mellitus Dyslipidemia Diabetic gastroparesis Essential hypertension Diabetes type 1, uncontrolled Surgical History History of surgical procedure on eye proper using laser Family History Father Diabetes Substance use disorder Mother Diabetes Hypertension Social History Household Members: None Housing: Apartment Alcohol intake: never Patient Tobacco Use Status: Former Tobacco user e-Cigarette/Vaping Use: Never Used Second Hand Smoke Exposure: No service: No Current occupational status: unemployed and disabled Current occupation: rt handed Cognitive needs: No Hearing needs: No Vision needs: No Female Reproductive History Menstrual Age of Menarche: 11 Physical Exam Vital Signs: Last Vital Signs Pulse 73 05/16/24 09:12 BP 132/86 05/16/24 09:12 Pulse Ox 99 05/16/24 09:12 Oxygen Delivery Method Room Air 05/16/24 09:12 Const Other: mild discomfort with movement General: cooperative and healthy appearing Nutritional Appearance: average body habitus Limitations: no limitations HEENT Head: Yes normal to inspection Ears: hearing grossly normal bilaterally General nose exam: Normal external nose present Face and sinus: Yes normal facial exam Neck Neck: Yes no lymphadenopathy Chest Chest palpation & inspection: normal inspection of the chest and tenderness rib right involving the 6th rib (approximate area. pain along rib line anteriorly) Breast/axilla inspection: normal inspection of the breasts and normal inspection of the axillae Breast/axilla palpation: normal palpation of the breasts and no axillary lymphadenopathy Resp Effort & Inspection: normal respiratory effort Auscultation: clear to auscultation bilaterally Cardio Palpation: normal PMI Rate: regular rate Rhythm: regular rhythm Heart sounds: S1 normal heart sound present and S2 normal heart sound present GI Inspection: Yes normal to inspection Palpation (GI): Soft to palpation (nontender) and No hepatosplenomegaly present Skin General skin exam: no rashes or lesions noted Extrem General: Yes no clubbing, cyanosis or edema Psych Appearance: grossly normal Mental Status: mental status grossly normal Speech and movement: Normal speech and movement present Assessment & Plan Assessment & Plan (1) Rib pain on right side: Code(s): R07.81 - Pleurodynia Plan: Chest x-ray was done in the office today and appears normal, without fracture or acute pulmonary findings. It is possible that with patient's recent respiratory illness, she suffered a musculoskeletal injury with frequent coughing. I will start her on naproxen, and advised heat application to area and gentle stretching. However, we discussed at length today that if this does not improve with conservative measures, or certainly if new symptoms develop, she should go to the emergency department for further evaluation. She verbalizes understanding and agrees to plan. Cost Recovery Technician #[id number] used for visit. Orders: Orders XR chest 2V Today R07.81 - Pleurodynia Medications: New naproxen Take one tablet twice a day as needed for pain. 250 mg PO BID 7 days PRN 14 tabs 0RF pain R07.81 - Pleurodynia Coding Level of Care Code Est Pt Level 4 (30555) Diagnoses Rib pain on right side R07.81
[2024-05-16 09:12] VITALS: BP 132/86; PULSE 73; O2SAT 99
== END 2024-05-16 10:12 | disposition home or self-care (01) ==
PROVIDERS: PCP Internal Medicine; Visit Provider Nurse Practitioner Family
DX: R07.81 Pleurodynia (principal)

== ENCOUNTER 2024-05-16 08:55 | Outpatient (REF) | payer OTHER, SELFPAY ==
--- NOTE | ~2024-05-16 | XR_ITS ---
EXAMINATION: XR CHEST CLINICAL INFORMATION: R07.81 - Pleurodynia COMPARISON: X-ray dated April 07, 2019 and October 16, 2016 TECHNIQUE: 2 views of the chest were obtained. FINDINGS: No consolidation pleural effusion or pneumothorax. Cardiomediastinal silhouette is normal in size with a round apex. Multilevel thoracic spondylosis. XR/XR chest 2V IMPRESSION: No acute airspace disease. . Electronically signed by: Isaac Moore MD 05/16/2024 09:56 AM EST
== END 2024-05-16 08:56 | disposition home or self-care (01) ==
LOC: HO.HMGCX 08:55
PROVIDERS: PCP Internal Medicine; Visit Provider Nurse Practitioner Family
DX: R07.81 Pleurodynia (principal)
CPT/HCPCS: 71046; 99212

== ENCOUNTER → 2024-05-16 09:42 | Outpatient (BNV) | payer OTHER, SELFPAY | PROVIDERS: PCP Internal Medicine; Visit Provider Radiology Diagnostic Radiology | DX: R07.81 Pleurodynia (principal) | CPT/HCPCS: 71046 ==

== ENCOUNTER 2024-05-23 08:22 | Outpatient (AMB) | payer OTHER, SELFPAY ==
--- NOTE | 2024-05-23 06:59 | A.OFFVIS_ITS ---
Vital Signs 05/23/24 08:23 Height 5 ft 3 in Weight 145 lb 8.081 oz BMI 25.8 BP 122/58 L Blood Pressure Location Rt brachial Position Sitting Pulse 72 Pulse Source Pulse Oximeter Intake Visit Reasons: F/U DMT1 Intake Note: Patient presents here today for a follow-up on Type 1 Diabetes Mellitus. Last Diabetic eye exam was on: [facility], 03/05/2024 Last Podiatry exam was on: Patient has a coming up appt [address] 05/26/2024 Most recent HbA1c: 9.3%, 04/08/2024 Random Glucose- 69 mg/dL, Today Cell Room Operator Required: Yes Cell Room Operator Language: Social Research Assistant Services: Cell Room Operator Present Cell Room Operator Name: BIANKA Asencio Information Interpreted: non-clinical & clinical Accompanied by: Self / Same As Patient Allergies No Known Allergies Allergy (Verified 05/23/24 08:24) HPI Comments Details: 48 YO F with PMHx T1DM, Hypothyroidism and a NTMNG who is seen in F/U for the same. Today's visit is for type 1 diabetes. She was last seen by Dr. Márquez 1 month ago at which time she was recommended to be evaluated at [facility] due to foot ulcer. ER did not believe that there was an infection in released her to the care of wound center at [facility]. She was followed by the wound center for 3 weeks in the ulcer is almost healed and has no drainage. She has been seen by a chart clerk and surgery is planned for the future to correct her structural deformities. Last A1c 04/08/2024 9.3% down from 10. Glucose on arrival to the clinic today was 69. She was treated with 15 carbohydrate g and her sensor giorgi to 119. She has severe gastroparesis, and when using humalog prior to eating has severe hypoglycemia postprandially due to the delayed gastric absorption. She has all complications of T1DM including retinopathy, neuropathy and nephropathy. 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 Initially diagnosed with T1DM at the age of 10. Current regimen: Tresiba 75 units daily 6and a Humalog sliding scale: Humalog Sliding scale 80-100 eat 1st then take 2 units, 100-150 2 units up by 2 units for every 50 unit interval 300 16 units over 300 take 18 units Dexcom average glucose: 193 14 day continuous glucose monitor report reviewed Glucose Managment indicator 7.9 % Days with CGM data 95 % TIme in ranges: 28 % very high (above 250) 18 % high ?(181-250) 44 % in range ?(70-180] 5 % low (69-55) 5 % ?very low (below 54) 107 Standard Deviation Interpretation she is having some lows from 3-6 in the morning and then after lunch. Some postprandial highs after supper Treats lows with juice. Checks sugar after to ensure it is rising. Follows the rule of 15's. Has retinopathy. Followed by [facility]. Last appointment in February 2024 Has neuropathy. Checks feet daily and does not walk barefooted Denies nephropathy, on Lisinopril 10 mg PO daily. microalbumin 05/11/23 35 eGFR>60 Has HLD, on Atorvastatin 20 mg PO daily. LDL 95 07/07/2022. Denies history of CAD. She has severe gastroparesis. She uses reglan 5 mg PO prior to every meal. Had diabetes education. 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 Last set of labs revealed hypothyroidism, so her Tirosint was increased to 125 mcg PO daily. She has a multinodular thyroid with multiple subcentimeter nodules which have decreased in size Thyroid US: 08/23/2022 Right Thyroid Lobe: 4.3 x 1.3 x 1.4 cm, volume 4.1 mL. Previously 5.0 x 1.4 x 1.6 cm, volume 5.9 mL. Parenchyma: The gland echotexture is heterogeneous. Thyroid vascularity is increased. Left Thyroid Lobe: 4.3 x 1.6 x 1.7 cm, volume 6.1 mL. Previously 4.8 x 1.6 x 1.7 cm, volume 6.8 mL. Parenchyma: The gland echotexture is heterogeneous. Thyroid vascularity is increased. Isthmus: 0.6 cm in maximum AP dimension. Previously 0.6 cm. Estimated total number of nodules greater than or equal to 1 cm: 0. Dry Kiln Burner nodules are described as follows: 1.? Location: Left upper pole. Not seen. ?? ? Size: cm, volume mL. ?? ? Previously: 0.7 x 0.2 x 0.6 cm, volume 0.04 mL. ?? ? Nodule characteristics: ?? ? Composition: ?? ? Echogenicity: ?? ? Shape: ?? ? Margins: ?? ? Echogenic Foci: ?? ? ACR TI-RADS total points: Previous: 4 ?? ? ACR TI-RADS category: Previous: 4 ? Significant change in size (>/= 20% in 2 dimensions and minimal increase of 2 mm or 50% or greater increase in volume): ?? ? Change in features: ?? ? Change in ACR TI-RADS risk category: 2.? Location: Left lower pole. ?? ? Size: 0.3 x 0.3 x 0.3 cm, volume 0.02 mL. ?? ? Previously: New ?? ? Nodule characteristics: ?? ? Composition: Cannot be determined (2). ?? ? Echogenicity: Very hypoechoic (3). ?? ? Shape: Not taller than wide (0). ?? ? Margins: Ill-defined (0). ?? ? Echogenic Foci: None (0). ?? ? ACR TI-RADS total points: 5 Previous: 5 ?? ? ACR TI-RADS category: 4 Previous: 4 ? Significant change in size (>/= 20% in 2 dimensions and minimal increase of 2 mm or 50% or greater increase in volume): ?? ? Change in features: ?? ? Change in ACR TI-RADS risk category: 3.? Location: Left mid to lower pole. ?? ? Size: 0.4 x 0.4 x 0.6 cm, volume 0.06 mL. ?? ? Previously: 0.5 x 0.4 x 0.4 cm, volume 0.4 mL ?? ? Nodule characteristics: ?? ? Composition: Solid (2). ?? ? Echogenicity: Hypoechoic (2). ?? ? Shape: Not taller than wide (0). ?? ? Margins: Lobulated (2). ?? ? Echogenic Foci: None (0). ?? ? ACR TI-RADS total points: 6 ?? ? ACR TI-RADS category: 4 ?? ? NODES: No lymphadenopathy is seen in the tissue surrounding the thyroid gland. [facility] Medical History Diabetic foot ulcer Left foot pain Women's annual routine gynecological examination Swelling of right eyelid Physical exam Screening for cervical cancer Wound of left foot Wound of left foot Metatarsal fracture Right hand pain Multinodular thyroid Hypothyroidism HTN (hypertension) HLD (hyperlipidemia) T1DM (type 1 diabetes mellitus) Vitamin D deficiency 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 Hypothyroidism Diabetic polyneuropathy associated with type 1 diabetes mellitus Diabetic retinopathy associated with type 1 diabetes mellitus Dyslipidemia Diabetic gastroparesis Essential hypertension Diabetes type 1, uncontrolled Surgical History History of surgical procedure on eye proper using laser Family History Father Diabetes Substance use disorder Mother Diabetes Hypertension Social History Household Members: None Housing: Apartment Alcohol intake: never Patient Tobacco Use Status: Former Tobacco user e-Cigarette/Vaping Use: Never Used Second Hand Smoke Exposure: No service: No Current occupational status: unemployed and disabled Current occupation: rt handed Cognitive needs: No Hearing needs: No Vision needs: No Female Reproductive History Menstrual Age of Menarche: 11 Physical Exam Vital Signs: Last Vital Signs Pulse 72 05/23/24 08:23 BP 122/58 L 05/23/24 08:23 BMI result Body Mass Index 25.8 HEENT Other: Absence of Cushingoid features. Absence of acromegalic features. Heart S1 S2, Reg R/R. No M/R G. Skin exam reveals absence of vitiligo or acanthosis nigricans. Visual exam of foot performed. left foot healing ulcer with no drainage left great toe, bunion deformity. + pulse. No interdigit maceration or fissuring. No onychomycosis. Sensation test tested today Quality Reporting (2019) Adult (CMS 138/2/22/69) Smoking risk assessment performed?: Yes Patient Tobacco Use Status: Former Tobacco user Results Reviewed Results Reviewed: Laboratory Last Values Glucose (Clinic) 69 mg/dL (60-115) 05/23/24 08:29 Assessment & Plan Assessment & Plan (1) Diabetes type 1, uncontrolled: Code(s): E10.65 - Type 1 diabetes mellitus with hyperglycemia Category: Medical Qualifiers: Glycemic state: with hyperglycemia Qualified Code(s): E10.65 - Type 1 diabetes mellitus with hyperglycemia Plan: 48-year-old type 1 diabetic with retinopathy and neuropathy with history of foot ulcer secondary to bunion with improving glycemic control. Latest download shows an average of 194 however has some hypoglycemia. She has made great strides in her diet and closely following her sugars with the sensor and I believe she is ready to work towards going on an ilet pump. I reviewed need to optimize her glucose control prior to proceeding with surgery. She will keep her upcoming appointment with Podiatry and was advised not to miss any appointments and should she develop drainage from her wound that she would follow up with wound care center at [facility] She will follow up next available appointment with the chemical educator for pre pump education. She understands that the ilet pump We will only work if she has a functioning sensor and that in the event her sensor fails she would need to prick her numbers her finger every 4 hours and enter this manually into the pump. We discussed some basics of pump therapy and she is interested in pursuing this. The patient had an opportunity to ask questions regarding treatment plan. The patient expressed understanding and agreement with the above treatment plan. The patient is aware they should contact our office by phone for worsening glucose readings or for any low blood sugars which may warrant a change in diabetes medication. Compliance is encouraged with medications and any followup testing/consults which may have been ordered. Patient Instructions: The patient was counseled to achieve a target A1C of 7% (154 avg). Fasting blood sugars should be 90-130 in the morning and less than 180 two hours after meals. Reviewed the relationship between poor diabetic control and the development of complications. Check your feet daily looking for any signs of infection, ulceration and seek medical attention if this occurs. Break in shoes gradually and do not wear open-toed shoes or walk barefooted. The patient was counseled to always carry a source of sugar and on the rule of 15's: Take 3 glucose tablets and repeat again in 15 minutes if blood sugar is not in normal range. Continue to repeat every 15 minutes until blood sugar is normal. Coding Level of Care Code Est Pt Level 5 (05334) Complex EM visit Add On G2211 Diagnoses Uncontrolled type 1 diabetes mellitus with hyperglycemia E10.65 Glycemic state: with hyperglycemia Time Spent (min) 45 Comment Time spent reviewing labs/provider notes, glucose,sensor reports, face to face, chart doc
[2024-05-23 08:23] VITALS: BP 122/58; PULSE 72; BMI 25.8
[2024-05-23 08:35] LABS: Glucose, Whole Blood 69 mg/dL (60-115)
== END 2024-05-23 09:05 | disposition home or self-care (01) ==
PROVIDERS: PCP Internal Medicine; Visit Provider Nurse Practitioner Adult Health
DX: E10.65 Type 1 diabetes mellitus with hyperglycemia (principal)
CPT/HCPCS: 99215; G2211

== ENCOUNTER → 2024-05-23 08:22 | Outpatient (BNVA) | payer OTHER, SELFPAY | PROVIDERS: PCP Internal Medicine; Visit Provider Nurse Practitioner Adult Health | DX: E10.65 Type 1 diabetes mellitus with hyperglycemia (principal); E10.40 Type 1 diabetes mellitus with diabetic neuropathy, unspecified; E10.319 Type 1 diabetes mellitus with unspecified diabetic retinopathy without macular edema; Z79.4 Long term (current) use of insulin; Z79.84 Long term (current) use of oral hypoglycemic drugs | CPT/HCPCS: 82947; 99212 ==

== ENCOUNTER 2024-06-04 08:28 | Emergency (ER) | payer OTHER, SELFPAY ==
[2024-06-04] MEDS: Dextrose 50 % 25 GM/50 ML SYRINGE IVPUSH ×2 (08:31→08:35)
[2024-06-04 08:35] LABS: Glucose, Whole Blood 27 mg/dL (60-115)
--- NOTE | 2024-06-04 08:38 | ED.GENADULT ---
HPI - General Adult General Chief complaint: General Medical Stated complaint: low blood sugar Time Seen by Provider: 06/04/24 08:31 Source: patient Mode of arrival: ambulatory History of Present Illness ED Provider: ARNOLD WILLOUGHBY narrative: 48-year-old female, known diabetic, recently had an adjustment of her insulin and reported to the nurse that she has been having dips in her sugar, she was noted by nursing to become altered while visiting an admitted patient here in the emergency room, attempts were made to give her juice but she was unable to tolerate oral intake. History is not provided by the patient at this time. Related Data Home Medications ?Medication ?Instructions ?Recorded ?Confirmed citalopram 40 mg tablet 40 mg PO DAILY 11/20/22 02/28/24 metoclopramide HCl 5 mg tablet 5 mg PO QIDACHS 03/12/24 03/12/24 (Reglan) duloxetine 20 mg capsule,delayed 20 mg PO BID 04/22/24 release prednisolone acetate 1 % eye drp ophthalmic (eye) 04/22/24 drops,suspension (Pred Forte) Previous Rx's ?Medication ?Instructions ?Recorded FreeStyle Lite Meter #1 ea 11/17/20 (blood-glucose meter) lancets 28 gauge (FreeStyle #200 ea 11/17/20 Lancets) Shower Chair #1 ea 02/06/21 walker #1 ea 08/17/22 hydroxyzine HCl 25 mg tablet 25 mg PO BEDTIME 90 days #90 tabs 05/15/23 cholecalciferol (vitamin D3) 125 125 mcg PO DAILY #30 caps 06/18/23 mcg (5,000 unit) capsule lisinopril 20 mg tablet 20 mg PO DAILY #30 tabs 10/23/23 oxybutynin chloride 10 mg 10 mg PO DAILY 90 days #90 tabs 10/23/23 tablet,extended release 24 hr Tirosint 125 mcg capsule 125 mcg PO DAILY 90 days #90 caps 12/05/23 (levothyroxine) metoclopramide HCl 5 mg tablet 5 mg PO TID 30 days #90 tabs 12/05/23 gabapentin 300 mg capsule 300 mg PO TID 30 days #90 caps 01/10/24 bafojrgvvq-rnapishgxiobi-uzaxalez 1 tab PO Q6H PRN hussein #14 tabs 03/02/24 50 mg-325 mg-40 mg tablet FreeStyle Lite Strips (blood sugar #200 ea 03/18/24 diagnostic) prednisone 20 mg tablet 40 mg (2 x 20 mg) PO DAILY #10 tabs 04/11/24 naproxen 250 mg tablet 250 mg PO BID PRN pain 7 days #14 05/16/24 tabs insulin degludec 200 unit/mL (3 68 unit (0.34 mL) subcut BEDTIME 05/23/24 mL) subcutaneous pen (Tresiba 90 days #33 mL FlexTouch U-200 insulin) insulin lispro 100 unit/mL 1 sliding scale dose subcut 05/23/24 subcutaneous pen USEASDIRECTD 30 days #15 mL atorvastatin 80 mg tablet 80 mg PO BEDTIME 90 days #90 tabs 06/01/24 Allergies Allergy/AdvReac Type Severity Reaction Status Date / Time No Known Allergies Allergy Verified 06/04/24 09:10 Review of Systems Review of Systems: Unable to obtain other than with the nurse gathered prior to patient collapse [facility] Past Medical History Source: nursing notes reviewed Medical History Diabetic foot ulcer Left foot pain Women's annual routine gynecological examination Swelling of right eyelid Physical exam Screening for cervical cancer Wound of left foot Wound of left foot Metatarsal fracture Right hand pain Multinodular thyroid Hypothyroidism HTN (hypertension) HLD (hyperlipidemia) T1DM (type 1 diabetes mellitus) Vitamin D deficiency 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 Hypothyroidism Diabetic polyneuropathy associated with type 1 diabetes mellitus Diabetic retinopathy associated with type 1 diabetes mellitus Dyslipidemia Diabetic gastroparesis Essential hypertension Diabetes type 1, uncontrolled Surgical History History of surgical procedure on eye proper using laser Family History Family History Father Diabetes Substance use disorder Mother Diabetes Hypertension Social History Social History Household Members: None Housing: Apartment Alcohol intake: never Patient Tobacco Use Status: Former Tobacco user e-Cigarette/Vaping Use: Never Used Second Hand Smoke Exposure: No Advance Directives: No Do you have a plan to hurt others: No Plan Patient : No service: No Current occupational status: unemployed and disabled Current occupation: rt handed Cognitive needs: No Hearing needs: No Vision needs: No Physical Exam ED Vital Signs: Vital Signs - 24 hr 06/04/24 09:09 06/04/24 11:51 Temperature 98.1 F Pulse Rate 82 84 Respiratory Rate 16 20 Blood Pressure 140/63 H 149/68 H Pulse Oximetry 99 98 Oxygen Delivery Method Room Air Room Air BMI result Body Mass Index 25.3 VITAL SIGNS: Reviewed. GENERAL: Well developed, well nourished, in no acute distress. HEAD: Normocephalic/atraumatic EYES: PERRLA, EOMI EARS: Ext canals without abnormality NOSE: Nares patent bilateral OROPHARYNX: no oral lesions noted, posterior pharynx clear NECK: Supple, no adenopathy LUNGS: Normal breath sounds. No adventitious sounds or accessory muscle use. CARDIOVASCULAR: Regular rate and rhythm without noted murmurs ABDOMEN: Soft, non-tender, non-distended with bowel sounds. MUSCULOSKELETAL: No tenderness, deformities, or effusions noted on gross inspection. EXTREMITIES: No cyanosis, clubbing or edema. SKIN: Inspection of the skin reveals no rashes, ulcerations, jaundice, pallor, or petechiae. NEUROLOGIC: Initially obtunded Medications Administered Discontinued Medications Generic Name Dose Route Start Last Admin Trade Name Freq PRN Reason Stop Dose Admin Acetaminophen 975 mg 06/04/24 09:59 06/04/24 10:05 Acetaminophen 325 Mg Tablet PO 06/04/24 10:00 975 mg ONCE ONE Administration Acetaminophen/Butalbital/Caffeine 1 tab 06/04/24 09:59 06/04/24 10:06 Butalb/Acetamin/Caff 50/325/40 Tablet PO 06/04/24 10:00 1 tab ONCE ONE Administration Dextrose 25 gm 06/04/24 08:31 06/04/24 08:31 Dextrose 50 % 25 Gm/50 Ml Syringe IVPUSH 06/04/24 08:32 25 gm ONCE ONE Administration Dextrose 25 gm 06/04/24 08:36 06/04/24 08:35 Dextrose 50 % 25 Gm/50 Ml Syringe IVPUSH 06/04/24 08:37 25 gm ONCE ONE Administration Ibuprofen 400 mg 06/04/24 09:59 06/04/24 10:05 Ibuprofen 400 Mg Tablet PO 06/04/24 10:00 400 mg ONCE ONE Administration Medical Decision Making Medical Decision Making MDM Narrative: 48-year-old female with history and clinical presentation, DD DX: Critical low glucose-27 INTERVENTION: D50 x2 0835: Patient much more responsive, tearful and scared. I reviewed and interpreted all investigations and there is no infectious leukocytosis, anemia, or thrombocytopenia. There is no demonstrate SAMIR/electrolyte or new liver enzyme derangements. Will cover any hyperglycemia that patient currently has but she is instructed to call her primary care doctor today and discuss adjustment of her insulin schedule to avoid low sugar levels in the future. She is otherwise stable for discharge. Point of care coverage of glucose is 326, patient is otherwise stable for discharge. Differential Diagnosis Differential Diagnoses: The differential diagnosis associated with the presentation includes See above Admission/Observation Consideration of admission/observation: Escalation of care including admission/observation considered See above Lab Data [facility] Lab Attestation statement: I reviewed the patient's lab results. See above 06/04/24 09:39 06/04/24 09:39 Labs: Lab Results 06/04/24 06/04/24 06/04/24 Range/Units 08:32 08:55 09:39 WBC 8.8 (4.8-10.8) X10*3/uL RBC 3.84 L (4.20-5.50) X10*6/uL Hgb 12.0 (12.0-16.0) g/dl Hct 35.7 L (37.0-47.0) % MCV 93.0 (80.0-98.0) fL MCH 31.3 (27.0-33.0) pg MCHC 33.6 (31.0-35.0) g/dl RDW 13.2 (11.0-16.0) % Plt Count 194 (160-400) X10*3/uL MPV 12.7 H (9.4-12.3) fL Immature Gran % (Auto) 0.3 (0.0-0.4) % Neut % (Auto) 80.1 H (45-73) % Lymph % (Auto) 13.6 L (20-40) % Worth % (Auto) 4.5 (2-11) % Eos % (Auto) 0.8 (0-4) % Baso % (Auto) 0.7 (0-2) % Lymph # (Auto) 1.2 (1.2-4.9) X10*3/uL Worth # (Auto) 0.4 (0.1-1.2) X10*3/uL Eos # (Auto) 0.1 (0.0-0.4) X10*3/uL Baso # (Auto) 0.1 (0.0-0.2) X10*3/uL Abs Immat Gran (auto) 0.03 (0.00-0.03) X10*3/uL Absolute Neuts (auto) 7.1 (2.0-8.3) x10*3/uL Absolute Nucleated RBC 0.000 (0.0-0.012) X10*3/uL Nucleated RBC % (auto) 0.0 (0.0-0.2) /100WBC Sodium 135 (135-145) mmol/L Potassium 4.3 (3.3-5.1) mmol/L Chloride 101 (96-108) mmol/L Carbon Dioxide 27 (22-29) mmol/L Anion Gap 11 L (12-20) BUN 12 (9-16) mg/dL Creatinine 0.78 (0.5-1.4) mg/dL Estim Creat Clear Calc 79.0 Estimated GFR > 60 POC Glucose 27 L* 232 H (60-115) mg/dL Random Glucose 359 H* (60-115) mg/dL Calcium 9.0 (8.4-10.2) mg/dL Total Bilirubin 0.4 (0.0-1.0) mg/dL AST 28 (5-31) U/L ALT 45 H (0-31) U/L Alkaline Phosphatase 130 H (39-117) U/L Total Protein 7.0 (6.5-8.0) g/dL Albumin 3.8 (3.5-5.0) g/dL 06/04/24 Range/Units 12:17 WBC (4.8-10.8) X10*3/uL RBC (4.20-5.50) X10*6/uL Hgb (12.0-16.0) g/dl Hct (37.0-47.0) % MCV (80.0-98.0) fL MCH (27.0-33.0) pg MCHC (31.0-35.0) g/dl RDW (11.0-16.0) % Plt Count (160-400) X10*3/uL MPV (9.4-12.3) fL Immature Gran % (Auto) (0.0-0.4) % Neut % (Auto) (45-73) % Lymph % (Auto) (20-40) % Worth % (Auto) (2-11) % Eos % (Auto) (0-4) % Baso % (Auto) (0-2) % Lymph # (Auto) (1.2-4.9) X10*3/uL Worth # (Auto) (0.1-1.2) X10*3/uL Eos # (Auto) (0.0-0.4) X10*3/uL Baso # (Auto) (0.0-0.2) X10*3/uL Abs Immat Gran (auto) (0.00-0.03) X10*3/uL Absolute Neuts (auto) (2.0-8.3) x10*3/uL Absolute Nucleated RBC (0.0-0.012) X10*3/uL Nucleated RBC % (auto) (0.0-0.2) /100WBC Sodium (135-145) mmol/L Potassium (3.3-5.1) mmol/L Chloride (96-108) mmol/L Carbon Dioxide (22-29) mmol/L Anion Gap (12-20) BUN (9-16) mg/dL Creatinine (0.5-1.4) mg/dL Estim Creat Clear Calc Estimated GFR POC Glucose 326 H (60-115) mg/dL Random Glucose (60-115) mg/dL Calcium (8.4-10.2) mg/dL Total Bilirubin (0.0-1.0) mg/dL AST (5-31) U/L ALT (0-31) U/L Alkaline Phosphatase (39-117) U/L Total Protein (6.5-8.0) g/dL Albumin (3.5-5.0) g/dL External Record Review External record reviewed: Prior outpatient labs and Prior outpatient radiology Chronic Conditions Patient?s care impacted by: Diabetes Critical Care Time Critical Care Time Critical Care Time: Yes Total Critical Care Time: 30 Attestation: I personally attest to this time spent taking care of the patient. Discharge Plan Discharge Clinical Impression: Hypoglycemia Patient Disposition: Home, Self-Care Instructions: Diabetes and Exercise (ED) Additional Instructions: You will need to speak with your primary care doctor today and discuss adjustment of your diabetic medications since you have continued to have issues with low sugar level. Do not hesitate to return to the emergency room for any worsening of symptoms. Prescriptions: No Action (DME) blood-glucose meter [FreeStyle Lite Meter] Kit See Rx Instructions miscellaneous .MEDSUPPLY Qty: 1 0RF Rx Instructions: 6 times a day (DME) lancets [FreeStyle Lancets] 28 gauge misc See Rx Instructions .MEDSUPPLY Qty: 200 5RF Rx Instructions: 6 times a day (DME) Shower Chair Misc See Rx Instructions .Route Qty: 1 0RF Rx Instructions: As directed (DME) walker Misc See Rx Instructions .Route Qty: 1 0RF Rx Instructions: As directed cholecalciferol (vitamin D3) 125 mcg (5,000 unit) capsule 125 mcg PO DAILY Qty: 30 6RF oxybutynin chloride 10 mg tablet extended release 24hr 10 mg PO DAILY 90 Days Qty: 90 1RF lisinopril 20 mg tablet 20 mg PO DAILY Qty: 30 11RF metoclopramide HCl 5 mg tablet 5 mg PO TID 30 Days Qty: 90 6RF levothyroxine [Tirosint] 125 mcg capsule 125 mcg PO DAILY 90 Days Qty: 90 3RF gabapentin 300 mg capsule 300 mg PO TID 30 Days Qty: 90 6RF (DME) FreeStyle Lite Strips Strip See Rx Instructions .MEDSUPPLY Qty: 200 11RF Rx Instructions: 6 times a day atorvastatin 80 mg tablet 80 mg PO BEDTIME 90 Days Qty: 90 3RF slaziycfzw-iyanuugfpoofq-wtcw 50-325-40 mg tablet 1 tab PO Q6H PRN (Reason: hussein) Qty: 14 0RF Rx Instructions: do not exceed 6 tabs per 24 hrs hydroxyzine HCl 25 mg tablet 25 mg PO BEDTIME 90 Days Qty: 90 0RF prednisolone acetate [Pred Forte] 1 % drops,suspension ophthalmic (eye) duloxetine 20 mg capsule,delayed release(DR/EC) 20 mg PO BID insulin degludec [Tresiba FlexTouch U-200] 200 unit/mL (3 mL) insulin pen 68 unit subcut BEDTIME 90 Days Qty: 33 5RF insulin lispro 100 unit/mL insulin pen 1 sliding scale dose subcut USEASDIRECTD 30 Days Qty: 15 6RF Rx Instructions: 80-100 2 units 101-150 4 units 151-200 6 units 201-250 10 units 251-300 14 unit for 300 take 16 units for breakfast and supper Lunch 80-100 eat and take 2 units, 101-200 take 4 units 201-250 8 units, 250-300 take 12 units over 300 take 16 units citalopram 40 mg tablet 40 mg PO DAILY metoclopramide HCl [Reglan] 5 mg tablet 5 mg PO QIDACHS prednisone 20 mg tablet 40 mg PO DAILY Qty: 10 0RF naproxen 250 mg tablet 250 mg PO BID PRN (Reason: pain) 7 Days Qty: 14 0RF Rx Instructions: Take one tablet twice a day as needed for pain. Referrals: Liliana Thayer MD [Primary Care Provider] - Print Language: Citizen Of [place]
[2024-06-04 08:58] LABS: Glucose, Whole Blood 232 mg/dL (60-115)
--- NOTE | 2024-06-04 09:02 | PC.NURSE ---
Pt the visitor of another Pt (her daughter) in ED this AM. Daughter calls this RN to the bedside stating her Mother is diabetic and her BS is low. Personal glucometer reading 42. Pt not checked into the ED at this time there for was provided with orange juice. Pt consumed 2 juices with no noted improvement on personal glucometer, therefore an additional two juices provided. While consuming third juice Pt noted to be unable to effectively drink juice and juice was spilling from Pts mouth. Pt immediately moved to a stretcher and checked in for emergent care. Dr. Bobby at bedside for eval. POC noted to be 27. IV access obtained and 2 syringes of 50% dextrose given. Pt becomes more coherent and VS noted to be stable. Pt is now alert and eating with family at bedside. Will continue to monitor.
[2024-06-04 09:09] VITALS: BP 140/63; PULSE 82; RESP 16; O2SAT 99; BMI 25.3
--- NOTE | 2024-06-04 09:17 | PC.NURSE ---
Pt eats entire breakfast tray without difficulty. C/o [place] at this time.
[2024-06-04 09:44] LABS: MANUAL DIFF FLAG NO
[2024-06-04 09:45] LABS: Basophils Absolute Auto 0.1 X10*3/uL (0.0-0.2); Basophils Percent Auto 0.7 % (0-2); Eosinophils Absolute Auto 0.1 X10*3/uL (0.0-0.4); Eosinophils Percent Auto 0.8 % (0-4); Hematocrit 35.7 % (37.0-47.0); Imm Gran Abs Auto 0.03 X10*3/uL (0.00-0.03); Imm Gran Pct Auto 0.3 % (0.0-0.4); Lymphocytes Absolute Auto 1.2 X10*3/uL (1.2-4.9); Lymphocytes Percent Auto 13.6 % (20-40); Mean Corpuscular HGB Conc 33.6 g/dl (31.0-35.0); Mean Corpuscular Hemoglobin 31.3 pg (27.0-33.0); Mean Platelet Volume 12.7 fL (9.4-12.3); Monocytes Absolute Auto 0.4 X10*3/uL (0.1-1.2); Monocytes Percent Auto 4.5 % (2-11); Neutrophils Absolute Auto 7.1 x10*3/uL (2.0-8.3); Neutrophils Percent Auto 80.1 % (45-73); Platelet Count 194 X10*3/uL (160-400); Red Blood Count 3.84 X10*6/uL (4.20-5.50); Red Cell Distribution Width 13.2 % (11.0-16.0); White Blood Count 8.8 X10*3/uL (4.8-10.8)
[2024-06-04 10:04] LABS: Alanine Aminotransferase 45 U/L (0-31); Albumin Level 3.8 g/dL (3.5-5.0); Anion Gap 11 (12-20); Aspartate Amino Transferase 28 U/L (5-31); Bilirubin Total 0.4 mg/dL (0.0-1.0); Blood Urea Nitrogen 12 mg/dL (9-16); Carbon Dioxide 27 mmol/L (22-29); Chloride 101 mmol/L (96-108); Estimated Glomerular Filt Rate > 60; Potassium 4.3 mmol/L (3.3-5.1); Sodium 135 mmol/L (135-145)
[2024-06-04] MEDS: Ibuprofen 400 MG TABLET PO (10:05)
[2024-06-04] MEDS: Acetaminophen 325 MG TABLET 975 MG PO (10:05)
[2024-06-04] MEDS: Butalb/Acetamin/Caff 50/325/40 TABLET 1 TAB PO (10:06)
--- OUTSIDE RECORDS SUMMARY | 2024-06-04 10:48 | XMS_ITS | Encounter Summary ---
Demographics Address [address] [place] [address] Mobile Phone Home Phone Preferred Language es Marital Status Unknown Anabaptism Affiliation Unknown Race Unknown Ethnic Group Unknown Author Organization [facility] Address [address] [place] [address] Support Name Relationship Address Phone Herminia Mak Daughter [address] [place] [address] Iqra Read Daughter [address] [place] [address] Care Team Providers Care Drug Room Operator Name Role Phone Liliana Novoa MD Primary Care Provider [phone] Reason for Visit * Reason Comments Consult Left Foot Wound Diab etic Foot Exam Encounter Details Date Type Department Care Team (Late st Contact Info) Description 05/26/2024 9:00 AM EST Office Visit Orthopedic Surgery - [place] [address] [phone] Chau Fleming DPM [address] [address] Metatarsalgia of left foot (Primary Dx); Ulcer of toe of left foot, with fat layer exposed (CMS/HCC); Dermatophytosis of nail; Pain in toe of right foot; Pain in toe of left foot; Diabetic mononeuropathy simplex (CMS/HCC) Social History Tobacco Use Types Packs/Day Years Used Date Smoking Tobacco: Never Assessed Sex and Gender Information Value Date Recorded Sex Assigned at Not on file Gender Identity Not on file Sexual Orientation Not on file Job Start Date Occupation Industry Not on file Not on file Not on file documented as of this encounter Progress Notes * Chau Fleming DPM - 05/26/2024 9:00 AM EST Last PCP visit:Referring MD: 02/29/24 German Thomas MD IDENTIFIER: Darrian Correa is a 48 y.o. year old female who presents for consultation. CC: Foot pain HPI: Patient presents today for evaluation of her feet she reports that she has an ulcer of her left foot she states she was seen in February since then she has been providing wound care and was referred for office for evaluation reports her nails elongated painful thickened does not that she is type II diabetic and does not feel her feet certified court interpreter ID number [id number] ROS: GENERAL: Pt denies nausea, fever, vomiting, chills, or shortness of breath. Pt in NAD. CARDIOLOGY: pt denies chest pain, palpitations LUNGS: pt denies shortness of breath MUSCULOSKELETAL: See HPI, otherwise no joint pain or swelling, back pain, or muscle pain. SKIN: see HPI, otherwise no lesions, rash or itching NEURO: No persistent headache, weakness or numbness The remainder of the review of systems is noncontributory PAST MEDICAL HISTORY: There is no problem list on file for this patient. Type 2 diabetes SOCIAL HISTORY: Social History Tobacco Use Smoking status: Not on file Smokeless tobacco: Not on file Substance Use Topics Alcohol use: Not on file ACTIVE MEDICATIONS: No outpatient medications have been marked as taking for the 05/26/24 encounter (Office Visit) with Chau Fleming DPM. ALLERGIES: Not on File PHYSICAL EXAM: There were no vitals taken for this visit. PODIATRIC EXAMINATION: GENERAL: Patient appears well nourished, with NAD. VASCULAR: Dorsalis pedis pulses are 2/4 bilaterally and Posterior tibial pulses are 2/4 bilaterally. Capillary filling time within normal limits the digits. No pallor on elevation or rubor on dependency. No varicosities. Denies rest pain or claudication pain. NEUROLOGICAL: Sharp/dull sensation , protective sensation 0/10 with 5.07 semmes sue bilaterally, vibratory sensation with tuning fork intact to the tibial tuberosity. ORTHOPEDIC: Good muscle strength 5/5 of all flexors and extensors. Dorsi flexion of ankle ,10 degrees, plantar flexion WNL. No muscle atrophy. DERMATOLOGICAL:. Toenails: Left Toenail(s) 1-5: Crumbling upon debridement, subungual debris, discoloration, dystrophy, elongation, mycotic appearance, onychomycosis, pain and thickening. Right Toenail(s) 1-5: Crumbling upon debridement, subungual debris, discoloration, dystrophy, elongation, mycotic appearance, onychomycosis, pain and thickening. Annular scaling bilateral feet moccasin distribution Skin thinning texture shiny appearance diffuse hyperpigmentation bilaterally pedal hair decreased ULCER: LOCATION left subfirst metatarsal, SIZE,3mm x 3mm 3mm, BASE, fibro- granular, RIM, hyperkeratotic, UNDERMINING, mild, TRACKING, Sub Q with Fat layer exposed,NECROTIC TISSUE, loosely-adherent yellow slough, DRAINAGE, serous, moderate, MALODOR, absent, CALOR, absent, ERYTHEMA, absent. BIOMECHANICS: Ankle ROM WNL, STJ ROM wnl, MTJ ROM wnl, 1st MPJ ROM wnl. IMAGING: IMPRESSION: 1. Metatarsalgia of left foot 2. Ulcer of toe of left foot, with fat layer exposed (CMS/HCC) 3. Dermatophytosis of nail 4. Pain in toe of right foot 5. Pain in toe of left foot 6. Diabetic mononeuropathy simplex (CMS/HCC) PLAN: Pt was seen and examined, history reviewed. [facility] with Mepilex pad prescribed diabetic shoes with custom insoles prescribed Radiographs taken in February reviewed Discussed with patient regarding proper glucose control, exercise, and diet. Explained to patient proper shoe gear, and importance of daily foot checks. I reviewed neuropathy and why it occurs in diabetics. I educated the patient on proper blood sugar control and the importance of an HgBA1c of less than 7.0%. I reviewed the signs and symptoms of neuropathy with the patient Pt to return for another evaluation in 2 weeks Open wound Open wound selective debridement of devitalized soft tissue, fibrin, epidermis, dermis, thru skin and subcutaneous tissue, first 20 sq cm or less, using sterile sharp dissection #15 scalpel blade. Pt. deferred anesthesia. . Devitalized tissue was not sent to pathology. Debridement of mycotic toenails 6-10: Verbal informed consent was obtained from the patient. Greater than 6 nails were aseptically debrided in thickness and length with nail nippers Chau Fleming DPM documented in this encounter Plan of Treatment Upcoming Encounters Date Type Department Care Team (Late st Contact Info) Description 06/25/2024 9:15 AM EST Office Visit Orthopedic Surgery - [address] [place] [phone] Chau Fleming, DPM [address] [phone] documented as of this encounter Visit Diagnoses Diagnosis Metatarsalgia of left foot- Primary Ulcer of toe of left foot, with fat layer exposed (CMS/HCC) Dermatophytosis of nail Pain in toe of right foot Pain in soft tissues of limb Pain in toe of left foot Pain in soft tissues of limb Diabetic mononeuropathy simplex (CMS/HCC) Type II or unspecified type diabetes mellitus with neurological manifestations, not stated as uncontrolled documented in this encounter Care Teams Drug Room Operator Relationship Specialty Start Date End Date Liliana Novoa MD 2 [facility] , [facility] [address] [facility] D/B/A: [facility] [place], [place] PCP - General Internal Medicine 02/22/24 documented as of this encounter
--- OUTSIDE RECORDS SUMMARY | 2024-06-04 10:48 | XMS_ITS | Clinical Summary ---
Demographics Address [address] [place] [address] Mobile Phone Home Phone Preferred Language es Marital Status Unknown Hindu Affiliation Unknown Race Unknown Ethnic Group Unknown Author Organization [facility] Address [address] [place] [address] Support Name Relationship Address Phone Herminia Mak Daughter [address] [place] [address] Iqra Read Daughter [address] [place] [address] Care Team Providers Care Health Researcher Name Role Phone Liliaan Novoa MD Primary Care Provider [phone] Encounters Date Type Department Care Team Description 05/26/2024 9:00 AM EST Office Visit Orthopedic Surgery [facility] [address] [phone] Chau Fleming DPM Metatarsalgia of left foot (Primary Dx); Ulcer of toe of left foot, with fat layer exposed (CMS/HCC); Dermatophytosis of nail; Pain in toe of right foot; Pain in toe of left foot; Diabetic mononeuropathy simplex (CMS/HCC) from Last 3 Months Social History Tobacco Use Types Packs/Day Years Used Date Smoking Tobacco: Never Assessed Sex and Gender Information Value Date Recorded Sex Assigned at Not on file Gender Identity Not on file Sexual Orientation Not on file Job Start Date Occupation Industry Not on file Not on file Not on file Plan of Treatment Upcoming Encounters Date Type Department Care Team (Late st Contact Info) Description 06/25/2024 9:15 AM EST Office Visit Orthopedic Surgery [facility] [address] [phone] Chau Fleming DPM [address] [phone] Health Maintenance Due Date Last Done Comments Breast Cancer Screening 1974 Diabetes: Annual GFR (Glomerular Filtration Rate) 1974 Diabetes: Annual Foot Exam 1984 Diabetes: Annual Retina Eye Exam 1984 Cervical Cancer Screening: Pap Smear 10/05/1995 Hepatitis B Vaccines (2 of 3 - 19+ 3-dose series) 09/11/2013 08/14/2013 Pneumococcal Vaccine: Pediatrics (0 to 5 Years) and At-Risk Patients (6 to 64 Years) (2 of 2 - PCV) 05/16/2019 05/16/2018, 03/13/2015, 02/04/2003, Additional history exists COVID-19 Vaccine (3 - 2023- season) 2024 05/03/2021, 08/16/2020 Influenza Vaccine (#1) 2024 , 06/16/2019, 05/16/2018, Additional history exists Cholesterol Screening (Lipid Panel) 02/22/2024 Colorectal Cancer Screening: Colonoscopy 02/22/2024 Depression Screening 02/22/2024 HIV Screening 02/22/2024 Hepatitis C Screening 02/22/2024 Social Influencers of Health Screening 02/22/2024 Diabetes: Annual Urine Albumin-Creatinine Ratio (uACR) 05/26/2024 Diabetes: Blood Sugar Control Test (HGBA1C) 05/26/2024 DTaP,Tdap,and Td Vaccines (4 - Td or Tdap) 05/16/2028 05/16/2018, 10/02/2012, 08/23/2007 HIB Vaccines Aged Out No longer eligi ble based on patient's age to complete this topic HPV Vaccines Aged Out No longer eligi ble based on patient's age to complete this topic Hepatitis A Vaccines Aged Out No long er eligible based on patient's age to complete this topic IPV Vaccines Aged Out No longer eligi ble based on patient's age to complete this topic MMR Vaccines Aged Out No longer eligi ble based on patient's age to complete this topic Meningococcal ACWY Vaccine Aged Out N o longer eligible based on patient's age to complete this topic RSV Immunization Patients Under 20 months Aged Out No longer eligible based on patient's age to complete this topic Varicella Vaccines Aged Out No longer eligible based on patient's age to complete this topic Care Teams Health Researcher Relationship Specialty Start Date End Date Liliana Novoa MD 2 [facility] , [address] [facility] D/B/A: [facility] [place], [place] PCP - General Internal Medicine 02/22/24
[2024-06-04 11:04] LABS: Alkaline Phosphatase 130 U/L (39-117)
[2024-06-04 11:51] VITALS: BP 149/68; PULSE 84; RESP 20; TEMP 36.7; O2SAT 98
[2024-06-04 12:23] LABS: Glucose, Whole Blood 326 mg/dL (60-115)
[2024-06-04 12:41] VITALS: BP 149/68; PULSE 84; RESP 20; TEMP 36.7; O2SAT 98
[2024-06-04 12:47] LABS: Glucose Random 359 mg/dL (60-115)
== END 2024-06-04 12:41 | disposition home or self-care (01) ==
PROVIDERS: Emergency Provider Student in an Organized Health Care Education/Training Program; PCP Internal Medicine
DX: E10.649 Type 1 diabetes mellitus with hypoglycemia without coma (principal); Z79.4 Long term (current) use of insulin; Z79.899 Other long term (current) drug therapy; Z87.891 Personal history of nicotine dependence
CPT/HCPCS: 36415; 80053; 82947; 85025; 96374; 99284

== ENCOUNTER 2024-06-06 09:41 | Emergency (ER) | payer OTHER, SELFPAY ==
[2024-06-06] VITALS (10 sets, daily range): BP systolic 109–150; BP diastolic 36–65; PULSE 105–115; RESP 16–24; TEMP 37.2–38.7; O2SAT 93–99; BMI 29.3
--- NOTE | ~2024-06-06 | XR_ITS ---
EXAMINATION: XR CHEST 1 VIEW HISTORY: fever, cough COMPARISON: Comparison is made with the prior examination dated 05/16/2024. FINDINGS: A single AP portable view of the chest performed at 11:01 AM is submitted. There are low lung volumes. The lungs are clear. There is no pleural effusion, pneumothorax, or pulmonary vascular congestion. The heart is normal in size. The bones are intact. XR/XR chest 1V IMPRESSION: Low lung volumes. No acute cardiopulmonary abnormality. Electronically signed by: Jacinto Francis MD 06/06/2024 11:16 AM [facility] [place]
--- NOTE | ~2024-06-06 | US_ITS ---
EXAMINATION: US ABDOMEN LIMITED CLINICAL INFORMATION: Right upper quadrant pain with fevers.. COMPARISON: None available. TECHNIQUE: Real-time imaging of the right upper quadrant abdominal viscera. FINDINGS: PANCREAS: Visualized portions are unremarkable. LIVER: The liver is normal in size. The liver contour is normal. Parenchymal echogenicity is normal. No focal hepatic lesion. There is no intrahepatic biliary duct dilatation seen. GALLBLADDER: The gallbladder is physiologically distended without evidence of stones, sludge, polyps, wall thickening or pericholecystic fluid. COMMON BILE DUCT: Normal in caliber measuring 0.6 cm in diameter. RIGHT KIDNEY: No hydronephrosis. No renal calculi or focal parenchymal lesions. The kidney measures 10.4 cm in maximum dimension. FREE FLUID: None. US/US abdomen limited IMPRESSION: Normal examination. Electronically signed by: Zhen Malone MD 06/06/2024 01:29 PM [facility] [place] [place]
--- NOTE | 2024-06-06 10:15 | ECG_ITS ---
Test Reason : tachy Blood Pressure : */* mmHG Vent. Rate : 114 BPM Atrial Rate : 114 BPM P-R Int : 136 ms QRS Dur : 74 ms QT Int : 340 ms P-R-T Axes : 49 -12 17 degrees QTcB Int : 468 ms Sinus tachycardia Possible Left atrial enlargement Borderline ECG When compared with ECG of 10-Sep-2019 11:03, No significant change was found Referred By: Shanta Mcdonald Electronically Signed By: RENE MUSA
--- NOTE | 2024-06-06 10:17 | ED_ITS ---
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 Cannot keep anything down. Has not taken any medications for it today. She has a dexcom in but not taking insulin. Denies dysuria. Was here as a visitor 2 days ago and had a hypoglycemic episode. She denies travel/sick contacts/abx use. MD elicited complaint: other (fevers, body aches, RUQ pain) Pertinent past history: none Onset (ago): day(s) (2) Pain Consistency: constant Location: RUQ Severity: moderate Quality: aching Radiation: none Migration to: no migration Exacerbating factors: eating and movement Relieving factors: nothing Associated symptoms: nausea, vomiting, fever and chills Related Data Home Medications ?Medication ?Instructions ?Recorded ?Confirmed citalopram 40 mg tablet 40 mg PO DAILY 11/20/22 02/28/24 metoclopramide HCl 5 mg tablet 5 mg PO QIDACHS 03/12/24 03/12/24 (Reglan) duloxetine 20 mg capsule,delayed 20 mg PO BID 04/22/24 release prednisolone acetate 1 % eye drp ophthalmic (eye) 04/22/24 drops,suspension (Pred Forte) Previous Rx's ?Medication ?Instructions ?Recorded FreeStyle Lite Meter #1 ea 11/17/20 (blood-glucose meter) lancets 28 gauge (FreeStyle #200 ea 11/17/20 Lancets) Shower Chair #1 ea 02/06/21 walker #1 ea 08/17/22 hydroxyzine HCl 25 mg tablet 25 mg PO BEDTIME 90 days #90 tabs 05/15/23 cholecalciferol (vitamin D3) 125 125 mcg PO DAILY #30 caps 06/18/23 mcg (5,000 unit) capsule lisinopril 20 mg tablet 20 mg PO DAILY #30 tabs 10/23/23 oxybutynin chloride 10 mg 10 mg PO DAILY 90 days #90 tabs 10/23/23 tablet,extended release 24 hr Tirosint 125 mcg capsule 125 mcg PO DAILY 90 days #90 caps 12/05/23 (levothyroxine) metoclopramide HCl 5 mg tablet 5 mg PO TID 30 days #90 tabs 12/05/23 gabapentin 300 mg capsule 300 mg PO TID 30 days #90 caps 01/10/24 ldajkxjgjo-utenuxicfvvxq-bxleqzqq 1 tab PO Q6H PRN hussein #14 tabs 03/02/24 50 mg-325 mg-40 mg tablet FreeStyle Lite Strips (blood sugar #200 ea 03/18/24 diagnostic) prednisone 20 mg tablet 40 mg (2 x 20 mg) PO DAILY #10 tabs 04/11/24 naproxen 250 mg tablet 250 mg PO BID PRN pain 7 days #14 05/16/24 tabs insulin lispro 100 unit/mL 1 sliding scale dose subcut 05/23/24 subcutaneous pen USEASDIRECTD 30 days #15 mL atorvastatin 80 mg tablet 80 mg PO BEDTIME 90 days #90 tabs 06/01/24 blood-glucose sensor (FreeStyle #2 ea 06/04/24 Ade 3 Plus Sensor device) glucagon 3 mg/actuation nasal 3 mg intranasal ONCE PRN 06/04/24 spray (Baqsimi) unresponsive hypoglycemia #2 ea insulin degludec 200 unit/mL (3 50 unit (0.25 mL) subcut BEDTIME 06/04/24 mL) subcutaneous pen (Tresiba 90 days #25 mL FlexTouch U-200 insulin) ondansetron 4 mg disintegrating 4 mg PO Q8H PRN nausea and 06/06/24 tablet vomiting #20 tabs oseltamivir 75 mg capsule (Tamiflu) 75 mg PO BID 5 days #9 caps 06/06/24 Allergies Allergy/AdvReac Type Severity Reaction Status Date / Time No Known Allergies Allergy Verified 06/06/24 09:58 Review of Systems Review of Systems Constitutional : No Weight loss, pos Fever, pos Chills ENT/Mouth : No sore throat, No Rhinorrhea Eyes: No Swelling, No Redness Cardiovascular : No Chest Pain, No SOB, NoEdema Respiratory : No Cough, No Sputum, No Wheezing Gastrointestinal : Positive Nausea, Positive Vomiting, no Diarrhea, positive abdominal Pain, No Hematochezia, No Melena Genitourinary : No Dysuria, No Urinary Frequency, No Hematuria, No Urgency Musculoskeletal : No joint pain, pos Myalgias, No Joint Swelling Skin : No Skin Lesions, No rash Neuro : No Weakness, No Numbness, No Dizziness, No Headache Psych : No Anxiety/Panic, No Depression All other systems reviewed and are negative. [facility] Past Medical History Attestation statement: The following information was validated with the patient. Source: old records reviewed Medical History Diabetic foot ulcer Left foot pain Women's annual routine gynecological examination Swelling of right eyelid Physical exam Screening for cervical cancer Wound of left foot Wound of left foot Metatarsal fracture Right hand pain Multinodular thyroid Hypothyroidism HTN (hypertension) HLD (hyperlipidemia) T1DM (type 1 diabetes mellitus) Vitamin D deficiency 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 Hypothyroidism Diabetic polyneuropathy associated with type 1 diabetes mellitus Diabetic retinopathy associated with type 1 diabetes mellitus Dyslipidemia Diabetic gastroparesis Essential hypertension Diabetes type 1, uncontrolled Surgical History History of surgical procedure on eye proper using laser Family History Family History Father Diabetes Substance use disorder Mother Diabetes Hypertension Social History Social History Household Members: None Housing: Apartment Alcohol intake: never Patient Tobacco Use Status: Former Tobacco user e-Cigarette/Vaping Use: Never Used Second Hand Smoke Exposure: No Advance Directives: No Advance Directives Information Provided: Yes Do you have a plan to hurt others: No Plan service: No Current occupational status: unemployed and disabled Current occupation: rt handed Cognitive needs: No Hearing needs: No Vision needs: No Physical Exam ED Vital Signs: Vital Signs - 24 hr 06/06/24 09:56 06/06/24 10:17 06/06/24 11:22 Temperature 101.6 F H Pulse Rate 113 H 115 H 113 H Respiratory Rate 18 16 18 Blood Pressure 150/65 H 148/59 H 123/46 L Pulse Oximetry 98 99 97 Oxygen Delivery Method Room Air Room Air Room Air 06/06/24 11:57 06/06/24 12:07 06/06/24 12:11 Temperature 99 F Pulse Rate 108 H 109 H 111 H Respiratory Rate 23 H 16 24 H Blood Pressure 111/36 L 109/47 L 109/47 L Pulse Oximetry 96 95 93 Oxygen Delivery Method Room Air Room Air Room Air 06/06/24 12:12 06/06/24 14:15 Temperature 99 F 99.3 F Pulse Rate 105 H Respiratory Rate 16 Blood Pressure 116/54 L Pulse Oximetry Oxygen Delivery Method Room Air BMI result Body Mass Index 29.3 Appearance: Alert. Oriented X3. No acute distress. Eyes: Pupils equal, round and reactive to light. ENT: Pharynx dry MM Neck: Normal inspection. Neck supple. CVS:tachycardic heart rate and rhythm. Pulses normal. Respiratory: No respiratory distress. Breath sounds normal. Abdomen: Soft and ttp in RUQ no rebound Skin: Skin warm and dry. pale skin color. Normal skin turgor. Extremities: No lower extremity edema. No calf ttp Neuro: Oriented X 3. No motor deficit. No sensory deficit. CN2-12 intact Medical Decision Making Medical Decision Making [facility] Narrative: 48 yo female with IDDM, depression, HTN, HLD, hypothyroidism, HLD here with c/o viral like illlness, fevers, RUQ pain, n/v she denies risk factors will obtain basic labs, UA, abd US, CXR, viral panel, IVF , IV tylenol, empiric ceftriaxone. Possible biliary colic, viral syndrome, UTI, pneumonia. Differential Diagnosis Differential Diagnoses: The differential diagnosis associated with the presentation includes viral syndrome, dehydration, SAMIR, weakness, UTI, pneumonia, cholecystitis Admission/Observation Consideration of admission/observation: Escalation of care including admission/observation considered tolerating PO feels much better states she wants to go home will DC with zofran and tamiflu Lab Data [facility] Lab Attestation statement: I reviewed the patient's lab results. 06/06/24 10:32 06/06/24 10:32 Labs: Lab Results 06/06/24 Range/Units 10:32 WBC 8.2 (4.8-10.8) X10*3/uL RBC 3.69 L (4.20-5.50) X10*6/uL Hgb 11.2 L (12.0-16.0) g/dl Hct 34.0 L (37.0-47.0) % MCV 92.1 (80.0-98.0) fL MCH 30.4 (27.0-33.0) pg MCHC 32.9 (31.0-35.0) g/dl RDW 13.4 (11.0-16.0) % Plt Count 168 (160-400) X10*3/uL MPV 12.7 H (9.4-12.3) fL Immature Gran % (Auto) 0.2 (0.0-0.4) % Neut % (Auto) 90.8 H (45-73) % Lymph % (Auto) 3.4 L (20-40) % Haakon % (Auto) 4.9 (2-11) % Eos % (Auto) 0.5 (0-4) % Baso % (Auto) 0.2 (0-2) % Lymph # (Auto) 0.3 L (1.2-4.9) X10*3/uL Haakon # (Auto) 0.4 (0.1-1.2) X10*3/uL Eos # (Auto) 0.0 (0.0-0.4) X10*3/uL Baso # (Auto) 0.0 (0.0-0.2) X10*3/uL Abs Immat Gran (auto) 0.02 (0.00-0.03) X10*3/uL Absolute Neuts (auto) 7.5 (2.0-8.3) x10*3/uL Absolute Nucleated RBC 0.000 (0.0-0.012) X10*3/uL Nucleated RBC % (auto) 0.0 (0.0-0.2) /100WBC Smear Tech's Comments VERIFIED Sodium 138 (135-145) mmol/L Potassium 3.9 (3.3-5.1) mmol/L Chloride 103 (96-108) mmol/L Carbon Dioxide 28 (22-29) mmol/L Anion Gap 11 L (12-20) BUN 10 (9-16) mg/dL Creatinine 0.76 (0.5-1.4) mg/dL Estim Creat Clear Calc 86.8 Estimated GFR > 60 Random Glucose 228 H (60-115) mg/dL Lactic Acid 1.3 (0.5-2.0) mmol/L Calcium 8.8 (8.4-10.2) mg/dL Magnesium 1.7 (1.6-2.6) mg/dL Total Bilirubin 0.3 (0.0-1.0) mg/dL Direct Bilirubin 0.1 (0.0-0.5) mg/dL AST 26 (5-31) U/L ALT 37 H (0-31) U/L Alkaline Phosphatase 126 H (39-117) U/L Troponin I High Sens < 2.7 (<3.5-17.0) ng/L Total Protein 6.8 (6.5-8.0) g/dL Albumin 3.8 (3.5-5.0) g/dL Lipase 6 L (8-78) U/L Influenza Type A (PCR) POSITIVE A (Negative) Influenza Type B (PCR) NEGATIVE (Negative) RSV RNA Qual (PCR) NEGATIVE (Negative) SARS-CoV-2 RNA (RT-PCR) NEGATIVE (Negative) Independent Interpretation I performed an independent interpretation of an: EKG, Plain X-Ray (no pneumonia) and Ultrasound (no biliary colic) Interpretation: Rate: 114 Rhythm: sinus tach [place]: left Normal P waves. Normal DANISHA. Normal QRS complex. ST T wave : normal no YOLI qTC: 468 prior studies: no acute ischemia The study has been interpreted contemporaneously by me. . Radiology Impression Discussion of test interpretation with radiology: I have reviewed the radiologist's reading. Independent Historian Clinical information obtained from an independent historian. History obtained from or confirmed by: EMS External Record Review External record reviewed: Inpatient record and Outpatient record Prescription Management I considered prescription management with: Antiviral and Other Medications Administered Discontinued Medications Generic Name Dose Route Start Last Admin Trade Name Freq PRN Reason Stop Dose Admin Ceftriaxone Sodium 1 gm 06/06/24 10:27 06/06/24 10:46 Ceftriaxone Sodium 1 Gm Vial IVPUSH 06/06/24 10:28 1 gm ONCE ONE Administration Lactated Ringer's 1,000 mls @ 999 mls/hr 06/06/24 10:14 06/06/24 11:52 Lr IV 06/06/24 11:14 Infused .Q1H1M ONE Infusion Acetaminophen 1,000 mg in 100 mls @ 400 mls/hr 06/06/24 10:14 06/06/24 11:52 Ofirmev IV 06/06/24 10:28 Infused ONCE ONE Infusion Lactated Ringer's 1,000 mls @ 999 mls/hr 06/06/24 12:20 06/06/24 14:38 Lr IV 06/06/24 13:20 Infused .Q1H1M ONE Infusion Ketorolac Tromethamine 15 mg 06/06/24 12:20 06/06/24 13:25 Ketorolac Tromethamine 15 Mg/Ml Vial IVPUSH 06/06/24 12:21 15 mg ONCE ONE Administration Ondansetron HCl 4 mg 06/06/24 10:14 06/06/24 10:46 Ondansetron Hcl 4 Mg/2 Ml Vial IVPUSH 06/06/24 10:15 4 mg ONCE ONE Administration Oseltamivir Phosphate 75 mg 06/06/24 11:19 06/06/24 12:12 Oseltamivir Phosphate 75 Mg Capsule PO 06/06/24 11:20 75 mg ONCE ONE Administration Discharge Plan Discharge Clinical Impression: Influenza A Nausea & vomiting Qualifiers: Vomiting type: unspecified Qualified Code(s): R11.2 - Nausea with vomiting, unspecified Patient Disposition: Home, Self-Care Instructions: Influenza (ED), Acute Nausea and Vomiting (ED) Additional Instructions: return for any worsening symptoms or concerns normal chest xray normal ultrasound monitor your blood sugar closely ultrasound of gallbladder and your chest xray were normal return for worsening symptoms, unable to eat or drink, chest pain or trouble breathing, any other concerns. Prescriptions: New ondansetron 4 mg tablet,disintegrating 4 mg PO Q8H PRN (Reason: nausea and vomiting) Qty: 20 0RF oseltamivir [Tamiflu] 75 mg capsule 75 mg PO BID 5 Days Qty: 9 0RF No Action (DME) blood-glucose meter [FreeStyle Lite Meter] Kit See Rx Instructions miscellaneous .MEDSUPPLY Qty: 1 0RF Rx Instructions: 6 times a day (DME) lancets [FreeStyle Lancets] 28 gauge misc See Rx Instructions .MEDSUPPLY Qty: 200 5RF Rx Instructions: 6 times a day (DME) Shower Chair Misc See Rx Instructions .Route Qty: 1 0RF Rx Instructions: As directed (DME) walker Misc See Rx Instructions .Route Qty: 1 0RF Rx Instructions: As directed cholecalciferol (vitamin D3) 125 mcg (5,000 unit) capsule 125 mcg PO DAILY Qty: 30 6RF oxybutynin chloride 10 mg tablet extended release 24hr 10 mg PO DAILY 90 Days Qty: 90 1RF lisinopril 20 mg tablet 20 mg PO DAILY Qty: 30 11RF metoclopramide HCl 5 mg tablet 5 mg PO TID 30 Days Qty: 90 6RF levothyroxine [Tirosint] 125 mcg capsule 125 mcg PO DAILY 90 Days Qty: 90 3RF gabapentin 300 mg capsule 300 mg PO TID 30 Days Qty: 90 6RF (DME) FreeStyle Lite Strips Strip See Rx Instructions .MEDSUPPLY Qty: 200 11RF Rx Instructions: 6 times a day atorvastatin 80 mg tablet 80 mg PO BEDTIME 90 Days Qty: 90 3RF mzcjmrekov-llfeqbhrmyzjz-wpsf 50-325-40 mg tablet 1 tab PO Q6H PRN (Reason: hussein) Qty: 14 0RF Rx Instructions: do not exceed 6 tabs per 24 hrs hydroxyzine HCl 25 mg tablet 25 mg PO BEDTIME 90 Days Qty: 90 0RF prednisolone acetate [Pred Forte] 1 % drops,suspension ophthalmic (eye) duloxetine 20 mg capsule,delayed release(DR/EC) 20 mg PO BID insulin lispro 100 unit/mL insulin pen 1 sliding scale dose subcut USEASDIRECTD 30 Days Qty: 15 6RF Rx Instructions: 80-100 2 units 101-150 4 units 151-200 6 units 201-250 10 units 251-300 14 unit for 300 take 16 units for breakfast and supper Lunch 80-100 eat and take 2 units, 101-200 take 4 units 201-250 8 units, 250- 300 take 12 units over 300 take 16 units insulin degludec [Tresiba FlexTouch U-200] 200 unit/mL (3 mL) insulin pen 50 unit subcut BEDTIME 90 Days Qty: 25 5RF (DME) FreeStyle Ade 3 Plus Sensor Device See Rx Instructions .ROUTE .MEDSUPPLY Qty: 2 11RF Rx Instructions: continous glucose sensor change every 15 days Baqsimi 3 mg/actuation spray,non-aerosol 3 mg intranasal ONCE MDD 6mg PRN (Reason: unresponsive hypoglycemia) Qty: 2 1RF Rx Instructions: may repeat in 15 minutes citalopram 40 mg tablet 40 mg PO DAILY metoclopramide HCl [Reglan] 5 mg tablet 5 mg PO QIDACHS prednisone 20 mg tablet 40 mg PO DAILY Qty: 10 0RF naproxen 250 mg tablet 250 mg PO BID PRN (Reason: pain) 7 Days Qty: 14 0RF Rx Instructions: Take one tablet twice a day as needed for pain. Print Language: Argentine
[2024-06-06 10:40] LABS: Basophils Percent Auto 0.2 % (0-2); Eosinophils Percent Auto 0.5 % (0-4); Hemoglobin 11.2 g/dl (12.0-16.0); Imm Gran Abs Auto 0.02 X10*3/uL (0.00-0.03); Imm Gran Pct Auto 0.2 % (0.0-0.4); Lymphocytes Absolute Auto 0.3 X10*3/uL (1.2-4.9); Lymphocytes Percent Auto 3.4 % (20-40); MANUAL DIFF FLAG SCAN; Mean Corpuscular HGB Conc 32.9 g/dl (31.0-35.0); Mean Corpuscular Hemoglobin 30.4 pg (27.0-33.0); Mean Corpuscular Volume 92.1 fL (80.0-98.0); Mean Platelet Volume 12.7 fL (9.4-12.3); Monocytes Absolute Auto 0.4 X10*3/uL (0.1-1.2); Monocytes Percent Auto 4.9 % (2-11); Neutrophils Absolute Auto 7.5 x10*3/uL (2.0-8.3); Neutrophils Percent Auto 90.8 % (45-73); Platelet Count 168 X10*3/uL (160-400); Red Blood Count 3.69 X10*6/uL (4.20-5.50); Red Cell Distribution Width 13.4 % (11.0-16.0); SCAN SMEAR FLAG 1; White Blood Count 8.2 X10*3/uL (4.8-10.8)
[2024-06-06] MEDS: cefTRIAXone sodium 1 GM VIAL IVPUSH (10:46)
[2024-06-06] MEDS: Lactated Ringers 1,000 ML 999 ML IV ×2 (10:46→13:25)
[2024-06-06] MEDS: Acetaminophen 1,000 MG/100 ML PIGGYBACK 400 MG IV (10:46)
[2024-06-06] MEDS: ondansetron HCL 4 MG/2 ML VIAL IVPUSH (10:46)
[2024-06-06 10:55] LABS: Lactic Acid 1.3 mmol/L (0.5-2.0)
[2024-06-06 10:57] LABS: Alanine Aminotransferase 37 U/L (0-31); Albumin Level 3.8 g/dL (3.5-5.0); Alkaline Phosphatase 126 U/L (39-117); Anion Gap 11 (12-20); Aspartate Amino Transferase 26 U/L (5-31); Bilirubin Direct 0.1 mg/dL (0.0-0.5); Bilirubin Total 0.3 mg/dL (0.0-1.0); Blood Urea Nitrogen 10 mg/dL (9-16); Calcium 8.8 mg/dL (8.4-10.2); Carbon Dioxide 28 mmol/L (22-29); Chloride 103 mmol/L (96-108); Creatinine Clr Calc Pharmacy 86.8; Estimated Glomerular Filt Rate > 60; Glucose Random 228 mg/dL (60-115); Lipase 6 U/L (8-78); Magnesium 1.7 mg/dL (1.6-2.6); Potassium 3.9 mmol/L (3.3-5.1); Sodium 138 mmol/L (135-145); Total Protein 6.8 g/dL (6.5-8.0)
--- OUTSIDE RECORDS SUMMARY | 2024-06-06 10:58 | XMS_ITS | Clinical Summary ---
Demographics Address [address] [place] [address] Mobile Phone Home Phone Preferred Language es Marital Status Unknown Hoahaoism Affiliation Unknown Race Unknown Ethnic Group Unknown Author Organization [facility] Address [address] [place] [address] Support Name Relationship Address Phone Herminia Mak Daughter [address] [place] [address] Iqra Read Daughter [address] [place] [address] Care Team Providers Care Hardboard Panel Printer Name Role Phone Liliana Novoa MD Primary Care Provider Encounters Date Type Department Care Team Description 05/26/2024 9:00 AM EST Office Visit Orthopedic Surgery [facility] [address] [phone] Chau Fleming DPM Metatarsalgia of left foot [...] 9:15 AM EST Office Visit Orthopedic Surgery [facility] [address] [phone] Chau Fleming DPM [address] [phone] Health Maintenance Due Date Last Done Comments [...] age to complete this topic Care Teams Hardboard Panel Printer Relationship Specialty Start Date End Date Liliana Novoa MD [address] [facility] , [address] [facility] Physician Associ D/B/A: [facility] [place], [place] PCP - General Internal Medicine 02/22/24
--- OUTSIDE RECORDS SUMMARY | 2024-06-06 10:58 | XMS_ITS | Encounter Summary ---
Demographics Address [address] [place] [address] Mobile Phone Home Phone Preferred Language es Marital Status Unknown Gnosticism Affiliation Unknown Race Unknown Ethnic Group Unknown Author Organization [facility] Address [address] [place] [address] Support Name Relationship Address Phone Herminia Mak Daughter [address] [place] [address] Iqra Read Daughter [address] [place] [address] Care Team Providers Care Electric Serviceman Name Role Phone Liliana Novoa MD Primary Care Provider [phone] Reason for Visit * Reason Comments Consult Left Foot Wound Diab etic Foot Exam Encounter Details Date Type Department Care Team (Late st Contact Info) Description 05/26/2024 9:00 AM EST Office Visit Orthopedic Surgery - [place] [address] [phone] Chau Fleming DPM [address] [address] Metatarsalgia of left foot (Primary Dx); Ulcer [...] diabetic and does not feel her feet scientific programmer analyst ID number [id number] ROS: GENERAL: Pt denies nausea, fever, vomiting, [...] Pt was seen and examined, history reviewed. [facility] with Mepilex pad prescribed diabetic shoes with [...] AM EST Office Visit Orthopedic Surgery - [address] [place] [phone] Chau Fleming, DPM [address] [phone] documented as of this encounter Visit Diagnoses [...] uncontrolled documented in this encounter Care Teams Electric Serviceman Relationship Specialty Start Date End Date Liliana Novoa MD 2 [facility] , [facility] [address] [facility] Physician Associ D/B/A: [facility] [place], [place] PCP - General Internal Medicine 02/22/24 documented as of this encounter
[2024-06-06 11:01] LABS: SLIDE REVIEW VERIFIED
[2024-06-06 11:10] LABS: Troponin-I High Sensitivity < 2.7 ng/L (<3.5-17.0)
[2024-06-06 11:16] LABS: Influenza A PCR POSITIVE (Negative); Influenza B PCR NEGATIVE (Negative); Resp Syncy Virus RNA Qual PCR NEGATIVE (Negative); SARS COV2 PCR INHOUSE NEGATIVE (Negative)
[2024-06-06] MEDS: Oseltamivir Phosphate 75 MG CAPSULE PO (12:12)
[2024-06-06] MEDS: Ketorolac Tromethamine 15 MG/ML VIAL IVPUSH (13:25)
--- NOTE | 2024-06-06 14:40 | PC.NURSE ---
Patient awake and alert. skin pwd, resp even and non labored. speaking in full, clear sentences. reports that she is feeling better and that RUQ pain and headache has decreased to a 3/10 post meds. no further n/v noted. patient given diet gingerale and jello per MD, pt is tolerating it well.
== END 2024-06-06 15:42 | disposition home or self-care (01) ==
PROVIDERS: Emergency Provider Emergency Medicine; PCP Internal Medicine
DX: J10.1 Influenza due to other identified influenza virus with other respiratory manifestations (principal); R10.2 Pelvic and perineal pain; R11.2 Nausea with vomiting, unspecified; R05.9 Cough, unspecified; R00.0 Tachycardia, unspecified; M79.10 Myalgia, unspecified site; I10 Essential (primary) hypertension; Z87.891 Personal history of nicotine dependence; Z03.818 Encounter for observation for suspected exposure to other biological agents ruled out; Z79.899 Other long term (current) drug therapy
CPT/HCPCS: 0241U; 71045; 76705; 80048; 80076; 83605; 83690; 83735; 84484; 85025; 87040; 93005; 96361; 96374; 96375; 99284; 99285; J0131; J0696; J1885; J2405; J7120

== ENCOUNTER → 2024-06-06 10:15 | Outpatient (BNV) | payer OTHER, SELFPAY | PROVIDERS: Emergency Provider Emergency Medicine; PCP Internal Medicine; Visit Provider Internal Medicine | DX: R00.0 Tachycardia, unspecified (principal) | CPT/HCPCS: 93010 ==

== ENCOUNTER → 2024-06-06 10:15 | Outpatient (BNV) | payer OTHER, SELFPAY | PROVIDERS: Emergency Provider Emergency Medicine; PCP Internal Medicine; Visit Provider Radiology Diagnostic Radiology | DX: R10.11 Right upper quadrant pain (principal); R05.9 Cough, unspecified; R50.9 Fever, unspecified | CPT/HCPCS: 71045; 76705 ==

== ENCOUNTER → 2024-06-13 08:22 | Outpatient (AMB) | payer OTHER, SELFPAY ==
--- NOTE | 2024-06-13 08:17 | A.OFFVIS_ITS ---
Vital Signs 06/13/24 08:35 Height 5 ft 3 in Weight 145 lb 8.081 oz BMI 25.8 BP 152/72 H Blood Pressure Location Rt brachial Position Sitting Pulse 75 Pulse Source Pulse Oximeter Intake Visit Reasons: T1DM Intake Note: Patient presents here today for a follow-up on Type 1 Diabetes Mellitus. Last Diabetic eye exam was on: [facility], 03/05/2024 Last Podiatry exam was on: Patient has a coming up appt [address] 05/26/2024 Most recent HbA1c: 9.3%, 04/08/2024 Random Glucose- 128 mg/dL, Today Mark Up Designer Required: Yes Mark Up Designer Language: Science Manager Services: Mark Up Designer Present Information Interpreted: non-clinical & clinical Accompanied by: Self / Same As Patient Allergies No Known Allergies Allergy (Verified 06/06/24 09:58) HPI Comments Details: 48 YO F with PMHx T1DM, Hypothyroidism and a NTMNG who is seen in F/U for the same. Today's visit is for type 1 diabetes. Last A1c 04/08/2024 9.3% down from 10. She was last seen 05/23/24.48 YO F with PMHx T1DM, Hypothyroidism and a NTMNG who is seen in F/U for the same. Today's visit is for type 1 diabetes. She was followed by the wound center for an ulcer over a bunion. She has been seen by a parking technician and surgery is planned for the future to correct her structural deformities. Podiatry is seeing her every 3 weeks. She has severe gastroparesis, and when using humalog prior to eating has severe hypoglycemia postprandially due to the delayed gastric absorption. She has all complications of T1DM including retinopathy, neuropathy and nephropathy. 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 Initially diagnosed with T1DM at the age of 10. Tresiba 50 units (down from 68) Humalog premeal tid Breakfast and supper 101-150 4 units 151-200 6 units 201-250 8-10 units 251-300 12 units over 300 take 14 units Dexcom average glucose: 231 14 day continuous glucose monitor report reviewed Glucose Managment indicator 8.8 % Days with CGM data [ ] % TIme in ranges: Forty-three % very high (above 250) 18 % high ?(181-250) 34 % in range ?(70-180] 3 % low (69-55) 2 % ?very low (below 54) Interpretation [ postprandial highs] Treats lows with juice. Checks sugar after to ensure it is rising. Follows the rule of 15's. Has retinopathy. Followed by Brid[facility] Wolfe. Last appointment in 2023 Has neuropathy. Checks feet daily and does not walk barefooted Denies nephropathy, on Lisinopril 10 mg PO daily. microalbumin 05/11/23 35 06/06/24 eGFR>60 Has HLD, on Atorvastatin 20 mg PO daily. LDL 95 07/07/2022. Denies history of CAD. She has severe gastroparesis. She uses reglan 5 mg PO prior to every meal. We will be seeing Carmen PEREZ to initiate pre pump. [facility] Medical History Diabetic foot ulcer Left foot pain Women's annual routine gynecological examination Swelling of right eyelid Physical exam Screening for cervical cancer Wound of left foot Wound of left foot Metatarsal fracture Right hand pain Multinodular thyroid Hypothyroidism HTN (hypertension) HLD (hyperlipidemia) T1DM (type 1 diabetes mellitus) Vitamin D deficiency 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 Hypothyroidism Diabetic polyneuropathy associated with type 1 diabetes mellitus Diabetic retinopathy associated with type 1 diabetes mellitus Dyslipidemia Diabetic gastroparesis Essential hypertension Diabetes type 1, uncontrolled Surgical History History of surgical procedure on eye proper using laser Family History Father Diabetes Substance use disorder Mother Diabetes Hypertension Social History Household Members: None Housing: Apartment Alcohol intake: never Patient Tobacco Use Status: Former Tobacco user e-Cigarette/Vaping Use: Never Used Second Hand Smoke Exposure: No service: No Current occupational status: unemployed and disabled Current occupation: rt handed Cognitive needs: No Hearing needs: No Vision needs: No Female Reproductive History Menstrual Age of Menarche: 11 Physical Exam Vital Signs: Last Vital Signs Pulse 75 06/13/24 08:35 BP 152/72 H 06/13/24 08:35 BMI result Body Mass Index 25.8 Const Other: Absence of Cushingoid features. Absence of acromegalic features. Neck exam reveals nl size thyroid about 15 gms. No thyroid nodules palpable. Heart S1 S2, Reg R/R. No M/R G. Skin exam reveals absence of vitiligo or acanthosis nigricans. Visual exam of foot performed. healing ulcer over bunion>superficial, clean. No inter digit maceration or fissuring. No onychomycosis Quality Reporting (2019) Adult ([facility] 138//) Smoking risk assessment performed?: Yes Patient Tobacco Use Status: Former Tobacco user Results Reviewed Results Reviewed: Laboratory Last Values Glucose (Clinic) 154 mg/dL (60-115) H 06/13/24 08:45 Assessment & Plan Assessment & Plan (1) Diabetes type 1, uncontrolled: Code(s): E10.65 - Type 1 diabetes mellitus with hyperglycemia Category: Medical Qualifiers: Glycemic state: with hyperglycemia Qualified Code(s): E10.65 - Type 1 diabetes mellitus with hyperglycemia Plan: 48-year-old type 1 diabetic with gastroparesis, hypoglycemia unawareness, neuropathy, retinopathy and nephropathy with improving glucose numbers. She had a low a few weeks ago and her baseline insulin was adjusted downward. We will continue same dosing and move towards getting her on an insulin pump. I would not recommend a beta bionics as she does not speak Brazilian and I feel like she would do better without tubing so Omnipod would be the best pump for her. She has been approved for a freestyle Ade 3+ but we will hold off on this as Omnipod as recently been link with 2+. Continued follow up with Podiatry for resolving ulcer over callus. The patient had an opportunity to ask questions regarding treatment plan. The patient expressed understanding and agreement with the above treatment plan. The patient is aware they should contact our office by phone for worsening glucose readings or for any low blood sugars which may warrant a change in diabetes medication. Compliance is encouraged with medications and any followup testing/consults which may have been ordered. Medications: Changed From insulin lispro 80-100 2 units 101-150 4 units 151-200 6 units 201-250 10 units 251-300 14 unit for 300 take 16 units for breakfast and supper Lunch 80-100 eat and take 2 units, 101-200 take 4 units 201-250 8 units, 250- 300 take 12 units over 300 take 16 units 1 sliding scale dose subcut USEASDIRECTD 30 days 15 mL 6RF E10.65 - Type 1 diabetes mellitus with hyperglycemia To insulin lispro 101-150 4 units 151-200 6 units 201-250 8-10 units 251-300 12 unit for 300 take 14 units for meal 1 sliding scale dose subcut USEASDIRECTD 30 days 15 mL 6RF E10.65 - Type 1 diabetes mellitus with hyperglycemia Scribe Plan - Not visible on output: Take 15 carb carbohydrate grams to treat a low sugar (3-4 glucose tablets, half a glass of juice or 15 carbohydrate grams of soft candy such as gummie snacks). Recheck your sugar in 15 minutes and re-treat again with 15 carbohydrate grams if low or still with symptoms. Do not drive a car or operate machinery if you do not know what your blood sugar is, if it is low or in excess of 300. Check your feet daily looking for any signs of infection, drainage, redness, ulceration and seek medical attention if this occurs. Break in shoes gradually and do not wear open-toed shoes or walk stocking footed or barefooted. The patient was counseled to achieve a target A1C of 7% (154 avg). Fasting blood sugars should be 90-130 in the morning and less than 180 two hours after meals. Reviewed the relationship between poor diabetic control and the development of complications. Coding Level of Care Code Est Pt Level 4 (11280) Complex EM visit Add On G2211 Diagnoses Uncontrolled type 1 diabetes mellitus with hyperglycemia E10.65 Glycemic state: with hyperglycemia Time Spent (min) 30 Comment Time spent reviewing labs/provider notes, face to face, chart doc
--- OUTSIDE RECORDS SUMMARY | 2024-06-13 08:42 | XMS_ITS | Encounter Summary ---
Demographics Address [address] [place] [address] Mobile Phone Home Phone Preferred Language es Marital Status Unknown Jew Affiliation Unknown Race Unknown Ethnic Group Unknown Author Organization [facility] Address [address] [place] [address] Support Name Relationship Address Phone Herminia Mak Daughter [address] [place] [address] Iqra Read Daughter [address] [place] [address] Care Team Providers Care Paving Bed Maker Name Role Phone Liliana Novoa MD Primary Care Provider [phone] Reason for Visit * Reason Comments Consult Left Foot Wound Diab etic Foot Exam Encounter Details Date Type Department Care Team (Late st Contact Info) Description 05/26/2024 9:00 AM EST Office Visit Orthopedic Surgery - [facility] [address] [phone] Chau Fleming DPM [address] [address] Metatarsalgia of left foot (Primary Dx); Ulcer [...] diabetic and does not feel her feet argon tester ID number [id number] ROS: GENERAL: Pt denies nausea, fever, vomiting, [...] Pt was seen and examined, history reviewed. [facility] with Mepilex pad prescribed diabetic shoes [...] AM EST Office Visit Orthopedic Surgery - [address] [place] [phone] Chau Fleming, DPM [address] [phone] documented as of this encounter Visit Diagnoses [...] uncontrolled documented in this encounter Care Teams Paving Bed Maker Relationship Specialty Start Date End Date Liliana Novoa MD 2 [facility] , [facility] 101 [facility] Physician Associ D/B/A: [facility] [place], [place] PCP - General Internal Medicine 02/22/24 documented as of this encounter
--- OUTSIDE RECORDS SUMMARY | 2024-06-13 08:42 | XMS_ITS | Clinical Summary ---
Demographics Address [address] [place] [address] Mobile Phone Home Phone Preferred Language es Marital Status Unknown Mandaeism Affiliation Unknown Race Unknown Ethnic Group Unknown Author Organization [facility] Address [address] [place] [address] Support Name Relationship Address Phone Herminia Mak Daughter [address] [place] [address] Iqra Read Daughter [address] [place] [address] Care Team Providers Care First Assistant Manager Name Role Phone Liliana Novoa MD Primary Care Provider [phone] Encounters Date Type Department Care Team Description 05/26/2024 9:00 AM EST Office Visit Orthopedic Surgery [facility] [address] [phone] Chau Fleming DPM Metatarsalgia of left foot [...] 9:15 AM EST Office Visit Orthopedic Surgery [facility] [address] [phone] Chau Fleming DPM [address] [phone] Health Maintenance Due Date Last Done Comments [...] age to complete this topic Care Teams First Assistant Manager Relationship Specialty Start Date End Date Liliana Novoa MD 2 [facility] , [address] [facility] Physician Associ D/B/A: [facility] [place], [place] PCP - General Internal Medicine 02/22/24
[2024-06-13 08:49] LABS: Glucose, Whole Blood 128 mg/dL (60-115)
== END | disposition home or self-care (01) ==
PROVIDERS: PCP Internal Medicine; Visit Provider Nurse Practitioner Adult Health
CPT/HCPCS: 99214; G2211

== ENCOUNTER → 2024-06-13 08:22 | Outpatient (BNVA) | payer OTHER, SELFPAY | PROVIDERS: PCP Internal Medicine; Visit Provider Nurse Practitioner Adult Health | DX: R10.11 Right upper quadrant pain (principal); J10.1 Influenza due to other identified influenza virus with other respiratory manifestations; E03.9 Hypothyroidism, unspecified; E10.65 Type 1 diabetes mellitus with hyperglycemia | CPT/HCPCS: 82947; 99212 ==

== ENCOUNTER → 2024-06-13 09:48 | Outpatient (AMB) | END | disposition home or self-care (01) ==

== ENCOUNTER 2024-07-25 08:37 | Outpatient (AMB) | payer OTHER, SELFPAY ==
--- NOTE | 2024-07-25 07:08 | A.OFFVIS_ITS ---
Vital Signs 07/25/24 08:44 Height 5 ft 3 in BMI Reason not done Patient refused/unable BP 118/76 Blood Pressure Location Rt brachial Position Sitting Respiration 20 Pulse 88 Pulse Source Palpation Intake Visit Reasons: T1DM Intake Note: Patient presents here today for a follow-up on Type 1 Diabetes Mellitus. Last Diabetic eye exam was on: [facility], 03/05/2024 Last Podiatry exam was on: 07/08/2024 DR Fleming at [facility], Patient had a minor procedure. [facility] Most recent HbA1c: 9.8, 07/25/2024 Random Glucose- 45 mg/dL?08:41 AM Re-checked Random Glucose- 62 mg/dL, 08:53 AM Re-checked Random Glucose- 68 mg/dL, 09:14 Re-checked Random Glucose- 103 mg/dL, 09:32 Bobbin Painter Required: Yes Bobbin Painter Language: Video Production Coordinator Services: Bobbin Painter Present Bobbin Painter [facility] Information Interpreted: non-clinical & clinical Accompanied by: Self / Same As Patient Allergies No Known Allergies Allergy (Verified 07/25/24 09:20) HPI Comments Details: 48 YO F with PMHx T1DM, Hypothyroidism and NTMNG who is seen in F/U for the same. Today's visit is for type 1 diabetes. HgbA1C 07/25/24 9.9 %04/08/2024 9.3% down from 10. She was last seen 06/10/24 for diabetes. Glucose was 45 on arrival to clinic. She had a full breakfast when she took her insulin this morning 62->68->108 Patient was treated with 15carg gram->35carb gram->35 carb gram She was followed by the wound center for an ulcer over a bunion whichis resoling. She has been seen by a corporate legal manager and surgery is planned for the future to correct her structural deformities. Podiatry is seeing her every 3 weeks. Recommended padding/insoles and is now on antibiotics She has severe gastroparesis, and when using humalog prior to eating has severe hypoglycemia postprandially due to the delayed gastric absorption. She has all complications of T1DM including retinopathy, neuropathy and nephropathy. 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 Hgb A1C 07/25/24 9.8%. Up from 9.3% (tresiba had been adjusted downward due to a low earlier in the year, Initially diagnosed with T1DM at the age of 10. She has not been able to check her sugar . Tresiba 50 units (down from 68) Humalog premeal tid Breakfast and supper 101-150 4 units 151-200 6 units 201-250 8-10 units 251-300 12 units over 300 take 14 units Has not had sensor as two fell out early. Had prior auth to start FS ade 3 however is now considering omnipod insulin pump. Has not been able to monitor her glucose as she did not want to use glucometer. She is expecting sensor from the supplier She ws given 2 G7's today. Treats lows with juice. Checks sugar after to ensure it is rising. Follows the rule of 15's. Has retinopathy. [facility] Last appointment 2 weeks ago injecting the eye/laser n Has neuropathy. Checks feet daily and does not walk barefooted followed by Dr. Fleming seen recently now on antibiotic pills, going every two weeks, improving Denies nephropathy, on Lisinopril 10 mg PO daily. microalbumin 05/11/23 35 06/06/24 eGFR>60 Has HLD, on Atorvastatin 20 mg PO daily. LDL 95 07/07/2022. Denies history of CAD. She has severe gastroparesis. She uses reglan 5 mg PO prior to every meal. She will be seeing Carmen PEREZ to initiate pre pump. [facility] Medical History (Updated 06/13/24 @ 10:21 by Idania Centeno NP) Acute abdominal pain in right upper quadrant Diabetic foot ulcer Left foot pain Women's annual routine gynecological examination Swelling of right eyelid Physical exam Screening for cervical cancer Wound of left foot Wound of left foot Metatarsal fracture Right hand pain Multinodular thyroid Hypothyroidism HTN (hypertension) HLD (hyperlipidemia) T1DM (type 1 diabetes mellitus) Vitamin D deficiency 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 Hypothyroidism Diabetic polyneuropathy associated with type 1 diabetes mellitus Diabetic retinopathy associated with type 1 diabetes mellitus Dyslipidemia Diabetic gastroparesis Essential hypertension Diabetes type 1, uncontrolled Surgical History History of surgical procedure on eye proper using laser Family History Father Diabetes Substance use disorder Mother Diabetes Hypertension Social History Household Members: None Housing: Apartment Alcohol intake: never Patient Tobacco Use Status: Former Tobacco user e-Cigarette/Vaping Use: Never Used Second Hand Smoke Exposure: Yes service: No Current occupational status: unemployed and disabled Current occupation: rt handed Cognitive needs: No Hearing needs: No Vision needs: No Female Reproductive History Menstrual Age of Menarche: 11 Physical Exam Vital Signs: Last Vital Signs Pulse 88 07/25/24 08:44 Resp 20 07/25/24 08:44 BP 118/76 07/25/24 08:44 Const Other: Absence of Cushingoid features. Absence of acromegalic features. Neck exam reveals nl size thyroid about 15 gms. No thyroid nodules palpable. Heart S1 S2, Reg R/R. No M/R G. Skin exam reveals absence of vitiligo or acanthosis nigricans. deferred just seen by podiatry Results AMB Hemoglobin A1c AMB Hemoglobin A1c 9.8 % Last Edit by DIANE Asencio on 07/25/24 09:21 Results Reviewed Results Reviewed: Laboratory Last Values Glucose (Clinic) 62 mg/dL (60-115) 07/25/24 08:53 Assessment & Plan Assessment & Plan (1) Diabetes type 1, uncontrolled: Code(s): E10.65 - Type 1 diabetes mellitus with hyperglycemia Category: Medical Qualifiers: Glycemic state: with hyperglycemia Qualified Code(s): E10.65 - Type 1 diabetes mellitus with hyperglycemia Plan: 48-year-old type 1 diabetic with gastroparesis, hypoglycemia unawareness, neuropathy, retinopathy and nephropathy with improving glucose numbers. She had a low a four weeks ago and her baseline insulin was adjusted downward at that time. She again had a low this morning and tresiba was reduced to 46units with short acting dosing remaining the same. Will move towards getting her on an insulin pump and schedule with CDE for pre pump training. I would not recommend a beta bionics as she does not speak Armenian and she is prone to hypoglycemia which can occur with the ilet pump. and I feel like she would do better without tubing so Omnipod would be the best pump for her. She has been approved for a freestyle Ade 3+ but we will hold off on this as Omnipod as recently been link with 2+. Continued follow up with Podiatry for resolved ulcer over callus caused by large bunion. Plan is for surgery at some point in the future. The patient had an opportunity to ask questions regarding treatment plan. The patient expressed understanding and agreement with the above treatment plan. The patient is aware they should contact our office by phone for worsening glucose readings or for any low blood sugars which may warrant a change in diabetes medication. Compliance is encouraged with medications and any followup testing/consults which may have been ordered. Orders: Orders AMB Hemoglobin A1c Today E10.649 - Type 1 diabetes mellitus with hypoglycemia without coma Patient Instructions: Take 15 carb carbohydrate grams to treat a low sugar (3-4 glucose tablets, half a glass of juice or 15 carbohydrate grams of soft candy such as gummie snacks). Recheck your sugar in 15 minutes and re-treat again with 15 carbohydrate grams if low or still with symptoms. Do not drive a car or operate machinery if you do not know what your blood sugar is, if it is low or in excess of 300. She has nasal spray at home for low sugar and family member knows how to treat it. They also have juice set aside and glucose tablets. She typically carries glucose tablets but did not have them on her this morning Coding Level of Care Code Est Pt Level 5 (32136) Complex EM visit Add On G2211 Diagnoses Uncontrolled type 1 diabetes mellitus with hyperglycemia E10.65 Glycemic state: with hyperglycemia Time Spent (min) 60 Comment Time spent reviewing labs/provider notes, face to face, chart doc
[2024-07-25 08:44] VITALS: BP 118/76; PULSE 88; RESP 20
[2024-07-25 08:48] LABS: Glucose, Whole Blood 45 mg/dL (60-115)
[2024-07-25 08:56] LABS: Glucose, Whole Blood 62 mg/dL (60-115)
[2024-07-25 09:18] LABS: Glucose, Whole Blood 68 mg/dL (60-115)
[2024-07-25 09:34] LABS: Glucose, Whole Blood 103 mg/dL (60-115)
== END 2024-07-25 09:37 | disposition home or self-care (01) ==
LOC: HO.ENCR 08:38
PROVIDERS: PCP Internal Medicine; Visit Provider Nurse Practitioner Adult Health
DX: E10.649 Type 1 diabetes mellitus with hypoglycemia without coma (principal); E10.65 Type 1 diabetes mellitus with hyperglycemia
CPT/HCPCS: 99215; G2211

== ENCOUNTER → 2024-07-25 08:37 | Outpatient (BNVA) | payer OTHER, SELFPAY | PROVIDERS: PCP Internal Medicine; Visit Provider Nurse Practitioner Adult Health | DX: E10.65 Type 1 diabetes mellitus with hyperglycemia (principal); Z79.4 Long term (current) use of insulin | CPT/HCPCS: 82947; 83036; 99212 ==

== ENCOUNTER 2024-08-08 09:02 | Outpatient (AMB) | payer OTHER, SELFPAY ==
--- NOTE | 2024-08-08 09:20 | MHC.OFFWIV ---
Intake Intake Visit Reasons: EP-rt side abd pain/swollen Patient Tobacco Use Status: Former Tobacco user Manager User Experience Required: Yes Manager User Experience Language: Icelandic Allergies No Known Allergies Allergy (Verified 08/08/24 09:21) Do you need a note to return to daycare/school/sports/work: Yes HPI EP-rt side abd pain/swollen HPI Details This is a 48-year-old female patient who presents to the walk-in clinic with worsening right upper quadrant pain. She states that this has been coming and going over the last 2 months or so, however over the last 2 weeks, has been increasing in frequency and severity. She reports a severe tenderness/throbbing and swelling in her right upper quadrant that is constant. Denies any vomiting, diarrhea, constipation, urinary issues. Denies any history of abdominal surgery. States she has been voiding and having regular BMs. States she ate a piece of toast this morning. Denies any recent illnesses. Has not associated increase in pain with eating. [facility] Medical History Acute abdominal pain in right upper quadrant Diabetic foot ulcer Left foot pain Women's annual routine gynecological examination Swelling of right eyelid Physical exam Screening for cervical cancer Wound of left foot Wound of left foot Metatarsal fracture Right hand pain Multinodular thyroid Hypothyroidism HTN (hypertension) HLD (hyperlipidemia) T1DM (type 1 diabetes mellitus) Vitamin D deficiency 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 Hypothyroidism Diabetic polyneuropathy associated with type 1 diabetes mellitus Diabetic retinopathy associated with type 1 diabetes mellitus Dyslipidemia Diabetic gastroparesis Essential hypertension Diabetes type 1, uncontrolled Surgical History History of surgical procedure on eye proper using laser Family History Father Diabetes Substance use disorder Mother Diabetes Hypertension Social History Household Members: None Housing: Apartment Alcohol intake: never Patient Tobacco Use Status: Former Tobacco user e-Cigarette/Vaping Use: Never Used Second Hand Smoke Exposure: Yes service: No Current occupational status: unemployed and disabled Current occupation: rt handed Cognitive needs: No Hearing needs: No Vision needs: No Female Reproductive History Menstrual Age of Menarche: 11 Review of Systems Const All systems reviewed & are unremarkable except as noted in HPI and below Physical Exam Const General: cooperative and ill appearing acutely Nutritional Appearance: average body habitus Limitations: no limitations HEENT Head: Yes normal to inspection Ears: hearing grossly normal bilaterally Resp Effort & Inspection: normal respiratory effort Auscultation: clear to auscultation bilaterally Cardio Rate: regular rate Rhythm: regular rhythm GI Other: there appears to be mild distention in her RUQ. Abd otherwise soft. Exquisite tenderness RUQ with even very light palp. Normalactive BS x4 quads. Assessment & Plan Assessment & Plan (1) Right upper quadrant abdominal pain: Code(s): R10.11 - Right upper quadrant pain Plan: Patient has severe TTP in her RUQ. I advised she go to the ED for further workup and to R/O acute abdominal process. Patient agrees with this plan and will go by private vehicle to [facility]. Patient declined EMS transfer. Expect call made to Lilly at [facility] jignesh. Manager User Experience #[id number] Coding Level of Care Code Est Pt Level 3 (51721) Diagnoses Right upper quadrant abdominal pain R10.11
--- OUTSIDE RECORDS SUMMARY | 2024-08-08 09:41 | XMS_ITS | Clinical Summary ---
Demographics Address [address] [place] [address] [address] [place] [address] Mobile Phone Home Phone Preferred Language es Marital Status Unknown Protestant Affiliation Unknown Race Unknown Ethnic Group Unknown Author Organization [facility] Address [address] [place] [address] Support Name Relationship Address Phone Herminia Mak Daughter [address] [place] [address] Iqra Read Daughter [address] [place] [address] Care Team Providers Care Manager Maritime Name Role Phone Liliana Novoa MD Primary Care Provider [phone] Allergies No known active allergies Medications amoxicillin-cla vulanate (AUGMENTIN) 875-125 mg per tablet Take 1 tablet by mouth 2 (two) times a day for 10 days. 20 each 07/22/2024 Encounters Date Type Department Care Team Description 07/30/2024 9:00 AM EDT Office Visit Orthopedic Surgery [facility] [address] [phone] Chau Fleming DPM Metatarsalgia of left foot (Primary Dx); Diabetic mononeuropathy simplex ([facility]) 07/24/2024 Telephone Orthopedic Surgery [facility] [address] [phone] Chau Fleming DPM 07/22/2024 10:00 AM EDT Office Visit Orthopedic [facility] [address] [phone] Chau Fleming DPM Cellulitis of left foot (Primary Dx); Ulcer of toe of left foot, with fat layer exposed ([facility]) 07/08/2024 10:00 AM EST Office Visit Orthopedic [facility] [address] [phone] Chau Fleming DPM Metatarsalgia of left foot (Primary Dx); Ulcer of toe of left foot, with fat layer exposed (CMS/HCC); Diabetic mononeuropathy simplex (CMS/HCC) 06/25/2024 9:15 AM EST Office Visit Orthopedic Surgery [place] [phone] [phone] Chau Fleming DPM Ulcer of toe of left foot, with fat layer exposed (CMS/HCC) (Primary Dx); Metatarsalgia of left foot; Diabetic mononeuropathy simplex (CMS/HCC); Dermatophytosis of nail; Metatarsalgia of both feet; Type II diabetes mellitus with peripheral circulatory disorder (CMS/HCC); Acquired hammer toe of right foot; Hammer toe of left foot; Corns and callosities 05/26/2024 9:00 AM EST Office Visit Orthopedic Surgery [place] [address] [phone] Chau Fleming DPM Metatarsalgia of left foot (Primary Dx); Ulcer of toe of left foot, with fat layer exposed (CMS/HCC); Dermatophytosis of nail; Pain in toe of right foot; Pain in toe of left foot; Diabetic mononeuropathy simplex (CMS/HCC) from Last 3 Months Social History Tobacco Use Types Packs/Day Years Used Date Smoking Tobacco: Never Assessed Comments Unknown Sex and Gender Information Value Date Recorded Sex Assigned at Not on file Legal Sex Female 3:58 PM EDT Gender Identity Not on file Sexual Orientation Not on file Last Filed Vital Signs Vital Sign Reading Time Taken Comments Blood Pressure - - Pulse - - Temperature - - Respiratory Rate - - Oxygen Saturation - - Inhaled Oxygen Concentration - - Weight 664 kg (1463 lb) 07/30/2024 8:35 AM EDT Height 160 cm (5' 2.99 ) 07/30/2024 8:35 AM EDT Body Mass Index 259.22 07/30/2024 8:35 AM EDT Plan of Treatment Upcoming Encounters Date Type Department Care Team (Late st Contact Info) Description 10/01/2024 9:00 AM EDT Office Visit Orthopedic Surgery [facility] [address] [phone] Chau Fleming, DPM [address] [phone] Health Maintenance Due Date Last Done Comments [...] 03/13/2015, 02/04/2003, Additional history exists COVID-19 Vaccine ( season) 2024 05/03/2021, 08/16/2020 Influenza Vaccine (#1) [...] patient's age to complete this topic Meningococcal B Vacine Aged Out No lo nger eligible based on patient's age to complete this topic RSV Immunization Patients Under 20 months Aged Out No longer eligible based on patient's age to complete this topic Varicella Vaccines Aged Out No longer eligible based on patient's age to complete this topic Insurance [facility] Care Teams Manager Maritime Relationship Specialty Start Date End Date Liliana Novoa MD [address] [place] [address] , [facility] [address] [facility] Physician Associ D/B/A: [facility] [place] PCP - General Internal Medicine 02/22/24
== END 2024-08-08 10:31 | disposition home or self-care (01) ==
PROVIDERS: PCP Internal Medicine; Visit Provider Nurse Practitioner Family
DX: R10.11 Right upper quadrant pain (principal)

== ENCOUNTER → 2024-08-08 09:02 | Outpatient (BNVA) | payer OTHER, SELFPAY | PROVIDERS: PCP Internal Medicine | DX: R10.11 Right upper quadrant pain (principal) | CPT/HCPCS: 99212 ==

== ENCOUNTER 2024-08-08 10:46 | Emergency (ER) | payer OTHER, SELFPAY ==
--- NOTE | ~2024-08-08 | US_ITS ---
EXAMINATION: US ABDOMEN LIMITED CLINICAL INFORMATION: Right upper quadrant pain.. COMPARISON: June 06, 2024. TECHNIQUE: Real-time imaging of the right upper quadrant abdominal viscera. FINDINGS: PANCREAS: No peripancreatic fluid collections. LIVER: Liver measures 14 cm. Normal echotexture. No liver surface. No solid or cystic lesion detected by the disc recordist. No intrahepatic biliary ductal dilatation. GALLBLADDER: Fluid-filled. No pericholecystic fluid collection or gallbladder wall thickening. COMMON BILE DUCT: 2 mm. RIGHT KIDNEY: 9 cm. Normal echotexture. No hydronephrosis. Focal 5 mm hyperechoic structure in the lower pole without flow on color Doppler interrogation. Normal flow on color Doppler evaluation of the renal hilum.. FREE FLUID: None. US/US abdomen limited IMPRESSION: 5 mm hyperechoic lesion, lower pole right kidney. Consider lipoma versus nonobstructing calculus versus hemangioma. Electronically signed by: Isaac Moore MD 08/08/2024 12:47 PM EDT
--- NOTE | ~2024-08-08 | CT_ITS ---
CLINICAL HISTORY: flank pain, concern for stone CT abdomen and pelvis without contrast Comparison: US/SR - US ABDOMEN LIMITED - 08/08/24 12:00 EDT US/SR - US ABDOMEN LIMITED - 06/06/24 12:39 EST Findings: No nephrolithiasis or hydronephrosis. Calcifications in the renal pelvises are vascular. Minimal amount of scarring in the upper pole of the right kidney. No fat attenuation lesion or calcification in the lower pole of the right kidney to correspond to the abnormality seen on ultrasound. No bladder stone. No consolidation at the lung bases. Unremarkable gallbladder. The other solid organs are normal. Small hiatal hernia. No bowel wall thickening or dilation. A normal appendix is identified. No aneurysm. Mild calcified atherosclerotic disease of the abdominal aorta. Severe calcified atherosclerotic disease of smaller caliber vessels. No lymphadenopathy. No ascites. No acute fracture. Impression: No urinary tract stone, obstruction or other acute findings. This document has been electronically signed by: Radha Holland MD on 08/08/2024 17:33:12
[2024-08-08 11:22] VITALS: BP 129/81; PULSE 77; RESP 18; TEMP 36.5; O2SAT 100; BMI 25.7
--- NOTE | 2024-08-08 11:24 | ED.GENADULT ---
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 Patient reports right upper quadrant abdominal pain for the last month and a half. She was seen here in May she was followed up with the primary doctor she has had right upper quadrant ultrasound on June 06, 2024 which did not show any acute findings. The patient reports that her pain persists. It is constant, radiates around to her back and to her epigastrium. She reports she is had a surgery to not get but she denies any other abdominal surgeries no other complaints or concerns at this time Related Data Home Medications ?Medication ?Instructions ?Recorded ?Confirmed citalopram 40 mg tablet 40 mg PO DAILY 11/20/22 02/28/24 metoclopramide HCl 5 mg tablet 5 mg PO QIDACHS 03/12/24 03/12/24 (Reglan) duloxetine 20 mg capsule,delayed 20 mg PO BID 04/22/24 release Previous Rx's ?Medication ?Instructions ?Recorded FreeStyle Lite Meter #1 ea 11/17/20 (blood-glucose meter) Shower Chair #1 ea 02/06/21 walker #1 ea 08/17/22 hydroxyzine HCl 25 mg tablet 25 mg PO BEDTIME 90 days #90 tabs 05/15/23 cholecalciferol (vitamin D3) 125 125 mcg PO DAILY #30 caps 06/18/23 mcg (5,000 unit) capsule lisinopril 20 mg tablet 20 mg PO DAILY #30 tabs 10/23/23 oxybutynin chloride 10 mg 10 mg PO DAILY 90 days #90 tabs 10/23/23 tablet,extended release 24 hr Tirosint 125 mcg capsule 125 mcg PO DAILY 90 days #90 caps 12/05/23 (levothyroxine) metoclopramide HCl 5 mg tablet 5 mg PO TID 30 days #90 tabs 12/05/23 gabapentin 300 mg capsule 300 mg PO TID 30 days #90 caps 01/10/24 ookkhnkjws-ayjgjohqyhrko-vygicgyn 1 tab PO Q6H PRN hussein #14 tabs 03/02/24 50 mg-325 mg-40 mg tablet FreeStyle Lite Strips (blood sugar #200 ea 03/18/24 diagnostic) atorvastatin 80 mg tablet 80 mg PO BEDTIME 90 days #90 tabs 06/01/24 blood-glucose sensor (FreeStyle #2 ea 06/04/24 Ade 3 Plus Sensor device) glucagon 3 mg/actuation nasal 3 mg intranasal ONCE PRN 06/04/24 spray (Baqsimi) unresponsive hypoglycemia #2 ea insulin degludec 200 unit/mL (3 50 unit (0.25 mL) subcut BEDTIME 06/04/24 mL) subcutaneous pen (Tresiba 90 days #25 mL FlexTouch U-200 insulin) insulin lispro 100 unit/mL 1 sliding scale dose subcut 06/13/24 subcutaneous pen USEASDIRECTD 30 days #15 mL lancets 28 gauge (FreeStyle #100 ea 07/25/24 Lancets) Allergies Allergy/AdvReac Type Severity Reaction Status Date / Time No Known Allergies Allergy Verified 08/08/24 11:25 Review of Systems Constitutional: Constitutional: Denies body ache(s), Denies chills, Denies fever(s), Denies frequent falls and Denies headache(s) Eyes: Eyes: Denies blurry vision ENT: Denies vertigo, Denies dizziness and Denies headache(s) Cardiovascular: Cardiovascular: Denies chest pain, Denies chest pain at rest and Denies dyspnea Respiratory: Respiratory: Denies cough and Denies dyspnea Gastrointestinal: Gastrointestinal: Reports abdominal pain, Denies diarrhea, Denies loose stools, Denies nausea and Denies vomiting Musculoskeletal: Musculoskeletal: Denies back pain Integumentary/Breasts: Skin/Breast: Denies rash Neurologic: Denies vertigo, Denies dizziness, Denies frequent falls and Denies headache(s) Psychiatric: Psychiatric: Denies anxiety PMFSH Past Medical History Medical History Acute abdominal pain in right upper quadrant Diabetic foot ulcer Left foot pain Women's annual routine gynecological examination Swelling of right eyelid Physical exam Screening for cervical cancer Wound of left foot Wound of left foot Metatarsal fracture Right hand pain Multinodular thyroid Hypothyroidism HTN (hypertension) HLD (hyperlipidemia) T1DM (type 1 diabetes mellitus) Vitamin D deficiency 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 Hypothyroidism Diabetic polyneuropathy associated with type 1 diabetes mellitus Diabetic retinopathy associated with type 1 diabetes mellitus Dyslipidemia Diabetic gastroparesis Essential hypertension Diabetes type 1, uncontrolled Surgical History History of surgical procedure on eye proper using laser Family History Family History Father Diabetes Substance use disorder Mother Diabetes Hypertension Social History Social History Household Members: None Housing: Apartment Alcohol intake: never Patient Tobacco Use Status: Former Tobacco user e-Cigarette/Vaping Use: Never Used Second Hand Smoke Exposure: Yes Advance Directives: No Advance Directives Information Provided: Yes service: No Current occupational status: unemployed and disabled Current occupation: rt handed Cognitive needs: No Hearing needs: No Vision needs: No Physical Exam ED Vital Signs: Vital Signs - 24 hr 08/08/24 11:22 08/08/24 16:24 08/08/24 18:18 Temperature 97.7 F 98.5 F 97.6 F Pulse Rate 77 75 75 Respiratory Rate 18 18 24 H Blood Pressure 129/81 116/50 L 136/60 Pulse Oximetry 100 100 100 Oxygen Delivery Method Room Air Room Air Room Air 08/08/24 19:06 08/08/24 19:27 08/08/24 20:00 Temperature 97.9 F 97.9 F Pulse Rate 72 72 Respiratory Rate 18 20 20 Blood Pressure 157/62 H 157/62 H Pulse Oximetry 95 95 Oxygen Delivery Method Room Air Room Air BMI result Body Mass Index 25.7 Const General: healthy appearing, comfortable, no acute distress, alert and awake Nutritional Appearance: well nourished Orientation/consciousness: patient oriented x3 HENMT Head: Yes normocephalic and Yes atraumatic Eyes Eyelids: Yes eyelids normal Conjunctivae: conjunctivae normal Sclerae: sclerae normal Corneas: corneas normal Pupils: Equal, round and reactive pupils present EOM: EOMs intact bilaterally Neck Neck: Yes full ROM Resp Effort & Inspection: normal respiratory effort, able to speak in complete sentences and not labored Cardio Rate: regular rate Rhythm: regular rhythm GI Inspection: No distended Palpation (GI): Soft to palpation, not firm, Tenderness to palpation present (GI) in the epigastrum and in the RUQ, Guarding due to palpation present (GI) and not rigid Skin General skin exam: elasticity normal Neuro General: patient oriented x3 Cranial nerves: Yes Equal, round and reactive pupils present and Yes Bilaterally intact EOM present Cognition (Neuro): normal cognition Extrem Other: Moving all extremities well without any obvious deformities Course Course Course Narrative: RME performed by Gita Hood PA-C. Patient is a 48 year old assigned female at presenting to the emergency department with right upper quadrant abdominal pain over the last 3 days. Detailed physical exam and review of systems are deferred to the leather stitcher. EKG, labs, imaging, and swabs ordered. Patient placed back in the waiting room pending room availability and results. Medications Administered Discontinued Medications Generic Name Dose Route Start Last Admin Trade Name Freq PRN Reason Stop Dose Admin Sodium Chloride 1,000 mls @ 999 mls/hr 08/08/24 18:45 08/08/24 19:06 Ns IV 08/08/24 19:45 999 mls/hr .Q1H1M JAKE Administration Morphine Sulfate 4 mg 08/08/24 18:43 08/08/24 19:06 Morphine Sulfate 4 Mg/Ml Cartridge IVPUSH 08/08/24 18:44 4 mg ONCE ONE Administration Protocol Ondansetron HCl 4 mg 08/08/24 18:43 08/08/24 19:06 Ondansetron Hcl 4 Mg/2 Ml Vial IVPUSH 08/08/24 18:44 4 mg ONCE ONE Administration Medical Decision Making Medical Decision Making [facility] Narrative: 48-year-old female with past medical history as above presents for evaluation of upper abdominal pain. This has been going on for about 6 weeks to 8 weeks now. She states the pain is not improving. She was continuing to have bowel movements most recently this morning. On exam, the patient's abdomen is soft, nondistended, she was guarding to palpation of the right upper quadrant and epigastrium. I reviewed her workup, she had no leukocytosis, no significant anemia. She has a very slight elevation of AST, ALT and alk phos, all of which are consistent with her baseline for the last 2 months. Her ultrasound of the right upper quadrant showed a possible lipoma versus nonobstructing kidney stone, follow up CT scan did not show any acute findings. I treated the patient's pain with a dose of morphine, Zofran and fluids. I do not see any indication for further emergent workup at this time. There was no evidence of infection, her appendix was normal, gallbladder was normal, bilirubin is normal, CBD was normal, so no evidence of choledocholithiasis, the patient's lipase within normal limits, she was not have pancreatitis. There was no evidence of bowel obstruction, no evidence of obstructive uropathy. The patient will be discharged to follow up with GI as an outpatient Differential Diagnosis Differential Diagnoses: The differential diagnosis associated with the presentation includes chronic abdominal pain Pancreatitis Cholecystitis Choledocholithiasis Constipation Gastroparesis bowel obstruction less likely Admission/Observation Consideration of admission/observation: Escalation of care including admission/observation considered Lab Data MDM Lab Attestation statement: I reviewed the patient's lab results. as above 08/08/24 11:51 08/08/24 06:41 Labs: Lab Results 08/08/24 08/08/24 Range/Units 06:41 11:51 WBC 7.2 (4.8-10.8) X10*3/uL RBC 4.10 L (4.20-5.50) X10*6/uL Hgb 12.4 (12.0-16.0) g/dl Hct 36.9 L (37.0-47.0) % MCV 90.0 (80.0-98.0) fL MCH 30.2 (27.0-33.0) pg MCHC 33.6 (31.0-35.0) g/dl RDW 13.2 (11.0-16.0) % Plt Count 192 (160-400) X10*3/uL MPV 13.0 H (9.4-12.3) fL Immature Gran % (Auto) 0.4 (0.0-0.4) % Neut % (Auto) 54.3 (45-73) % Lymph % (Auto) 35.7 (20-40) % [place] % (Auto) 4.6 (2-11) % Eos % (Auto) 4.0 (0-4) % Baso % (Auto) 1.0 (0-2) % Lymph # (Auto) 2.6 (1.2-4.9) X10*3/uL [place] # (Auto) 0.3 (0.1-1.2) X10*3/uL Eos # (Auto) 0.3 (0.0-0.4) X10*3/uL Baso # (Auto) 0.1 (0.0-0.2) X10*3/uL Abs Immat Gran (auto) 0.03 (0.00-0.03) X10*3/uL Absolute Neuts (auto) 3.9 (2.0-8.3) x10*3/uL Absolute Nucleated RBC 0.000 (0.0-0.012) X10*3/uL Nucleated RBC % (auto) 0.0 (0.0-0.2) /100WBC Sodium 141 (135-145) mmol/L Potassium 4.6 (3.3-5.1) mmol/L Chloride 106 (96-108) mmol/L Carbon Dioxide 29 (22-29) mmol/L Anion Gap 11 L (12-20) BUN 14 (9-16) mg/dL Creatinine 0.79 (0.5-1.4) mg/dL Estim Creat Clear Calc 78.5 Estimated GFR > 60 Random Glucose 152 H (60-115) mg/dL Calcium 9.5 D (8.4-10.2) mg/dL Magnesium 1.9 (1.6-2.6) mg/dL Total Bilirubin 0.3 (0.0-1.0) mg/dL AST 38 H (5-31) U/L ALT 38 H (0-31) U/L Alkaline Phosphatase 130 H (39-117) U/L Troponin I High Sens < 2.7 (<3.5-17.0) ng/L Total Protein 7.3 (6.5-8.0) g/dL Albumin 4.2 (3.5-5.0) g/dL Lipase 9 (8-78) U/L Urine Color Yellow Urine Appearance Clear Urine pH 6.0 (5.0-9.0) Ur Specific Wilmot 1.025 (1.005-1.025) Urine Protein Negative (Neg-Trace) mg/dL Urine Glucose (UA) Negative (Negative) mg/dL Urine Ketones Negative (Negative) mg/dL Urine Blood Negative (Negative) Urine Nitrite Negative (Negative) Ur Leukocyte Esterase Moderate (2+) H (Negative) Urine RBC 0-2 (0-2) /HPF Urine WBC 0-5 (0-5) /HPF Ur Squamous Epith Cells 0-2 (0-2) /HPF Urine Bacteria None Seen (None Seen) Hyaline Casts 0-2 (0-2) /LPF Influenza Type A (PCR) NEGATIVE (Negative) Influenza Type B (PCR) NEGATIVE (Negative) RSV RNA Qual (PCR) NEGATIVE (Negative) SARS-CoV-2 RNA (RT-PCR) NEGATIVE (Negative) Discharge Plan Discharge Clinical Impression: Abdominal pain Patient Disposition: Home, Self-Care Instructions: Abdominal Pain (ED) Additional Instructions: your workup in the ER today was reassuring. This includes your blood work, urinalysis, CT scan, ultrasound. It is important that you follow-up with GI for further evaluation and management of abdominal pain as an outpatient. Call the number provided for follow-up Prescriptions: No Action (DME) blood-glucose meter [FreeStyle Lite Meter] Kit See Rx Instructions miscellaneous .MEDSUPPLY Qty: 1 0RF Rx Instructions: 6 times a day (DME) Shower Chair Misc See Rx Instructions .Route Qty: 1 0RF Rx Instructions: As directed (DME) walker Misc See Rx Instructions .Route Qty: 1 0RF Rx Instructions: As directed cholecalciferol (vitamin D3) 125 mcg (5,000 unit) capsule 125 mcg PO DAILY Qty: 30 6RF oxybutynin chloride 10 mg tablet extended release 24hr 10 mg PO DAILY 90 Days Qty: 90 1RF lisinopril 20 mg tablet 20 mg PO DAILY Qty: 30 11RF metoclopramide HCl 5 mg tablet 5 mg PO TID 30 Days Qty: 90 6RF levothyroxine [Tirosint] 125 mcg capsule 125 mcg PO DAILY 90 Days Qty: 90 3RF gabapentin 300 mg capsule 300 mg PO TID 30 Days Qty: 90 6RF (DME) FreeStyle Lite Strips Strip See Rx Instructions .MEDSUPPLY Qty: 200 11RF Rx Instructions: 6 times a day atorvastatin 80 mg tablet 80 mg PO BEDTIME 90 Days Qty: 90 3RF qmadcvrcia-spvxkmamoarbf-qldo 50-325-40 mg tablet 1 tab PO Q6H PRN (Reason: hussein) Qty: 14 0RF Rx Instructions: do not exceed 6 tabs per 24 hrs hydroxyzine HCl 25 mg tablet 25 mg PO BEDTIME 90 Days Qty: 90 0RF duloxetine 20 mg capsule,delayed release(DR/EC) 20 mg PO BID insulin degludec [Tresiba FlexTouch U-200] 200 unit/mL (3 mL) insulin pen 50 unit subcut BEDTIME 90 Days Qty: 25 5RF (DME) FreeStyle Ade 3 Plus Sensor Device See Rx Instructions .ROUTE .MEDSUPPLY Qty: 2 11RF Rx Instructions: continous glucose sensor change every 15 days Baqsimi 3 mg/actuation spray,non-aerosol 3 mg intranasal ONCE MDD 6mg PRN (Reason: unresponsive hypoglycemia) Qty: 2 1RF Rx Instructions: may repeat in 15 minutes insulin lispro 100 unit/mL insulin pen 1 sliding scale dose subcut USEASDIRECTD 30 Days Qty: 15 6RF Rx Instructions: 101-150 4 units 151-200 6 units 201-250 8-10 units 251-300 12 unit for 300 take 14 units for meal (DME) lancets [FreeStyle Lancets] 28 gauge misc See Rx Instructions .ROUTE .MEDSUPPLY Qty: 100 1RF Rx Instructions: 4 times a day prn sensor failure or to confirm glucose citalopram 40 mg tablet 40 mg PO DAILY metoclopramide HCl [Reglan] 5 mg tablet 5 mg PO QIDACHS Referrals: Tracie Patel MD [Physician] - (chronic abdominal pain) Interventions: ED Discharge Assessment Last Done: 08/08/24 20:00 Discharge Date/Time: 08/08/24 20:13 Print Language: Senegalese
--- NOTE | 2024-08-08 11:25 | ECG_ITS ---
Test Reason : RUQ ABD PAIN Blood Pressure : */* mmHG Vent. Rate : 74 BPM Atrial Rate : 74 BPM P-R Int : 128 ms QRS Dur : 76 ms QT Int : 408 ms P-R-T Axes : 37 9 10 degrees QTcB Int : 452 ms Normal sinus rhythm Normal ECG When compared with ECG of 06-Jun-2024 10:44, Vent. rate has decreased by 40 bpm Referred By: Gita Hood Electronically Signed By: RENE MUSA
[2024-08-08 11:55] LABS: MANUAL DIFF FLAG NO
[2024-08-08 11:58] LABS: Appearance Urine Clear; Color Urine Yellow; Glucose Urine UA Negative (Negative); Leukocyte Esterase Urine Moderate (2+) (Negative); Nitrite Urine Negative (Negative); Specific Gravity - Urine 1.025 (1.005-1.025); UMIC TRIGGER UACC YES; Urine Blood Negative (Negative); Urine Ketones Negative (Negative); Urine Protein Negative (Neg-Trace)
[2024-08-08 12:05] LABS: Basophils Absolute Auto 0.1 X10*3/uL (0.0-0.2); Eosinophils Absolute Auto 0.3 X10*3/uL (0.0-0.4); Hematocrit 36.9 % (37.0-47.0); Hemoglobin 12.4 g/dl (12.0-16.0); Imm Gran Abs Auto 0.03 X10*3/uL (0.00-0.03); Imm Gran Pct Auto 0.4 % (0.0-0.4); Lymphocytes Absolute Auto 2.6 X10*3/uL (1.2-4.9); Lymphocytes Percent Auto 35.7 % (20-40); Mean Corpuscular HGB Conc 33.6 g/dl (31.0-35.0); Mean Corpuscular Hemoglobin 30.2 pg (27.0-33.0); Monocytes Absolute Auto 0.3 X10*3/uL (0.1-1.2); Monocytes Percent Auto 4.6 % (2-11); Neutrophils Absolute Auto 3.9 x10*3/uL (2.0-8.3); Neutrophils Percent Auto 54.3 % (45-73); Platelet Count 192 X10*3/uL (160-400); Red Cell Distribution Width 13.2 % (11.0-16.0); White Blood Count 7.2 X10*3/uL (4.8-10.8)
[2024-08-08 12:06] LABS: Bacteria Urine None Seen (None Seen); Hyaline Casts Urine 0-2 /LPF (0-2); RBC Urine 0-2 /HPF (0-2); Squamous Epithelial Cell Urine 0-2 /HPF (0-2); UACC Culture Trigger YES; WBC Urine 0-5 /HPF (0-5)
[2024-08-08 12:16] LABS: Alanine Aminotransferase 38 U/L (0-31); Albumin Level 4.2 g/dL (3.5-5.0); Alkaline Phosphatase 130 U/L (39-117); Anion Gap 11 (12-20); Aspartate Amino Transferase 38 U/L (5-31); Bilirubin Total 0.3 mg/dL (0.0-1.0); Blood Urea Nitrogen 14 mg/dL (9-16); Calcium 9.5 mg/dL (8.4-10.2); Carbon Dioxide 29 mmol/L (22-29); Chloride 106 mmol/L (96-108); Creatinine Clr Calc Pharmacy 78.5; Estimated Glomerular Filt Rate > 60; Glucose Random 152 mg/dL (60-115); Magnesium 1.9 mg/dL (1.6-2.6); Potassium 4.6 mmol/L (3.3-5.1); Sodium 141 mmol/L (135-145); Total Protein 7.3 g/dL (6.5-8.0)
[2024-08-08 12:29] LABS: Troponin-I High Sensitivity < 2.7 ng/L (<3.5-17.0)
[2024-08-08 12:38] LABS: Influenza A PCR NEGATIVE (Negative); Influenza B PCR NEGATIVE (Negative); Resp Syncy Virus RNA Qual PCR NEGATIVE (Negative); SARS COV2 PCR INHOUSE NEGATIVE (Negative)
--- OUTSIDE RECORDS SUMMARY | 2024-08-08 13:59 | XMS_ITS | Clinical Summary ---
Demographics Address [address] [place] [address] [address] [place] [address] Mobile Phone Home Phone Preferred Language es Marital Status Unknown Amish Affiliation Unknown Race Unknown Ethnic Group Unknown Author Organization [facility] Address [address] [place] [address] Support Name Relationship Address Phone Herminia Mak Daughter [address] [place] [address] Iqra Read Daughter [address] [place] [address] Care Team Providers Care Manager Coding Name Role Phone Liliana Novoa MD Primary Care Provider [phone] Allergies No known active allergies Medications amoxicillin-cla vulanate (AUGMENTIN) 875-125 mg per tablet Take 1 tablet by mouth 2 (two) times a day for 10 days. 20 each 07/22/2024 Encounters Date Type Department Care Team Description 07/30/2024 9:00 AM EDT Office Visit Orthopedic Surgery [facility] [address] [phone] Chau Fleming DPM Metatarsalgia of left foot (Primary Dx); Diabetic mononeuropathy simplex ([facility]) 07/24/2024 Telephone Orthopedic Surgery [facility] [address] [phone] Chau Fleming DPM 07/22/2024 10:00 AM EDT Office Visit Orthopedic [facility] [address] [phone] Chau Fleming DPM Cellulitis of left foot (Primary Dx); Ulcer of toe of left foot, with fat layer exposed ([facility]) 07/08/2024 10:00 AM EST Office Visit Orthopedic [facility] [address] [phone] Chau Fleming DPM Metatarsalgia of left foot (Primary Dx); Ulcer of toe of left foot, with fat layer exposed (CMS/HCC); Diabetic mononeuropathy simplex (CMS/HCC) 06/25/2024 9:15 AM EST Office Visit Orthopedic Surgery [place] [address] [phone] Chau Fleming DPM Ulcer of toe of left foot, with fat layer exposed (CMS/HCC) (Primary Dx); Metatarsalgia of left foot; Diabetic mononeuropathy simplex (CMS/HCC); Dermatophytosis of nail; Metatarsalgia of both feet; Type II diabetes mellitus with peripheral circulatory disorder (CMS/HCC); Acquired hammer toe of right foot; Hammer toe of left foot; Corns and callosities 05/26/2024 9:00 AM EST Office Visit Orthopedic Surgery [place] [address] [phone] Chau Fleming DPM Metatarsalgia of left foot [...] 9:00 AM EDT Office Visit Orthopedic [facility] [address] [phone] Chau Fleming, DPM [address] [phone] Health Maintenance Due Date Last Done Comments [...] patient's age to complete this topic Insurance [facility] [employer] Care Teams Manager Coding Relationship Specialty Start Date End Date Liliana Novoa MD [address] [place] [address] , [facility] Physician Associ D/B/A: [facility] [place] PCP - General Internal Medicine 02/22/24
[2024-08-08 16:24] VITALS: BP 116/50; PULSE 75; RESP 18; TEMP 36.9; O2SAT 100
--- NOTE | 2024-08-08 18:16 | PC.NURSE ---
Patient presents from the with right sided abdominal pain and swelling for 2 weeks. Denies any N/V/D.
[2024-08-08 18:18] VITALS: BP 136/60; PULSE 75; RESP 24; TEMP 36.4; O2SAT 100
[2024-08-08 19:06] VITALS: RESP 18
[2024-08-08] MEDS: ondansetron HCL 4 MG/2 ML VIAL IVPUSH (19:06)
[2024-08-08] MEDS: Morphine Sulfate 4 MG/ML CARTRIDGE IVPUSH (19:06)
[2024-08-08] MEDS: 0.9 % Sodium Chloride 1,000 ML 999 ML IV (19:06)
[2024-08-08 19:27] VITALS: BP 157/62; PULSE 72; RESP 20; TEMP 36.6; O2SAT 95
[2024-08-08 19:34] LABS: Lipase 9 U/L (8-78)
[2024-08-08 20:00] VITALS: BP 157/62; PULSE 72; RESP 20; TEMP 36.6; O2SAT 95
== END 2024-08-08 20:13 | disposition home or self-care (01) ==
PROVIDERS: Physician Assistant; Physician Assistant Medical; Emergency Provider Internal Medicine; PCP Internal Medicine
DX: R10.11 Right upper quadrant pain (principal); M54.50 Low back pain, unspecified; R10.13 Epigastric pain; I10 Essential (primary) hypertension; E11.9 Type 2 diabetes mellitus without complications; Z03.818 Encounter for observation for suspected exposure to other biological agents ruled out; Z79.4 Long term (current) use of insulin; Z87.891 Personal history of nicotine dependence; Z79.899 Other long term (current) drug therapy
CPT/HCPCS: 0241U; 74176; 76705; 80053; 81001; 83690; 83735; 84484; 85025; 87086; 87088; 87186; 93005; 96374; 96375; 99284; 99285; J2270; J2405

== ENCOUNTER → 2024-08-08 11:25 | Outpatient (BNV) | payer OTHER, SELFPAY | PROVIDERS: PCP Internal Medicine; Visit Provider Radiology Diagnostic Radiology | DX: R10.9 Unspecified abdominal pain (principal); R10.11 Right upper quadrant pain | CPT/HCPCS: 74176; 76705 ==

== ENCOUNTER → 2024-08-08 11:25 | Outpatient (BNV) | payer OTHER, SELFPAY | PROVIDERS: Emergency Provider Internal Medicine; PCP Internal Medicine; Visit Provider Internal Medicine | DX: R10.11 Right upper quadrant pain (principal) | CPT/HCPCS: 93010 ==

== ENCOUNTER 2024-08-15 14:21 | Outpatient (AMB) | payer OTHER, SELFPAY ==
--- NOTE | 2024-08-15 10:25 | A.OFFVIS_ITS ---
Vital Signs 08/15/24 14:29 Height 5 ft 3 in Weight 147 lb 11.355 oz BMI 26.2 BP 142/62 H Blood Pressure Location Rt brachial Position Sitting Pulse 76 Oxygen Delivery Method Room Air Oxygen Flow Rate 98 Intake Visit Reasons: T1DM Intake Note: Patient presents here today for a follow-up on Type 1 Diabetes Mellitus. Last Diabetic eye exam was on: [facility], 03/05/2024 Last Podiatry exam was on: 07/08/2024 DR Fleming at [facility], Patient had a minor procedure. [facility] Most recent HbA1c: 9.8, 07/25/2024 Random Glucose- 141 mg/dL? Weight Checker Required: Yes Weight Checker Language: Costume Mistress Services: Weight Checker Present Weight Checker Name: DIANE Asencio/AMNSI HAYS Information Interpreted: non-clinical & clinical Accompanied by: Self / Same As Patient Allergies No Known Allergies Allergy (Verified 09/12/24 11:37) HPI Comments Details: 48 YO F with PMHx T1DM, Hypothyroidism and NTMNG who is seen in F/U for diabetes. Today's visit is for type 1 diabetes. HgbA1C 07/25/24 9.9 %04/08/2024 9.3% down from 10. She was last seen 07/25/24 for diabetes at which time going on an omnipod insulin pump was discussed and her tresiba was adjusted downward due to lows. She was followed by the wound center for an ulcer over a bunion.. She s now followed closely by podiatry and surgery is planned for the future to correct her structural deformities. Podiatry was seeing her every 2 weeks. The ulcer is now healed and she has follow up in 2 months. Recommended padding/insoles She has severe gastroparesis, and when using humalog prior to eating has severe hypoglycemia postprandially due to the delayed gastric absorption. She has all complications of T1DM including retinopathy, neuropathy and nephropathy. 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 Hgb A1C 07/25/24 9.8%. Up from 9.3% (tresiba had been adjusted downward due to a low earlier in the year, Initially diagnosed with T1DM at the age of 10. Tresiba 46 (adjusted down from 50 units) Humalog premeal tid Breakfast and supper 101-150 4 units 151-200 6 units 201-250 8-10 units 251-300 12 units over 300 take 14 units GLucose numbers running higher after lunch Treats lows with juice. Checks sugar after to ensure it is rising. Follows the rule of 15's. Has retinopathy. Followed by [facility]. Last appointment 2 weeks ago injecting the eye/laser n Has neuropathy. Checks feet daily and does not walk barefooted followed by Dr. Fleming seen recently Denies nephropathy, on Lisinopril 10 mg PO daily. microalbumin 05/11/23 35 06/06/24 eGFR>60 Has HLD, on Atorvastatin 20 mg PO daily. LDL 95 07/07/2022. Denies history of CAD. She has severe gastroparesis. She uses reglan 5 mg PO prior to every meal. She will be seeing Carmen PEREZ to initiate pre pump. [facility] Medical History Acute abdominal pain in right upper quadrant Diabetic foot ulcer Left foot pain Women's annual routine gynecological examination Swelling of right eyelid Physical exam Screening for cervical cancer Wound of left foot Wound of left foot Metatarsal fracture Right hand pain Multinodular thyroid Hypothyroidism HTN (hypertension) HLD (hyperlipidemia) T1DM (type 1 diabetes mellitus) Vitamin D deficiency 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 Hypothyroidism Diabetic polyneuropathy associated with type 1 diabetes mellitus Diabetic retinopathy associated with type 1 diabetes mellitus Dyslipidemia Diabetic gastroparesis Essential hypertension Diabetes type 1, uncontrolled Surgical History History of surgical procedure on eye proper using laser Family History Father Diabetes Substance use disorder Mother Diabetes Hypertension Social History Household Members: None Housing: Apartment Alcohol intake: never Patient Tobacco Use Status: Former Tobacco user e-Cigarette/Vaping Use: Never Used Second Hand Smoke Exposure: Yes service: No Current occupational status: unemployed and disabled Current occupation: rt handed Cognitive needs: No Hearing needs: No Vision needs: No Female Reproductive History Menstrual Age of Menarche: 11 Physical Exam Vital Signs: Last Vital Signs Pulse 76 08/15/24 14:29 BP 142/62 H 08/15/24 14:29 Oxygen Delivery Method Room Air 08/15/24 14:29 Oxygen Flow Rate 98 08/15/24 14:29 BMI result Body Mass Index 26.2 Const Other: Absence of Cushingoid features. Absence of acromegalic features. Neck exam reveals nl size thyroid about 15 gms. No thyroid nodules palpable. Heart S1 S2, Reg R/R. No M/R G. Skin exam reveals absence of vitiligo or acanthosis nigricans. Visual exam of foot performed. No ulcerations or open lesions. No inter digit maceration or fissuring. No onychomycosis, no callouses. Sensation intact to monofilament exam. Vibratory sensation is normal with 128 Hz tuning fork. large bunion Results Reviewed Results Reviewed: Laboratory Last Values Glucose (Clinic) 141 mg/dL (60-115) H 08/15/24 14:33 Assessment & Plan Assessment & Plan (1) Diabetes type 1, uncontrolled: Code(s): E10.65 - Type 1 diabetes mellitus with hyperglycemia Category: Medical Qualifiers: Glycemic state: with hyperglycemia Qualified Code(s): E10.65 - Type 1 diabetes mellitus with hyperglycemia Plan: 48-year-old type 1 diabetic with gastroparesis, hypoglycemia unawareness, neuropathy, retinopathy and nephropathy with improving glucose numbers. She has had several recent lows prior to this visit and Tresiba had been adjusted downward. Tresiba 42 units Humalog breakfast/supper 101-150 4units 151-200 6 units 201-250 8-12 units 251-300 12 units over 300 14 units lunch same scale however add 1 addiitional unit to all doses Will move towards getting her on an insulin pump and schedule with CDE for pre pump training. I would not recommend a beta bionics as she does not speak Kazakh and she is prone to hypoglycemia which can occur with the ilet pump. I feel like she would do better without tubing so Omnipod would be the best pump for her. She has been approved for a freestyle Ade 3+ but we will hold off on this as Omnipod as recently been link with 2+. Continued follow up with Podiatry for resolved ulcer over callus caused by large bunion. Plan is for surgery at some point in the future. The patient had an opportunity to ask questions regarding treatment plan. The patient expressed understanding and agreement with the above treatment plan. The patient is aware they should contact our office by phone for worsening glucose readings or for any low blood sugars which may warrant a change in diabetes medication. Compliance is encouraged with medications and any followup Coding Level of Care Code Est Pt Level 4 (42582) Complex EM visit Add On G2211 Diagnoses Uncontrolled type 1 diabetes mellitus with hyperglycemia E10.65 Glycemic state: with hyperglycemia Time Spent (min) 30 Comment Time spent reviewing labs/provider notes, face to face, chart doc
[2024-08-15 14:29] VITALS: BP 142/62; PULSE 76; BMI 26.2
[2024-08-15 14:38] LABS: Glucose, Whole Blood 141 mg/dL (60-115)
--- OUTSIDE RECORDS SUMMARY | 2024-08-15 14:43 | XMS_ITS | Clinical Summary ---
Demographics Address [address] [place] [address] [address] [place] [address] Mobile Phone Home Phone Preferred Language es Marital Status Unknown Muslim Affiliation Unknown Race Unknown Ethnic Group Unknown Author Organization [facility] Address [address] [place] [address] Support Name Relationship Address Phone Herminia Mak Daughter [address] [place] [address] Iqra Read Daughter [address] [place] [address] Care Team Providers Care Addresser Name Role Phone Liliana Novoa MD Primary Care Provider [phone] Allergies No known active allergies Medications amoxicillin-cla vulanate (AUGMENTIN) 875-125 mg per tablet Take 1 tablet by mouth 2 (two) times a day for 10 days. 20 each 07/22/2024 Encounters Date Type Department Care Team Description 07/30/2024 9:00 AM EDT Office Visit Orthopedic [address] [phone] Chau Fleming DPM Metatarsalgia of left foot (Primary Dx); Diabetic mononeuropathy simplex ([facility] V24, [facility] V28) 07/24/2024 Telephone Orthopedic Surgery [facility] [address] [phone] Chau Fleming DPM 07/22/2024 10:00 AM EDT Office Visit [facility] [address] [place] [phone] Chau Fleming DPM Cellulitis of left foot (Primary Dx); Ulcer of toe of left foot, with fat layer exposed ([facility] V24, [facility] V28) 07/08/2024 10:00 AM EST Office Visit Orthopedic [place] [address] [phone] Chau Fleming DPM Metatarsalgia of left foot (Primary Dx); Ulcer of toe of left foot, with fat layer exposed (CMS/HCC V24, CMS/HCC V28); Diabetic mononeuropathy simplex (CMS/HCC V24, CMS/HCC V28) 06/25/2024 9:15 AM EST Office Visit Orthopedic [facility] [address] [phone] Chau Fleming DPM Ulcer of toe of left foot, with fat layer exposed (CMS/HCC V24, CMS/HCC V28) (Primary Dx); Metatarsalgia of left foot; Diabetic mononeuropathy simplex (CMS/HCC V24, CMS/HCC V28); Dermatophytosis of nail; Metatarsalgia of both feet; Type II diabetes mellitus with peripheral circulatory disorder (CMS/HCC V24, CMS/HCC V28); Acquired hammer toe of right foot; Hammer toe of left foot; Corns and callosities 05/26/2024 9:00 AM EST Office Visit Orthopedic [facility] [address] [phone] Chau Fleming DPM Metatarsalgia of left foot (Primary Dx); Ulcer of toe of left foot, with fat layer exposed (CMS/HCC V24, CMS/HCC V28); Dermatophytosis of nail; Pain in toe of right foot; Pain in toe of left foot; Diabetic mononeuropathy simplex (CMS/HCC V24, CMS/HCC V28) from Last 3 Months Social History Tobacco [...] 9:00 AM EDT Office Visit [facility]opedic [facility] [place] [address] [phone] Chau Fleming, DPM [address] [address] Health Maintenance Due Date Last Done Comments [...] 02/04/2003, Additional history exists COVID-19 Vaccine ( - season) 2024 05/03/2021, 08/16/2020 Influenza Vaccine (#1) [...] age to complete this topic Meningococcal B Vaccine Aged Out No l onger eligible based on patient's age to complete this topic RSV Immunization Patients Under 20 months Aged Out No longer eligible based on patient's age to complete this topic Varicella Vaccines Aged Out No longer eligible based on patient's age to complete this topic Insurance [facility] Care Teams Addresser Relationship Specialty Start Date End Date Liliana Novoa MD [address] [place] [address] , [address] [facility]ician Associ D/B/A: [facility] [place], [place] PCP - General Internal Medicine 02/22/24
== END 2024-08-15 14:54 | disposition home or self-care (01) ==
LOC: HO.ENCR 14:21
PROVIDERS: PCP Internal Medicine; Visit Provider Nurse Practitioner Adult Health
DX: E10.65 Type 1 diabetes mellitus with hyperglycemia (principal)
CPT/HCPCS: 99214; G2211

== ENCOUNTER → 2024-08-15 14:21 | Outpatient (BNVA) | payer OTHER, SELFPAY | PROVIDERS: PCP Internal Medicine; Visit Provider Nurse Practitioner Adult Health | DX: E10.65 Type 1 diabetes mellitus with hyperglycemia (principal); E10.21 Type 1 diabetes mellitus with diabetic nephropathy; E10.43 Type 1 diabetes mellitus with diabetic autonomic (poly)neuropathy; K31.84 Gastroparesis; E10.319 Type 1 diabetes mellitus with unspecified diabetic retinopathy without macular edema; E10.40 Type 1 diabetes mellitus with diabetic neuropathy, unspecified; Z79.4 Long term (current) use of insulin | CPT/HCPCS: 82947; 99212 ==

== ENCOUNTER 2024-09-04 09:40 | Outpatient (AMB) | payer OTHER, SELFPAY ==
--- NOTE | 2024-09-04 10:36 | MHC.AMDMED ---
Intake Intake Visit Reasons: DM Bearing Press Machine Operator Required: Yes Bearing Press Machine Operator Language: Real Estate Agent Name: Liliana [facility] Accompanied by: Self / Same As Patient Allergies No Known Allergies Allergy (Verified 08/08/24 11:25) HPI Comprehensive Diabetes Asmnt Most Recent Diabetes Results: Creatinine 0.79 mg/dL (0.5-1.4) 08/08/24 Blood Urea Nitrogen 14 mg/dL (9-16) 08/08/24 Sodium 141 mmol/L (135-145) 08/08/24 Potassium 4.6 mmol/L (3.3-5.1) 08/08/24 Chloride 106 mmol/L (96-108) 08/08/24 Carbon Dioxide 29 mmol/L (22-29) 08/08/24 Calcium 9.5 mg/dL (8.4-10.2) 08/08/24 AST 38 U/L (5-31) H 08/08/24 ALT 38 U/L (0-31) H 08/08/24 Total Protein 7.3 g/dL (6.5-8.0) 08/08/24 Albumin 4.2 g/dL (3.5-5.0) 08/08/24 [facility] Medical History Acute abdominal pain in right upper quadrant Diabetic foot ulcer Left foot pain Women's annual routine gynecological examination Swelling of right eyelid Physical exam Screening for cervical cancer Wound of left foot Wound of left foot Metatarsal fracture Right hand pain Multinodular thyroid Hypothyroidism HTN (hypertension) HLD (hyperlipidemia) T1DM (type 1 diabetes mellitus) Vitamin D deficiency 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 Hypothyroidism Diabetic polyneuropathy associated with type 1 diabetes mellitus Diabetic retinopathy associated with type 1 diabetes mellitus Dyslipidemia Diabetic gastroparesis Essential hypertension Diabetes type 1, uncontrolled Surgical History History of surgical procedure on eye proper using laser Family History Father Diabetes Substance use disorder Mother Diabetes Hypertension Social History Household Members: None Housing: Apartment Alcohol intake: never Patient Tobacco Use Status: Former Tobacco user e-Cigarette/Vaping Use: Never Used Second Hand Smoke Exposure: Yes service: No Current occupational status: unemployed and disabled Current occupation: rt handed Cognitive needs: No Hearing needs: No Vision needs: No Female Reproductive History Menstrual Age of Menarche: 11 Assessment & Plan Assessment & Plan (1) Diabetes type 1, uncontrolled: Code(s): E10.65 - Type 1 diabetes mellitus with hyperglycemia Qualifiers: Glycemic state: with hyperglycemia Qualified Code(s): E10.65 - Type 1 diabetes mellitus with hyperglycemia Plan: Carb Counting Basic/Pump info Reviewed insulin pump basics today with Patient. Explained pros and cons of insulin pumps. Showed pt various pumps, infusion sets, and cgms currently available. Reviewed need to wear pump 24/7 and need to change infusion set every 3 days. Also stressed importance of frequent BG checks, 4x daily minimum or use pump that is integrated with CGM.? Patient presents for appointment carbohydrate counting education. Reviewed the basic principles of carbohydrate counting.? Insulin to carb ratio, and insulin sensitivity factor calculated based on rule of 450 for insulin to carb ratio, and rule of 1500 for insulin sensitivity factor. Instructed patient on the importance of accurate calculation of the amount of carbs per meal for optimal glucose control Reviewed how to calculate mealtime bolus with insulin to carb ratio Reviewed how to calculate correction dose with insulin sensitivity factor Patient's TDD estimate 80 units Insulin to Carbohydrate ratio: 1:6 Correction factor:1:19 Diet Recall: Breakfast: Lunch: [place] with 2 slices of bread-30 gm Dinner: Chicken, rice and vegetables- 45gm Snacks: 6 saltines with a slice of ham-15gm Patient given healthy plate handout, for resource for carbohydrate counting Encourage patient to fill out food logs, estimating carbohydrates at meals, noting glucose number prior to meal, and how many units of insulin taken prior to meals Pt able to calculated needed insulin based on estimated carbohydrate content Pt is interested in Omnipod 5 with Dexcom G7 Setup Dexcom G7 christy on Pt's cell phone at today's visit Instructed patient that there may need to be adjustment to insulin to carb ratio and sensitivity factor based on blood glucose trends. Portions of this note were created using voice recognition software, please excuse any words or phrases that may have been misinterpreted. Patient Instructions: Pt will f/u in 1 month Coding Level of Care Code Est Pt Level 1 (31378) Diagnoses Uncontrolled type 1 diabetes mellitus with hyperglycemia E10.65 Glycemic state: with hyperglycemia
--- OUTSIDE RECORDS SUMMARY | 2024-09-04 10:42 | XMS_ITS | Clinical Summary ---
Demographics Address [address] [place] [address] [address] [place] [address] Mobile Phone Home Phone Preferred Language es Marital Status Unknown Zoroastrian Affiliation Unknown Race Unknown Ethnic Group Unknown Author Organization [facility] Address [address] [place] [address] Support Name Relationship Address Phone Herminia Mak Daughter [address] [place] [address] Iqra Read Daughter [address] [place] [address] Care Team Providers Care Package Crimper Name Role Phone Liliana Novoa MD Primary Care Provider [phone] Allergies No known active allergies Medications No known medications Encounters Date Type Department Care Team Description 07/30/2024 9:00 AM EDT Office Visit Orthopedic [facility] [address] [phone] Chau Fleming, DPM Metatarsalgia of left foot (Primary Dx); Diabetic mononeuropathy simplex ([facility] V24, [facility] V28) 07/24/2024 Telephone Orthopedic [facility] [address] [phone] Chau Fleming, DPM 07/22/2024 10:00 AM EDT Office Visit Orthopedic [facility] [address] [phone] Chau Fleming, DPM Cellulitis of left foot (Primary Dx); Ulcer of toe of left foot, with fat layer exposed ([facility] V24, [facility] V28) 07/08/2024 10:00 AM EST Office Visit Orthopedic [facility] [address] [phone] Chau Fleming, DPM Metatarsalgia of left foot (Primary Dx); Ulcer of toe of left foot, with fat layer exposed ([facility] V24, [facility] V28); Diabetic mononeuropathy simplex ([facility] V24, [facility] V28) 06/25/2024 9:15 AM EST Office Visit Orthopedic Surgery [facility] [address] [phone] Chau Fleming DPM Ulcer of toe of left foot, with fat layer exposed ([facility] V24, [facility] V28) (Primary Dx); Metatarsalgia of left foot; Diabetic mononeuropathy simplex ([facility] V24, [facility] V28); Dermatophytosis of nail; Metatarsalgia of both feet; Type II diabetes mellitus with peripheral circulatory disorder ([facility] V24, [facility] V28); Acquired hammer toe of right foot; Hammer toe of left foot; Corns and callosities from Last 3 Months Social History Tobacco [...] 9:00 AM EDT Office Visit Orthopedic Surgery [facility] [address] [phone] Chau Fleming DPM [address] [address] Health Maintenance Due Date Last Done Comments [...] COVID-19 Vaccine ( season) 2024 05/03/2021, 08/16/2020 Cholesterol Screening (Lipid Panel) 02/22/2024 Colorectal Cancer Screening: Colonoscopy 02/22/2024 Depression Screening 02/22/2024 HIV Screening 02/22/2024 Hepatitis C Screening 02/22/2024 Social Influencers of Health Screening 02/22/2024 Diabetes: Annual Urine Albumin-Creatinine Ratio (uACR) 05/26/2024 Diabetes: Blood Sugar Control Test (HGBA1C) 05/26/2024 Influenza Vaccine (Season Ended) 2025 05/15/2023, 06/16/2019, 05/16/2018, Additional history exists DTaP,Tdap,and Td Vaccines (4 - Td or [...] to complete this topic Insurance [facility] Care Teams Package Crimper Relationship Specialty Start Date End Date Liliana Novoa MD 2 [facility] , [address] Physician Associ D/B/A: [facility] [place] PCP - General Internal Medicine 02/22/24
== END 2024-09-04 10:53 | disposition home or self-care (01) ==
LOC: HO.ENCR 09:41
PROVIDERS: PCP Internal Medicine; Visit Provider Registered Nurse Diabetes Educator
DX: E10.65 Type 1 diabetes mellitus with hyperglycemia (principal)

== ENCOUNTER → 2024-09-04 09:40 | Outpatient (BNVA) | payer OTHER, SELFPAY | PROVIDERS: PCP Internal Medicine; Visit Provider Registered Nurse Diabetes Educator | DX: E10.65 Type 1 diabetes mellitus with hyperglycemia (principal) | CPT/HCPCS: 99211 ==

== ENCOUNTER 2024-09-12 11:32 | Outpatient (AMB) | payer OTHER, SELFPAY ==
--- NOTE | 2024-09-12 11:36 | MHC.PC.OV ---
Vital Signs 09/12/24 11:37 Height 5 ft 3 in Weight 147 lb 6 oz BMI 26.1 BP 130/62 Blood Pressure Location Lt brachial Position Sitting Pulse 74 Pulse Source Pulse Oximeter Temp 96.6 F L Temp Source Temporal Artery Scan Pulse Oximetry (%) 99 Oxygen Delivery Method Room Air Intake Visit Reasons: [facility] 08/08 ABD pain Intake Note: Patient is here to follow-up after a visit the emergency department at [facility] [place] on 08/08/24 Starbucks Clerk Required: Yes Starbucks Clerk Language: Convex Grinder Name: Megan ([id number]) Information Interpreted: non-clinical & clinical Children'S Service Worker: Not Required per policy Accompanied by: Self / Same As Patient Allergies No Known Allergies Allergy (Verified 09/12/24 11:37) Tobacco use date assessed: 09/12/24 Dental Screening Dental Screen Date: 06/13/24 HPI HPI Comments History of Present Illness Details 48 Y/O Female patient who presents to the clinic today for HDF. Past medical history significant for diabetes, depression, hypothyroidism, hypertension, hyperlipidemia, and Gastroparesis. She was admitted at [facility] [place] on 08/08/24 for evaluation of abdominal pain. All imaging and Labs unremarkable with no clear etiology of her symptoms. Patient asking for referral to Gastroentology. [facility] Medical History Acute abdominal pain in right upper quadrant Diabetic foot ulcer Left foot pain Women's annual routine gynecological examination Swelling of right eyelid Physical exam Screening for cervical cancer Wound of left foot Wound of left foot Metatarsal fracture Right hand pain Multinodular thyroid Hypothyroidism HTN (hypertension) HLD (hyperlipidemia) T1DM (type 1 diabetes mellitus) Vitamin D deficiency 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 Hypothyroidism Diabetic polyneuropathy associated with type 1 diabetes mellitus Diabetic retinopathy associated with type 1 diabetes mellitus Dyslipidemia Diabetic gastroparesis Essential hypertension Diabetes type 1, uncontrolled Surgical History History of surgical procedure on eye proper using laser Family History Father Diabetes Substance use disorder Mother Diabetes Hypertension Social History Household Members: None Housing: Apartment Alcohol intake: never Patient Tobacco Use Status: Former Tobacco user e-Cigarette/Vaping Use: Never Used Second Hand Smoke Exposure: Yes service: No Current occupational status: unemployed and disabled Current occupation: rt handed Cognitive needs: No Hearing needs: No Vision needs: No Female Reproductive History Menstrual Age of Menarche: 11 Questionnaire Thrive Questionnaire Date Thrive assessed: 06/13/24 DAMION-7 AMB Questionnaire DAMION-7 Date DAMION - 7 assessed: 06/13/24 Source: Developed by Drs. Jacinto Romo, Myra Flores, Ata Burnett and colleagues, with an educational mora from [employer]. Review of Systems Const All systems reviewed & are unremarkable except as noted in HPI and below Physical exam (Primary Care) Vital Signs: Last Vital Signs Temp 96.6 F L 09/12/24 11:37 Pulse 74 09/12/24 11:37 BP 130/62 09/12/24 11:37 Pulse Ox 99 09/12/24 11:37 Oxygen Delivery Method Room Air 09/12/24 11:37 BMI result Body Mass Index 26.1 Tobacco/Smoking Status: Tobacco use Status Tobacco use date assessed 09/12/24 09/12/24 11:43 Patient Tobacco Use Status Former Tobacco user 09/12/24 11:43 e-Cigarette/Vaping Use Never Used 09/12/24 11:43 Thrive Assessment: Date of Thrive Assessment Date Thrive assessed 06/13/24 09/12/24 11:43 Const General: no acute distress Orientation/consciousness: patient oriented x3 Resp Effort & Inspection: normal respiratory effort Auscultation: clear to auscultation bilaterally Cardio Heart sounds: S1 normal heart sound present and S2 normal heart sound present GI Palpation (GI): Soft to palpation, not firm, Tenderness to palpation present (GI) in the RLQ and in the RUQ, no guarding and not rigid Auscultation: normal bowel sounds Neuro General: patient oriented x3 Coding Level of Care Code Est Pt Level 4 (99140) Diagnoses Acute abdominal pain in right upper quadrant R10.11 Time Spent (min) 20 Assessment & Plan Assessment & Plan (1) Acute abdominal pain in right upper quadrant: Code(s): R10.11 - Right upper quadrant pain Category: Medical Plan: Placed referral to Gastroentology. Orders: Referrals Gastroenterology Referral R10.11 - Right upper quadrant pain
[2024-09-12 11:37] VITALS: BP 130/62; PULSE 74; TEMP 35.9; O2SAT 99; BMI 26.1
--- OUTSIDE RECORDS SUMMARY | 2024-09-12 11:58 | XMS_ITS | Clinical Summary ---
Demographics Address [address] [place] [address] [address] [place] [address] Mobile Phone Home Phone Preferred Language es Marital Status Unknown Jainism Affiliation Unknown Race Unknown Ethnic Group Unknown Author Organization [facility] Address [address] [place] [address] Support Name Relationship Address Phone Herminia Mak Daughter [address] [place] [address] Iqra Read Daughter [address] [place] [address] Care Team Providers Care Lithographic Stripper Name Role Phone Liliana Novoa MD Primary Care Provider [phone] Allergies No known active allergies Medications No known medications Encounters Date Type Department Care Team Description 07/30/2024 9:00 AM EDT Office Visit [facility] [address] [phone] Chau Fleming, DPM Metatarsalgia of left foot (Primary Dx); Diabetic mononeuropathy simplex ([facility] V24, [facility] V28) 07/24/2024 Telephone [facility] [address] [phone] Chau Fleming, DPM 07/22/2024 10:00 AM EDT Office Visit [facility] [address] [phone] Chau Fleming, DPM Cellulitis of left foot (Primary Dx); Ulcer of toe of left foot, with fat layer exposed ([facility] V24, [facility] V28) 07/08/2024 10:00 AM EST Office Visit [facility] [address] [phone] Chau Fleming, DPM Metatarsalgia of left foot (Primary Dx); Ulcer of toe of left foot, with fat layer exposed ([facility] V24, [facility] V28); Diabetic mononeuropathy simplex ([facility] V24, [facility] V28) 06/25/2024 9:15 AM EST Office Visit Orthopedic [facility] [address] [phone] Chau Fleming DPM Ulcer of toe of left foot, with fat layer exposed ([facility] V24, [facility] V28) (Primary Dx); Metatarsalgia of left foot; Diabetic mononeuropathy simplex ([facility] V24, [facility] V28); Dermatophytosis of nail; Metatarsalgia of both feet; Type II diabetes mellitus with peripheral circulatory disorder ([facility] V24, [facility] V28); Acquired hammer toe of right [...] 9:00 AM EDT Office Visit Orthopedic [facility] [address] [phone] Chau Fleming DPM [address] [address] Health Maintenance Due Date Last Done Comments [...] patient's age to complete this topic Insurance [facility] Care Teams Lithographic Stripper Relationship Specialty Start Date End Date Liliana Novoa MD 2 [facility] , [address] Physician Associ D/B/A: [facility] [place] PCP - General Internal Medicine 02/22/24
== END 2024-09-12 12:58 | disposition home or self-care (01) ==
LOC: HO.HMCH 11:32
PROVIDERS: PCP Internal Medicine; Visit Provider Nurse Practitioner Family
DX: R10.11 Right upper quadrant pain (principal)

== ENCOUNTER → 2024-09-12 11:32 | Outpatient (BNVA) | payer OTHER, SELFPAY | PROVIDERS: PCP Internal Medicine; Visit Provider Nurse Practitioner Family | DX: R10.11 Right upper quadrant pain (principal); E11.9 Type 2 diabetes mellitus without complications; F32.A Depression, unspecified; E03.9 Hypothyroidism, unspecified; I10 Essential (primary) hypertension; E78.5 Hyperlipidemia, unspecified | CPT/HCPCS: 99212 ==

== ENCOUNTER 2024-10-03 13:03 | Outpatient (AMB) | payer OTHER, SELFPAY ==
--- NOTE | 2024-10-03 07:44 | A.OFFVIS_ITS ---
Vital Signs 10/03/24 13:07 Height 5 ft 3 in Weight 147 lb 11.355 oz BMI 26.2 BP 122/66 Blood Pressure Location Rt brachial Position Sitting Pulse 96 Pulse Source Pulse Oximeter Pulse Oximetry (%) 96 Oxygen Delivery Method Room Air Intake Visit Reasons: DM Intake Note: Patient presents here today for a follow-up on Type 1 Diabetes Mellitus. Last Diabetic eye exam was on: 03/05/2024, [facility]. Last Podiatry exam was on: 07/08/20[address] [facility], Patient had a minor procedure. Most recent HbA1c: 9.8%, 07/25/2024 Random Glucose- 125 mg/dL, Today Human Resources Team Member Required: Yes Human Resources Team Member Language: Pillow Cleaner Services: Human Resources Team Member Present Human Resources Team Member Name: DIANE Asencio/MANSI HAYS Information Interpreted: non-clinical & clinical Accompanied by: Self / Same As Patient Allergies No Known Allergies Allergy (Verified 10/17/24 05:09) HPI Comments Details: 48 YO F with PMHx T1DM, Hypothyroidism and NTMNG who is seen in F/U for diabetes. Today's visit is for type 1 diabetes. HgbA1C 07/25/24 9.9 %04/08/2024 9.3% down from 10. She was last seen 08/15/24 for diabetes at which time we again discussed going on an omnipod insulin pump. Her brother this week in an MVA which was thought to possibly be suicide. This a stone her into depression and she has not been taking her insulin. She has seen the Carmen PEREZ for pre pump education and has follow up for carb counting with her. Patient's TDD estimate 80 units Insulin to Carbohydrate ratio: 1:6 Correction factor:1:19 She was followed in the past by the wound center for an ulcer over a very large bunion.. She is now followed closely by podiatry and surgery is planned for the future to correct her structural deformities. Podiatry was seeing her every 2 weeks. The ulcer is now opened up again and she was evaluated by Dr. Fleming.. Recommended padding/insoles She has severe gastroparesis, and when using humalog prior to eating has severe hypoglycemia postprandially due to the delayed gastric absorption. She has all complications of T1DM including retinopathy, neuropathy and nephropathy. 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 Initially diagnosed with T1DM at the age of 10. Tresiba 42 units Humalog breakfast/supper 101-150 4units 151-200 6 units 201-250 8-12 units 251-300 12 units over 300 14 units lunch same scale however add 1 addiitional unit to all doses Dexcom average glucose: 309 14 day continuous glucose monitor report reviewed Glucose Managment indicator 10 % TIme in ranges: Seventy-one % very high (above 250) 15 % high ?(181-250) 14 % in range ?(70-180] 0 % low (69-55) Less than 1 % ?very low (below 54) Interpretation significant elevation Treats lows with juice. Checks sugar after to ensure it is rising. Follows the rule of 15's. Has retinopathy. Followed by [facility]. Last appointment 2 weeks ago injecting the eye/laser n Has neuropathy. Checks feet daily and does not walk barefooted followed by Dr. Fleming seen recently Denies nephropathy, on Lisinopril 10 mg PO daily. microalbumin 05/11/23 35 06/06/24 eGFR>60 Has HLD, on Atorvastatin 20 mg PO daily. LDL 95 07/07/2022. Denies history of CAD. She has severe gastroparesis. She uses reglan 5 mg PO prior to every meal. 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 Hypothyroidism Diabetic polyneuropathy associated with type 1 diabetes mellitus Diabetic retinopathy associated with type 1 diabetes mellitus Dyslipidemia Diabetic gastroparesis Essential hypertension Diabetes type 1, uncontrolled Surgical History History of surgical procedure on eye proper using laser Family History Father Diabetes Substance use disorder Mother Diabetes Hypertension Social History Household Members: None Housing: Apartment Alcohol intake: never Patient Tobacco Use Status: Former Tobacco user Smoked in Last 30 Days: No e-Cigarette/Vaping Use: Never Used Second Hand Smoke Exposure: Yes Use of substances other than those prescribed or required for medical reasons: No Advance Directives: No Do you have a plan to hurt others: No Plan Patient : No service: No Current occupational status: unemployed and disabled Current occupation: rt handed Cognitive needs: No Hearing needs: No Vision needs: No Female Reproductive History Menstrual Age of Menarche: 11 Physical Exam Vital Signs: Last Vital Signs Pulse 96 10/03/24 13:07 BP 122/66 10/03/24 13:07 Pulse Ox 96 10/03/24 13:07 Oxygen Delivery Method Room Air 10/03/24 13:07 BMI result Body Mass Index 26.2 Const Other: Tearful throughout interview. Absence of Cushingoid features. Absence of acromegalic features. Neck exam reveals nl size thyroid about 15 gms. No thyroid nodules palpable. Heart S1 S2, Reg R/R. No M/R G. Skin exam reveals absence of vitiligo or acanthosis nigricans. Foot exam deferred just seen by Podiatry Results Reviewed Results Reviewed: Laboratory Last Values Glucose (Clinic) 125 mg/dL (60-115) H 10/03/24 13:14 Assessment & Plan Assessment & Plan (1) Diabetes type 1, uncontrolled: Code(s): E10.65 - Type 1 diabetes mellitus with hyperglycemia Category: Medical Qualifiers: Glycemic state: with hyperglycemia Qualified Code(s): E10.65 - Type 1 diabetes mellitus with hyperglycemia Plan: 48-year-old type 1 diabetic with neuropathy, retinopathy, gastroparesis and foot ulcer being treated by Podiatry. Numbers acutely elevated as she stopped her insulin several days ago due to depression related to her brother's . I counseled the patient on the absolute need for her to take her insulin. Noncompliance could result in her and escalation of her current diabetic complications. The patient had an opportunity to ask questions regarding treatment plan. The patient expressed understanding and agreement with the above treatment plan. The patient is aware they should contact our office by phone for worsening glucose readings or for any low blood sugars which may warrant a change in diabetes medication. Compliance is encouraged with medications and any followup testing/consults which may have been ordered. Coding Level of Care Code Est Pt Level 4 (98468) Complex EM visit Add On G2211 Diagnoses Uncontrolled type 1 diabetes mellitus with hyperglycemia E10.65 Glycemic state: with hyperglycemia
[2024-10-03 13:07] VITALS: BP 122/66; PULSE 96; O2SAT 96; BMI 26.2
--- OUTSIDE RECORDS SUMMARY | 2024-10-03 13:13 | XMS_ITS | Clinical Summary ---
Demographics Address [address] [place] [address] [address] [place] [address] Mobile Phone Home Phone Preferred Language es Marital Status Unknown Mormon Affiliation Unknown Race Unknown Ethnic Group Unknown Author Organization [facility] Address [address] [place] [address] Support Name Relationship Address Phone Herminia Mak Daughter [address] [place] [address] Iqra Read Daughter [address] [place] [address] Care Team Providers Care Processing Assistant Name Role Phone Liliana Novoa MD Primary Care Provider [phone] Allergies No known active allergies Medications No known medications Encounters Date Type Department Care Team Description 10/01/2024 9:00 AM EDT Office Visit [facility] [address] [phone] Chau Fleming DPM Metatarsalgia of left foot (Primary Dx); Diabetic mononeuropathy simplex ([facility] V24, [facility] V28); Ulcer of toe of left foot, limited to breakdown of skin ([facility] V24, [facility] V28) 07/30/2024 9:00 AM EDT Office Visit [facility] [address] [phone] Chau Fleming DPM Metatarsalgia of left foot (Primary Dx); Diabetic mononeuropathy simplex ([facility] V24, [facility] V28) 07/24/2024 Telephone [facility] [address] [phone] Chau Fleming DPM 07/22/2024 10:00 AM EDT Office Visit [facility] [address] [phone] Chau Fleming DPM Cellulitis of left foot (Primary Dx); Ulcer of toe of left foot, with fat layer exposed ([facility] V24, [facility] V28) 07/08/2024 10:00 AM EST Office Visit Orthopedic [facility] [address] [phone] Chau Fleming DPM Metatarsalgia of left foot (Primary Dx); Ulcer of toe of left foot, with fat layer exposed ([facility] V24, [facility] V28); Diabetic mononeuropathy simplex ([facility] V24, [facility] V28) from Last 3 Months Social History [...] Concentration - - Weight 664 kg (1463 lb 13.7 oz) 10/01/2024 8:47 AM EDT Height 160 cm (5' 2.99 ) 10/01/2024 8:47 AM EDT Body Mass Index 259.38 10/01/2024 8:47 AM EDT Plan of Treatment Upcoming Encounters Date Type Department Care Team (Late st Contact Info) Description 10/27/2024 10:00 AM EDT Office Visit Orthopedic Surgery [place] [address] [phone] Chau Fleming DPM [address] [phone] Health Maintenance Due Date Last Done Comments [...] Vaccine ( - season) 2024 05/03/2021, 08/16/2020 Cholesterol Screening (Lipid [...] patient's age to complete this topic Insurance [facility] [place] [address] Care Teams Processing Assistant Relationship Specialty Start Date End Date Liliana Novoa MD 2 [facility] , [address] [place] [address] Physician Associ D/B/A: [facility] [place], [place] PCP - General Internal Medicine 02/22/24
[2024-10-03 13:27] LABS: Glucose, Whole Blood 125 mg/dL (60-115)
== END 2024-10-03 13:33 | disposition home or self-care (01) ==
LOC: HO.ENCR 13:04
PROVIDERS: PCP Internal Medicine; Visit Provider Nurse Practitioner Adult Health
DX: E10.65 Type 1 diabetes mellitus with hyperglycemia (principal)
CPT/HCPCS: 99214; G2211

== ENCOUNTER → 2024-10-03 13:03 | Outpatient (BNVA) | payer OTHER, SELFPAY | PROVIDERS: PCP Internal Medicine; Visit Provider Nurse Practitioner Adult Health | DX: E10.65 Type 1 diabetes mellitus with hyperglycemia (principal); Z79.4 Long term (current) use of insulin | CPT/HCPCS: 82947; 99212 ==

== ENCOUNTER 2024-10-17 04:54 | Emergency (ER) | payer OTHER, SELFPAY ==
--- NOTE | 2024-10-17 | ECG_ITS ---
Test Reason : CHEST PAIN Blood Pressure : */* mmHG Vent. Rate : 71 BPM Atrial Rate : 71 BPM P-R Int : 140 ms QRS Dur : 78 ms QT Int : 414 ms P-R-T Axes : 18 -14 -6 degrees QTcB Int : 449 ms Normal sinus rhythm Normal ECG When compared with ECG of 08-Aug-2024 11:34, No significant change was found Referred By: Generic ED Physician Electronically Signed By: DOMO OTOOLE MD
--- NOTE | ~2024-10-17 | CT_ITS ---
EXAMINATION: CT HEAD WITHOUT CONTRAST CLINICAL INFORMATION: headache COMPARISON: July 26, 2022. TECHNIQUE: Contiguous axial imaging was performed from the skull base to vertex without intravenous administration of contrast. This CT examination was performed using dose optimization techniques as appropriate, variously including the following: *Automated exposure control *Adjustment of mA and/or kV according to patient size (this includes techniques or standardized protocols for targeted exams where dose is matched to indication/reason for exam; i.e. extremities or head) *Use of iterative reconstruction technique DLP: 562 mGy-cm FINDINGS: No acute intracranial hemorrhage, mass effect, midline shift, hydrocephalus or herniation. Prominence of the extra-axial spaces cerebral sulci and ventricles. Craniocervical junction demonstrates normal position of the cerebellar tonsils with the CSF prominence of the inferior aspect of the extra-axial compartment and extending into the inferior fourth ventricle. Sellar/suprasellar region demonstrated no gross masses. Calcified plaques in the cavernous supracavernous segments both ICA. Calcified plaques in the ophthalmic arteries. Old traumatic deformity, left lamina papyracea. Tympanic cavities and mastoid cells are aerated. No air-fluid levels in the paranasal sinuses. CT/CT head/brain wo IV con IMPRESSION: No acute intracranial hemorrhage. Stable appearance of the brain suggesting global atrophy. Normal pressure hydrocephalus seems less likely. Electronically signed by: Isaac Moore MD 10/17/2024 09:21 AM EDT
[2024-10-17 05:05] VITALS: BP 153/68; BP 157/72; PULSE 100; PULSE 72; RESP 20; TEMP 36.7; O2SAT 99; BMI 25.7
[2024-10-17 05:25] LABS: Glucose, Whole Blood 166 mg/dL (60-115)
[2024-10-17 05:50] LABS: Basophils Percent Auto 0.3 % (0-2); Eosinophils Percent Auto 0.3 % (0-4); Hematocrit 33.1 % (37.0-47.0); Hemoglobin 11.4 g/dl (12.0-16.0); Imm Gran Abs Auto 0.03 X10*3/uL (0.00-0.03); Imm Gran Pct Auto 0.3 % (0.0-0.4); Lymphocytes Absolute Auto 1.1 X10*3/uL (1.2-4.9); Lymphocytes Percent Auto 9.4 % (20-40); MANUAL DIFF FLAG NO; Mean Corpuscular HGB Conc 34.4 g/dl (31.0-35.0); Mean Corpuscular Hemoglobin 31.3 pg (27.0-33.0); Mean Corpuscular Volume 90.9 fL (80.0-98.0); Mean Platelet Volume 12.5 fL (9.4-12.3); Monocytes Absolute Auto 0.4 X10*3/uL (0.1-1.2); Monocytes Percent Auto 3.1 % (2-11); Neutrophils Absolute Auto 10.3 x10*3/uL (2.0-8.3); Neutrophils Percent Auto 86.6 % (45-73); Platelet Count 200 X10*3/uL (160-400); Red Blood Count 3.64 X10*6/uL (4.20-5.50); Red Cell Distribution Width 13.2 % (11.0-16.0); White Blood Count 11.9 X10*3/uL (4.8-10.8)
--- OUTSIDE RECORDS SUMMARY | 2024-10-17 06:03 | XMS_ITS | Clinical Summary ---
Demographics Address [address] [place] [address] [address] [place] [address] Mobile Phone Home Phone Preferred Language es Marital Status Unknown Scientology Affiliation Unknown Race Unknown Ethnic Group Unknown Author Organization [facility] Address [address] [place] [address] Support Name Relationship Address Phone Herminia Mak Daughter [address] [place] [address] Iqra Read Daughter [address] [place] [address] Care Team Providers Care Nut Cracker Name Role Phone Liliana Novoa MD Primary Care Provider [phone] Allergies No known active allergies Medications No known medications Encounters Date Type Department Care Team Description 10/01/2024 9:00 AM EDT Office Visit [facility] [address] [phone] Chau Fleming DPM Metatarsalgia of left foot (Primary Dx); Diabetic mononeuropathy simplex ([facility] V24, [facility] V28); Ulcer of toe of left foot, limited to breakdown of skin ([facility] V24, [facility] V28) 07/30/2024 9:00 AM EDT Office Visit [facility] [address] [phone] Chau Fleming DPM Metatarsalgia of left foot (Primary Dx); Diabetic mononeuropathy simplex ([facility] V24, [facility] V28) 07/24/2024 Telephone [facility] [address] [phone] Chau Fleming DPM 07/22/2024 10:00 AM EDT Office Visit [facility] [address] [phone] Chau Fleming DPM Cellulitis of left foot (Primary Dx); Ulcer of toe of left foot, with fat layer exposed ([facility] V24, [facility] V28) from Last 3 Months [...] 10:00 AM EDT Office Visit Orthopedic [place] - [place] [address] [phone] Chau Fleming DPM [address] [address] Health Maintenance Due Date Last Done Comments Breast Cancer Screening 1974 Diabetes: Annual GFR (Glomerular Filtration Rate) 1974 Diabetes: Annual Foot Exam 1984 Diabetes: Annual Retina Eye Exam 1984 Cervical Cancer Screening: Pap Smear 10/05/1995 Hepatitis B Vaccines (2 of 3 - 19+ 3-dose series) 09/11/2013 08/14/2013 Pneumococcal Vaccine: 50+ Years (2 of 2 - PCV) 05/16/2019 05/16/2018, 03/13/2015, 02/04/2003, Additional history exists Pneumococcal Vaccine: Pediatrics (0 to 5 Years) [...] Diabetes: Blood Sugar Control Test (HGBA1C) 05/26/2024 Zoster Vaccines (1 of 2) 2024 Influenza Vaccine (Season Ended) 2025 05/15/2023, 06/16/2019, [...] patient's age to complete this topic Insurance [facility] Care Teams Nut Cracker Relationship Specialty Start Date End Date Liliana Novoa MD 2 [facility] , [address] Physician Associ D/B/A: [facility] GRACIELA Liao PCP - General Internal Medicine 02/22/24
--- NOTE | 2024-10-17 06:05 | ED_ITS ---
HPI - General Adult General Chief complaint: Abdominal Pain Stated complaint: DIZZINESS/NAUSEA Time Seen by Provider: 10/17/24 05:57 Source: patient and EMS Mode of arrival: EMS Limitations: no limitations History of Present Illness ED Provider: Dr. Eloisa Urias HPI narrative: Patient comes to the emergency room complaining of a migraine headache. Patient states that earlier today, she had an episode hypoglycemia consciousness. Patient was not feeling well, her family checked her glucose and it was 70. Patient was given p.o. glucose and food. EMS was called as well, patient's glucose improved to above 100. Patient states that shortly after EMS left, patient started having a migraine headache. Patient states that she feels very nauseous and has bilateral frontal headache. Complaining of photophobia, denies visual changes Related Data Home Medications ?Medication ?Instructions ?Recorded ?Confirmed citalopram 40 mg tablet 40 mg PO DAILY 11/20/22 02/28/24 metoclopramide HCl 5 mg tablet 5 mg PO QIDACHS 03/12/24 03/12/24 (Reglan) duloxetine 20 mg capsule,delayed 20 mg PO BID 04/22/24 release Previous Rx's ?Medication ?Instructions ?Recorded FreeStyle Lite Meter #1 ea 11/17/20 (blood-glucose meter) Shower Chair #1 ea 02/06/21 walker #1 ea 08/17/22 hydroxyzine HCl 25 mg tablet 25 mg PO BEDTIME 90 days #90 tabs 05/15/23 cholecalciferol (vitamin D3) 125 125 mcg PO DAILY #30 caps 06/18/23 mcg (5,000 unit) capsule lisinopril 20 mg tablet 20 mg PO DAILY #30 tabs 10/23/23 oxybutynin chloride 10 mg 10 mg PO DAILY 90 days #90 tabs 10/23/23 tablet,extended release 24 hr Tirosint 125 mcg capsule 125 mcg PO DAILY 90 days #90 caps 12/05/23 (levothyroxine) metoclopramide HCl 5 mg tablet 5 mg PO TID 30 days #90 tabs 12/05/23 gabapentin 300 mg capsule 300 mg PO TID 30 days #90 caps 01/10/24 cifpuyxieh-srgzauaglejok-dvboiwrg 1 tab PO Q6H PRN hussein #14 tabs 03/02/24 50 mg-325 mg-40 mg tablet FreeStyle Lite Strips (blood sugar #200 ea 03/18/24 diagnostic) atorvastatin 80 mg tablet 80 mg PO BEDTIME 90 days #90 tabs 06/01/24 blood-glucose sensor (FreeStyle #2 ea 06/04/24 Ade 3 Plus Sensor device) glucagon 3 mg/actuation nasal 3 mg intranasal ONCE PRN 06/04/24 spray (Baqsimi) unresponsive hypoglycemia #2 ea insulin degludec 200 unit/mL (3 50 unit (0.25 mL) subcut BEDTIME 06/04/24 mL) subcutaneous pen (Tresiba 90 days #25 mL FlexTouch U-200 insulin) insulin lispro 100 unit/mL 1 sliding scale dose subcut 06/13/24 subcutaneous pen USEASDIRECTD 30 days #15 mL lancets 28 gauge (FreeStyle #100 ea 07/25/24 Lancets) lancets 33 gauge (TRUEplus Lancets) #100 ea 09/12/24 Allergies Allergy/AdvReac Type Severity Reaction Status Date / Time No Known Allergies Allergy Verified 10/17/24 05:09 Review of Systems 2 Review of Systems: Constitutional : No Weight loss, No Fever, No Chills, No Night Sweats, No Fatigue, No Malaise ENT/Mouth : No Hearing loss, No Ear Pain, No Nasal Congestion, No Sinus Pain, No Hoarseness, No sore throat, No Rhinorrhea, No Swallowing Difficulty Eyes: No Eye Pain, No Swelling, No Redness, No Foreign Body, No Discharge, No Vision Changes Cardiovascular : No Chest Pain, No SOB, No Dyspnea on Exertion, No Orthopnea, No Edema, No Palpitations Respiratory : No Cough, No Sputum, No Wheezing, No Smoke Exposure, No Dyspnea Gastrointestinal : Complaining of nausea and vomiting, No Diarrhea, No Constipation, No abdominal Pain, No Hematochezia, No Melena Genitourinary : no irregular bleeding, No Dysuria, No Urinary Frequency, No Hematuria, No Urinary Incontinence, No Urgency, No Flank Pain, No Urinary Flow Changes, No Hesitancy Musculoskeletal : No joint pain, No Myalgias, No Joint Swelling Skin : No Skin Lesions, No rash Neuro : No Weakness, No Numbness, No Paresthesias, No Loss of Consciousness, No Dizziness, complaining of a migraine headache Psych : No Anxiety/Panic, No Depression, No SI/HI/AH/VH, No Social Issues, Heme/Lymph: No Bruising, No Bleeding,No Lymphadenopathy Endocrine : No Polyuria, No Polydipsia, No Temperature Intolerance, complaining of an episode of hypoglycemia earlier today that resolved with p.o. intake and the glucose p[facility]. [facility] Past Medical History Medical History Acute abdominal pain in right upper quadrant Diabetic foot ulcer Left foot pain Women's annual routine gynecological examination Swelling of right eyelid Physical exam Screening for cervical cancer Wound of left foot Wound of left foot Metatarsal fracture Right hand pain Multinodular thyroid Hypothyroidism HTN (hypertension) HLD (hyperlipidemia) T1DM (type 1 diabetes mellitus) Vitamin D deficiency 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 Hypothyroidism Diabetic polyneuropathy associated with type 1 diabetes mellitus Diabetic retinopathy associated with type 1 diabetes mellitus Dyslipidemia Diabetic gastroparesis Essential hypertension Diabetes type 1, uncontrolled Surgical History History of surgical procedure on eye proper using laser Family History Family History Father Diabetes Substance use disorder Mother Diabetes Hypertension Social History Social History Household Members: None Housing: Apartment Alcohol intake: never Patient Tobacco Use Status: Former Tobacco user Smoked in Last 30 Days: No e-Cigarette/Vaping Use: Never Used Second Hand Smoke Exposure: Yes Use of substances other than those prescribed or required for medical reasons: No Advance Directives: No Do you have a plan to hurt others: No Plan Patient : No service: No Current occupational status: unemployed and disabled Current occupation: rt handed Cognitive needs: No Hearing needs: No Vision needs: No Physical Exam ED Vital Signs: Vital Signs - 24 hr 10/17/24 05:05 10/17/24 07:17 10/17/24 08:00 Temperature 98.0 F 98.4 F 98.1 F Pulse Rate 100 83 74 Respiratory Rate 20 17 15 Blood Pressure 153/68 H 148/66 H 126/52 L Pulse Oximetry 99 100 99 Oxygen Delivery Method Room Air Room Air Room Air BMI result Body Mass Index 25.7 Const Other: Appearance: Alert. Oriented X3. Patient looks very uncomfortable, holding her head Eyes: Pupils equal, round and reactive to light. Patient has photophobia ENT: Pharynx normal. Neck: Normal inspection. Neck supple. No lymph nodes noted. No crepitus CVS: Normal heart rate and rhythm. Pulses normal. Normal S1 and S2 Respiratory: No respiratory distress. Breath sounds normal. No Wheezing. No rales Abdomen: Soft and nontender. No rigidity. No distention. Skin: Skin warm and dry. Normal skin color. Normal skin turgor. Extremities: No lower extremity edema. No Lacerations. No Rash Neuro: Oriented X 3. No motor deficit. No sensory deficit. Moving all extremities. No slurred speech. CN 2 through 12 grossly intact Psych: calm, cooperative, normal affect Course Course Course Narrative: Patient complaining of a migraine headache. Patient states that she has been diagnosed with migraines in the past. All of patient's labs pending Pain patient receiving IV fluids, Reglan, Toradol and Benadryl+ Medications Administered Discontinued Medications Generic Name Dose Route Start Last Admin Trade Name Valdoq PRN Reason Stop Dose Admin Acetaminophen/Butalbital/Caffeine 1 tab 10/17/24 06:56 10/17/24 08:24 Butalb/Acetamin/Caff 50/325/40 Tablet PO 10/17/24 06:57 1 tab ONCE ONE Administration Diphenhydramine HCl 25 mg 10/17/24 06:04 10/17/24 06:30 Diphenhydramine Hcl 50 Mg/Ml Vial IVPUSH 10/17/24 06:05 25 mg ONCE ONE Administration Sodium Chloride 1,000 mls @ 999 mls/hr 10/17/24 06:04 10/17/24 07:21 Ns IVCONT 10/17/24 07:04 Infused .Q1H1M ONE Infusion Ketorolac Tromethamine 30 mg 10/17/24 06:04 10/17/24 06:29 Ketorolac Tromethamine 30 Mg/Ml Vial IVPUSH 10/17/24 06:05 30 mg ONCE ONE Administration Metoclopramide HCl 10 mg 10/17/24 06:04 10/17/24 06:30 Metoclopramide Hcl 10 Mg/2 Ml Vial IVPUSH 10/17/24 06:05 10 mg ONCE ONE Administration Medical Decision Making Medical Decision Making [facility] Narrative: My interpretation of labs: Patient's white blood cell count 11.9, likely reactive leukocytosis, no source of infection. No fever, no episodes of hypotension, chemistry shows no acute abnormality, normal LFTs, troponin is negative, hCG my lipase normal, serology negative for influenza RSV and COVID After patient received the above-mentioned medications, patient states that the headache did improve, now it 7/10. Patient receiving a dose of p.o. Fioricet. Patient states that the nausea seems to be more controlled. No vomiting at this time. If patient's symptoms do not improve with medications, patient may need a CT scan. Sign-out given to my colleague Dr. Thomas 712: I, Dr. Thomas have take over the care of this patient, I reviewed pertinent blood work and imaging, re-evaluated the patient when appropriate. Patient states her headache is improving however not fully resolved, we will recheck her point of care glucose, and we will obtain imaging of the brain, from patient's presentation to the did not sound like that she presented with sudden onset of headache to suspect subarachnoid hemorrhage and she has history of migraines. 0930 a.m. patient re-evaluated, feeling better, CT head negative, still somewhat sleepy, did tell me that she has someone who is able to pick her up from ED Differential Diagnosis Differential Diagnoses: The differential diagnosis associated with the presentation includes (Patient headache, migraine headache) Admission/Observation Consideration of admission/observation: Escalation of care including admission/observation considered (Given patient's initial presentation and severity of the headache, admission was considered) Lab Data MDM Lab Attestation statement: I reviewed the patient's lab results. 10/17/24 05:45 10/17/24 05:45 Labs: Lab Results 10/17/24 10/17/24 10/17/24 Range/Units 05:03 05:45 05:46 WBC 11.9 H (4.8-10.8) X10*3/uL RBC 3.64 L (4.20-5.50) X10*6/uL Hgb 11.4 L (12.0-16.0) g/dl Hct 33.1 L (37.0-47.0) % MCV 90.9 (80.0-98.0) fL MCH 31.3 (27.0-33.0) pg MCHC 34.4 (31.0-35.0) g/dl RDW 13.2 (11.0-16.0) % Plt Count 200 (160-400) X10*3/uL MPV 12.5 H (9.4-12.3) fL Immature Gran % (Auto) 0.3 (0.0-0.4) % Neut % (Auto) 86.6 H (45-73) % Lymph % (Auto) 9.4 L (20-40) % [place] % (Auto) 3.1 (2-11) % Eos % (Auto) 0.3 (0-4) % Baso % (Auto) 0.3 (0-2) % Lymph # (Auto) 1.1 L (1.2-4.9) X10*3/uL [place] # (Auto) 0.4 (0.1-1.2) X10*3/uL Eos # (Auto) 0.0 (0.0-0.4) X10*3/uL Baso # (Auto) 0.0 (0.0-0.2) X10*3/uL Abs Immat Gran (auto) 0.03 (0.00-0.03) X10*3/uL Absolute Neuts (auto) 10.3 H (2.0-8.3) x10*3/uL Absolute Nucleated RBC 0.000 (0.0-0.012) X10*3/uL Nucleated RBC % (auto) 0.0 (0.0-0.2) /100WBC Sodium 138 (135-145) mmol/L Potassium 3.9 (3.3-5.1) mmol/L Chloride 103 (96-108) mmol/L Carbon Dioxide 28 (22-29) mmol/L Anion Gap 11 L (12-20) BUN 10 (9-16) mg/dL Creatinine 0.75 (0.5-1.4) mg/dL Estim Creat Clear Calc 81.8 Estimated GFR > 60 POC Glucose 166 H (60-115) mg/dL Random Glucose 161 H (60-115) mg/dL Calcium 9.2 (8.4-10.2) mg/dL Total Bilirubin 0.4 (0.0-1.0) mg/dL AST 28 (5-31) U/L ALT 31 (0-31) U/L Alkaline Phosphatase 101 (39-117) U/L Troponin I High Sens < 2.7 (<3.5-17.0) ng/L Total Protein 6.7 (6.5-8.0) g/dL Albumin 4.2 (3.5-5.0) g/dL Lipase 8 (8-78) U/L Beta HCG, Quant < 2 mIU/mL Urine Color Urine Appearance Urine pH (5.0-9.0) Ur Specific [place] (1.005-1.025) Urine Protein (Neg-Trace) mg/dL Urine Glucose (UA) (Negative) mg/dL Urine Ketones (Negative) mg/dL Urine Blood (Negative) Urine Nitrite (Negative) Ur Leukocyte Esterase (Negative) Urine RBC (0-2) /HPF Urine WBC (0-5) /HPF Ur Squamous Epith Cells (0-2) /HPF Urine Bacteria (None Seen) Hyaline Casts (0-2) /LPF Influenza Type A (PCR) NEGATIVE (Negative) Influenza Type B (PCR) NEGATIVE (Negative) RSV RNA Qual (PCR) NEGATIVE (Negative) SARS-CoV-2 RNA (RT-PCR) NEGATIVE (Negative) 10/17/24 10/17/24 Range/Units 07:14 08:28 WBC (4.8-10.8) X10*3/uL RBC (4.20-5.50) X10*6/uL Hgb (12.0-16.0) g/dl Hct (37.0-47.0) % MCV (80.0-98.0) fL MCH (27.0-33.0) pg MCHC (31.0-35.0) g/dl RDW (11.0-16.0) % Plt Count (160-400) X10*3/uL MPV (9.4-12.3) fL Immature Gran % (Auto) (0.0-0.4) % Neut % (Auto) (45-73) % Lymph % (Auto) (20-40) % [place] % (Auto) (2-11) % Eos % (Auto) (0-4) % Baso % (Auto) (0-2) % Lymph # (Auto) (1.2-4.9) X10*3/uL [place] # (Auto) (0.1-1.2) X10*3/uL Eos # (Auto) (0.0-0.4) X10*3/uL Baso # (Auto) (0.0-0.2) X10*3/uL Abs Immat Gran (auto) (0.00-0.03) X10*3/uL Absolute Neuts (auto) (2.0-8.3) x10*3/uL Absolute Nucleated RBC (0.0-0.012) X10*3/uL Nucleated RBC % (auto) (0.0-0.2) /100WBC Sodium (135-145) mmol/L Potassium (3.3-5.1) mmol/L Chloride (96-108) mmol/L Carbon Dioxide (22-29) mmol/L Anion Gap (12-20) BUN (9-16) mg/dL Creatinine (0.5-1.4) mg/dL Estim Creat Clear Calc Estimated GFR POC Glucose 135 H (60-115) mg/dL Random Glucose (60-115) mg/dL Calcium (8.4-10.2) mg/dL Total Bilirubin (0.0-1.0) mg/dL AST (5-31) U/L ALT (0-31) U/L Alkaline Phosphatase (39-117) U/L Troponin I High Sens (<3.5-17.0) ng/L Total Protein (6.5-8.0) g/dL Albumin (3.5-5.0) g/dL Lipase (8-78) U/L Beta HCG, Quant mIU/mL Urine Color Yellow Urine Appearance Clear Urine pH 8.0 (5.0-9.0) Ur Specific [place] 1.010 (1.005-1.025) Urine Protein Negative (Neg-Trace) mg/dL Urine Glucose (UA) Negative (Negative) mg/dL Urine Ketones Negative (Negative) mg/dL Urine Blood Negative (Negative) Urine Nitrite Negative (Negative) Ur Leukocyte Esterase Small (1+) H (Negative) Urine RBC 0-2 (0-2) /HPF Urine WBC 0-5 (0-5) /HPF Ur Squamous Epith Cells 0-2 (0-2) /HPF Urine Bacteria None Seen (None Seen) Hyaline Casts 0-2 (0-2) /LPF Influenza Type A (PCR) (Negative) Influenza Type B (PCR) (Negative) RSV RNA Qual (PCR) (Negative) SARS-CoV-2 RNA (RT-PCR) (Negative) Radiology Impression Discussion of test interpretation with radiology: I have reviewed the radiologist's reading. Radiologist Impression: CT/CT head/brain wo IV con IMPRESSION: No acute intracranial hemorrhage. Stable appearance of the brain suggesting global atrophy. Normal pressure hydrocephalus seems less likely. Critical Care Time Critical Care Time Critical Care Time: Yes Total Critical Care Time: 45 Attestation: I have personally provided critical care time. Time includes review of lab data, radiology results, discussion with consultants, and monitoring for potential decompensation. Intervention performed as documented. Discharge Plan Discharge Clinical Impression: Headache, migraine Patient Disposition: Home, Self-Care Additional Instructions: Continue to stay well hydrated, take all your medications on regular basis, make sure to eat and drink on regular basis to prevent low glucose, your workup today including blood work, cat scan of the brain EKG all of which has been reassuring you were medicated for pain and discomfort with the improvement, follow up with the PCP worsening issues concerns come back to the Prescriptions: No Action (DME) blood-glucose meter [FreeStyle Lite Meter] Kit See Rx Instructions miscellaneous .MEDSUPPLY Qty: 1 0RF Rx Instructions: 6 times a day (DME) Shower Chair Misc See Rx Instructions .Route Qty: 1 0RF Rx Instructions: As directed (DME) [facility] [place] See Rx Instructions .Route Qty: 1 0RF Rx Instructions: As directed cholecalciferol (vitamin D3) 125 mcg (5,000 unit) capsule 125 mcg PO DAILY Qty: 30 6RF oxybutynin chloride 10 mg tablet extended release 24hr 10 mg PO DAILY 90 Days Qty: 90 1RF lisinopril 20 mg tablet 20 mg PO DAILY Qty: 30 11RF metoclopramide HCl 5 mg tablet 5 mg PO TID 30 Days Qty: 90 6RF levothyroxine [Tirosint] 125 mcg capsule 125 mcg PO DAILY 90 Days Qty: 90 3RF gabapentin 300 mg capsule 300 mg PO TID 30 Days Qty: 90 6RF (DME) FreeStyle Lite Strips Strip See Rx Instructions .MEDSUPPLY Qty: 200 11RF Rx Instructions: 6 times a day atorvastatin 80 mg tablet 80 mg PO BEDTIME 90 Days Qty: 90 3RF (DME) lancets [TRUEplus Lancets] 33 gauge misc See Rx Instructions .Route Qty: 100 3RF Rx Instructions: tid as needed ybccuoxqcx-gdnlkoxacgqun-nzjb 50-325-40 mg tablet 1 tab PO Q6H PRN (Reason: hussein) Qty: 14 0RF Rx Instructions: do not exceed 6 tabs per 24 hrs hydroxyzine HCl 25 mg tablet 25 mg PO BEDTIME 90 Days Qty: 90 0RF duloxetine 20 mg capsule,delayed release(DR/EC) 20 mg PO BID insulin degludec [Tresiba FlexTouch U-200] 200 unit/mL (3 mL) insulin pen 50 unit subcut BEDTIME 90 Days Qty: 25 5RF (DME) FreeStyle Ade 3 Plus Sensor Device See Rx Instructions .ROUTE .MEDSUPPLY Qty: 2 11RF Rx Instructions: continous glucose sensor change every 15 days Baqsimi 3 mg/actuation spray,non-aerosol 3 mg intranasal ONCE MDD 6mg PRN (Reason: unresponsive hypoglycemia) Qty: 2 1RF Rx Instructions: may repeat in 15 minutes insulin lispro 100 unit/mL insulin pen 1 sliding scale dose subcut USEASDIRECTD 30 Days Qty: 15 6RF Rx Instructions: 101-150 4 units 151-200 6 units 201-250 8-10 units 251-300 12 unit for 300 take 14 units for meal (DME) lancets [FreeStyle Lancets] 28 gauge misc See Rx Instructions .ROUTE .MEDSUPPLY Qty: 100 1RF Rx Instructions: 4 times a day prn sensor failure or to confirm glucose citalopram 40 mg tablet 40 mg PO DAILY metoclopramide HCl [Reglan] 5 mg tablet 5 mg PO QIDACHS Referrals: Liliana Thayer MD [Primary Care Provider] - 2 weeks Print Language: Irish
[2024-10-17 06:12] LABS: Alanine Aminotransferase 31 U/L (0-31); Albumin Level 4.2 g/dL (3.5-5.0); Alkaline Phosphatase 101 U/L (39-117); Anion Gap 11 (12-20); Aspartate Amino Transferase 28 U/L (5-31); Bilirubin Total 0.4 mg/dL (0.0-1.0); Blood Urea Nitrogen 10 mg/dL (9-16); Calcium 9.2 mg/dL (8.4-10.2); Carbon Dioxide 28 mmol/L (22-29); Chloride 103 mmol/L (96-108); Creatinine Clr Calc Pharmacy 81.8; Estimated Glomerular Filt Rate > 60; Glucose Random 161 mg/dL (60-115); Lipase 8 U/L (8-78); Potassium 3.9 mmol/L (3.3-5.1); Sodium 138 mmol/L (135-145); Total Protein 6.7 g/dL (6.5-8.0)
[2024-10-17 06:14] LABS: HCG Quantitative < 2 mIU/mL
[2024-10-17 06:29] LABS: Influenza A PCR NEGATIVE (Negative); Influenza B PCR NEGATIVE (Negative); Resp Syncy Virus RNA Qual PCR NEGATIVE (Negative); SARS COV2 PCR INHOUSE NEGATIVE (Negative)
[2024-10-17 06:29] LABS: Troponin-I High Sensitivity < 2.7 ng/L (<3.5-17.0)
[2024-10-17] MEDS: Ketorolac Tromethamine 30 MG/ML VIAL IVPUSH (06:29)
[2024-10-17] MEDS: Metoclopramide HCl 10 MG/2 ML VIAL IVPUSH (06:30)
[2024-10-17] MEDS: diphenhydrAMINE HCL 50 MG/ML VIAL 25 MG IVPUSH (06:30)
[2024-10-17] MEDS: 0.9 % Sodium Chloride 1,000 ML 999 ML IVCONT (06:30)
[2024-10-17 07:17] VITALS: BP 148/66; PULSE 83; RESP 17; TEMP 36.9; O2SAT 100
[2024-10-17 07:21] LABS: Glucose, Whole Blood 135 mg/dL (60-115)
[2024-10-17 08:00] VITALS: BP 126/52; PULSE 74; RESP 15; TEMP 36.7; O2SAT 99
[2024-10-17] MEDS: Butalb/Acetamin/Caff 50/325/40 TABLET 1 TAB PO (08:24)
[2024-10-17 09:00] LABS: Appearance Urine Clear; Color Urine Yellow; Glucose Urine UA Negative (Negative); Leukocyte Esterase Urine Small (1+) (Negative); Nitrite Urine Negative (Negative); UMIC TRIGGER UACC YES; Urine Blood Negative (Negative); Urine Ketones Negative (Negative); Urine Protein Negative (Neg-Trace)
[2024-10-17 09:12] LABS: Bacteria Urine None Seen (None Seen); Hyaline Casts Urine 0-2 /LPF (0-2); RBC Urine 0-2 /HPF (0-2); Squamous Epithelial Cell Urine 0-2 /HPF (0-2); UACC Culture Trigger YES; WBC Urine 0-5 /HPF (0-5)
[2024-10-17 09:50] VITALS: BP 137/53; PULSE 74; RESP 15; TEMP 36.7; O2SAT 100
[2024-10-17 10:04] VITALS: BP 137/53; PULSE 74; RESP 15; TEMP 36.7; O2SAT 100
== END 2024-10-17 10:04 | disposition home or self-care (01) ==
PROVIDERS: Emergency Provider Emergency Medicine; PCP Internal Medicine
DX: G43.909 Migraine, unspecified, not intractable, without status migrainosus (principal); R07.9 Chest pain, unspecified; Z03.818 Encounter for observation for suspected exposure to other biological agents ruled out; Z79.899 Other long term (current) drug therapy
CPT/HCPCS: 0241U; 36415; 70450; 80053; 81001; 82947; 83690; 84484; 84702; 85025; 87086; 87147; 93005; 96361; 96374; 96375; 99212; 99284; 99285; J1200; J1885; J2765

== ENCOUNTER → 2024-10-17 05:10 | Outpatient (BNV) | payer OTHER, SELFPAY | PROVIDERS: Emergency Provider Emergency Medicine; PCP Internal Medicine; Visit Provider Internal Medicine Cardiovascular Disease | DX: R07.9 Chest pain, unspecified (principal) | CPT/HCPCS: 93010 ==

== ENCOUNTER → 2024-10-17 07:14 | Outpatient (BNV) | payer OTHER, SELFPAY | PROVIDERS: Emergency Provider Emergency Medicine; PCP Internal Medicine; Visit Provider Radiology Diagnostic Radiology | DX: R51.9 Headache, unspecified (principal) | CPT/HCPCS: 70450 ==

== ENCOUNTER 2024-12-02 09:28 | Outpatient (AMB) | payer OTHER, SELFPAY ==
--- NOTE | 2024-12-02 09:30 | MHC.OFFVIS ---
Vital Signs 12/02/24 09:38 Height 5 ft 3 in Weight 152 lb 8.958 oz BMI 27.0 BP 146/64 H Blood Pressure Location Rt brachial Position Sitting Pulse 73 Pulse Source Pulse Oximeter Pulse Oximetry (%) 99 Oxygen Delivery Method Room Air Intake Visit Reasons: Type 1 DM Intake Note: Patient present today to follow up on Type 1 Diabetes Mellitus. Diabetic supplies come from [employer] and insulin from pharmacy. Last Diabetic Eye exam: 07/2024 Last Podiatry Visit: 11/2024 Random Glucose: 123 mg/dl HgA1C: 9.1% Heavy Equipment Operating Engineer Required: Yes Heavy Equipment Operating Engineer Language: Grain Elevator Worker Services: Heavy Equipment Operating Engineer Present Heavy Equipment Operating Engineer Name: [id number] Information Interpreted: non-clinical & clinical Accompanied by: Self / Same As Patient Allergies No Known Allergies Allergy (Verified 12/02/24 09:44) Medication List - Last Reconciled 12/02/24 by Jacinto Márquez MD atorvastatin 80 mg PO BEDTIME 90 days blood-glucose sensor (FreeStyle Ade 3 Plus Sensor device) continous glucose sensor change every 15 days Held on 07/25/24. Instructions: Doctor's Order ztlyjboosu-jvlhhsoecvbcp-abtf 50-325-40 mg 1 tab PO Q6H PRN cholecalciferol (vitamin D3) 125 mcg PO DAILY citalopram 40 mg PO DAILY duloxetine 20 mg PO BID FreeStyle Lite Meter (blood-glucose meter) 6 times a day NS FreeStyle Lite Strips (blood sugar diagnostic) 6 times a day NS gabapentin 300 mg PO TID 30 days glucagon 3 mg/actuation (Baqsimi) 3 mg intranasal ONCE PRN MDD 6mg hydroxyzine HCl 25 mg PO BEDTIME 90 days insulin degludec (Tresiba FlexTouch U-200 insulin) 50 units (0.25 mL) subcut BEDTIME 90 days insulin lispro 1 sliding scale dose subcut USEASDIRECTD 30 days lancets (FreeStyle Lancets) 4 times a day prn sensor failure or to confirm glucose lancets (TRUEplus Lancets) tid as needed lisinopril 20 mg PO DAILY metoclopramide HCl 5 mg PO TID 30 days metoclopramide HCl (Reglan) 5 mg PO QIDACHS oxybutynin chloride ER 10 mg PO DAILY 90 days Shower Chair As directed Tirosint (levothyroxine) 125 mcg PO DAILY 90 days NS walker As directed HPI Comments Details: 49 YO F with PMHx T1DM, Hypothyroidism and NTMNG who is seen in F/U for diabetes. Today's visit is for type 1 diabetes. She was last seen by Genesis Castro NP on 09/16/24 She was followed by the wound center for an ulcer over a bunion.. She s now followed closely by podiatry and surgery is planned for the future to correct her significant structural deformities. Podiatry was seeing her every 2 weeks. The ulcer is now healed and she has follow up in 2 months. Recommended padding/insoles She has severe gastroparesis, and when using humalog prior to eating has severe hypoglycemia postprandially due to the delayed gastric absorption. She has all complications of T1DM including retinopathy, neuropathy and nephropathy. 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 Hgb A1C 07/25/24 9.8%. Up from 9.3% (tresiba had been adjusted downward due to a low earlier in the year, Initially diagnosed with T1DM at the age of 10. Tresiba 42 (adjusted down from 50 units due to prior severe hypoglycemia) Humalog premeal tid Breakfast and supper 101-150 4 units 151-200 6 units 201-250 8-10 units 251-300 12 units over 300 take 14 units Dexcom download shows average glucose to be 238 with G mi of 9.0% and standard deviation of 92 and coefficient of variation 38.6%. 29% range with 25% hyperglycemia and 45% very hyperglycemic and 1% hypoglycemia. Pen shows persistent hyperglycemia throughout the day with minimal increase his post-meal Very rare hypoglycemia Treats lows with juice. Checks sugar after to ensure it is rising. Follows the rule of 15's. Has retinopathy. Followed by [facility]. Last appointment injecting the eye/laser Has neuropathy. Checks feet daily and does not walk barefooted followed by Dr. Fleming seen recently Denies nephropathy, on Lisinopril 10 mg PO daily. microalbumin 05/11/23 35 06/06/24 eGFR>60 Has HLD, on Atorvastatin 20 mg PO daily. LDL 95 07/07/2022. Denies history of CAD. She has severe gastroparesis. She uses reglan 5 mg PO prior to every meal. She will be seeing Carmen PEREZ to initiate pre pump.. She is interested in Omnipod 5 with Dexcom. 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 Hypothyroidism Diabetic polyneuropathy associated with type 1 diabetes mellitus Diabetic retinopathy associated with type 1 diabetes mellitus Dyslipidemia Diabetic gastroparesis Essential hypertension Diabetes type 1, uncontrolled Surgical History History of surgical procedure on eye proper using laser Family History Father Diabetes Substance use disorder Mother Diabetes Hypertension Social History Household Members: None Housing: Apartment Alcohol intake: never Patient Tobacco Use Status: Former Tobacco user e-Cigarette/Vaping Use: Never Used Second Hand Smoke Exposure: Yes service: No Current occupational status: unemployed and disabled Current occupation: rt handed Cognitive needs: No Hearing needs: No Vision needs: No Female Reproductive History Menstrual Age of Menarche: 11 Physical Exam Vital Signs: Last Vital Signs Pulse 73 12/02/24 09:38 BP 146/64 H 12/02/24 09:38 Pulse Ox 99 12/02/24 09:38 Oxygen Delivery Method Room Air 12/02/24 09:38 BMI result Body Mass Index 27.0 Const Other: Absence of Cushingoid features. Absence of acromegalic features. Neck exam reveals nl size thyroid about 15 gms. No thyroid nodules palpable. Heart S1 S2, Reg R/R. No M/R G. Skin exam reveals absence of vitiligo or acanthosis nigricans. NO edema Visual exam of foot performed. Significant structural deformities No ulcerations or open lesions. No inter digit maceration or fissuring. No onychomycosis, large callous bilateral 1st MTP. Sensation intact to monofilament exam. Vibratory sensation is normal with 128 Hz tuning fork. Results AMB Hemoglobin A1c AMB Hemoglobin A1c 9.1 % Last Edit by DIANE Calderon on 12/02/24 09:59 Results Reviewed Results Reviewed: Laboratory Last Values Glucose (Clinic) 123 mg/dL (60-115) H 12/02/24 09:47 Hgb A1c (Clinic) 9.1 % (4.0-6.0) H 12/02/24 09:51 Assessment & Plan Assessment & Plan (1) Diabetes type 1, uncontrolled: Code(s): E10.65 - Type 1 diabetes mellitus with hyperglycemia Category: Medical Qualifiers: Glycemic state: with hyperglycemia Qualified Code(s): E10.65 - Type 1 diabetes mellitus with hyperglycemia Plan: This is a 49-year-old female with a history of type 1 diabetes being treated with basal-bolus insulin with poor glycemic control and known microvascular complications including etinopathy, neuropathy and nephropathy.. Plan is to have the patient follow up with the life skills educator for initiation of the Omnipod pump. Because of the history of hypoglycemic unawareness, would be very cautious about adjusting the basal insulin encouraged the patient to transition to the pump. I did this through a marketing graphics specialist. 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 Claims compliance with Tirosint. 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
[2024-12-02 09:38] VITALS: BP 146/64; PULSE 73; O2SAT 99; BMI 27.0
[2024-12-02 09:52] LABS: Glucose, Whole Blood 123 mg/dL (60-115)
--- OUTSIDE RECORDS SUMMARY | 2024-12-02 09:59 | XMS_ITS | Clinical Summary ---
Author Organization [facility] Address [address] [place] [address] Support Name Relationship Address Phone Herminia Mak Daughter [address] [facility] [address] [place] [address] Iqra Read Daughter [address] [facility] [address] [place] [address] Care Team Providers Care Admitting Counselor Name Role Phone Liliana Novoa MD Primary Care Provider Allergies No known active allergies Medications No known medications Encounters Date Type Department Care Team Description 11/26/2024 9:30 AM EDT Office Visit Orthopedic Surgery [facility] [address] [phone] Chau Fleming DPM Metatarsalgia of left foot (Primary Dx); Acquired hammer toe of right foot; Hammer toe of left foot; Type II diabetes mellitus with peripheral circulatory disorder ([facility] V24, [facility] V28); Metatarsalgia of both feet; Corns and callosities; Follow-up exam 10/27/2024 10:00 AM EDT Office Visit Orthopedic Surgery [facility] [address] [phone] Chau Fleming DPM Ulcer of toe of left foot, limited to breakdown of skin ([facility] V24, [facility] V28) (Primary Dx); Metatarsalgia of left foot; Acquired hammer toe of right foot; Hammer toe of left foot; Type II diabetes mellitus with peripheral circulatory disorder ([facility] V24, [facility] V28); Metatarsalgia of both feet; Dermatophytosis of nail; Diabetic mononeuropathy simplex ([facility] V24, [facility] V28) 10/01/2024 9:00 AM EDT Office Visit Orthopedic [facility] [address] [phone] Chau Fleming DPM Metatarsalgia of left foot (Primary Dx); Diabetic mononeuropathy simplex ([facility] V24, [facility] V28); Ulcer of toe of left foot, limited to breakdown of skin ([facility] V24, [facility] V28) from Last 3 Months Social History [...] - Inhaled Oxygen Concentration - - Weight 66.2 kg (146 lb) 11/26/2024 9:49 AM EDT Height 150 cm (4' 11.06 ) 11/26/2024 9:49 AM EDT Body Mass Index 29.43 11/26/2024 9:49 AM EDT Plan of Treatment Upcoming Encounters Date Type Department Care Team (Late st Contact Info) Description 01/08/2025 2:00 PM EDT Office Visit Orthopedic [place] [address] [phone] Chau Fleming DPM [address] [address] Health Maintenance Due Date Last Done Comments [...] Panel) 02/22/2024 Colorectal Cancer Screening: Colonoscopy 02/22/2024 HIV Screening 02/22/2024 Hepatitis C Screening 02/22/2024 Social Influencers of Health Screening 02/22/2024 Depression Screening 05/07/2024 Diabetes: Annual Urine Albumin-Creatinine Ratio (uACR) 05/26/2024 Diabetes: Blood Sugar Control Test (HGBA1C) 05/26/2024 Zoster Vaccines (1 of 2) 2024 Influenza Vaccine (#1) 2025 4, 06/16/2019, 05/16/2018, Additional history exists DTaP,Tdap,and Td [...] patient's age to complete this topic Insurance [facility] [employer] Care Teams Admitting Counselor Relationship Specialty Start Date End Date Liliana Novoa MD [address] [facility] , [address] [facility] D/B/A: [facility] GRACIELA Liao PCP - General Internal Medicine 02/22/24
== END 2024-12-02 10:11 | disposition home or self-care (01) ==
LOC: HO.ENCR 09:28
PROVIDERS: PCP Internal Medicine; Visit Provider Internal Medicine Endocrinology, Diabetes & Metabolism
DX: E10.65 Type 1 diabetes mellitus with hyperglycemia (principal); E03.8 Other specified hypothyroidism; E06.3 Autoimmune thyroiditis; Z13.9 Encounter for screening, unspecified
CPT/HCPCS: 99214

== ENCOUNTER → 2024-12-02 09:28 | Outpatient (BNVA) | payer OTHER, SELFPAY | PROVIDERS: PCP Internal Medicine; Visit Provider Internal Medicine Endocrinology, Diabetes & Metabolism | DX: E10.65 Type 1 diabetes mellitus with hyperglycemia (principal); E06.3 Autoimmune thyroiditis; E03.8 Other specified hypothyroidism | CPT/HCPCS: 82947; 83036; 99212 ==

== ENCOUNTER 2025-01-19 09:24 | Outpatient (REF) | payer OTHER, SELFPAY ==
[2025-01-19 14:57] LABS: Resp Syncy Virus RNA Qual PCR NEGATIVE (Negative); SARS COV2 PCR INHOUSE NEGATIVE (Negative)
== END 2025-01-19 09:25 | disposition home or self-care (01) ==
LOC: HO.LAB 09:24
PROVIDERS: PCP Internal Medicine; Visit Provider Nurse Practitioner Family
DX: J06.9 Acute upper respiratory infection, unspecified (principal); Z87.891 Personal history of nicotine dependence
CPT/HCPCS: 87637; 99212

== ENCOUNTER 2025-01-19 09:24 | Outpatient (AMB) | payer OTHER, SELFPAY ==
[2025-01-19 10:12] VITALS: BP 126/68; PULSE 79; RESP 16; TEMP 36.8; O2SAT 97; BMI 26.4
--- NOTE | 2025-01-19 10:12 | AM.OFFWIN_ITS ---
Intake Vital Signs 01/19/25 10:12 Height 5 ft 3 in Weight 149 lb BMI 26.4 BP 126/68 Blood Pressure Location Lt brachial Position Sitting Respiration 16 Pulse 79 Pulse Source Pulse Oximeter Temp 98.3 F Temp Source Oral Pulse Oximetry (%) 97 Intake Visit Reasons: EP-?covid symptoms Patient Tobacco Use Status: Former Tobacco user Allergies No Known Allergies Allergy (Verified 01/19/25 10:14) HPI HPI Comments History of Present Illness Details 49 y/o Female patient who presents to [facility] walk in clinic with c/o URI symptoms since Sunday. Reports Nasal/chest congestion, cough, runny nose and Sore-throat. She has not taken any OTC medications. Denies fevers, Chills, Nausea and vomiting. Denies any recent contact with infected. [facility] Medical History Acute abdominal pain in right upper quadrant Diabetic foot ulcer Left foot pain Women's annual routine gynecological examination Swelling of right eyelid Physical exam Screening for cervical cancer Wound of left foot Wound of left foot Metatarsal fracture Right hand pain Multinodular thyroid Hypothyroidism HTN (hypertension) HLD (hyperlipidemia) T1DM (type 1 diabetes mellitus) Vitamin D deficiency 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 Hypothyroidism Diabetic polyneuropathy associated with type 1 diabetes mellitus Diabetic retinopathy associated with type 1 diabetes mellitus Dyslipidemia Diabetic gastroparesis Essential hypertension Diabetes type 1, uncontrolled Surgical History History of surgical procedure on eye proper using laser Family History Father Diabetes Substance use disorder Mother Diabetes Hypertension Social History Household Members: None Housing: Apartment Alcohol intake: never Patient Tobacco Use Status: Former Tobacco user e-Cigarette/Vaping Use: Never Used Second Hand Smoke Exposure: Yes service: No Current occupational status: unemployed and disabled Current occupation: rt handed Cognitive needs: No Hearing needs: No Vision needs: No Female Reproductive History Menstrual Age of Menarche: 11 Review of Systems Const All systems reviewed & are unremarkable except as noted in HPI and below Physical Exam Vital Signs: Last Vital Signs Temp 98.3 F 01/19/25 10:12 Pulse 79 01/19/25 10:12 Resp 16 01/19/25 10:12 BP 126/68 01/19/25 10:12 Pulse Ox 97 01/19/25 10:12 BMI result Body Mass Index 26.4 Const General: no acute distress Nutritional Appearance: well nourished Orientation/consciousness: patient oriented x3 HEENT Head: Yes normocephalic Ears: external ears normal and TM abnormal with fluid behind the TM bilateral General nose exam: Nasal discharge present Face and sinus: Yes sinuses nontender Mouth: moist mucous membranes Throat: Yes uvula midline Resp Effort & Inspection: normal respiratory effort Auscultation: clear to auscultation bilaterally, no crackles, no rales, no rhonchi and no wheezes Cardio Heart sounds: S1 normal heart sound present and S2 normal heart sound present Neuro General: patient oriented x3 Assessment & Plan Assessment & Plan (1) Acute respiratory disease: Code(s): J06.9 - Acute upper respiratory infection, unspecified Plan: Ordered SARs Acetaminophen for pain relief. OTC remedies. Orders: Orders SARS-CoV2/FLU/RSV Today J06.9 - Acute upper respiratory infection, unspecified Medications: New dextromethorphan polistirex ER (Delsym 12 hour) 10 mL PO Q12H 89 mL 0RF cough J06.9 - Acute upper respiratory infection, unspecified benzonatate 200 mg (2 x 100 mg) PO BID 60 caps 0RF J06.9 - Acute upper respiratory infection, unspecified pseudoephedrine HCl ER (Sudafed 12 Hour) 120 mg PO Q12H 20 tabs 0RF J06.9 - Acute upper respiratory infection, unspecified Discontinued oirhgckwiu-rvzsfzcajrehc-fgth 50-325-40 mg do not exceed 6 tabs per 24 hrs Discontinued Reason: Doctor's Order 1 tab PO Q6H PRN 14 tabs 0RF hussein Coding Level of Care Code Est Pt Level 4 (67393) Diagnoses Acute respiratory disease J06.9 Time Spent (min) 20
--- OUTSIDE RECORDS SUMMARY | 2025-01-19 11:10 | XMS_ITS | Clinical Summary ---
Author Organization [facility] Address [address] [place] [address] Support Name Relationship Address Phone Herminia Mak Daughter [address] [place] [address] Iqra Read Daughter [address] [facility] [address] [place] [address] Care Team Providers Care Electromechanical Assembly Technician Name Role Phone Liliana Novoa MD Primary Care Provider [phone] Allergies No known active allergies Medications No known medications Encounters Date Type Department Care Team Description 11/26/2024 9:30 AM EDT Office Visit Orthopedic Surgery [facility] [address] [phone] Chau Fleming DPM Metatarsalgia of left foot (Primary Dx); Acquired hammer toe of right foot; Hammer toe of left foot; Type II diabetes mellitus with peripheral circulatory disorder ([facility] V24, [facility] V28); Metatarsalgia of both feet; Corns and callosities; Follow-up exam 10/27/2024 10:00 AM EDT Office Visit Orthopedic [facility] [address] [phone] Chau Fleming DPM Ulcer of toe of left foot, limited to breakdown of skin ([facility] V24, [facility] V28) (Primary Dx); Metatarsalgia of left foot; Acquired hammer toe of right foot; Hammer toe of left foot; Type II diabetes mellitus with peripheral circulatory disorder ([facility] V24, [facility] V28); Metatarsalgia of both feet; Dermatophytosis of nail; Diabetic mononeuropathy simplex ([facility] V24, [facility] V28) from Last 3 Months [...] Care Team (Late st Contact Info) Description 02/17/2025 8:15 AM EDT Office Visit Orthopedic Surgery - [place] [address] [phone] Chau Fleming, DPM [address] [phone] Health Maintenance Due Date Last Done Comments Breast Cancer Screening 1974 Diabetes: Annual GFR (Glomerular Filtration Rate) 1974 Diabetes: Annual Foot Exam 1984 Diabetes: Annual Retina Eye Exam 1984 Cervical Cancer Screening: Pap Smear 10/05/1995 Hepatitis B Vaccines (2 of 3 - 19+ 3-dose series) 09/11/2013 08/14/2013 Pneumococcal Vaccine: 50+ Years (2 of 2 - PCV) 05/16/2019 05/16/2018, 03/13/2015, 02/04/2003, Additional history exists Cholesterol Screening (Lipid Panel) 02/22/2024 Colorectal Cancer Screening: Colonoscopy 02/22/2024 HIV Screening 02/22/2024 Hepatitis C Screening 02/22/2024 Social Influencers of Health Screening 02/22/2024 Depression Screening 05/07/2024 Diabetes: Annual Urine Albumin-Creatinine Ratio (uACR) 05/26/2024 Diabetes: Blood Sugar Control Test (HGBA1C) 05/26/2024 Zoster Vaccines (1 of 2) 2024 COVID-19 Vaccine ( - 2025-26 season) 2025 05/03/2021, 08/16/2020 Influenza Vaccine (#1) 2025 , 06/16/2019, 05/16/2018, Additional history exists DTaP,Tdap,and Td [...] age to complete this topic Insurance [facility] [employer] Care Teams Electromechanical Assembly Technician Relationship Specialty Start Date End Date Liliana Novoa MD [address] [place] [address] , [address] [facility] D/B/A: [facility] [place] PCP - General Internal Medicine 02/22/24
== END 2025-01-19 10:58 | disposition home or self-care (01) ==
PROVIDERS: PCP Internal Medicine; Visit Provider Nurse Practitioner Family
DX: J06.9 Acute upper respiratory infection, unspecified (principal)

== ENCOUNTER 2025-04-08 13:45 | Outpatient (AMB) | payer OTHER, SELFPAY ==
[2025-04-08 13:48] VITALS: BP 112/56; PULSE 85; TEMP 36.7; O2SAT 99; BMI 26.0
--- NOTE | 2025-04-08 13:48 | MHC.PC.OV ---
Vital Signs 04/08/25 13:48 Height 5 ft 3 in Weight 147 lb BMI 26.0 BP 112/56 L Blood Pressure Location Lt brachial Position Sitting Pulse 85 Pulse Source Pulse Oximeter Temp 98.1 F Temp Source Oral Pulse Oximetry (%) 99 Oxygen Delivery Method Room Air Intake Visit Reasons: dm/migraine- repeat A1C! Before School Required: No Accompanied by: Self / Same As Patient Allergies No Known Allergies Allergy (Verified 04/08/25 14:12) Medication List - Last Reconciled 04/08/25 by Liliana Novoa MD atorvastatin 80 mg PO BEDTIME 90 days benzonatate 200 mg (2 x 100 mg) PO BID blood-glucose sensor (FreeStyle Ade 3 Plus Sensor device) continous glucose sensor change every 15 days Held on 07/25/24. Instructions: Doctor's Order cholecalciferol (vitamin D3) 125 mcg PO DAILY citalopram 40 mg PO DAILY dextromethorphan polistirex ER (Delsym 12 hour) 10 mL PO Q12H duloxetine 20 mg PO BID FreeStyle Lite Meter (blood-glucose meter) 6 times a day NS FreeStyle Lite Strips (blood sugar diagnostic) 6 times a day NS gabapentin 300 mg PO TID 30 days glucagon 3 mg/actuation (Baqsimi) 3 mg intranasal ONCE PRN MDD 6mg hydroxyzine HCl 25 mg PO BEDTIME 90 days insulin degludec (Tresiba FlexTouch U-200 insulin) 50 units (0.25 mL) subcut BEDTIME 90 days insulin lispro 1 sliding scale dose subcut USEASDIRECTD 30 days lancets (FreeStyle Lancets) 4 times a day prn sensor failure or to confirm glucose lancets (TRUEplus Lancets) tid as needed lisinopril 20 mg PO DAILY metoclopramide HCl 5 mg PO TID 30 days metoclopramide HCl (Reglan) 5 mg PO QIDACHS oxybutynin chloride ER 10 mg PO DAILY 90 days pseudoephedrine HCl ER (Sudafed 12 Hour) 120 mg PO Q12H Shower Chair As directed Tirosint (levothyroxine) 125 mcg PO DAILY 90 days NS walker As directed Tobacco use date assessed: 04/08/25 Dental Screening Dental Screen Date: 04/08/25 Did you have a dental visit in the last 12 months?: Yes HPI HPI Comments History of Present Illness Details The patient is a 49 year old individual presenting for a follow-up visit to manage multiple chronic conditions including diabetes, thyroid disorder, depression, and high cholesterol. The patient's diabetes is poorly controlled, with a recent A1c of 9.3% and a prior A1c of 9.1% in November. The patient's medication regimen includes Tresiba, which was recently reduced to 42 units, and Lispro on a sliding scale. The patient reports episodes of hypoglycemia, including one prior to this visit where the patient consumed a sandwich to raise blood sugar. Complications from diabetes include advanced diabetic neuropathy, for which the patient takes gabapentin, and diabetic gastroparesis, managed with metoclopramide. The patient also has a chronic ulcer on the left foot, which has shown poor healing due to uncontrolled blood sugar. Other chronic conditions include hypothyroidism, for which the patient takes levothyroxine and is in need of a refill and lab work. The patient also has depression with anxiety, treated with citalopram and duloxetine, and urinary incontinence treated with oxybutynin. The patient has been experiencing right shoulder pain for several months, which is linked to a fall a couple of years ago that also resulted in a finger fracture. The pain limits range of motion in the right arm, and there is residual decreased sensation in the previously fractured finger. The patient also had a fall last year and uses a walker at home and a cane when feeling unsteady. 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 Hypothyroidism Diabetic polyneuropathy associated with type 1 diabetes mellitus Diabetic retinopathy associated with type 1 diabetes mellitus Dyslipidemia Diabetic gastroparesis Essential hypertension Diabetes type 1, uncontrolled Surgical History History of surgical procedure on eye proper using laser Family History Father Diabetes Substance use disorder Mother Diabetes Hypertension Social History Household Members: None Housing: Apartment Alcohol intake: never Patient Tobacco Use Status: Former Tobacco user e-Cigarette/Vaping Use: Never Used Second Hand Smoke Exposure: Yes service: No Current occupational status: unemployed and disabled Current occupation: rt handed Cognitive needs: Yes (cane) Hearing needs: No Vision needs: Yes (glasses) Female Reproductive History Menstrual Age of Menarche: 11 Questionnaire PHQ-9 Over the last 2 weeks, how often have you been bothered by any of the following problems? 1. Little interest or pleasure in doing things: not at all 2. Feeling down, depressed, or hopeless: not at all 3. Trouble falling or staying asleep, or sleeping too much: not at all 4. Feeling tired or having little energy: not at all 5. Poor appetite or overeating: not at all 6. Feeling bad about yourself - or that you are a failure or have let yourself or your family down: not at all 7. Trouble concentrating on things, such as reading the newspaper or watching television: not at all 8. Moving or speaking so slowly that other people could have noticed. Or the opposite - being so fidgety or restless that you have been moving around a lot more than usual: not at all 9. Thoughts that you would be better off or of hurting yourself in some way: not at all Total score: 0 Depression Screening Interpretation: Negative Depression Screening Done: Yes 01761 - PHQ-9 Billing: Yes Source: Developed by Drs. Jacinto Romo, Myra Flores, Ata Burnett and colleagues, with an educational mora from [employer]. Thrive Questionnaire Date Thrive assessed: 06/13/24 I am a: Patient What is your living situation today?: I have a steady place to live THRIVE Score: 0 DAMION-7 AMB Questionnaire DAMION-7 Date DAMION - 7 assessed: 04/08/25 Source: Developed by Drs. Jacinto Romo, Myra Flores, Ata Burnett and colleagues, with an educational mora from [employer]. Review of Systems Const All systems reviewed & are unremarkable except as noted in HPI and below Card Denies chest pain at rest, Denies chest pain with activity, Denies edema, Denies irregular heart rhythm, Denies claudication, Denies dyspnea, Denies dyspnea on exertion, Denies orthopnea, Denies paroxysmal nocturnal dyspnea and Denies slow heart rate Resp Denies cough, Denies dyspnea and Denies dyspnea on exertion GI Denies abdominal pain, Denies change in bowel habits, Denies excessive flatus, Denies nausea and Denies vomiting Physical exam (Primary Care) Vital Signs: Last Vital Signs Temp 98.1 F 04/08/25 13:48 Pulse 85 04/08/25 13:48 BP 112/56 L 04/08/25 13:48 Pulse Ox 99 04/08/25 13:48 Oxygen Delivery Method Room Air 04/08/25 13:48 BMI result Body Mass Index 26.0 Tobacco/Smoking Status: Tobacco use Status Tobacco use date assessed 04/08/25 04/08/25 13:49 Patient Tobacco Use Status Former Tobacco user 04/08/25 13:49 e-Cigarette/Vaping Use Never Used 04/08/25 13:49 PHQ-9: PHQ-9 Score PHQ-9: Total score 0 04/08/25 14:42 Depression Screening Interpretation: Negative Thrive Assessment: Date of Thrive Assessment Date Thrive assessed 06/13/24 04/08/25 13:49 Resp Effort & Inspection: normal respiratory effort Auscultation: clear to auscultation bilaterally Cardio Jugular venous distension: no JVD Rate: regular rate Rhythm: regular rhythm Heart sounds: S1 normal heart sound present and S2 normal heart sound present Extrem General: Yes full ROM Office Procedures Flu Questionnaire Does the patient have a severe egg allergy?: No Does the patient have severe life threatening allergies?: No Does the patient have a fever or illness today?: No Has the patient ever had Guillain-[place] Syndrome?: No Has the patient ever had any past reaction to a flu shot?: No Results AMB Hemoglobin A1c AMB Hemoglobin A1c 9.3 % Last Edit by Carmen Huang CMA on 04/08/25 14:31 Immunizations Fluarix [id number] (PF) 45 mcg (15 mcg x 3)/0.5 mL IM syringe Performing Provider: Liliana Novoa MD [facility] Documented (not given) by: Carmen Huang CMA on 04/08/25 14:42 Reason Not Given: Not Given Results Reviewed Results Reviewed: Laboratory Last Values Hgb A1c (Clinic) 9.3 % (4.0-6.0) H 04/08/25 14:31 Coding Level of Care Code Complex visit Add On G2211 Diagnoses Right shoulder pain M25.511 Uncontrolled type 1 diabetes mellitus with hyperglycemia E10.65 Glycemic state: with hyperglycemia Mild major depression F32.0 Essential hypertension I10 Dyslipidemia E78.5 Diabetic foot ulcer E11.621; L97.509 Hypothyroidism E03.9 Diabetic gastroparesis E11.43; K31.84 Additional Codes PHQ-9 - 12132 - PHQ-9 Billing: Yes ([id number]) Time Spent (min) 24 Assessment & Plan Assessment & Plan (1) Right shoulder pain: Code(s): M25.511 - Pain in right shoulder Category: Medical (2) Diabetes type 1, uncontrolled: Code(s): E10.65 - Type 1 diabetes mellitus with hyperglycemia Category: Medical Qualifiers: Glycemic state: with hyperglycemia Qualified Code(s): E10.65 - Type 1 diabetes mellitus with hyperglycemia (3) Mild major depression: Code(s): F32.0 - Major depressive disorder, single episode, mild Category: Medical (4) Essential hypertension: Code(s): I10 - Essential (primary) hypertension Category: Medical (5) Dyslipidemia: Code(s): E78.5 - Hyperlipidemia, unspecified Category: Medical (6) Diabetic foot ulcer: Code(s): E11.621 - Type 2 diabetes mellitus with foot ulcer; L97.509 - Non-pressure chronic ulcer of other part of unspecified foot with unspecified severity Category: Medical (7) Hypothyroidism: Code(s): E03.9 - Hypothyroidism, unspecified Category: Medical (8) Diabetic gastroparesis: Code(s): E11.43 - Type 2 diabetes mellitus with diabetic autonomic (poly)neuropathy; K31.84 - Gastroparesis Category: Medical Plan Plan 1. Diabetes Mellitus, Poorly Controlled The patient's A1c of 9.3% indicates poorly controlled diabetes which is contributing to impaired wound healing. An order will be placed for labs, including A1c and cholesterol levels. 2. Left Foot Ulcer The patient has a scheduled appointment on May 20 to follow up on the foot ulcer. The patient was advised to continue cleaning the wound with soap and water and to protect the foot. 3. Right Shoulder Pain The patient's right shoulder pain and limited range of motion are possibly due to bursitis. An X-ray of the shoulder and a referral for physical therapy will be ordered. 4. Hypothyroidism The patient ran out of levothyroxine. A lab order for thyroid studies will be placed and a refill will be provided. Orders: Orders AMB Hemoglobin A1c Today Z13.9 - Encounter for screening, unspecified Influenza [id number] Immunization Today Z23 - Encounter for immunization Lipid Panel Today E78.5 - Hyperlipidemia, unspecified Microalbumin, Random (w Creat) Today R80.9 - Proteinuria, unspecified Vitamin D 25-OH Total Today E55.9 - Vitamin D deficiency, unspecified Vitamin B12 and Folate Today E53.8 - Deficiency of other specified B group vitamins XR shoulder RT min 2V Today M25.511 - Pain in right shoulder Comprehensive Somis. Panel Fast Today E10.65 - Type 1 diabetes mellitus with hyperglycemia Thyroid Stimulating Hormone Today E03.8 - Other specified hypothyroidism, E06.3 - Autoimmune thyroiditis PT Evaluation and Treatment Today M25.511 - Pain in right shoulder
--- OUTSIDE RECORDS SUMMARY | 2025-04-08 16:28 | XMS_ITS | Clinical Summary ---
Demographics Address [address] [place] [address] [address] [place] [address] Mobile Phone Home Phone Preferred Language es Marital Status Unknown Gnosticism Affiliation Unknown Race Unknown Ethnic Group Unknown Author Organization [facility] Address [address] [place] [address] Support Name Relationship Address Phone Herminia Mak Daughter [address] [place] [address] Iqra Read Daughter [address] [place] [address] Care Team Providers Care Speech And Hearing Clinic Director Name Role Phone Liliana Novoa MD Primary Care Provider [phone] Allergies No known active allergies Medications atorvastatin (LIPITOR) 80 mg tablet Take 1 tablet (80 mg total) by mouth. at bedtime. 12/12/19 25 Active blood sugar diagnostic (FreeStyle Lite Strips) test strip TEST BLOOD SUGAR SIX TIMES DAILY 12/12/19 25 Active DULoxetine (CYMBALTA) [address] capsule Take 1 capsule (20 mg total) by mouth 2 (two) times a day. 09/20/19 25 Active gabapentin (NEURONTIN) 300 mg capsule Take 1 capsule (300 mg total) by mouth. 12/12/19 25 Active Baqsimi 3 mg/actuation nasal spray USE 1 SPRAY (3MG) IN ONE NOSTRIL FOR A PATIENT WITH SEVERE HYPOGLYCEMIA WHO IS NOT RESPONSIVE AND UNABLE SELF-TREAT WITH GLUCOSE. AFTERWARDS TURN ON SIDE. MAY REPEAT IN 15MINUTES IF PATIENT DOES NOT RESPOND. 06/04/19 25 Active Tresiba FlexTouch U-200 200 unit/mL (3 mL) CONCENTRATED injection pen Inject 50 Units under the skin. at bedtime 12/12/19 25 Active insulin lispro (HumaLOG KwikPen) 100 unit/mL injection pen INJECT SUBCUTANEOUSLY DIRECTED PER SLIDING SCALE 80-100 = 2 UNITS, 101-150 = 4 UNITS, 151-200 = 6 UNITS, 201-250 = 10 UNITS, 251-300 = 14 UNITS FOR 300 INJECT 16 UNITS FOR BREAKFAST AND DINNER, FOR LUNCH 80-100 = 2 UNITS, 101-200 = 4 UNITS, 201-250 = 8 UNITS, 250-300 = 12 UNITS > 300 = 16 UNITS 05/23/19 25 Active TRUEplus Lancets 33 gauge misc USE DIRECTED THREE TIMES DAILY TO CHECK BLOOD SUGAR 12/12/19 25 Active lisinopriL (PRINIVIL,ZESTRIL) 20 mg tablet Take 1 tablet (20 mg total) by mouth 1 (one) time each day. 12/12/19 25 Active metoclopramide (REGLAN) 5 mg tablet Take 1 tablet (5 mg total) by mouth 3 (three) times a day. 10/29/19 25 Active naproxen (NAPROSYN) 250 mg tablet Take 1 tablet (250 mg total) by mouth 2 (two) times a day if needed. for pain 05/16/19 25 Active ondansetron ODT (ZOFRAN-ODT) 4 mg disintegrating tablet Dissolve 1 tablet (4 mg total) on top of the tongue every 8 (eight) hours if needed. for nausea and vomiting 06/06/19 25 Active oxyBUTYnin XL (DITROPAN-XL) 10 mg 24 hr tablet Take 1 tablet (10 mg total) by mouth 1 (one) time each day. 08/22/19 25 Active prednisoLONE acetate (PRED FORTE) 1 % ophthalmic suspension INSTILL 1 DROP IN THE AFFECTED EYE FOUR TIMES DAILY FOR 4 DAYS THEN STOP 06/10/19 25 Active Encounters Date Type Department Care Team Description 02/17/2025 8:15 AM EDT Office Visit Orthopedic Surgery - [address] [address] Chau Fleming, DPM Metatarsalgia of left foot (Primary Dx); Corns and callosities; Acquired hammer toe of right foot; Hammer toe of left foot; Type II diabetes mellitus with peripheral circulatory disorder ([facility] V24, [facility] V28); Metatarsalgia of both feet; Dermatophytosis of nail; Diabetic mononeuropathy simplex ([facility] V24, [facility] V28) from Last 3 Months Social History [...] Care Team (Late st Contact Info) Description 05/20/2025 9:00 AM EST Office Visit Orthopedic Surgery - [place] [address] [address] Chau Fleming, NAOMI [address] [address] Health Maintenance Due Date Last Done Comments Breast Cancer Screening 1974 Colorectal Cancer Screening: Colonoscopy 1974 Diabetes: Annual GFR (Glomerular Filtration Rate) 1974 Diabetes: Annual Foot Exam 1984 Diabetes: Annual Retina Eye Exam 1984 Cervical Cancer Screening: Pap Smear 10/05/1995 Hepatitis B Vaccines (2 of 3 - 19+ 3-dose series) 09/11/2013 08/14/2013 Pneumococcal Vaccine: 50+ Years (2 of 2 - PCV) 05/16/2019 05/16/2018, 03/13/2015, 02/04/2003, Additional history exists Cholesterol Screening (Lipid Panel) 02/22/2024 HIV Screening 02/22/2024 Hepatitis C Screening 02/22/2024 Social Influencers of Health Screening 02/22/2024 Depression Screening 05/07/2024 Diabetes: Annual Urine Albumin-Creatinine Ratio (uACR) 05/26/2024 Diabetes: Blood Sugar Control Test (HGBA1C) 05/26/2024 RSV Immunization Adult Patients (1 - Risk 50-74 years 1-dose series) 2024 Zoster Vaccines (1 of 2) 2024 COVID-19 Vaccine (3 - 2024-26 season) 2025 05/03/2021, 08/16/2020 Influenza Vaccine (#1) [...] patient's age to complete this topic Insurance [facility] Care Teams Speech And Hearing Clinic Director Relationship Specialty Start Date End Date Liliana Novoa MD [address] [place] [address] , [address] [facility] [place] [facility] PCP - General Internal Medicine 02/22/24
== END 2025-04-08 14:35 | disposition home or self-care (01) ==
LOC: HO.HMCH 13:45
PROVIDERS: PCP Internal Medicine; Visit Provider Internal Medicine
DX: M25.511 Pain in right shoulder (principal); E10.65 Type 1 diabetes mellitus with hyperglycemia; F32.0 Major depressive disorder, single episode, mild; I10 Essential (primary) hypertension; E78.5 Hyperlipidemia, unspecified; E11.621 Type 2 diabetes mellitus with foot ulcer; L97.509 Non-pressure chronic ulcer of other part of unspecified foot with unspecified severity; E03.9 Hypothyroidism, unspecified; E11.43 Type 2 diabetes mellitus with diabetic autonomic (poly)neuropathy; K31.84 Gastroparesis; Z23 Encounter for immunization; Z13.9 Encounter for screening, unspecified

== ENCOUNTER → 2025-04-08 13:45 | Outpatient (BNVA) | payer OTHER, SELFPAY | PROVIDERS: PCP Internal Medicine; Visit Provider Internal Medicine | DX: M25.511 Pain in right shoulder (principal); Z28.9 Immunization not carried out for unspecified reason; F32.0 Major depressive disorder, single episode, mild; I10 Essential (primary) hypertension; E78.5 Hyperlipidemia, unspecified; E10.43 Type 1 diabetes mellitus with diabetic autonomic (poly)neuropathy; E10.65 Type 1 diabetes mellitus with hyperglycemia; E10.621 Type 1 diabetes mellitus with foot ulcer; L97.509 Non-pressure chronic ulcer of other part of unspecified foot with unspecified severity; E03.9 Hypothyroidism, unspecified; K31.84 Gastroparesis | CPT/HCPCS: 83036; 90471; 96127; 99212 ==

== ENCOUNTER 2025-04-09 13:20 | Outpatient (AMB) | payer OTHER, SELFPAY ==
--- NOTE | 2025-04-09 13:28 | MHC.OFFVIS ---
Vital Signs 04/09/25 13:32 Height 5 ft 3 in Weight 149 lb 11.102 oz BMI 26.5 BP 110/56 L Blood Pressure Location Rt brachial Position Sitting Pulse 78 Pulse Source Pulse Oximeter Pulse Oximetry (%) 98 Oxygen Delivery Method Room Air Intake Visit Reasons: T1DM Intake Note: Patient present today to follow up on Type 1 Diabetes Mellitus. Diabetic supplies come from [employer]. Last Diabetic Eye exam: 07/2024 Last Podiatry Visit: 11/2024 Random Glucose: 116 mg/dl HgA1C: 9.3% 04/08/2025 Reconciling Clerk Required: Yes Reconciling Clerk Language: Visualization Developer Services: Reconciling Clerk Present Reconciling Clerk Name: [facility] Endo eY Information Interpreted: non-clinical & clinical Accompanied by: Self / Same As Patient Allergies No Known Allergies Allergy (Verified 04/09/25 13:33) HPI Comments Details: 49 YO F with PMHx T1DM, Hypothyroidism and NTMNG who is seen in F/U for diabetes. Today's visit is for type 1 diabetes. She was followed by the wound center for an ulcer over a bunion.. She s now followed closely by podiatry and surgery is planned for the future to correct her significant structural deformities. Podiatry was seeing her every 2 weeks. The ulcer is now healed and she has follow up in 2 months. Recommended padding/insoles She has severe gastroparesis, and when using humalog prior to eating has severe hypoglycemia postprandially due to the delayed gastric absorption. She has all complications of T1DM including retinopathy, neuropathy and nephropathy. 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 Hgb A1C 07/25/24 9.8%. Up from 9.3% (tresiba had been adjusted downward due to a low earlier in the year, Initially diagnosed with T1DM at the age of 10. Tresiba 42 (adjusted down from 50 units due to prior severe hypoglycemia) Humalog premeal tid Breakfast and supper 101-150 4 units 151-200 6 units 201-250 8-10 units 251-300 12 units over 300 take 14 units Dexcom download shows average glucose to be 296 with G mi of 10.4 % and standard deviation of 92 and coefficient of variation 31.0 %. 12% range with 21% hyperglycemia and 66% very hyperglycemic and 1% hypoglycemia. Pen shows persistent hyperglycemia throughout the day with minimal increase his post-meal Very rare hypoglycemia Treats lows with juice. Checks sugar after to ensure it is rising. Follows the rule of 15's. Has retinopathy. Followed by Bridger Zelaya and [facility]. Last appointment 2 mos ago injecting the eye/laser Has neuropathy. Checks feet daily and does not walk barefooted followed by Dr. Fleming seen recently Denies nephropathy, on Lisinopril 10 mg PO daily. microalbumin 05/11/23 35 06/06/24 eGFR>60 Has HLD, on Atorvastatin 20 mg PO daily. LDL 95 07/07/2022. Denies history of CAD. She has severe gastroparesis. She uses reglan 5 mg PO prior to every meal. She will be seeing Carmen PEREZ to initiate pre pump.. She is interested in Omnipod 5 with Dexcom. Patient never followed up for initiation of the pump [facility] Medical History Acute respiratory disease Acute abdominal pain in right upper quadrant Diabetic foot ulcer Left foot pain Women's annual routine gynecological examination Swelling of right eyelid Physical exam Screening for cervical cancer Wound of left foot Wound of left foot Metatarsal fracture Right hand pain Multinodular thyroid Hypothyroidism HTN (hypertension) HLD (hyperlipidemia) T1DM (type 1 diabetes mellitus) Vitamin D deficiency 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 Hypothyroidism Diabetic polyneuropathy associated with type 1 diabetes mellitus Diabetic retinopathy associated with type 1 diabetes mellitus Dyslipidemia Diabetic gastroparesis Essential hypertension Diabetes type 1, uncontrolled Surgical History History of surgical procedure on eye proper using laser Family History Father Diabetes Substance use disorder Mother Diabetes Hypertension Social History Household Members: None Housing: Apartment Alcohol intake: never Patient Tobacco Use Status: Former Tobacco user e-Cigarette/Vaping Use: Never Used Second Hand Smoke Exposure: Yes service: No Current occupational status: unemployed and disabled Current occupation: rt handed Cognitive needs: Yes (cane) Hearing needs: No Vision needs: Yes (glasses) Female Reproductive History Menstrual Age of Menarche: 11 Physical Exam Vital Signs: Last Vital Signs Pulse 78 04/09/25 13:32 BP 110/56 L 04/09/25 13:32 Pulse Ox 98 04/09/25 13:32 Oxygen Delivery Method Room Air 04/09/25 13:32 BMI result Body Mass Index 26.5 Const Other: Absence of Cushingoid features. Absence of acromegalic features. Neck exam reveals nl size thyroid about 15 gms. No thyroid nodules palpable. Heart S1 S2, Reg R/R. No M/R G. Skin exam reveals absence of vitiligo or acanthosis nigricans. NO edema Visual exam of foot performed. Significant structural deformities No ulcerations or open lesions. No inter digit maceration or fissuring. No onychomycosis, large callous bilateral 1st MTP. Sensation intact to monofilament exam. Vibratory sensation is normal with 128 Hz tuning fork. Results Reviewed Results Reviewed: Laboratory Last Values Glucose (Clinic) 116 mg/dL (60-115) H 04/09/25 13:37 Assessment & Plan Assessment & Plan (1) Diabetes type 1, uncontrolled: Code(s): E10.65 - Type 1 diabetes mellitus with hyperglycemia Category: Medical Qualifiers: Glycemic state: with hyperglycemia Qualified Code(s): E10.65 - Type 1 diabetes mellitus with hyperglycemia Plan: This is a 49-year-old female with a history of type 1 diabetes being treated with basal-bolus insulin with poor glycemic control and known microvascular complications including etinopathy, neuropathy and nephropathy.. Plan is to have the patient follow up with the community educator for initiation of the Omnipod pump. Because of the history of hypoglycemic unawareness, would cautiously adjusting the basal insulin to 46 units encouraged the patient to transition to the pump. I did this through a plate gauger. The patient was instructed to check the lipid profile ordered by her primary care provider (2) Hypothyroidism: Code(s): E03.9 - Hypothyroidism, unspecified Category: Medical Qualifiers: Hypothyroidism type: due to Alfa's thyroiditis Qualified Code(s): E03.8 - Other specified hypothyroidism; E06.3 - Autoimmune thyroiditis Plan: Currently on Tirosint 125 ug. Claims compliance with Tirosint. 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
[2025-04-09 13:32] VITALS: BP 110/56; PULSE 78; O2SAT 98; BMI 26.5
[2025-04-09 13:41] LABS: Glucose, Whole Blood 116 mg/dL (60-115)
== END 2025-04-09 13:46 | disposition home or self-care (01) ==
LOC: HO.ENCR 13:20
PROVIDERS: PCP Internal Medicine; Visit Provider Internal Medicine Endocrinology, Diabetes & Metabolism
DX: E10.65 Type 1 diabetes mellitus with hyperglycemia (principal); E03.8 Other specified hypothyroidism; E06.3 Autoimmune thyroiditis
CPT/HCPCS: 99214

== ENCOUNTER → 2025-04-09 13:20 | Outpatient (BNVA) | payer OTHER, SELFPAY | PROVIDERS: PCP Internal Medicine; Visit Provider Internal Medicine Endocrinology, Diabetes & Metabolism | DX: E10.65 Type 1 diabetes mellitus with hyperglycemia (principal); E03.8 Other specified hypothyroidism; E06.3 Autoimmune thyroiditis; Z79.899 Other long term (current) drug therapy | CPT/HCPCS: 82947; 99212 ==

== ENCOUNTER 2025-05-06 09:22 | Outpatient (REF) | payer OTHER, SELFPAY ==
--- NOTE | ~2025-05-06 | XR_ITS ---
EXAMINATION: XR SHOULDER 2 OR MORE VIEWS RIGHT HISTORY: M25.511 - Pain in right shoulder COMPARISON: Comparison is made with the prior examination dated 06/14/2018. FINDINGS: Four views of the right shoulder are submitted. Osseous mineralization is normal. There is no fracture or dislocation. Again seen is mild degenerative change of the glenohumeral and acromioclavicular joints. The soft tissues are unremarkable. XR/XR shoulder RT min 2V IMPRESSION: Mild degenerative changes. Electronically signed by: Jacinto Francis MD 05/06/2025 10:02 AM ANA HURLEY
--- OUTSIDE RECORDS SUMMARY | 2025-05-06 09:40 | XMS_ITS | Clinical Summary ---
Demographics Address [address] [place] [address] [address] [place] [address] Mobile Phone Home Phone Preferred Language es Marital Status Unknown Congregational Affiliation Unknown Race Unknown Ethnic Group Unknown Author Organization [facility] Address [address] [place] [address] Support Name Relationship Address Phone Herminia Mak Daughter [address] [place] [address] Iqra Read Daughter [address] [place] [address] Care Team Providers Care Casey Saw Operator Name Role Phone Liliana Novoa MD Primary Care Provider [phone] Allergies No known active allergies Medications atorvastatin [...] AM EDT Office Visit Orthopedic Surgery - [address] [address] Chau Fleming, DPM Metatarsalgia of left foot (Primary Dx); Corns and callosities; Acquired hammer toe of right foot; Hammer toe of left foot; Type II diabetes mellitus with peripheral circulatory disorder ([facility] V24, [facility] V28); Metatarsalgia of both feet; Dermatophytosis of nail; Diabetic mononeuropathy simplex ([facility] V24, [facility] V28) from Last 3 Months Social [...] AM EST Office Visit Orthopedic Surgery - [place] [phone] [address] Chau Fleming, NAOMI [address] [address] Health Maintenance Due Date Last [...] this topic Insurance [facility] Care Teams Casey Saw Operator Relationship Specialty Start Date End Date Liliana Novoa MD [address] [place] [address] , [address] [facility] D/B/A: [facility] [place] PCP - General Internal Medicine 02/22/24
[2025-05-06 10:39] LABS: Microalbum/Creatinine Ratio Ur 12.2 ug/mg cr (<30)
[2025-05-06 10:56] LABS: Alanine Aminotransferase 43 U/L (0-31); Albumin Level 4.4 g/dL (3.5-5.0); Alkaline Phosphatase 124 U/L (39-117); Anion Gap 10 (12-20); Aspartate Amino Transferase 36 U/L (5-31); Blood Urea Nitrogen 13 mg/dL (9-16); Calcium 9.7 mg/dL (8.4-10.2); Carbon Dioxide 31 mmol/L (22-29); Chloride 104 mmol/L (96-108); Cholesterol 106 mg/dL (<200); Estimated Glomerular Filt Rate > 60; HDL Cholesterol 46 mg/dL (>40); Potassium 4.3 mmol/L (3.3-5.1); Sodium 141 mmol/L (135-145); Total Protein 7.1 g/dL (6.5-8.0); Triglycerides 69 mg/dL (<150)
[2025-05-06 11:00] LABS: Thyroid Stimulating Hormone 8.96 uIU/mL (0.32-4.0)
[2025-05-06 11:32] LABS: Folate 11.6 ng/mL (> or = 4.0); Vitamin B12 255 pg/mL (200-900)
== END 2025-05-06 09:23 | disposition home or self-care (01) ==
LOC: HO.XRAY 09:22
PROVIDERS: PCP Internal Medicine; Visit Provider Internal Medicine
DX: M25.511 Pain in right shoulder (principal); E10.65 Type 1 diabetes mellitus with hyperglycemia; E55.9 Vitamin D deficiency, unspecified; E53.8 Deficiency of other specified B group vitamins; E78.5 Hyperlipidemia, unspecified; E03.8 Other specified hypothyroidism; E06.3 Autoimmune thyroiditis; R80.9 Proteinuria, unspecified
CPT/HCPCS: 36415; 73030; 80053; 80061; 82043; 82306; 82570; 82607; 82746; 84443

== ENCOUNTER → 2025-05-06 09:45 | Outpatient (BNV) | payer OTHER, SELFPAY | PROVIDERS: PCP Internal Medicine; Visit Provider Radiology Diagnostic Radiology | DX: M19.011 Primary osteoarthritis, right shoulder (principal) | CPT/HCPCS: 73030 ==